=== PATIENT | female | born 1960 | race African-American/Black ===

== ENCOUNTER 2016-03-05 10:22 | Inpatient (IN) | payer OTHER ==
[2016-03-05 10:43] VITALS: BMI 34.9
--- NOTE | 2016-03-05 11:46 | HP ---
COWS - Scale Resting Pulse: 2= [place] 101-120 Sweatin= Chills/Flushing Restless Observation: 1= Difficult to Sit Still Pupil Size: 0= Normal to Room Light Bone or Joint Aches: 2= Severe Diffuse Aches Runny Nose/ Eye Tearin= Nasal Congestion GI Upset > 30mins: 1= Stomach Cramp Tremor Observation: 2= Slight Tremor Visible Yawning Observation: 1= 1-2x During Session Anxiety or Irritability: 1=Feels Anxious/Irritable Goose Flesh Skin: 0=Smooth Skin COWS Score: 12 CIWA Score - CIWA Score Nausea/Vomitin-Mild Nausea/No Vomiting Muscle Tremors: 4-Moderate,w/Arms Extend Anxiety: 4-Mod. Anxious/Guarded Agitation: 1-Slight > Activity Paroxysmal Sweats: 1-Minimal Palms Moist Orientation: 0-Oriented Tacttile Disturbances: 1-Very Mild Itch/Numbness Auditory Disturbances: 1-Very Mild Visual Disturbances: 1-Very Mild Sensitivity Headache: 2-Mild CIWA-Ar Total Score: 16 Admission ROS BHS - HPI Chief Complaint: My wants me to stop, he's had it, I can't stop shaking. Allergies/Adverse Reactions: Allergies Allergy/AdvReac Type Severity Reaction Status Date / Time No Known Drug Allergies Allergy Severe Itching Verified 07/04/15 13:42 tomato [Tomato] Allergy Unknown Not Verified 07/04/15 13:42 Specified History of Present Illness: 55 yo woman here for detox from heroin and alcohol - requests valium instead of librium. Last here for detox in Jun, 2015. Interested in going back on methadone program. No seizures but does have black outs. BGM currently 325 - states she did not take her morning insulin. Exam Limitations: Clinical Condition - Ebola screening Have you traveled outside of the country in the last 21 days: No (N) Have you had contact with anyone from an Ebola affected area: No Have you been sick,other than usual withdrawal symptoms: No Do you have a fever: No - Review of Systems Constitutional: Chills, Loss of Appetite, Night Sweats, Changes in sleep, Weakness, Unintentional Wgt. Loss EENT: reports: Blurred Vision, Nose Congestion Respiratory: reports: No Symptoms reported Cardiac: reports: No Symptoms Reported GI: reports: Nausea, Poor Appetite, Indigestion : reports: Frequency Musculoskeletal: reports: Back Pain, Joint Pain, Muscle Pain Integumentary: reports: No Symptoms Reported Neuro: reports: Headache, Numbness, Tremors Endocrine: reports: No Symptoms Reported Hematology: reports: No Symptoms Reported Psychiatric: reports: Judgement Intact, Mood/Affect Appropiate, Agitated, Anxious Other Systems: Reviewed and Negative Patient History - Patient Medical History Hx Anemia: No Hx Asthma: Yes (ON ALBUTEROLINHALER) Hx Chronic Obstructive Pulmonary Disease (COPD): No Hx Cancer: No Hx Cardiac Disorders: No Hx Congestive Heart Failure: No Hx Hypertension: Yes Hx Hypercholesterolemia: No Hx Pacemaker: No HX Cerebrovascular Accident: No Hx Seizures: No Hx Dementia: No Hx Diabetes: Yes Hx Gastrointestinal Disorders: No Hx Liver Disease: Yes Hx Genitourinary Disorders: No Hx Sexually Transmitted Disorders: Yes (gonorrhea) Hx Renal Disease (ESRD): No Hx Thyroid Disease: No Hx Human Immunodeficiency Virus (HIV): No Hx Hepatitis C: Yes (NO TREATMENT) Hx Depression: Yes Hx Suicide Attempt: Yes (1999) Hx Bipolar Disorder: No Hx Schizophrenia: No Other Medical History: low back pain - severe degenerative changes - Patient Surgical History Past Surgical History: Yes Hx Neurologic Surgery: No Hx Cataract Extraction: No Hx Cardiac Surgery: No Hx Lung Surgery: No Hx Breast Surgery: Yes (Left breast LUMPECTOMY - 2005 BENIGN) Hx Breast Biopsy: Yes Hx Abdominal Surgery: Yes (Hysterectomy -2007) Hx Appendectomy: No Hx Cholecystectomy: No Hx Genitourinary Surgery: No Hx Section: No Hx Orthopedic Surgery: No Anesthesia Reaction: No - PPD History Previous Implant?: Yes Documented Results: Negative w/proof Implanted On Prior [facility] Admission?: No Date: 07/04/15 Results: 0 mm PPD to be Administered?: No - Reproductive History Patient is a Female of Child Bearing Age (11 -55 yrs old): Yes Last Menstrual Period: 10/07/07 Patient : No - Smoking Cessation Smoking history: Current every day smoker Have you smoked in the past 12 months: Yes Aproximately how many cigarettes per day: 10 Cigars Per Day: 0 Hx Chewing Tobacco Use: No Initiated information on smoking cessation: Yes 'Breaking Loose' booklet given: 03/05/16 (given on admission to floor) - Substance & Tx. History Hx Alcohol Use: Yes Hx Substance Use: Yes Substance Use Type: Alcohol, Heroin Hx Substance Use Treatment: Yes (detox, rehab, hx mmtp) - Substances Abused Alcohol Route: Oral Frequency: Daily Amount used: two sixteen oz beers Age of first use: 17 Date of Last Use: 03/05/16 Heroin Route: Inhalation Frequency: Daily Amount used: 10 bags Age of first use: 13 Date of Last Use: 03/04/16 Crack Route: Smoking Frequency: 1-2 times per week Amount used: $40 Age of first use: 39 Date of Last Use: 03/03/16 Family Disease History - Family Disease History Family Disease History: Diabetes: Mother ( FROM [place]. OF THE LIVER,HTN), Brother, Heart Disease: Mother, Sister ( MII), CA: Father (etoh, ), Mother Admission Physical Exam [facility] - Vital Signs Vital Signs: Vital Signs - 24 hr 03/05/16 10:41 Temperature 97.4 F L Pulse Rate 106 H Respiratory 18 Rate Blood Pressure 134/99 - Physical General Appearance: Yes: Nourished, Appropriately Dressed, Moderate Distress, Tremorous, Anxious HEENTM: Yes: Hearing grossly Normal, Normal ENT Inspection, Normocephalic, Normal Voice, Pharynx Normal Respiratory: Yes: Normal Breath Sounds, No Respiratory Distress Neck: Yes: No masses,lesions,Nodules, Supple Breast: Yes: Breast Exam Deferred Cardiology: Yes: Regular Rhythm, Regular Rate Abdominal: Yes: Soft Genitourinary: Yes: Frequency Back: Yes: Decreased Range of Motion Musculoskeletal: Yes: full range of Motion, Gait Steady Extremities: Yes: Normal Inspection, Normal Range of Motion, Tremors Neurological: Yes: Fully Oriented, Alert, Normal Mood/Affect, Numbness Integumentary: Yes: Normal Color, Warm Lymphatic: Yes: Within Normal Limits - Diagnostic (1) Alcohol dependence with uncomplicated withdrawal Current Visit: Yes Status: Chronic (2) Uncomplicated opioid dependence Current Visit: Yes Status: Chronic (3) Arthritis Current Visit: Yes Status: Chronic (4) HTN (hypertension) Current Visit: Yes Status: Chronic Qualifiers: Qualified Code(s): I10 - Essential (primary) hypertension (5) Hepatitis C Current Visit: Yes Status: Chronic (6) Nicotine dependence Current Visit: Yes Status: Chronic Qualifiers: Qualified Code(s): F17.210 - Nicotine dependence, cigarettes, uncomplicated (7) Diabetes mellitus with insulin therapy Current Visit: Yes Status: Chronic (8) Low back pain Current Visit: Yes Status: Chronic Qualifiers: Qualified Code(s): M54.5 - Low back pain Cleared for Admission [facility] - Detox or Rehab [facility] Level of Care: Medically Managed Detox Regimen/Protocol: Methadone/Valium [facility] Breath Alcohol Content Breath Alcohol Content: 0.044 Urine Pregancy Test - Result Urine Test Results: Negative- NO Line Present Urine Drug Screen - Results Drug Screen Negative: No Urine Drug Screen Results: KENYA-Cocaine, OPI-Opiates
[2016-03-05] MEDS ORDERED: MAGNESIUM HYDROX 2400MG/30ML ORAL SUSPENSION 30 ML CUP PO PRN (13:05)
[2016-03-05] MEDS ORDERED: MAGNESIUM CITRATE 300 ML BOTTLE PO PRN (13:05)
[2016-03-05] MEDS ORDERED: diphenhydrAMINE HCL 50 MG CAPSULE PO PRN (13:05)
[2016-03-05] MEDS ORDERED: P-EPHED 60MG/TRIPROLIDI 2.5MG TABLET PO PRN (13:05)
[2016-03-05] MEDS ORDERED: MAG HYDROX/AL HYDROX/SIMETH 30 ML UNIT-DOSE CUP PO PRN (13:05)
[2016-03-05] MEDS ORDERED: LOPERAMIDE HCL 2 MG CAPSULE PO PRN (13:05)
[2016-03-05] MEDS ORDERED: MENTHOL/PHENOL 1 EACH UD MM PRN (13:05)
[2016-03-05] MEDS ORDERED: METHADONE HCL 10 MG TABLET (FOR DETOX USE ONLY) PO ONE ×2 (13:05→23:00)
[2016-03-05] MEDS ORDERED: IBUPROFEN 400 MG TABLET (FP) PO PRN (13:05)
[2016-03-05] MEDS ORDERED: diazePAM 5 MG TABLET PO ONE (13:05)
[2016-03-05] MEDS ORDERED: ACETAMINOPHEN 325 MG TABLET (FP) PO PRN (13:05)
[2016-03-05] MEDS ORDERED: guaiFENesin/D-METHORPHAN HB 10 ML UNIT-DOSE CUPS PO PRN (13:05)
[2016-03-05] MEDS ORDERED: ALBUTEROL SO4 6.7 GM HFA INHALER IH PRN (13:12)
--- NOTE | 2016-03-05 13:41 | CONSULT ---
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 Substance Abuse History: - Smoking Cessation. Smoking history: Current every day smoker. Have you smoked in the past 12 months: Yes. Aproximately how many cigarettes per day: 10. Cigars Per Day: 0. Hx Chewing Tobacco Use: No. Initiated information on smoking cessation: Yes. 'Breaking Loose' booklet given : 03/05/16 (given on admission to floor). - Substance & Tx. History. Hx Alcohol Use: Yes. Hx Substance Use: Yes. Substance Use Type: Alcohol, Heroin. Hx Substance Use Treatment: Yes (detox, rehab, hx mmtp). - Substances Abused. Alcohol. Route: Oral. Frequency: Daily. Amount used: two sixteen oz beers. Age of first use: 17. Date of Last Use: 03/05/16. Heroin. Route : Inhalation. Frequency: Daily. Amount used: 10 bags. Age of first use: 13. Date of Last Use: 03/04/16. Crack. Route: Smoking. Frequency: 1-2 times per week. Amount used: $40. Age of first use: 39. Date of Last Use: 03/03/16 Medical History: Significant for a history of bronchial asthma,hypertension, diabetes mellitus,hepatitis C,arthritis,low back pain,psoriasis and past surgeries (hysterectomy and left breast lumpectomy). Psychiatric History: History of one psychiatric hospitalization ([facility] in 1999) for depression.Diagnosed with Bipolar Disorder (previous records).Ms Goyal is under the care of Dr Marleni Matt (primary care physician) for medication management :lexapro 20 mg po/day (not taken for at least three months as per self-report) + zolpidem 10 mg/hs.Noted history of suicide attempt (1999).Patient indicates her wish to get back on lexapro and she insists on zolpidem at bedtime. Physical/Sexual Abuse/Trauma History: Patient denies. Additional Comment: Urine Drug Screen Results: KENYA-Cocaine, OPI-Opiates.Noted. Mental Status Exam - Mental Status Exam Alert and Oriented to: Time, Place, Person Cognitive Function: Good Patient Appearance: Well Groomed Mood: Nervous, Anxious, Apprehensive Affect: Mood Congruent Patient Behavior: Dependent (medication-seeking : pressuring this feature writer for scripts for benzodiazepines at discharge), Fatigued, Cooperative Speech Pattern: Clear Voice Loudness: Normal Thought Process: Goal Oriented Thought Disorder: Not Present Hallucinations: Denies Suicidal Ideation: Denies Homicidal Ideation: Denies Insight/Judgement: Poor Sleep: Poorly, Difficulty falling asleep Appetite: Good Muscle strength/Tone: Normal Gait/Station: Normal Psychiatric Findings - Problem List ([place] 1, 2,3) (1) Alcohol dependence with uncomplicated withdrawal Current Visit: Yes Status: Acute (2) Nicotine dependence Current Visit: Yes Status: Acute Qualifiers: Nicotine product type: cigarettes Substance use status: uncomplicated Qualified Code(s): F17.210 - Nicotine dependence, cigarettes, uncomplicated (3) Opioid dependence with withdrawal Current Visit: Yes Status: Acute (4) Cocaine dependence Current Visit: Yes Status: Acute Qualifiers: Substance use status: uncomplicated Qualified Code(s): F14.20 - Cocaine dependence, uncomplicated (5) Substance induced mood disorder Current Visit: Yes Status: Acute (6) Depressive disorder Current Visit: Yes Status: Chronic Comment: Self-report. (7) Arthritis Current Visit: Yes Status: Chronic (8) Diabetes mellitus with insulin therapy Current Visit: Yes Status: Chronic (9) Hepatitis C Current Visit: Yes Status: Chronic Qualifiers: Viral hepatitis chronicity: chronic (10) Low back pain Current Visit: Yes Status: Chronic Qualifiers: Chronicity: chronic Back pain laterality: midline Sciatica presence : without sciatica Qualified Code(s): M54.5 - Low back pain (11) Asthma Current Visit: Yes Status: Chronic Qualifiers: Asthma severity: mild intermittent Asthma complication type: uncomplicated Qualified Code(s): J45.20 - Mild intermittent asthma, uncomplicated (12) Psoriasis Current Visit: Yes Status: Chronic (13) Insomnia Current Visit: Yes Status: Acute - Initial Treatment Plan Initial Treatment Plan: Psychoeducation.Detoxification.Medications :zolpidem 5 mg po hs (reduced).Patient is made aware of the risk of parasomnias.Ms Goyal reports that zolpidem has been well tolerated for years.Pharmacy Claims reviewed :noted filled script for ambien on 02/18/[address] Gamez @ [facility] 10 mg # 30 tab/30 days).No script for zolpidem at discharge.Patient is made aware.She agrees with this careplan.She declines to take antidepressant medications (SSRI) and she is pressuring this feature writer for benzodiazepine scripts at discharge.Observation.
--- NOTE | 2016-03-05 16:13 | EKG ---
Test Reason : Blood Pressure : / mmHG Vent. Rate : 090 BPM Atrial Rate : 090 BPM P-R Int : 152 ms QRS Dur : 074 ms QT Int : 384 ms P-R-T Axes : 068 056 066 degrees QTc Int : 469 ms NORMAL SINUS RHYTHM BIATRIAL ENLARGEMENT ABNORMAL ECG WHEN COMPARED WITH ECG OF 09-NOV-2015 17:09, NONSPECIFIC T WAVE ABNORMALITY NO LONGER EVIDENT IN INFERIOR LEADS Confirmed by NATE CHOWDHURY, SILVIA ([id number]) on 03/05/2016 4:12:43 PM Referred By: Confirmed By:SILVIA SULLIVAN MD
[2016-03-05] MEDS ORDERED: INSULIN (NOVOLOG) ASPART 100 UNITS/ML 10ML VIAL ONE ×2 (16:52→21:43)
[2016-03-05] MEDS: INSULIN SLIDING SCALE (NOVOLOG) 1 VIAL SQ SCH ×2 (16:59→22:39)
[2016-03-05] MEDS: diazePAM 5 MG TABLET PO PRN (17:17)
[2016-03-05 17:52] LABS: URINE APPEARANCE SLCLOUDY; URINE BILIRUBIN NEGATIVE (NEGATIVE); URINE BLOOD NEGATIVE (NEGATIVE); URINE COLOR LTYELLOW; URINE GLUCOSE (UA) 3+ (NEGATIVE); URINE KETONE NEGATIVE (NEGATIVE); URINE LEUK ESTERASE NEGATIVE (NEGATIVE); URINE NITRITE NEGATIVE (NEGATIVE); URINE PROTEIN NEGATIVE (NEGATIVE); URINE UROBILINOGEN NEGATIVE E.U./dl (0.2-1.0)
[2016-03-05] MEDS: INSULIN DETEMIR 100 UNITS/ML MDV SQ SCH (22:38)
[2016-03-05] MEDS: cloNIDine HCL 0.1 MG TABLET PO SCH (22:38)
[2016-03-05] MEDS: ZOLPIDEM TARTRATE 5 MG TABLET PO PRN (22:38)
[2016-03-05] MEDS: THIAMINE HCL 100 MG TABLET (FP) PO SCH (22:39)
[2016-03-05] MEDS: diazePAM 5 MG TABLET PO SCH (22:39)
[2016-03-06] MEDS: diazePAM 5 MG TABLET PO PRN ×3 (01:14→11:38)
[2016-03-06] MEDS: diazePAM 5 MG TABLET PO SCH ×3 (04:59→22:39)
[2016-03-06] MEDS ORDERED: INSULIN DETEMIR 100 UNITS/ML MDV SQ SCH (07:00)
[2016-03-06] MEDS ORDERED: INSULIN (NOVOLOG) ASPART 100 UNITS/ML 10ML VIAL ONE ×4 (07:14→21:09)
[2016-03-06] MEDS: INSULIN DETEMIR 100 UNITS/ML MDV SQ SCH ×2 (07:16→21:12)
[2016-03-06] MEDS: INSULIN SLIDING SCALE (NOVOLOG) 1 VIAL SQ SCH ×4 (07:16→21:12)
[2016-03-06 09:15] LABS: MCH 28.1 pg (25.7-33.7); MCHC 32.4 g/dl (32.0-36.0); MEAN CELL VOLUME 86.7 fl (80-96); MEAN PLT VOLUME 9.5 fl (7.5-11.1); PLATELET COUNT 217 K/MM3 (134-434); RDW 13.7 % (11.6-15.6); WHITE BLOOD COUNT 5.2 K/mm3 (4.0-10.0)
[2016-03-06 09:28] LABS: ALBUMIN 4.1 g/dl (3.4-5.0); ANION GAP 6 (8-16); CALCIUM 9.4 mg/dL (8.5-10.1); CO2 29 mmol/L (21-32)
[2016-03-06 09:33] LABS: ALK PHOS 151 U/L (45-117); BILIRUBIN,TOTAL 0.4 mg/dL (0.2-1.0); CREATININE 0.8 mg/dL (0.55-1.02); SGOT/AST 11 U/L (15-37); SGPT/ALT 19 U/L (12-78); TOT PROT 7.6 g/dl (6.4-8.2)
[2016-03-06 09:52] LABS: GLUCOSE,RANDOM 355 mg/dL (74-106)
[2016-03-06] MEDS ORDERED: METHADONE HCL 10 MG TABLET (FOR DETOX USE ONLY) PO SCH (10:00)
[2016-03-06] MEDS: cloNIDine HCL 0.1 MG TABLET PO SCH ×2 (10:51→22:39)
[2016-03-06] MEDS: amLODIPine BESYLATE 5 MG TABLET (FP) PO SCH (10:51)
--- NOTE | 2016-03-06 13:57 | PN ---
[facility] CIWA - CIWA Score Nausea/Vomitin Muscle Tremors: 3 Anxiety: 3 Agitation: 3 Paroxysmal Sweats: 1-Minimal Palms Moist Orientation: 0-Oriented Tacttile Disturbances: 1-Very Mild Itch/Numbness Auditory Disturbances: 1-Very Mild Visual Disturbances: 1-Very Mild Sensitivity Headache: 2-Mild CIWA-Ar Total Score: 18 BHS COWS - Scale Resting Pulse: 2= [place] 101-120 Sweatin= Chills/Flushing Restless Observation: 3= Extraneous Movement Pupil Size: 1= Pupils >than Normal Bone or Joint Aches: 2= Severe Diffuse Aches Runny Nose/ Eye Tearin= Runny Nose/Eyes GI Upset > 30mins: 2= Nausea/Diarrhea Tremor Observation of Outstretched Hands: 2= Slight Tremor Visible Yawning Observation: 1= 1-2x During Session Anxiety or Irritability: 2=Irritable/Anxious Goose Flesh Skin: 0=Smooth Skin COWS Score: 18 S Progress Note (SOAP) Subjective: ALERT,IRRITABLE,ANXIOUS,INTERRUPTED SLEEP,PAIN IN THE BODY AND BACK Objective: 03/06/16 13:54 Vital Signs Temperature 97.9 F 03/06/16 10:00 Pulse Rate 102 H 03/06/16 10:00 Respiratory Rate 20 03/06/16 10:00 Blood Pressure 147/94 03/06/16 10:00 O2 Sat by Pulse Oximetry (%) 03/06/16 13:54 EKG NSR Laboratory Last Values WBC 5.2 K/mm3 (4.0-10.0) D 03/06/16 07:20 RBC 5.17 M/mm3 (3.60-5.2) 03/06/16 07:20 Hgb 14.5 GM/dL (10.7-15.3) D 03/06/16 07:20 Hct 44.8 % (32.4-45.2) D 03/06/16 07:20 MCV 86.7 fl (80-96) 03/06/16 07:20 MCHC 32.4 g/dl (32.0-36.0) 03/06/16 07:20 RDW 13.7 % (11.6-15.6) 03/06/16 07:20 Plt Count 217 K/MM3 (134-434) 03/06/16 07:20 MPV 9.5 fl (7.5-11.1) D 03/06/16 07:20 Sodium 132 mmol/L (136-145) L 03/06/16 07:20 Potassium 4.2 mmol/L (3.5-5.1) D 03/06/16 07:20 Chloride 97 mmol/L (98-107) L 03/06/16 07:20 Carbon Dioxide 29 mmol/L (21-32) 03/06/16 07:20 Anion Gap 6 (8-16) L 03/06/16 07:20 BUN 17 mg/dL (7-18) D 03/06/16 07:20 Creatinine 0.8 mg/dL (0.55-1.02) 03/06/16 07:20 Creat Clearance w eGFR > 60 (>60) 03/06/16 07:20 POC Glucometer 345 UNITS (()) 03/06/16 06:04 Random Glucose 355 mg/dL (74-106) H* D 03/06/16 07:20 Calcium 9.4 mg/dL (8.5-10.1) 03/06/16 07:20 Total Bilirubin 0.4 mg/dL (0.2-1.0) 03/06/16 07:20 AST 11 U/L (15-37) L D 03/06/16 07:20 ALT 19 U/L (12-78) D 03/06/16 07:20 Alkaline Phosphatase 151 U/L (45-117) H 03/06/16 07:20 Total Protein 7.6 g/dl (6.4-8.2) 03/06/16 07:20 Albumin 4.1 g/dl (3.4-5.0) D 03/06/16 07:20 Urine Color Ltyellow 03/05/16 14:00 Urine Appearance Slcloudy 03/05/16 14:00 Urine pH 5.0 (5.0-8.0) 03/05/16 14:00 Ur Specific [place] 1.028 (1.001-1.035) 03/05/16 14:00 Urine Protein Negative (NEGATIVE) 03/05/16 14:00 Urine Glucose (UA) 3+ (NEGATIVE) H 03/05/16 14:00 Urine Ketones Negative (NEGATIVE) 03/05/16 14:00 Urine Blood Negative (NEGATIVE) 03/05/16 14:00 Urine Nitrite Negative (NEGATIVE) 03/05/16 14:00 Urine Bilirubin Negative (NEGATIVE) 03/05/16 14:00 Urine Urobilinogen Negative E.U./dl (0.2-1.0) 03/05/16 14:00 Ur Leukocyte Esterase Negative (NEGATIVE) 03/05/16 14:00 RPR Titer Nonreactive (NONREACTIVE) 03/06/16 07:20 Assessment: 03/06/16 13:54 WITHDRAWAL SYMPTOM 03/06/16 13:56 Plan: CONTINUE DETOX,BGM MONITORING WITH INSULIN COVERAGE
[2016-03-06] MEDS: hydrOXYzine PAMOATE 50 MG CAPSULE (FP) PO PRN (20:40)
[2016-03-06] MEDS: ZOLPIDEM TARTRATE 5 MG TABLET PO PRN (22:38)
[2016-03-06] MEDS: THIAMINE HCL 100 MG TABLET (FP) PO SCH (22:39)
[2016-03-07] MEDS: diazePAM 5 MG TABLET PO PRN ×4 (02:03→16:57)
[2016-03-07] MEDS: hydrOXYzine PAMOATE 50 MG CAPSULE (FP) PO PRN ×3 (06:09→15:02)
[2016-03-07] MEDS ORDERED: INSULIN (NOVOLOG) ASPART 100 UNITS/ML 10ML VIAL ONE ×2 (07:26→16:55)
[2016-03-07] MEDS: INSULIN DETEMIR 100 UNITS/ML MDV SQ SCH ×2 (07:32→22:46)
[2016-03-07] MEDS: INSULIN SLIDING SCALE (NOVOLOG) 1 VIAL SQ SCH ×4 (07:32→22:46)
--- NOTE | 2016-03-07 09:11 | PN ---
Psychiatric Progress Note Vital Signs: Vital Signs Period Temp Pulse Resp BP Sys/Hernández Pulse Ox Last 24 Hr 96.1 F-97.9 F 94-113 18-20 104-147/59-94 Date of Session: 03/07/16 Chief Complaint:: "need my ambien" HPI: Patient is a 55 year old female with history of heroin,cocaine and alcohol dependence.Patient is single,a mother of two,domiciled and unemployed and supported on SSI benefits. ROS: Significant for a history of bronchial asthma,hypertension,diabetes mellitus,hepatitis C,arthritis,low back pain,psoriasis and past surgeries ( hysterectomy and left breast lumpectomy). Current Medications: Active Medications Generic Name Dose Route Start Last Admin Trade Name Freq PRN Reason Stop Dose Admin Acetaminophen 650 mg 03/05/16 13:05 03/07/16 07:33 Tylenol - PO 650 mg Q4H PRN Administration FEVER OR PAIN Al Hydroxide/Mg Hydroxide 30 ml 03/05/16 13:05 Mylanta Oral Suspension - PO Q6H PRN DYSPEPSIA Albuterol Sulfate 2 puff 03/05/16 13:12 03/06/16 13:24 Ventolin Hfa Inhaler - IH 2 puff Q4H PRN Administration SHORT OF BREATH/WHEEZING Amlodipine Besylate 5 mg 03/06/16 10:00 03/06/16 10:51 Norvasc - PO 5 mg DAILY ROSY Administration Clonidine 0.2 mg 03/05/16 22:00 03/06/16 22:39 Catapres - PO 0.2 mg BID ROSY Administration Diazepam 10 mg 03/05/16 13:05 03/07/16 07:32 Valium - PO 03/08/16 13:05 10 mg Q4H PRN Administration WITHDRAWAL(CONT SUBST) Diazepam 5 mg 03/07/16 10:00 Valium - PO 03/08/16 22:01 BID ROSY Diazepam 5 mg 03/09/16 10:00 Valium - PO 03/09/16 10:01 DAILY ROSY Diphenhydramine HCl 50 mg 03/05/16 13:05 Benadryl - PO HSMR1 PRN INSOMNIA Eucalyptus/Menthol/Phenol/Sorbitol 1 each 03/05/16 13:05 Cepastat Lozenge - MM Q4H PRN SORE THROAT Guaifenesin 10 ml 03/05/16 13:05 03/06/16 13:25 Robitussin Dm - PO 10 ml Q6H PRN Administration COUGH Hydroxyzine Pamoate 50 mg 03/05/16 13:05 03/07/16 06:09 Vistaril - PO 50 mg Q4H PRN Administration AGITATION Ibuprofen 400 mg 03/05/16 13:05 Motrin - PO Q6H PRN SEVERE PAIN Insulin Aspart 1 vial 03/05/16 16:30 03/07/16 07:32 Novolog Vial Sliding Scale - SQ 12 units ACHS ROSY Administration Protocol Insulin Detemir 20 units 03/06/16 07:00 03/07/16 07:32 Levemir Vial SQ 20 units AM ROSY Administration Insulin Detemir 10 units 03/05/16 22:00 03/06/16 21:12 Levemir Vial SQ 10 units HS ROSY Administration Loperamide HCl 4 mg 03/05/16 13:05 Imodium - PO Q6H PRN DIARRHEA Magnesium Citrate 300 ml 03/05/16 13:05 Citroma - PO Q48H PRN CONSTIPATION Magnesium Hydroxide 30 ml 03/05/16 13:05 Milk Of Magnesia - PO DAILY PRN CONSTIPATION Methadone HCl 10 mg 03/09/16 10:00 Dolophine - PO 03/09/16 10:01 DAILY ROSY Methadone HCl 15 mg 03/07/16 10:00 Dolophine - PO 03/08/16 10:01 DAILY ROSY Methadone HCl 5 mg 03/10/16 06:00 Dolophine - PO 03/10/16 06:01 DAILY@0600 [facility] Multivit/Folic Acid/Iron 1 tab 03/06/16 10:00 03/06/16 10:51 Vitamins (Sjr) - PO 1 tab DAILY [facility] Administration Pseudoephedrine/Triprolidine 1 combo 03/05/16 13:05 Actifed - PO TID PRN NASAL CONGESTION Thiamine HCl 100 mg 03/05/16 22:00 03/06/16 22:39 Vitamin B1 - PO 100 mg HS ROSY Administration Zolpidem Tartrate 5 mg 03/05/16 14:42 03/06/16 22:38 Ambien - PO 5 mg HS PRN Administration INSOMNIA Medication(s) Change(s): increase ambien to 10 mg po hs. Current Side Effect: No Lab tests ordered: No Lab tests reviewed: Yes Provider note:: Patient reports history of bipolar d/o, depressed type, she was seen by medications continued, but ambien 5 mg ordered. Patient reports she needs 10, will change, continue detox. protocol. Total face to face time:: 15 Mental Status Exam - Mental Status Exam Alert and Oriented to: Time, Place, Person Cognitive Function: Good Patient Appearance: Well Groomed Mood: Irritable Affect: Appropriate, Mood Congruent Patient Behavior: Appropriate Speech Pattern: Appropriate Voice Loudness: Normal Thought Process: Intact Hallucinations: Denies Suicidal Ideation: Denies Homicidal Ideation: Denies Insight/Judgement: Fair Sleep: Difficulty falling asleep Appetite: Fair Muscle strength/Tone: Normal Gait/Station: Normal Psychiatric Treatment Plan - Problem List (1) Alcohol dependence with uncomplicated withdrawal Current Visit: Yes (2) Cocaine dependence Current Visit: Yes Qualifiers: Substance use status: uncomplicated Qualified Code(s): F14.20 - Cocaine dependence, uncomplicated (3) Nicotine dependence Current Visit: Yes Qualifiers: Nicotine product type: cigarettes Substance use status: uncomplicated Qualified Code(s): F17.210 - Nicotine dependence, cigarettes, uncomplicated (4) Substance induced mood disorder Current Visit: Yes
[2016-03-07] MEDS: amLODIPine BESYLATE 5 MG TABLET (FP) PO SCH (10:29)
[2016-03-07] MEDS: cloNIDine HCL 0.1 MG TABLET PO SCH ×2 (10:29→22:45)
[2016-03-07] MEDS: diazePAM 5 MG TABLET PO SCH ×2 (10:30→22:45)
[2016-03-07] MEDS: METHADONE HCL 5 MG TABLET (FOR DETOX USE ONLY) PO SCH (10:30)
[2016-03-07] MEDS: LIDOCAINE 5% TOPICAL PATCH TP SCH (11:59)
--- NOTE | 2016-03-07 14:19 | PN ---
[facility] CIWA - CIWA Score Nausea/Vomitin Muscle Tremors: 3 Anxiety: 3 Agitation: 2 Paroxysmal Sweats: 1-Minimal Palms Moist Orientation: 0-Oriented Tacttile Disturbances: 1-Very Mild Itch/Numbness Auditory Disturbances: 1-Very Mild Visual Disturbances: 1-Very Mild Sensitivity Headache: 2-Mild CIWA-Ar Total Score: 17 BHS COWS - Scale Resting Pulse: 1= [place] 81-100 Sweatin= Chills/Flushing Restless Observation: 3= Extraneous Movement Pupil Size: 1= Pupils >than Normal Bone or Joint Aches: 2= Severe Diffuse Aches Runny Nose/ Eye Tearin= Runny Nose/Eyes GI Upset > 30mins: 2= Nausea/Diarrhea Tremor Observation of Outstretched Hands: 2= Slight Tremor Visible Yawning Observation: 1= 1-2x During Session Anxiety or Irritability: 2=Irritable/Anxious Goose Flesh Skin: 0=Smooth Skin COWS Score: 17 S Progress Note (SOAP) Subjective: ALERT,IRRITABLE,ANXIOUS,TREMOR,PAIN IN THE BACK, Objective: 03/07/16 14:17 Vital Signs Temperature 98.1 F 03/07/16 10:28 Pulse Rate 95 H 03/07/16 10:28 Respiratory Rate 18 03/07/16 10:28 Blood Pressure 128/78 03/07/16 10:28 O2 Sat by Pulse Oximetry (%) Laboratory Last Values WBC 5.2 K/mm3 (4.0-10.0) D 03/06/16 07:20 RBC 5.17 M/mm3 (3.60-5.2) 03/06/16 07:20 Hgb 14.5 GM/dL (10.7-15.3) D 03/06/16 07:20 Hct 44.8 % (32.4-45.2) D 03/06/16 07:20 MCV 86.7 fl (80-96) 03/06/16 07:20 MCHC 32.4 g/dl (32.0-36.0) 03/06/16 07:20 RDW 13.7 % (11.6-15.6) 03/06/16 07:20 Plt Count 217 K/MM3 (134-434) 03/06/16 07:20 MPV 9.5 fl (7.5-11.1) D 03/06/16 07:20 Sodium 132 mmol/L (136-145) L 03/06/16 07:20 Potassium 4.2 mmol/L (3.5-5.1) D 03/06/16 07:20 Chloride 97 mmol/L (98-107) L 03/06/16 07:20 Carbon Dioxide 29 mmol/L (21-32) 03/06/16 07:20 Anion Gap 6 (8-16) L 03/06/16 07:20 BUN 17 mg/dL (7-18) D 03/06/16 07:20 Creatinine 0.8 mg/dL (0.55-1.02) 03/06/16 07:20 Creat Clearance w eGFR > 60 (>60) 03/06/16 07:20 POC Glucometer 149 UNITS (()) 03/07/16 11:25 Random Glucose 355 mg/dL (74-106) H* D 03/06/16 07:20 Calcium 9.4 mg/dL (8.5-10.1) 03/06/16 07:20 Total Bilirubin 0.4 mg/dL (0.2-1.0) 03/06/16 07:20 AST 11 U/L (15-37) L D 03/06/16 07:20 ALT 19 U/L (12-78) D 03/06/16 07:20 Alkaline Phosphatase 151 U/L (45-117) H 03/06/16 07:20 Total Protein 7.6 g/dl (6.4-8.2) 03/06/16 07:20 Albumin 4.1 g/dl (3.4-5.0) D 03/06/16 07:20 Urine Color Ltyellow 03/05/16 14:00 Urine Appearance Slcloudy 03/05/16 14:00 Urine pH 5.0 (5.0-8.0) 03/05/16 14:00 Ur Specific [place] 1.028 (1.001-1.035) 03/05/16 14:00 Urine Protein Negative (NEGATIVE) 03/05/16 14:00 Urine Glucose (UA) 3+ (NEGATIVE) H 03/05/16 14:00 Urine Ketones Negative (NEGATIVE) 03/05/16 14:00 Urine Blood Negative (NEGATIVE) 03/05/16 14:00 Urine Nitrite Negative (NEGATIVE) 03/05/16 14:00 Urine Bilirubin Negative (NEGATIVE) 03/05/16 14:00 Urine Urobilinogen Negative E.U./dl (0.2-1.0) 03/05/16 14:00 Ur Leukocyte Esterase Negative (NEGATIVE) 03/05/16 14:00 RPR Titer Nonreactive (NONREACTIVE) 03/06/16 07:20 Assessment: 03/07/16 14:17 WITHDRAWAL SYMPTOM Plan: CONTINUE DETOX,BGM MONITORING,LIDODERM PATCH FOR CHRONIC LOW BACK PAIN,
[2016-03-07] MEDS ORDERED: ZOLPIDEM TARTRATE 10 MG TABLET (PARK CARE ONLY) PO PRN (22:00)
[2016-03-07] MEDS: THIAMINE HCL 100 MG TABLET (FP) PO SCH (22:45)
[2016-03-08] MEDS: diazePAM 5 MG TABLET PO PRN ×2 (02:00→06:41)
[2016-03-08] MEDS ORDERED: INSULIN (NOVOLOG) ASPART 100 UNITS/ML 10ML VIAL ONE ×2 (06:33→11:25)
[2016-03-08] MEDS: INSULIN SLIDING SCALE (NOVOLOG) 1 VIAL SQ SCH ×3 (06:34→16:56)
[2016-03-08] MEDS: INSULIN DETEMIR 100 UNITS/ML MDV SQ SCH (06:34)
--- NOTE | 2016-03-08 09:41 | PN ---
[facility] Progress Note (SOAP) Subjective: interrupted sleep, sweats ,shakes , irritable Objective: 03/08/16 09:41 Vital Signs Temperature 98.6 F 03/08/16 07:01 Pulse Rate 90 03/08/16 07:01 Respiratory Rate 20 03/08/16 07:01 Blood Pressure 122/73 03/08/16 07:01 O2 Sat by Pulse Oximetry (%) Laboratory Tests 03/05/16 03/05/16 03/06/16 12:51 14:00 06:04 WBC RBC Hgb Hct MCV MCHC RDW Plt Count MPV Sodium Potassium Chloride Carbon Dioxide Anion Gap BUN Creatinine Creat Clearance w eGFR POC Glucometer 325 345 Random Glucose Calcium Total Bilirubin AST ALT Alkaline Phosphatase Total Protein Albumin Urine Color Ltyellow Urine Appearance Slcloudy Urine pH 5.0 Ur Specific [place] 1.028 Urine Protein Negative Urine Glucose (UA) 3+ H Urine Ketones Negative Urine Blood Negative Urine Nitrite Negative Urine Bilirubin Negative Urine Urobilinogen Negative Ur Leukocyte Esterase Negative RPR Titer 03/06/16 03/06/16 03/06/16 07:20 07:20 07:20 WBC 5.2 D RBC 5.17 Hgb 14.5 D Hct 44.8 D MCV 86.7 MCHC 32.4 RDW 13.7 Plt Count 217 MPV 9.5 D Sodium 132 L Potassium 4.2 D Chloride 97 L Carbon Dioxide 29 Anion Gap 6 L BUN 17 D Creatinine 0.8 Creat Clearance w eGFR > 60 POC Glucometer Random Glucose 355 H* D Calcium 9.4 Total Bilirubin 0.4 AST 11 L D ALT 19 D Alkaline Phosphatase 151 H Total Protein 7.6 Albumin 4.1 D Urine Color Urine Appearance Urine pH Ur Specific [place] Urine Protein Urine Glucose (UA) Urine Ketones Urine Blood Urine Nitrite Urine Bilirubin Urine Urobilinogen Ur Leukocyte Esterase RPR Titer Nonreactive 03/07/16 03/07/16 03/07/16 11:25 16:22 21:19 WBC RBC Hgb Hct MCV MCHC RDW Plt Count MPV Sodium Potassium Chloride Carbon Dioxide Anion Gap BUN Creatinine Creat Clearance w eGFR POC Glucometer 149 352 270 Random Glucose Calcium Total Bilirubin AST ALT Alkaline Phosphatase Total Protein Albumin Urine Color Urine Appearance Urine pH Ur Specific [place] Urine Protein Urine Glucose (UA) Urine Ketones Urine Blood Urine Nitrite Urine Bilirubin Urine Urobilinogen Ur Leukocyte Esterase RPR Titer 03/08/16 11:40 pt aox3 in nad sitting in bed Assessment: 03/08/16 09:41 withdrawl sx;s 03/08/16 11:40 dm uncontrolled Plan: cont. detox increase fluids monitor bgms , coverage as indicated
[2016-03-08] MEDS: amLODIPine BESYLATE 5 MG TABLET (FP) PO SCH (10:39)
[2016-03-08] MEDS: cloNIDine HCL 0.1 MG TABLET PO SCH (10:39)
[2016-03-08] MEDS: METHADONE HCL 5 MG TABLET (FOR DETOX USE ONLY) PO SCH (10:39)
[2016-03-08] MEDS: diazePAM 5 MG TABLET PO SCH (10:40)
[2016-03-08] MEDS: LIDOCAINE 5% TOPICAL PATCH TP SCH (10:42)
[2016-03-08] MEDS: hydrOXYzine PAMOATE 50 MG CAPSULE (FP) PO PRN (13:51)
[2016-03-08 14:30] VITALS: BP 103/73; PULSE 110; TEMP 96.9
[2016-03-08] MEDS ORDERED: diazePAM 5 MG TABLET PO ONE (15:08)
--- NOTE | 2016-03-08 21:56 | DS ---
[id number] Present History: Alcohol Dependence, Cocaine Dependence, Opioid Dependence Pertinent Past History: DIABETES II HYPERTENSION - Physical Exam Results Vital Signs: Vital Signs Temperature 96.9 F L 03/08/16 14:30 Pulse Rate 110 H 03/08/16 14:30 Respiratory Rate 20 03/08/16 14:30 Blood Pressure 103/73 03/08/16 14:30 O2 Sat by Pulse Oximetry (%) Pertinent Admission Physical Exam Findings: WITHDRAWAL SX Laboratory Last Values WBC 5.2 K/mm3 (4.0-10.0) D 03/06/16 07:20 RBC 5.17 M/mm3 (3.60-5.2) 03/06/16 07:20 Hgb 14.5 GM/dL (10.7-15.3) D 03/06/16 07:20 Hct 44.8 % (32.4-45.2) D 03/06/16 07:20 MCV 86.7 fl (80-96) 03/06/16 07:20 MCHC 32.4 g/dl (32.0-36.0) 03/06/16 07:20 RDW 13.7 % (11.6-15.6) 03/06/16 07:20 Plt Count 217 K/MM3 (134-434) 03/06/16 07:20 MPV 9.5 fl (7.5-11.1) D 03/06/16 07:20 Sodium 132 mmol/L (136-145) L 03/06/16 07:20 Potassium 4.2 mmol/L (3.5-5.1) D 03/06/16 07:20 Chloride 97 mmol/L (98-107) L 03/06/16 07:20 Carbon Dioxide 29 mmol/L (21-32) 03/06/16 07:20 Anion Gap 6 (8-16) L 03/06/16 07:20 BUN 17 mg/dL (7-18) D 03/06/16 07:20 Creatinine 0.8 mg/dL (0.55-1.02) 03/06/16 07:20 Creat Clearance w eGFR > 60 (>60) 03/06/16 07:20 POC Glucometer 136 UNITS (()) 03/08/16 16:28 Random Glucose 355 mg/dL (74-106) H* D 03/06/16 07:20 Calcium 9.4 mg/dL (8.5-10.1) 03/06/16 07:20 Total Bilirubin 0.4 mg/dL (0.2-1.0) 03/06/16 07:20 AST 11 U/L (15-37) L D 03/06/16 07:20 ALT 19 U/L (12-78) D 03/06/16 07:20 Alkaline Phosphatase 151 U/L (45-117) H 03/06/16 07:20 Total Protein 7.6 g/dl (6.4-8.2) 03/06/16 07:20 Albumin 4.1 g/dl (3.4-5.0) D 03/06/16 07:20 Urine Color Ltyellow 03/05/16 14:00 Urine Appearance Slcloudy 03/05/16 14:00 Urine pH 5.0 (5.0-8.0) 03/05/16 14:00 Ur Specific [place] 1.028 (1.001-1.035) 03/05/16 14:00 Urine Protein Negative (NEGATIVE) 03/05/16 14:00 Urine Glucose (UA) 3+ (NEGATIVE) H 03/05/16 14:00 Urine Ketones Negative (NEGATIVE) 03/05/16 14:00 Urine Blood Negative (NEGATIVE) 03/05/16 14:00 Urine Nitrite Negative (NEGATIVE) 03/05/16 14:00 Urine Bilirubin Negative (NEGATIVE) 03/05/16 14:00 Urine Urobilinogen Negative E.U./dl (0.2-1.0) 03/05/16 14:00 Ur Leukocyte Esterase Negative (NEGATIVE) 03/05/16 14:00 RPR Titer Nonreactive (NONREACTIVE) 03/06/16 07:20 LAB NOTED - Treatment Hospital Course: Detox Protocol Followed, Responded well - Medication Discharge Medications: Ambulatory Orders Insulin (Levemir) [Levemir Flexpen -] 10 units SQ HS 06/18/14 Clonidine HCl [Catapres -] 0.2 mg PO BID 10/01/14 Albuterol Sulfate Inhaler - [Ventolin HFA Inhaler -] 2 inh PO Q4H PRN #1 inhaler 11/13/15 Amlodipine Besylate [Norvasc -] 5 mg PO DAILY #30 tablet 11/13/15 Escitalopram Oxalate [Lexapro -] 20 mg PO DAILY #30 tablet 11/13/15 Insulin (Levemir) [Levemir Vial] 20 units SQ AM 03/05/16 - AMA Did Patient Leave Against Medical Advice: Yes
[2016-03-09] MEDS ORDERED: METHADONE HCL 10 MG TABLET (FOR DETOX USE ONLY) PO SCH (10:00)
[2016-03-09] MEDS ORDERED: diazePAM 5 MG TABLET PO SCH (10:00)
[2016-03-10] MEDS ORDERED: METHADONE HCL 5 MG TABLET (FOR DETOX USE ONLY) PO SCH (06:00)
== END 2016-03-08 20:40 | disposition left against medical advice (07) | DRG 770 ==
LOC: YASAS 10:22 → Y6N 12:29
PROVIDERS: ADMIT Internal Medicine; ATTEND Internal Medicine
PROC: HZ2ZZZZ Detoxification Services for Substance Abuse Treatment (ICD-10-PCS; principal; 2016-03-05)
DX: F11.23 Opioid dependence with withdrawal (principal); F10.230 Alcohol dependence with withdrawal, uncomplicated; F14.20 Cocaine dependence, uncomplicated; F19.24 Other psychoactive substance dependence with psychoactive substance-induced mood disorder; F32.9 Major depressive disorder, single episode, unspecified; E11.65 Type 2 diabetes mellitus with hyperglycemia; Z79.4 Long term (current) use of insulin; I10 Essential (primary) hypertension; J45.909 Unspecified asthma, uncomplicated; B18.2 Chronic viral hepatitis C; M54.5 Low back pain; M12.9 Arthropathy, unspecified; L40.9 Psoriasis, unspecified; Z90.710 Acquired absence of both cervix and uterus; Z87.42 Personal history of other diseases of the female genital tract; Z98.890 Other specified postprocedural states
CPT/HCPCS: 36415; 80053; 81003; 85027; 86593; 93005; 93010

== ENCOUNTER → 2016-06-30 | Emergency (ER) | payer OTHER ==
[~2016-06-30] MED LIST: ACETAMINOPHEN WITH CODEINE 300MG/30MG TABLET ONE; ACETAMINOPHEN WITH CODEINE 300MG/30MG TABLET PO ONE; CIPROFLOXACIN HCL 0.3% OPHTH 2.5ML BOTTLE ONE; ERYTHROMYCIN 0.5% OPHTHALMIC OINTMENT 3.5 GM TUBE OD ONE; ERYTHROMYCIN 0.5% OPHTHALMIC OINTMENT 3.5 GM TUBE ONE; HYDROmorphone HCL 2 MG TABLET ONE; HYDROmorphone HCL CARPU-JECT 1 MG/1 ML DISP.SYRIN IVPUSH ONE; HYDROmorphone HCL CARPU-JECT 1 MG/1 ML DISP.SYRIN ONE; INSULIN REGULAR HUMAN 100 UNITS/ML *VIAL IVPUSH ONE; INSULIN REGULAR HUMAN 100 UNITS/ML *VIAL ONE; KETOROLAC TROMETHAMINE 30 MG/1 ML VIAL IVPUSH ONE; KETOROLAC TROMETHAMINE 30 MG/1 ML VIAL ONE; SODIUM CHLORIDE 1,000 ML IV STA; TETANUS AND DIPHTHERIA TOXOID 0.5 ML DISP.SYRIN IM ONE; TETRACAINE 0.5% HCL 0.6ML DROPPER.BOTTLE OD ONE; VANCOMYCIN 1 GRAM (PRE-DOCKED) 250 ML IVPB ONE; oxyCODONE HCL 5 MG TABLET ONE
[2016-06-30 01:32] VITALS: BMI 24.2
--- NOTE | 2016-06-30 01:56 | PDOC ---
History of Present Illness - General Chief Complaint: Eye Problem Stated Complaint: EYE PROBLEM Time Seen by Provider: 06/30/16 01:27 History Source: Patient Exam Limitations: No Limitations - History of Present Illness Initial Comments: 06/30/16 02:42 55-year-old female florinda with a medical history of IDDM, hyperlipidemia, hypertension, arthritis, drug abuse/heroin and cocaine: Nasal ingestion presents to the emergency department complaining of right eye pain. Pain is described as 10/10 sharp nonradiating constant discomfort 5 days. Patient states she cannot recall if she sustained an eye injury 5 days ago because she was high on heroin and cocaine. Patient states when she woke up from her sleep, she felt a foreign body sensation to the right eye which increasingly became worse in pain with visual disturbance. Patient states the constant rubbing of her right eye causes increased pain. Patient denies any headache, dizziness, lightheadedness, jaw pains, neck pains, chest pain, shortness of breath, abdominal pains, ext numbness or tingling sensation. Patient also states her glucose level is usually in the 400s because she is sometimes noncompliant with her medication. 06/30/16 06:16 Timing/Duration: other (x5d) Past History - Past Medical History Allergies/Adverse Reactions: Allergies Allergy/AdvReac Type Severity Reaction Status Date / Time No Known Drug Allergies Allergy Severe Itching Verified 06/30/16 01:32 tomato [Tomato] Allergy Unknown Not Verified 06/30/16 01:32 Specified Home Medications: Ambulatory Orders Insulin (Levemir) [Levemir Flexpen -] 10 units SQ HS 06/18/14 Albuterol Sulfate Inhaler - [Ventolin HFA Inhaler -] 2 inh PO Q4H PRN #1 inhaler 11/13/15 Amlodipine Besylate [Norvasc -] 5 mg PO DAILY #30 tablet 11/13/15 Clonidine HCl [Catapres -] 0.2 mg PO BID #60 03/08/16 Insulin (Levemir) [Levemir Vial] 20 units SQ AM #1 03/08/16 Erythromycin 0.5% Eye Ointment [Erythromycin 0.5% Eye Ointment -] 1 applic OD BID #1 tube 06/30/16 Anemia: No Asthma: Yes (ON ALBUTEROLINHALER) Cancer: No Cardiac Disorders: No CVA: No COPD: No CHF: No Dementia: No Diabetes: Yes GI Disorders: No Disorders: No HTN: Yes Hypercholesterolemia: No Kidney Stones: No Liver Disease: Yes Suicide Attempt (Hx): Yes (1999) Seizures: No Thyroid Disease: No - Surgical History Abdominal Surgery: Yes (Hysterectomy -2008) Appendectomy: No Cardiac Surgery: No Cholecystectomy: No (r/o gallstones) Lung Surgery: No Neurologic Surgery: No Orthopedic Surgery: No - Reproductive History PID: No - Immunization History Immunization Up to Date: Yes - Psycho/Social/Smoking Cessation Hx Anxiety: No Suicidal Ideation: No Smoking History: Current every day smoker Have you smoked in the past 12 months: Yes Number of Cigarettes Smoked Daily: 10 Cigars Per Day: 0 Information on smoking cessation initiated: Yes 'Breaking Loose' booklet given: 03/05/16 Hx Alcohol Use: Yes (Ocassional) Drug/Substance Use Hx: No Substance Use Type: Alcohol, Heroin Hx Substance Use Treatment: Yes (detox, rehab, hx mmtp) Review of Systems - Review of Systems Able to Perform ROS?: Yes Comments:: 06/30/16 02:48 CONSTITUTIONAL: Absent: fever, chills, diaphoresis, generalized weakness, malaise, loss of appetite HEENT: +right eye pain, visual Changes Absent: rhinorrhea, nasal congestion, throat pain, throat swelling, difficulty swallowing, mouth swelling, ear pain, CARDIOVASCULAR: Absent: chest pain, loss of consciousness, palpitations, irregular heart rate, peripheral edema RESPIRATORY: Absent: cough, shortness of breath, dyspnea with exertion, orthopnea, wheezing, stridor, hemoptysis GASTROINTESTINAL: Absent: abdominal pain, abdominal distension, nausea, vomiting, diarrhea, constipation, melena, hematochezia GENITOURINARY: Absent: dysuria, frequency, urgency, hesitancy, hematuria, flank pain, genital pain MUSCULOSKELETAL: Absent: myalgia, arthralgia, joint swelling SKIN: Absent: rash, itching, pallor HEMATOLOGIC/IMMUNOLOGIC: Absent: easy bleeding, easy bruising, lymphadenopathy, frequent infections ENDOCRINE: Absent: unexplained weight gain, unexplained weight loss, heat intolerance, cold intolerance NEUROLOGIC: Absent: headache, focal weakness or paresthesias, dizziness, unsteady gait, seizure, mental status changes, bladder or bowel incontinence PSYCHIATRIC: Absent: anxiety, depression, suicidal or homicidal ideation, hallucinations. Is the patient limited [place] proficient: No *Physical Exam - Vital Signs Last Vital Signs Temp Pulse Resp BP Pulse Ox 97.7 F 123 H 22 134/95 98 06/30/16 01:28 06/30/16 01:28 06/30/16 01:28 06/30/16 01:28 06/30/16 01:28 - Physical Exam Comments: 06/30/16 02:49 GENERAL: Well developed, well nourished. Awake and alert. No acute distress. HEENT: _right medial conjunctiva;injected, 3mm x 4mm central fluorescein uptake , negative foreign body noted to the upper and lower interior lids on exam, negative hyphema Normocephalic, atraumatic. PERRLA, EOMI. Sclera are non-icteric. Moist mucous membranes. Oropharynx is clear. NECK: Supple. Full ROM. No JVD. Carotid pulses 2+ and symmetric, without bruits. No thyromegaly. No lymphadenopathy. CARDIOVASCULAR: Regular rate and rhythm. No murmurs, rubs, or gallops. Distal pulses are 2+ and symmetric. PULMONARY: No evidence of respiratory distress. Lungs clear to auscultation bilaterally. No wheezing, rales or rhonchi. ABDOMINAL: Soft. Non-tender. Non-distended. No rebound or guarding. No organomegaly. Normoactive bowel sounds. MUSCULOSKELETAL Normal range of motion at all joints. No bony deformities or tenderness. No CVA tenderness. EXTREMITIES: No cyanosis. No clubbing. No edema. No calf tenderness. SKIN: Warm and dry. Normal capillary refill. No rashes. No jaundice. NEUROLOGICAL: Alert, awake, appropriate. Cranial nerves 2-12 intact. No deficits to light touch and temperature in face, upper extremities and lower extremities. No motor deficits in the in face, upper extremities and lower extremities. Normoreflexic in the upper and lower extremities. Normal speech. Toes are down- going bilaterally. Gait is normal without ataxia. PSYCHIATRIC: Cooperative. Good eye contact. Appropriate mood and affect. 06/30/16 02:51 ED Treatment Course - LABORATORY CBC & Chemistry Diagram: 06/30/16 02:16 06/30/16 02:52 - Medications Given in the ED: ED Medications Discontinued Medications Generic Name Dose Route Start Last Admin Trade Name Freq PRN Reason Stop Dose Admin Tetracaine HCl 1 drop 05/11/17 01:40 06/30/16 01:44 Tetravisc 0.5% Eye Drops - OD 06/30/16 01:41 1 drop ONCE ONE Administration *DC/Admit/Observation/Transfer Diagnosis at time of Disposition: Corneal ulcer, right - Discharge Dispostion Disposition: HOME Condition at time of disposition: Fair - Prescriptions Prescriptions: Erythromycin 0.5% Eye Ointment [Erythromycin 0.5% Eye Ointment -] 1 applic OD BID #1 tube - Referrals Referrals: Qamar Hallman MD [Staff Physician] - Marleni Shlutz MD [Primary Care Provider] - Zofia Miller MD [Staff Physician] - - Patient Instructions Printed Discharge Instructions: DI for Corneal Ulcer Additional Instructions: Follow up with the opthalmologist Tylenol alternating with motrin as needed for pain Return to the ER for severe/persistent/worsening symptoms Go directly to Dr. Mena at 8:45am or Dr. Benoit/opthalmolgist at 12:45am [address] [place] [place] [address] Progress Note - Progress Note Progress Note: 0600hrs: Called Dr. Camarillo/Opthalomolgy operations team leader. Dr. Benoit covering 0620hrs: Spoke to Dr. Benoit who says pt should be seen in his office at 8:45am by Dr. Mena or DR. Benoit at 1:45
[2016-06-30 02:37] LABS: BASOPHIL 0.5 % (0-2.0); EOSINOPHIL 0.6 % (0-4.5); MCH 28.3 pg (25.7-33.7); MCHC 33.1 g/dl (32.0-36.0); MEAN CELL VOLUME 85.6 fl (80-96); MEAN PLT VOLUME 8.8 fl (7.5-11.1); NEUTROPHILS 65.2 % (42.8-82.8); PLATELET COUNT 228 K/MM3 (134-434); RDW 13.7 % (11.6-15.6); WHITE BLOOD COUNT 8.9 K/mm3 (4.0-10.0)
[2016-06-30 03:31] LABS: ALBUMIN 4.2 g/dl (3.4-5.0); BILIRUBIN,TOTAL 0.7 mg/dL (0.2-1.0); CALCIUM 9.3 mg/dL (8.5-10.1); COCKROFT - GAULT 49.062; CREATININE 1.1 mg/dL (0.55-1.02); TOT PROT 8.2 g/dl (6.4-8.2)
[2016-06-30 06:13] LABS: URINE MARIJUANA THC NEGATIVE ng/ml (CUTOFF=50)
[2016-06-30 06:48] VITALS: BP 147/86; PULSE 128; TEMP 98.2
--- NOTE | 2016-06-30 12:44 | EKG ---
Test Reason : Blood Pressure : / mmHG Vent. Rate : 118 BPM Atrial Rate : 118 BPM P-R Int : 134 ms QRS Dur : 080 ms QT Int : 344 ms P-R-T Axes : 071 041 060 degrees QTc Int : 482 ms SINUS TACHYCARDIA RIGHT ATRIAL ENLARGEMENT BORDERLINE ECG WHEN COMPARED WITH ECG OF 05-MAR-2016 13:44, NO SIGNIFICANT CHANGE WAS FOUND Confirmed by REZA VINSON MD ([id number]) on 06/30/2016 12:43:53 PM Referred By: Confirmed By:REZA VINSON MD
== END | disposition home or self-care (01) ==
LOC: SUPCPDRO 01:25 → JER 01:25
PROC: 3E0234Z Introduction of Serum, Toxoid and Vaccine into Muscle, Percutaneous Approach (ICD-10-PCS; principal; 2016-06-30)
PROC: 3E0337Z Introduction of Electrolytic and Water Balance Substance into Peripheral Vein, Percutaneous Approach (ICD-10-PCS; 2016-06-30)
PROC: 3E033NZ Introduction of Analgesics, Hypnotics, Sedatives into Peripheral Vein, Percutaneous Approach (ICD-10-PCS; 2016-06-30)
PROC: 3E0333Z Introduction of Anti-inflammatory into Peripheral Vein, Percutaneous Approach (ICD-10-PCS; 2016-06-30)
PROC: 3E033VG Introduction of Insulin into Peripheral Vein, Percutaneous Approach (ICD-10-PCS; 2016-06-30)
DX: H16.001 Unspecified corneal ulcer, right eye (principal); I10 Essential (primary) hypertension; E11.9 Type 2 diabetes mellitus without complications; Z79.4 Long term (current) use of insulin; E78.00 Pure hypercholesterolemia, unspecified; E78.5 Hyperlipidemia, unspecified; M12.9 Arthropathy, unspecified; F11.10 Opioid abuse, uncomplicated; F14.10 Cocaine abuse, uncomplicated
CPT/HCPCS: 36415; 80053; 80307; 85025; 93005; 93010; 99283-25

== ENCOUNTER 2016-07-02 02:38 | Emergency (ER) | payer OTHER ==
[2016-07-02 02:47] VITALS: TEMP 97.4; BMI 28.3
[2016-07-02] MEDS ORDERED: HYDROmorphone HCL CARPU-JECT 2 MG/1 ML DISP.SYRIN IVPUSH ONE ×2 (03:42→04:48)
--- NOTE | 2016-07-02 03:49 | PDOC ---
History of Present Illness - General History Source: Patient Exam Limitations: No Limitations - History of Present Illness Initial Comments: 07/02/16 04:03 The patient is a 55 year old female with a significant past medical history of IDDM, HTN, HLD, cocaine/heroin abuse, and bipolar disorder, who presents to the ER with right eye pain. Patient states she was here two days ago for similar symptoms and was referred to an opthamologist. Patient was given two antibiotic (vancomycin and gentamicin) eye drops by her head charrer and was told to follow-up daily. Patient says she is not able to commute to her opthamologist daily. On interview, patient is complaining of a generalized headache. Denies fever, chills, cough Denies nausea, vomiting, diarrhea Denies lightheadedness Denies dizziness <Jaqui Henderson - Last Filed: 07/02/16 05:23> <Cathryn Guerrero - Last Filed: 07/03/16 22:28> - General Chief Complaint: Headache Stated Complaint: HEADACHE Time Seen by Provider: 07/02/16 03:11 Past History <Jaqui Henderson - Last Filed: 07/02/16 05:23> - Past Medical History Anemia: No Asthma: Yes (ON ALBUTEROLINHALER) Cancer: No Cardiac Disorders: No CVA: No COPD: No CHF: No Dementia: No Diabetes: Yes GI Disorders: No Disorders: No HTN: Yes Hypercholesterolemia: No Kidney Stones: No Liver Disease: Yes Suicide Attempt (Hx): Yes (1999) Seizures: No Thyroid Disease: No - Surgical History Abdominal Surgery: Yes (Hysterectomy -2007) Appendectomy: No Cardiac Surgery: No Cholecystectomy: No (r/o gallstones) Lung Surgery: No Neurologic Surgery: No Orthopedic Surgery: No - Reproductive History PID: No - Immunization History Immunization Up to Date: Yes - Psycho/Social/Smoking Cessation Hx Anxiety: No Suicidal Ideation: No Smoking History: Never smoked Have you smoked in the past 12 months: No Number of Cigarettes Smoked Daily: 10 Cigars Per Day: 0 Information on smoking cessation initiated: No 'Breaking Loose' booklet given: 03/05/16 Hx Alcohol Use: No Drug/Substance Use Hx: No Substance Use Type: Alcohol, Heroin Hx Substance Use Treatment: Yes (detox, rehab, hx mmtp) <Cathryn Guerrero - Last Filed: 07/03/16 22:28> - Past Medical History Allergies/Adverse Reactions: Allergies Allergy/AdvReac Type Severity Reaction Status Date / Time No Known Drug Allergies Allergy Severe Itching Verified 07/02/16 02:44 tomato [Tomato] Allergy Unknown Not Verified 07/02/16 02:44 Specified Home Medications: Ambulatory Orders Insulin (Levemir) [Levemir Flexpen -] 10 units SQ HS 06/18/14 Albuterol Sulfate Inhaler - [Ventolin HFA Inhaler -] 2 inh PO Q4H PRN #1 inhaler 11/13/15 Amlodipine Besylate [Norvasc -] 5 mg PO DAILY #30 tablet 11/13/15 Clonidine HCl [Catapres -] 0.2 mg PO BID #60 03/08/16 Insulin (Levemir) [Levemir Vial] 20 units SQ AM #1 03/08/16 Erythromycin 0.5% Eye Ointment [Erythromycin 0.5% Eye Ointment -] 1 applic OD BID #1 tube 06/30/16 Oxycodone HCl/Acetaminophen [Percocet 5-325 mg Tablet -] 2 combo PO Q6H PRN #24 tablet MDD 8 07/02/16 Review of Systems - Review of Systems Able to Perform ROS?: Yes Comments:: 07/02/16 04:04 CONSTITUTIONAL: Absent: fever, no chills, no fatigue EYES: Present: right eye pain Absent: visual changes ENT: Absent: ear pain, no sore throat CARDIOVASCULAR: Absent: chest pain, no palpitations RESPIRATORY: Absent: cough, no SOB GI: Absent: abdominal pain, no nausea, no vomiting, no constipation, no diarrhea GENITOURINARY: Absent: dysuria, no frequency, no hematuria MUSCULOSKELETAL: Absent: back pain, no arthralgia, no myalgia SKIN: Absent: rash NEURO: Present: generalized headache <Uts,Jaqui - Last Filed: 07/02/16 05:23> *Physical Exam - Vital Signs Last Vital Signs Temp Pulse Resp BP Pulse Ox 97.4 F L 90 18 144/88 98 07/02/16 02:44 07/02/16 02:44 07/02/16 02:44 07/02/16 02:44 07/02/16 02:44 - Physical Exam Comments: 07/02/16 04:05 GENERAL: Well-appearing, well-nourished. No apparent distress. HEENT: Hypopyon in the right eye. Full ROM of eyes. Normocephalic, atraumatic. PERRL, EOM intact. CARDIOVASCULAR: Normal S1, S2. Regular rate and rhythm. PULMONARY: Clear to auscultation bilaterally. ABDOMEN: Soft, non-distended, non-tender. EXTREMITIES: Normal ROM in all four extremities. No gross deformities. SKIN: Warm, dry. No rash NEUROLOGICAL: No focal neurological deficits. <Jaqui Henderson - Last Filed: 07/02/16 05:23> - Vital Signs Last Vital Signs Temp Pulse Resp BP Pulse Ox 97.4 F L 90 18 144/88 98 07/02/16 02:44 07/02/16 02:44 07/02/16 02:44 07/02/16 02:44 07/02/16 02:44 <Cathryn Guerrero - Last Filed: 07/03/16 22:28> ED Treatment Course - LABORATORY CBC & Chemistry Diagram: 07/02/16 04:02 07/02/16 04:02 - RADIOLOGY Radiograph Interpretation: 07/02/16 05:[address] impression reported by Dr. Harvey Lugo MD : Preseptal edema overlying the right orbit without intraorbital cellulitis, or abscess <Jaqui Henderson - Last Filed: 07/02/16 05:23> - LABORATORY CBC & Chemistry Diagram: 07/02/16 04:02 07/02/16 06:07 <Cathryn Guerrero - Last Filed: 07/03/16 22:28> Medical Decision Making - Medical Decision Making 07/02/16 04:47 Patient Name: Irene Goyal THIS IS A PRELIMINARY REPORT FROM [facility] DATE OF SERVICE: 2016-07-02 04:17:08.0 IMAGES: 290 EXAM: ORBIT CT W/O CONTRAST HISTORY:Pain in right eye COMPARISON: None. TECHNIQUE: CT of the orbits with axial images extending from the superior orbital rim to the maxilla with sagittal and coronal reconstructed images and vascular contrast FINDINGS: Orbital globes maintain spherical configuration and normal attenuation. Optic nerves and extra ocular muscles appear normal. Intraconal and extraconal orbital fat appear normal. There is some increased thickness and increased attenuation in the soft tissues overlying the right orbit. There is an old appearing fracture of the medial wall left orbit and the left zygoma. IMPRESSION: Preseptal edema overlying the right orbit without intraorbital cellulitis, or abscess THIS DOCUMENT HAS BEEN ELECTRONICALLY SIGNED 07/02/16 06:37 I spoke to ophtho Dr. Benoit who saw patient in his office. He sent her to [facility] for treatment and admission. Pt was sent home with fortified vanco and fortified gentamycin eye drops. Not surprisingly, as she is bipolar and addicted to drugs, she hasn't been taking her meds hourly as she is supposed to be taking. She was sent home as an outpatient and advised to follow daily at the eye clinic in [place]. She is incapable of treating self. She will be transferred back to [facility]. I am awaiting ER doc at [facility] to call me back. Rolling Up Machine Operator has also been called. 07/02/16 07:12 I will sign patient out to day ER doc who will transfer patient to [facility] or [facility]. I called our pharmacy and they are unable to make fortified eye drops. <Cathryn Guerrero - Last Filed: 07/03/16 22:28> *DC/Admit/Observation/Transfer - Attestations Scribe Attestion: 07/02/16 04:06 Documentation prepared by Jaqui Henderson, acting as biomedical equipment specialist for Cathryn Guerrero MD. <Jaqui Henderson - Last Filed: 07/02/16 05:23> <Cathryn Guerrero - Last Filed: 07/03/16 22:28> Diagnosis at time of Disposition: Corneal abrasion Qualifiers: Encounter type: initial encounter Laterality: right Qualified Code(s): S05.01XA - Injury of conjunctiva and corneal abrasion without foreign body, right eye, initial encounter - Discharge Dispostion Disposition: HOME Condition at time of disposition: Fair - Prescriptions Prescriptions: Oxycodone HCl/Acetaminophen [Percocet 5-325 mg Tablet -] 2 combo PO Q6H PRN #24 tablet MDD 8 PRN Reason: Pain - Referrals Referrals: Alejandro Rodriguez MD [Primary Care Provider] - - Patient Instructions Printed Discharge Instructions: DI for Corneal Ulcer Additional Instructions: Please follow up with the ophthalmalogists at [facility] as scheduled. Print Language: TAJIK
[2016-07-02] MEDS ORDERED: HYDROmorphone HCL CARPU-JECT 2 MG/1 ML DISP.SYRIN ONE ×2 (04:03→04:58)
[2016-07-02 04:10] LABS: BASOPHIL 0.7 % (0-2.0); EOSINOPHIL 2.5 % (0-4.5); MCH 28.4 pg (25.7-33.7); MCHC 33.1 g/dl (32.0-36.0); MEAN CELL VOLUME 85.9 fl (80-96); MEAN PLT VOLUME 9.6 fl (7.5-11.1); NEUTROPHILS 54.6 % (42.8-82.8); PLATELET COUNT 225 K/MM3 (134-434); RDW 13.6 % (11.6-15.6); WHITE BLOOD COUNT 7.4 K/mm3 (4.0-10.0)
[2016-07-02] MEDS ORDERED: ZOLPIDEM TARTRATE 5 MG TABLET PO ONE (04:48)
[2016-07-02] MEDS ORDERED: ZOLPIDEM TARTRATE 5 MG TABLET ONE (04:58)
[2016-07-02] MEDS ORDERED: ACETAMINOPHEN 1000 MG/100 ML VIAL (NON FORMULARY) IVPB ONE (06:17)
[2016-07-02] MEDS ORDERED: ACETAMINOPHEN INJECTION 100 ML IVPB ONE (06:19)
[2016-07-02 06:50] LABS: ALBUMIN 3.8 g/dl (3.4-5.0); BILIRUBIN,TOTAL 0.3 mg/dL (0.2-1.0); CALCIUM 8.9 mg/dL (8.5-10.1); COCKROFT - GAULT 67.4645; TOT PROT 7.3 g/dl (6.4-8.2)
[2016-07-02 07:48] VITALS: PULSE 119
[2016-07-02] MEDS ORDERED: oxyCODONE HCL 5 MG TABLET PO ONE (07:53)
--- NOTE | 2016-07-02 07:57 | PDOC ---
*Physical Exam - Vital Signs Last Vital Signs Temp Pulse Resp BP Pulse Ox 97.4 F L 119 H 21 94/71 96 07/02/16 02:44 07/02/16 07:25 07/02/16 07:25 07/02/16 07:25 07/02/16 07:25 ED Treatment Course - LABORATORY CBC & Chemistry Diagram: 07/02/16 04:02 07/02/16 06:07 - ADDITIONAL ORDERS Additional order review: Laboratory Results 07/02/16 07/02/16 06:07 04:02 Sodium 134 L Cancelled Potassium 3.4 L Cancelled Chloride 95 L Cancelled Carbon Dioxide 29 Cancelled Anion Gap 10 Cancelled BUN 15 D Cancelled Creatinine 1.0 Cancelled Creat Clearance w eGFR 57.35 Cancelled Random Glucose 397 H* Cancelled Calcium 8.9 Cancelled Total Bilirubin 0.3 D Cancelled AST 13 L Cancelled ALT 15 Cancelled Alkaline Phosphatase 111 Cancelled Total Protein 7.3 Cancelled Albumin 3.8 Cancelled 07/02/16 04:02 RBC 5.14 MCV 85.9 MCHC 33.1 RDW 13.6 MPV 9.6 Neutrophils % 54.6 Lymphocytes % 33.3 D Monocytes % 8.9 Eosinophils % 2.5 D Basophils % 0.7 - Medications Given in the ED: ED Medications Discontinued Medications Generic Name Dose Route Start Last Admin Trade Name Nabila PRN Reason Stop Dose Admin Acetaminophen 1,000 mg 07/02/16 06:17 07/02/16 06:20 Ofirmev Injection - IVPB 07/02/16 06:18 1,000 mg ONCE ONE Administration Hydromorphone HCl 2 mg 07/02/16 03:42 07/02/16 04:07 Dilaudid Injection - IVPUSH 07/02/16 03:43 2 mg ONCE ONE Administration Hydromorphone HCl 2 mg 07/02/16 04:48 07/02/16 05:04 Dilaudid Injection - IVPUSH 07/02/16 04:49 2 mg ONCE ONE Administration Zolpidem Tartrate 10 mg 07/02/16 04:48 07/02/16 05:04 Ambien - PO 07/02/16 04:49 10 mg ONCE ONE Administration Medical Decision Making - Medical Decision Making 07/02/16 07:52 The pt was signed out to me from Dr. Guerrero awaiting transfer to [facility] due to concern that the pt was unable to apply her medications with the frequency required. The pt had a recent diagnosis of a corneal ulcer, had gone to [facility] and received abx gtt,. which she states she has been 'diligently' applying. She states her has her abx drops at home. She states she has been using the eye drops as prescribed because 'she doesnt want to lose her eyes'. The patient states she came here today due to pain. The pt is requesting dilaudid for pain as that was what was helping the most with her pain. I will transition the pt to percocet. The pt is amenableto trying percocet. The pt has follow up with [facility] optho and i stressed the importance of following up as scheduled on monday. return precautions were discussed I discussed the physical exam findings, ancillary test results and final diagnoses with the patient. I answered all of the patient's questions. The patient was satisfied with the care received and felt comfortable with the discharge plan and treatment plan. The patient will call their primary care physician within 24 hours to arrange follow-up and will return to the Emergency Department with any new, persistent or worsening symptoms. *DC/Admit/Observation/Transfer Diagnosis at time of Disposition: Corneal abrasion Qualifiers: Encounter type: initial encounter Laterality: right Qualified Code(s): S05.01XA - Injury of conjunctiva and corneal abrasion without foreign body, right eye, initial encounter - Discharge Dispostion Disposition: HOME Condition at time of disposition: Fair Admit: No - Prescriptions Prescriptions: Oxycodone HCl/Acetaminophen [Percocet 5-325 mg Tablet -] 2 combo PO Q6H PRN #24 tablet MDD 8 PRN Reason: Pain - Referrals Referrals: Alejandro Rodriguez MD [Primary Care Provider] - - Patient Instructions Printed Discharge Instructions: DI for Corneal Ulcer Additional Instructions: Please follow up with the ophthalmalogists at [facility] as scheduled. Print Language: AUSTRIAN - Post Discharge Activity
[2016-07-02 08:19] VITALS: BP 106/75
== END 2016-07-02 08:19 | disposition home or self-care (01) ==
LOC: JER 02:38
PROC: 3E033NZ Introduction of Analgesics, Hypnotics, Sedatives into Peripheral Vein, Percutaneous Approach (ICD-10-PCS; principal; 2016-07-02)
PROC: 3E033NZ Introduction of Analgesics, Hypnotics, Sedatives into Peripheral Vein, Percutaneous Approach (ICD-10-PCS; 2016-07-02)
PROC: 3E033NZ Introduction of Analgesics, Hypnotics, Sedatives into Peripheral Vein, Percutaneous Approach (ICD-10-PCS; 2016-07-02)
DX: H16.001 Unspecified corneal ulcer, right eye (principal); E11.9 Type 2 diabetes mellitus without complications; Z79.4 Long term (current) use of insulin; E78.00 Pure hypercholesterolemia, unspecified; E78.5 Hyperlipidemia, unspecified; F11.10 Opioid abuse, uncomplicated; F14.10 Cocaine abuse, uncomplicated; F31.9 Bipolar disorder, unspecified; J45.909 Unspecified asthma, uncomplicated
CPT/HCPCS: 36415; 70450-TC; 70480-TC; 80053; 85025; 85651; 96374; 96375; 99282-25

== ENCOUNTER 2016-07-09 16:17 | Emergency (ER) | payer OTHER ==
[2016-07-09 16:27] VITALS: TEMP 97.4; BMI 30.2
[2016-07-09] MEDS ORDERED: HYDROmorphone HCL 2 MG TABLET PO ONE (17:33)
[2016-07-09] MEDS ORDERED: KETOROLAC TROMETHAMINE 30 MG/1 ML VIAL IM ONE (17:33)
[2016-07-09] MEDS ORDERED: VANCOMYCIN 1 GRAM (PRE-DOCKED) 1,000 MG/250 ML BAG IVPB ONE (18:18)
[2016-07-09] MEDS ORDERED: CIPROFLOXACIN 0.3% EYE DROPS 5 ML BOTTLE OS ONE (18:22)
[2016-07-09 18:26] LABS: BASOPHIL 0.7 % (0-2.0); EOSINOPHIL 0.2 % (0-4.5); MCH 28.2 pg (25.7-33.7); MCHC 32.6 g/dl (32.0-36.0); MEAN CELL VOLUME 86.5 fl (80-96); MEAN PLT VOLUME 8.1 fl (7.5-11.1); NEUTROPHILS 72.7 % (42.8-82.8); PLATELET COUNT 222 K/MM3 (134-434); RDW 13.3 % (11.6-15.6); WHITE BLOOD COUNT 7.9 K/mm3 (4.0-10.0)
--- NOTE | 2016-07-09 18:30 | PDOC ---
History of Present Illness - History of Present Illness Initial Comments: 07/09/16 18:29 CHIEF COMPLAINT: eye/head pain HISTORY OF PRESENT ILLNESS: 55 year old female with a significant past medical history of IDDM, HTN, HLD, cocaine/heroin abuse, and bipolar disorder, who presents to the ER with right eye pain. Patient was seen in this ED one week ago and referred to [facility] for optho treatment. Patient was given vancomycin and gentamicin eye drops by her qualification engineer and was told to follow-up daily. Patient states she has not been able to follow up daily. She complains the pain is 10/10 and that her eye is getting worse. No recent travel or sick contacts. PAST MEDICAL HISTORY: Denies past medical history FAMILY HISTORY: Denies SOCIAL HISTORY: Denies tobacco, alcohol, illicit drug use. SURGICAL HISTORY: Denies ALLERGIES: No known drug allergies REVIEW OF SYSTEMS General/Constitutional: Denies fever or chills. Denies weakness, weight change. HEENT: Denies change in vision. Denies ear pain or discharge. Denies sore throat. Cardiovascular: Denies chest pain or shortness of breath. Respiratory: Denies cough, wheezing, or hemoptysis. Gastrointestinal: Denies nausea, vomiting, diarrhea or constipation. Denies rectal bleeding. Genitourinary: Denies dysuria, frequency, or change in urination. Musculoskeletal: Denies joint or muscle swelling or pain. Denies neck or back pain. Skin and breasts: Denies rash or easy bruising. Neurologic: Denies headache, vertigo, loss of consciousness, or loss of sensation. Psychiatric: Denies depression or anxiety. Endocrine: Denies increased thirst. Denies abnormal weight change. Hematologic/Lymphatic: Denies anemia, easy bleeding, or history of blood clots. Allergic/Immunologic: Denies hives or skin allergy. Denies latex allergy. PHYSICAL EXAM General Appearance: Well-appearing, appropriately dressed. No apparent distress , no intoxication. HEENT: Hypopon to R eye. EOMI, PERRLA, normal ENT inspection, normal voice, TMs normal, pharynx normal. No conjunctival pallor. No photophobia, scleral icterus. Neck: Supple. Trachea midline. No tenderness, rigidity, carotid bruit, stridor , lymphadenopathy, or thyromegaly. Respiratory/Chest: Lungs CTAB. No shortness of breath, chest tenderness, respiratory distress, accessory muscle use. No crackles, rales, rhonchi, stridor , wheezing, dullness Cardiovascular: RRR. S1, S2. No JVD, murmur, bradycardia, tachycardia. Vascular Pulses: Dorsalis-Pedis (R): 2+, Dorsalis-Pedis (L): 2+ Gastrointestinal/Abdominal: Normal bowel sounds. Abdomen soft, non-distended. No tenderness or rebound tenderness. No organomegaly, pulsatile mass, guarding , hernia, hepatomegaly, splenomegaly. Lymphatic: No adenopathy, tenderness. Musculoskeletal/Extremities: Normal inspection. FROM of all extremities, normal capillary refill. Pelvis Stable. No CVA tenderness. No tenderness to extremities, pedal edema, swelling, erythema or deformity. Integumentary: Appropriate color, dry, warm. No cyanosis, erythema, jaundice or rash Neurologic: templer head II-XII intact. Fully oriented, alert. Appropriate mood/affect. Motor strength 5/5. No appreciable EOM palsy, facial droop or sensory deficit. 07/09/16 18:30 07/09/16 18:32 07/09/16 18:33 <Niyah Nunez - Last Filed: 07/09/16 18:33> <Marialuisa Ramirez - Last Filed: 07/09/16 19:03> - General Chief Complaint: Headache Stated Complaint: HEADACHE Time Seen by Provider: 07/09/16 16:37 Past History - Past Medical History Anemia: No Asthma: Yes (ON ALBUTEROLINHALER) Cancer: No Cardiac Disorders: No CVA: No COPD: No CHF: No Dementia: No Diabetes: Yes GI Disorders: No Disorders: No HTN: Yes Hypercholesterolemia: No Kidney Stones: No Liver Disease: Yes Suicide Attempt (Hx): Yes (1999) Seizures: No Thyroid Disease: No Other medical history: ARTHRITIS-BACK/KNEES. - Surgical History Abdominal Surgery: Yes Appendectomy: No Cardiac Surgery: No Cholecystectomy: No (r/o gallstones) Lung Surgery: No Neurologic Surgery: No Orthopedic Surgery: No - Reproductive History PID: No - Immunization History Immunization Up to Date: Yes - Psycho/Social/Smoking Cessation Hx Anxiety: No Suicidal Ideation: No Smoking History: Current every day smoker Have you smoked in the past 12 months: No Number of Cigarettes Smoked Daily: 10 Cigars Per Day: 0 Information on smoking cessation initiated: No 'Breaking Loose' booklet given: 03/05/16 Hx Alcohol Use: Yes Drug/Substance Use Hx: Yes (HEROIN.) Substance Use Type: Alcohol, Heroin Hx Substance Use Treatment: Yes (detox, rehab, hx mmtp) <Niyah Nunez - Last Filed: 07/09/16 18:33> <Marialuisa Ramirez - Last Filed: 07/09/16 19:03> - Past Medical History Allergies/Adverse Reactions: Allergies Allergy/AdvReac Type Severity Reaction Status Date / Time No Known Drug Allergies Allergy Severe Itching Verified 07/09/16 16:27 tomato [Tomato] Allergy Unknown Not Verified 07/09/16 16:27 Specified Home Medications: Ambulatory Orders Insulin (Levemir) [Levemir Flexpen -] 10 units SQ HS 06/18/14 Albuterol Sulfate Inhaler - [Ventolin HFA Inhaler -] 2 inh PO Q4H PRN #1 inhaler 11/13/15 Amlodipine Besylate [Norvasc -] 5 mg PO DAILY #30 tablet 11/13/15 Clonidine HCl [Catapres -] 0.2 mg PO BID #60 03/08/16 Insulin (Levemir) [Levemir Vial] 20 units SQ AM #1 03/08/16 Erythromycin 0.5% Eye Ointment [Erythromycin 0.5% Eye Ointment -] 1 applic OD BID #1 tube 06/30/16 Oxycodone HCl/Acetaminophen [Percocet 5-325 mg Tablet -] 2 combo PO Q6H PRN #24 tablet MDD 8 07/02/16 *Physical Exam - Vital Signs Last Vital Signs Temp Pulse Resp BP Pulse Ox 97.4 F L 98 H 20 123/86 100 07/09/16 16:22 07/09/16 16:22 07/09/16 16:22 07/09/16 16:22 07/09/16 16:22 <Niyah Nunez - Last Filed: 07/09/16 18:33> - Vital Signs Last Vital Signs Temp Pulse Resp BP Pulse Ox 97.4 F L 98 H 20 123/86 100 07/09/16 16:22 07/09/16 16:22 07/09/16 16:22 07/09/16 16:22 07/09/16 16:22 <Marialuisa Ramirez - Last Filed: 07/09/16 19:03> ED Treatment Course - LABORATORY CBC & Chemistry Diagram: 07/09/16 18:07 07/09/16 18:07 - ADDITIONAL ORDERS Additional order review: 07/09/16 18:07 RBC 4.84 MCV 86.5 MCHC 32.6 RDW 13.3 MPV 8.1 D Neutrophils % 72.7 D Lymphocytes % 18.6 D Monocytes % 7.8 Eosinophils % 0.2 D Basophils % 0.7 - Medications Given in the ED: ED Medications Discontinued Medications Generic Name Dose Route Start Last Admin Trade Name Freq PRN Reason Stop Dose Admin Hydromorphone HCl 2 mg 07/09/16 17:33 07/09/16 18:00 Dilaudid - PO 07/09/16 17:34 2 mg ONCE ONE Administration Ketorolac Tromethamine 30 mg 07/09/16 17:33 07/09/16 18:00 Toradol Injection - IM 07/09/16 17:34 30 mg ONCE ONE Administration <Niyah Nunez - Last Filed: 07/09/16 18:33> - LABORATORY CBC & Chemistry Diagram: 07/09/16 18:07 07/09/16 18:07 - ADDITIONAL ORDERS Additional order review: 07/09/16 18:07 RBC 4.84 MCV 86.5 MCHC 32.6 RDW 13.3 MPV 8.1 D Neutrophils % 72.7 D Lymphocytes % 18.6 D Monocytes % 7.8 Eosinophils % 0.2 D Basophils % 0.7 - Medications Given in the ED: ED Medications Discontinued Medications Generic Name Dose Route Start Last Admin Trade Name Freq PRN Reason Stop Dose Admin Ciprofloxacin 1 drop 07/09/16 18:22 07/09/16 18:47 Ciloxan 0.3% Eye Drops - OS 07/09/16 18:23 1 drop NOW ONE Administration Hydromorphone HCl 2 mg 07/09/16 17:33 07/09/16 18:00 Dilaudid - PO 07/09/16 17:34 2 mg ONCE ONE Administration Ketorolac Tromethamine 30 mg 07/09/16 17:33 07/09/16 18:00 Toradol Injection - IM 07/09/16 17:34 30 mg ONCE ONE Administration Vancomycin HCl 1,000 mg 07/09/16 18:18 07/09/16 18:47 Vancomycin (Pre-Docked) IVPB 07/09/16 18:19 1,000 mg ONCE ONE Administration Protocol <Marialuisa Ramirez - Last Filed: 07/09/16 19:03> Medical Decision Making - Medical Decision Making 07/09/16 18:34 55 year old female with a significant past medical history of IDDM, HTN, HLD, cocaine/heroin abuse, and bipolar disorder, who presents to the ER with right eye pain. Patient has recent diagnosis of corneal ulcer, exam remarkable for hypopyon to R eye. Discussed case with optho covering MD Hallman, who states that patient needs immediate transfer to [facility] for optho care in order to receive drops hourly. <Niyah Nunez - Last Filed: 07/09/16 18:33> - Medical Decision Making 07/09/16 18:52 55 yo F with h/o DM HTN opiate/ cocaine abuse here with worsenin right eye pain. was being treated for ulceration with vancomycin and / gent drops, now pain unbearable. worsening redness. no f/c has not followed up with opthomology due to poor transportation. on exam pt with right eye central large ulceration, anterior chamber fluid collection. hypopion. positive flourescin uptake. plan d/w optho.abx, consider hIV testing. d/w optho, recommend transfer for evalution eye hypopion and iv antibiotics. seen and examined with PA agree with above. 07/09/16 19:03 d/w dr. roxy currie in ed at [facility] transfer pt.l <Marialuisa Ramirez - Last Filed: 07/09/16 19:03> *DC/Admit/Observation/Transfer <Niyah Nunez - Last Filed: 07/09/16 18:33> <Marialuisa Ramirez - Last Filed: 07/09/16 19:03> Diagnosis at time of Disposition: Uncomplicated opioid dependence - Discharge Dispostion Disposition: TRANSFER ACUTE CARE/OTHER HOSP - Referrals Referrals: Marleni Shultz MD [Primary Care Provider] -
[2016-07-09 18:54] LABS: ALBUMIN 3.8 g/dl (3.4-5.0); BILIRUBIN,TOTAL 0.3 mg/dL (0.2-1.0); CALCIUM 8.8 mg/dL (8.5-10.1); COCKROFT - GAULT 56.219; CREATININE 1.2 mg/dL (0.55-1.02); TOT PROT 7.5 g/dl (6.4-8.2)
[2016-07-09 18:58] VITALS: BP 126/70; PULSE 91
[2016-07-09] MEDS ORDERED: HYDROmorphone HCL CARPU-JECT 1 MG/1 ML DISP.SYRIN IVPB ONE (20:08)
== END 2016-07-09 21:04 | disposition short-term general hospital (02) ==
LOC: SUPCPDRO 16:17 → JER 16:17
PROC: 3E0233Z Introduction of Anti-inflammatory into Muscle, Percutaneous Approach (ICD-10-PCS; principal; 2016-07-09)
PROC: 3E0333Z Introduction of Anti-inflammatory into Peripheral Vein, Percutaneous Approach (ICD-10-PCS; 2016-07-09)
PROC: 3E033NZ Introduction of Analgesics, Hypnotics, Sedatives into Peripheral Vein, Percutaneous Approach (ICD-10-PCS; 2016-07-09)
DX: H20.051 Hypopyon, right eye (principal); I10 Essential (primary) hypertension; E11.9 Type 2 diabetes mellitus without complications; Z79.4 Long term (current) use of insulin; E78.00 Pure hypercholesterolemia, unspecified; F11.20 Opioid dependence, uncomplicated; F14.10 Cocaine abuse, uncomplicated; F34.9 Persistent mood [affective] disorder, unspecified; J45.909 Unspecified asthma, uncomplicated; F17.210 Nicotine dependence, cigarettes, uncomplicated
CPT/HCPCS: 36415; 80053; 85025; 96372; 96374; 96375; 99284-25

== ENCOUNTER 2016-07-17 18:27 | Emergency (ER) | payer OTHER ==
[2016-07-17 19:16] VITALS: BP 99/87; PULSE 114; TEMP 97.6; BMI 24.2
--- NOTE | 2016-07-17 19:30 | PDOC ---
History of Present Illness - General History Source: Old Records Exam Limitations: No Limitations - History of Present Illness Initial Comments: 07/17/16 20:25 The patient is a 55 year old female with a significant past medical history of asthma, IDDM, HTN, HLD, cocaine/heroin abuse, depression, and bipolar disorder, who presents to the ED with back pain and headache s/p fall today. The patient states that she fell out of the bed today and hit the right side of her head on the floor. She also reports that she is experiencing back pain in the lumbar area. Pt states that only dilaudid works to alleviate her pain. Pt refused toradol for pain because it is ineffective. Patient denies any fever, chills, nausea, vomiting, diarrhea, or abdominal pain. Denies any shortness of breath or chest pain. Social Hx: Drinks alcohol every day. Cigarette smoking (half a pack for 40 years ). <Stephanie Jacob - Last Filed: 07/17/16 20:25> <Rena Arambula - Last Filed: 07/18/16 01:53> - General Chief Complaint: Injury Stated Complaint: FALL/BACK PAIN Time Seen by Provider: 07/17/16 18:48 Past History <Stephanie Jacob - Last Filed: 07/17/16 20:25> - Past Medical History Anemia: No Asthma: Yes (ON ALBUTEROLINHALER) Cancer: No Cardiac Disorders: No CVA: No COPD: No CHF: No Dementia: No Diabetes: Yes GI Disorders: No Disorders: No HTN: Yes Hypercholesterolemia: No Kidney Stones: No Liver Disease: Yes Suicide Attempt (Hx): Yes (1999) Seizures: No Thyroid Disease: No Other medical history: righ eye ulcer - Surgical History Abdominal Surgery: Yes Appendectomy: No Cardiac Surgery: No Cholecystectomy: (r/o gallstones) Lung Surgery: No Neurologic Surgery: No Orthopedic Surgery: No - Reproductive History PID: No - Immunization History Immunization Up to Date: Yes - Psycho/Social/Smoking Cessation Hx Anxiety: No Suicidal Ideation: No Smoking History: Current every day smoker Have you smoked in the past 12 months: No Number of Cigarettes Smoked Daily: 10 Cigars Per Day: 0 Information on smoking cessation initiated: No 'Breaking Loose' booklet given: 03/05/16 Hx Alcohol Use: No Drug/Substance Use Hx: No Substance Use Type: Alcohol, Heroin Hx Substance Use Treatment: Yes (detox, rehab, hx mmtp) <Rena Arambula - Last Filed: 07/18/16 01:53> - Past Medical History Allergies/Adverse Reactions: Allergies Allergy/AdvReac Type Severity Reaction Status Date / Time No Known Drug Allergies Allergy Severe Itching Verified 07/17/16 18:48 tomato [Tomato] Allergy Unknown Not Verified 07/17/16 18:48 Specified Home Medications: Ambulatory Orders Insulin (Levemir) [Levemir Flexpen -] 10 units SQ HS 06/18/14 Albuterol Sulfate Inhaler - [Ventolin HFA Inhaler -] 2 inh PO Q4H PRN #1 inhaler 11/13/15 Amlodipine Besylate [Norvasc -] 5 mg PO DAILY #30 tablet 11/13/15 Clonidine HCl [Catapres -] 0.2 mg PO BID #60 03/08/16 Insulin (Levemir) [Levemir Vial] 20 units SQ AM #1 03/08/16 Erythromycin 0.5% Eye Ointment [Erythromycin 0.5% Eye Ointment -] 1 applic OD BID #1 tube 06/30/16 Oxycodone HCl/Acetaminophen [Percocet 5-325 mg Tablet -] 2 combo PO Q6H PRN #24 tablet MDD 8 07/02/16 Zolpidem Tartrate [Ambien] 10 mg PO HS 07/09/16 Trauma Specific PMHX - Complaint Specific PMHX Arthritis: No <Rena Arambula - Last Filed: 07/18/16 01:53> Review of Systems - Review of Systems Able to Perform ROS?: Yes Comments:: 07/17/16 20:26 CONSTITUTIONAL: Absent: fever, chills, diaphoresis, generalized weakness, malaise, loss of appetite HEENT: Absent: rhinorrhea, nasal congestion, throat pain, throat swelling, difficulty swallowing, mouth swelling, ear pain, eye pain, visual Changes CARDIOVASCULAR: Absent: chest pain, syncope, palpitations, irregular heart rate, lightheadedness , peripheral edema RESPIRATORY: Absent: cough, shortness of breath, dyspnea with exertion, orthopnea, wheezing, stridor, hemoptysis GASTROINTESTINAL: Absent: abdominal pain, abdominal distension, nausea, vomiting, diarrhea, constipation, melena, hematochezia GENITOURINARY: Absent: dysuria, frequency, urgency, hesitancy, hematuria, flank pain, genital pain MUSCULOSKELETAL: Present: back pain Absent: arthralgia, joint swelling SKIN: Absent: rash, itching, pallor HEMATOLOGIC/IMMUNOLOGIC: Absent: easy bleeding, easy bruising, lymphadenopathy, frequent infections ENDOCRINE: Absent: unexplained weight gain, unexplained weight loss, heat intolerance, cold intolerance NEUROLOGIC: Present: headache Absent: focal weakness or paresthesias, dizziness, unsteady gait, seizure, mental status changes, bladder or bowel incontinence PSYCHIATRIC: Absent: anxiety, depression, suicidal or homicidal ideation, hallucinations. <Stephanie Jacob - Last Filed: 07/17/16 20:25> *Physical Exam - Vital Signs Last Vital Signs Temp Pulse Resp BP Pulse Ox 97.6 F 114 H 18 99/87 96 07/17/16 18:44 07/17/16 18:44 07/17/16 18:44 07/17/16 18:44 07/17/16 18:44 - Physical Exam Comments: 07/17/16 20:27 Well developed, well nourished. Awake and alert. HEENT: Normocephalic. (+)right eye appears ejected, ulcer present on right eye. Moist mucous membranes. Oropharynx is clear. NECK: Supple. Full ROM. No JVD. Carotid pulses 2+ and symmetric, without bruits. No thyromegaly. No lymphadenopathy. CARDIOVASCULAR: Regular rate and rhythm. No murmurs, rubs, or gallops. Distal pulses are 2+ and symmetric. PULMONARY: No evidence of respiratory distress. Lungs clear to auscultation bilaterally. No wheezing, rales or rhonchi. ABDOMINAL: Soft. Non-tender. Non-distended. No rebound or guarding. No organomegaly. Normoactive bowel sounds. MUSCULOSKELETAL (+)Lumbar pain. No pinpoint vertebral tenderness. Normal range of motion at all joints. No CVA tenderness. EXTREMITIES: No cyanosis. No clubbing. No edema. No calf tenderness. SKIN: Warm and dry. Normal capillary refill. No rashes. No jaundice. NEUROLOGICAL: Alert, awake, appropriate. PSYCHIATRIC: Cooperative. Good eye contact. Appropriate mood and affect. <Stephanie Jacob - Last Filed: 07/17/16 20:25> - Vital Signs Last Vital Signs Temp Pulse Resp BP Pulse Ox 97.6 F 114 H 18 99/87 96 07/17/16 18:44 07/17/16 18:44 07/17/16 18:44 07/17/16 18:44 07/17/16 18:44 <Rena Arambula - Last Filed: 07/18/16 01:53> ED Treatment Course - Medications Given in the ED: ED Medications Discontinued Medications Generic Name Dose Route Start Last Admin Trade Name Nabila PRN Reason Stop Dose Admin Hydromorphone HCl 2 mg 07/17/16 20:19 07/17/16 20:19 Dilaudid Injection - IM 07/17/16 20:20 2 mg NOW ONE Administration Ketorolac Tromethamine 60 mg 07/17/16 19:33 07/17/16 19:45 Toradol Injection - IM 07/17/16 19:34 Not Given ONCE ONE Oxycodone/Acetaminophen 2 combo 07/17/16 19:33 07/17/16 19:45 Percocet 5/325 - PO 07/17/16 19:34 2 combo ONCE ONE Administration <Stephanie Jacob - Last Filed: 07/17/16 20:25> Medical Decision Making - Medical Decision Making 07/17/16 20:39 -this 55 yo female presents with complaint of back pain. She said that she fell out of bed earlier today. She points to her lumbar area as being painful and on exam there was no pinpoint vertebral tenderness. Patient is ambulating in the emergency department. She states that only medicine that works for her is dilaudid. She said Toradol doesn't work and She refused Toradol. -she said percocet doesn't really help either - lumbar spine xray : negative for any acute vertebral compression fx IMP chronic back pain 07/18/16 01:51 <Rena Arambula - Last Filed: 07/18/16 01:53> *DC/Admit/Observation/Transfer - Attestations Scribe Attestion: 07/17/16 20:30 Documentation prepared by Stephanie Jacob, acting as medical editor for Rena Arambula MD. <Stephanie Jacob - Last Filed: 07/17/16 20:25> <Rena Arambula - Last Filed: 07/18/16 01:53> Diagnosis at time of Disposition: Low back pain Qualifiers: Chronicity: chronic Back pain laterality: bilateral Sciatica presence: without sciatica Qualified Code(s): M54.5 - Low back pain - Discharge Dispostion Disposition: HOME Condition at time of disposition: Stable - Referrals Referrals: Alejandro Rodriguez MD [Primary Care Provider] - - Patient Instructions Printed Discharge Instructions: DI for Low Back Pain Additional Instructions: please followup with your doctor
[2016-07-17] MEDS ORDERED: KETOROLAC TROMETHAMINE 60 MG/2 ML VIAL IM ONE (19:33)
[2016-07-17] MEDS ORDERED: OXYCODONE/APAP 5/325MG COMBO TABLET PO ONE ×2 (19:33→22:12)
[2016-07-17] MEDS ORDERED: OXYCODONE/APAP 5/325MG COMBO TABLET ONE ×2 (19:42→22:14)
[2016-07-17] MEDS ORDERED: KETOROLAC TROMETHAMINE 60 MG/2 ML VIAL ONE (19:43)
[2016-07-17] MEDS ORDERED: HYDROmorphone HCL CARPU-JECT 2 MG/1 ML DISP.SYRIN ONE (20:17)
[2016-07-17] MEDS ORDERED: HYDROmorphone HCL CARPU-JECT 2 MG/1 ML DISP.SYRIN IM ONE (20:19)
== END 2016-07-17 22:28 | disposition home or self-care (01) ==
LOC: JER 18:27
PROC: 3E023NZ Introduction of Analgesics, Hypnotics, Sedatives into Muscle, Percutaneous Approach (ICD-10-PCS; principal; 2016-07-17)
DX: M54.5 Low back pain (principal); W06.XXXA Fall from bed, initial encounter; Y93.89 Activity, other specified; Y92.032 Bedroom in apartment as the place of occurrence of the external cause; E11.9 Type 2 diabetes mellitus without complications; Z79.4 Long term (current) use of insulin; J45.909 Unspecified asthma, uncomplicated; F31.9 Bipolar disorder, unspecified; F17.210 Nicotine dependence, cigarettes, uncomplicated; I10 Essential (primary) hypertension
CPT/HCPCS: 72100-TC; 96372; 99281-25

== ENCOUNTER 2016-09-30 17:00 | Inpatient (IN) | payer OTHER ==
[2016-09-30 21:39] VITALS: BMI 27.8
--- NOTE | 2016-09-30 21:39 | HP ---
COWS - Scale Resting Pulse: 2= MO 101-120 Sweatin= Chills/Flushing Restless Observation: 3= Extraneous Movement Pupil Size: 0= Normal to Room Light Bone or Joint Aches: 1= Mild Discomfort Runny Nose/ Eye Tearin= Nasal Congestion GI Upset > 30mins: 2= Nausea/Diarrhea Tremor Observation: 2= Slight Tremor Visible Yawning Observation: 0= None Anxiety or Irritability: 2=Irritable/Anxious Goose Flesh Skin: 0=Smooth Skin COWS Score: 14 CIWA Score - CIWA Score Nausea/Vomitin-Mild Nausea/No Vomiting Muscle Tremors: 4-Moderate,w/Arms Extend Anxiety: 4-Mod. Anxious/Guarded Agitation: 3 Paroxysmal Sweats: 1-Minimal Palms Moist Orientation: 1-Uncertain about Date Tacttile Disturbances: 0-None Auditory Disturbances: 0-None Visual Disturbances: 0-None Headache: 1-Very Mild CIWA-Ar Total Score: 15 Admission ROS [facility] - HPI Chief Complaint: WITHDRAWAL SX Allergies/Adverse Reactions: Allergies Allergy/AdvReac Type Severity Reaction Status Date / Time No Known Drug Allergies Allergy Severe Itching Verified 09/30/16 20:36 tomato [Tomato] Allergy Unknown Not Verified 09/30/16 20:36 Specified History of Present Illness: 56 YEARS OLD FEMALE WITH LONG HISTORY OF ALCOHOL HEROIN NICOTINE DEPENDENCE HAS DIABETES I HYPERTENSION PSORIASIS, HEPATITIS C ASTHMA AND DEPRESSION IS ADMITTED TO DETOX Exam Limitations: No Limitations - Ebola screening Have you traveled outside of the country in the last 21 days: No (N) Have you had contact with anyone from an Ebola affected area: No Have you been sick,other than usual withdrawal symptoms: No Do you have a fever: No - Review of Systems Constitutional: Chills, Loss of Appetite, Changes in sleep, Unintentional Wgt. Loss, Unexplained wgt Loss EENT: reports: Blurred Vision (NEED EYE GLASSES) Respiratory: reports: SOB with Exertion Cardiac: reports: No Symptoms Reported GI: reports: Nausea, Poor Appetite, Poor Fluid Intake, Abdominal cramping : reports: No Symptoms Reported Musculoskeletal: reports: Back Pain, Joint Pain, Muscle Pain, Neck Pain Integumentary: reports: No Symptoms Reported Neuro: reports: Tremors Endocrine: reports: No Symptoms Reported Hematology: reports: No Symptoms Reported Psychiatric: reports: Judgement Intact, Anxious, Depressed Other Systems: Reviewed and Negative Patient History - Patient Medical History Hx Anemia: No Hx Asthma: Yes (ON ALBUTEROLINHALER) Hx Chronic Obstructive Pulmonary Disease (COPD): No Hx Cancer: No Hx Cardiac Disorders: No Hx Congestive Heart Failure: No Hx Hypertension: Yes Hx Hypercholesterolemia: No Hx Pacemaker: No HX Cerebrovascular Accident: No Hx Seizures: No Hx Dementia: No Hx Diabetes: Yes Hx Gastrointestinal Disorders: No Hx Liver Disease: Yes Hx Genitourinary Disorders: No Hx Sexually Transmitted Disorders: No Hx Renal Disease (ESRD): No Hx Thyroid Disease: No Hx Human Immunodeficiency Virus (HIV): No Hx Hepatitis C: Yes (NO TREATMENT) Hx Depression: Yes Hx Suicide Attempt: Yes (1999 UNABLE TO REMEMBER) Hx Bipolar Disorder: No Hx Schizophrenia: No - Patient Surgical History Past Surgical History: Yes Hx Neurologic Surgery: No Hx Cataract Extraction: No Hx Cardiac Surgery: No Hx Lung Surgery: No Hx Breast Surgery: No Hx Breast Biopsy: No Hx Abdominal Surgery: No Hx Appendectomy: No Hx Cholecystectomy: Yes (r/o gallstones) Hx Genitourinary Surgery: No Hx Section: No Hx Orthopedic Surgery: No Hx Hysterectomy: Yes (2007) Anesthesia Reaction: No - PPD History Previous Implant?: Yes Documented Results: Negative w/proof Implanted On Prior R Admission?: Yes Date: 07/04/15 Results: 0 mm PPD to be Administered?: Yes - Reproductive History Patient is a Female of Child Bearing Age (11 -55 yrs old): No Last Menstrual Period: 10/07/07 Patient : No - Smoking Cessation Smoking history: Current every day smoker Have you smoked in the past 12 months: No Aproximately how many cigarettes per day: 5 Cigars Per Day: 0 Hx Chewing Tobacco Use: No Initiated information on smoking cessation: Yes 'Breaking Loose' booklet given: 09/30/16 - Substance & Tx. History Hx Alcohol Use: Yes Hx Substance Use: Yes Substance Use Type: Alcohol, Cocaine, Opiates Hx Substance Use Treatment: Yes (03/05/16-03/08/16 [facility]) - Substances Abused Alcohol Route: Oral Frequency: Daily Amount used: beer- 2 six packs Age of first use: 29 Date of Last Use: 09/30/16 Heroin Route: Inhalation Frequency: Daily Amount used: 10 bags Age of first use: 38 Date of Last Use: 09/30/16 Family Disease History - Family Disease History Family Disease History: Diabetes: Mother ( FROM CA. OF THE LIVER,HTN), Brother, Heart Disease: Mother, Sister ( MII), CA: Father (etoh, ), Mother Admission Physical Exam S - Vital Signs Vital Signs: Vital Signs - 24 hr 09/30/16 19:22 Temperature 97.3 F L Pulse Rate 106 H Respiratory 20 Rate Blood Pressure 140/77 - Physical General Appearance: Yes: Appropriately Dressed, Mild Distress, Alcohol on Breath , Tremorous, Irritable, Sweating, Anxious HEENTM: Yes: Hearing grossly Normal, Normal ENT Inspection, Normocephalic, Normal Voice Respiratory: Yes: Chest Non-Tender, No Respiratory Distress, No Accessory Muscle Use, Wheezing Neck: Yes: Supple, Trachea in good position Breast: Yes: Breasts Symetrical Cardiology: Yes: Regular Rhythm, Regular Rate, S1, S2 Abdominal: Yes: Non Tender, Soft Genitourinary: Yes: Within Normal Limits Back: Yes: Normal Inspection Musculoskeletal: Yes: full range of Motion, Gait Steady, Back pain, Muscle Pain Extremities: Yes: Normal Range of Motion, Non-Tender, Tremors Neurological: Yes: Alert, Motor Strength 5/5, Normal Response, Depressed Affect Integumentary: Yes: Warm Lymphatic: Yes: Within Normal Limits - Diagnostic (1) Alcohol dependence with uncomplicated withdrawal Current Visit: Yes Status: Acute (2) Nicotine dependence Current Visit: Yes Status: Acute Qualifiers: Nicotine product type: cigarettes Substance use status: in withdrawal Qualified Code(s): F17.213 - Nicotine dependence, cigarettes, with withdrawal (3) Opioid dependence with withdrawal Current Visit: Yes Status: Acute (4) Asthma Current Visit: Yes Status: Chronic Qualifiers: Asthma severity: mild intermittent Asthma complication type: uncomplicated Qualified Code(s): J45.20 - Mild intermittent asthma, uncomplicated (5) HTN (hypertension) Current Visit: Yes Status: Chronic Qualifiers: Hypertension type: essential hypertension Qualified Code(s): I10 - Essential (primary) hypertension (6) Hepatitis C Current Visit: Yes Status: Chronic Qualifiers: Viral hepatitis chronicity: chronic Hepatic coma status: without hepatic coma Qualified Code(s): B18.2 - Chronic viral hepatitis C (7) Psoriasis Current Visit: Yes Status: Chronic (8) Diabetes mellitus, insulin dependent (IDDM), uncontrolled Current Visit: Yes Status: Chronic Qualifiers: Diabetes mellitus complication status: with skin complications Diabetes mellitus complication detail: with other skin complication Qualified Code(s): 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; E10.65 - Type 1 diabetes mellitus with hyperglycemia Cleared for Admission [facility] - Detox or Rehab [facility] Level of Care: Medically Managed Detox Regimen/Protocol: Methadone/Valium S Breath Alcohol Content Breath Alcohol Content: 0.012 Vital Signs - Height Height: 4 ft 11 in - Weight Weight: 138 lb Body Mass Index (BMI): 27.8 Urine Pregancy Test - Result Urine Test Results: Negative- NO Line Present Urine Drug Screen - Results Drug Screen Negative: No Urine Drug Screen Results: KENYA-Cocaine, OPI-Opiates
[2016-09-30] MEDS ORDERED: MENTHOL/PHENOL 1 EACH UD MM PRN (21:44)
[2016-09-30] MEDS ORDERED: MAG HYDROX/AL HYDROX/SIMETH 30 ML UNIT-DOSE CUP PO PRN (21:44)
[2016-09-30] MEDS ORDERED: NICOTINE POLACRILEX 2 MG GUM BC PRN (21:44)
[2016-09-30] MEDS ORDERED: MAGNESIUM CITRATE 300 ML BOTTLE PO PRN (21:44)
[2016-09-30] MEDS ORDERED: P-EPHED 60MG/TRIPROLIDI 2.5MG TABLET PO PRN (21:44)
[2016-09-30] MEDS ORDERED: ACETAMINOPHEN 325 MG TABLET (FP) PO PRN (21:44)
[2016-09-30] MEDS ORDERED: diazePAM 5 MG TABLET PO ONE (21:44)
[2016-09-30] MEDS ORDERED: guaiFENesin/D-METHORPHAN HB 10 ML UNIT-DOSE CUPS PO PRN (21:44)
[2016-09-30] MEDS ORDERED: MAGNESIUM HYDROX 2400MG/30ML ORAL SUSPENSION 30 ML CUP PO PRN (21:44)
[2016-09-30] MEDS ORDERED: LOPERAMIDE HCL 2 MG CAPSULE PO PRN (21:44)
[2016-09-30] MEDS ORDERED: ALBUTEROL SO4 6.7 GM HFA INHALER IH PRN (21:49)
[2016-09-30] MEDS ORDERED: INSULIN DETEMIR 100 UNITS/ML MDV SQ SCH (22:00)
[2016-09-30] MEDS: METHADONE HCL 10 MG TABLET (FOR DETOX USE ONLY) PO ONE ×2 (22:41→22:42)
[2016-09-30] MEDS: INSULIN DETEMIR 100 UNITS/ML MDV SQ SCH (22:42)
[2016-09-30] MEDS: INSULIN SLIDING SCALE (NOVOLOG) 1 VIAL SQ SCH (22:50)
[2016-09-30] MEDS: THIAMINE HCL 100 MG TABLET (FP) PO SCH (22:51)
[2016-09-30] MEDS: diazePAM 5 MG TABLET PO SCH (22:51)
[2016-09-30] MEDS ORDERED: METHADONE HCL 10 MG TABLET (FOR DETOX USE ONLY) PO ONE (23:00)
[2016-09-30 23:51] LABS: URINE APPEARANCE CLEAR; URINE BILIRUBIN NEGATIVE (NEGATIVE); URINE BLOOD NEGATIVE (NEGATIVE); URINE COLOR STRAW; URINE GLUCOSE (UA) 3+ (NEGATIVE); URINE KETONE NEGATIVE (NEGATIVE); URINE LEUK ESTERASE NEGATIVE (NEGATIVE); URINE NITRITE NEGATIVE (NEGATIVE); URINE PROTEIN NEGATIVE (NEGATIVE); URINE UROBILINOGEN NEGATIVE mg/dL (0.2-1.0)
[2016-10-01] MEDS: diphenhydrAMINE HCL 50 MG CAPSULE PO PRN (00:40)
[2016-10-01] MEDS: diazePAM 5 MG TABLET PO PRN ×4 (00:40→19:33)
[2016-10-01] MEDS: diazePAM 5 MG TABLET PO SCH ×3 (05:10→22:54)
[2016-10-01] MEDS: metFORMIN HCL 500 MG TABLET (FP) PO SCH ×2 (08:14→17:34)
[2016-10-01] MEDS: INSULIN SLIDING SCALE (NOVOLOG) 1 VIAL SQ SCH ×4 (08:14→23:00)
[2016-10-01] MEDS ORDERED: METHADONE HCL 10 MG TABLET (FOR DETOX USE ONLY) PO SCH (10:00)
[2016-10-01 10:23] LABS: MCH 28.1 pg (25.7-33.7); MCHC 31.9 g/dl (32.0-36.0); MEAN CELL VOLUME 88.1 fl (80-96); PLATELET COUNT 191 K/MM3 (134-434); RDW 14.5 % (11.6-15.6)
[2016-10-01] MEDS: LISINOPRIL 20 MG TABLET (FP) PO SCH (10:39)
[2016-10-01] MEDS: PRENATAL VITAMINS W/ FOLIC ACID TABLET (FP) PO SCH (10:39)
--- NOTE | 2016-10-01 10:39 | PN ---
S CIWA - CIWA Score Nausea/Vomitin-Mild Nausea/No Vomiting Muscle Tremors: 4-Moderate,w/Arms Extend Anxiety: 4-Mod. Anxious/Guarded Agitation: 4-Moderately Restless Paroxysmal Sweats: 3 Orientation: 0-Oriented Tacttile Disturbances: 1-Very Mild Itch/Numbness Auditory Disturbances: 0-None Visual Disturbances: 0-None Headache: 0-None Present CIWA-Ar Total Score: 17 BHS COWS - Scale Resting Pulse: 2= [place] 101-120 Sweatin=Flushed/Facial Moisture Restless Observation: 1= Difficult to Sit Still Pupil Size: 0= Normal to Room Light Bone or Joint Aches: 2= Severe Diffuse Aches Runny Nose/ Eye Tearin= Runny Nose/Eyes GI Upset > 30mins: 2= Nausea/Diarrhea Tremor Observation of Outstretched Hands: 2= Slight Tremor Visible Yawning Observation: 1= 1-2x During Session Anxiety or Irritability: 2=Irritable/Anxious Goose Flesh Skin: 0=Smooth Skin COWS Score: 16 S Progress Note (SOAP) Subjective: Nausea,anxiety,tremors,sweating,interrupted sleep,restless Objective: 10/01/16 10:37 Vital Signs - 8 hr 10/01/16 10/01/16 06:00 10:00 Temperature 97.9 F 98.2 F Pulse Rate 101 H 112 H Respiratory 18 20 Rate Blood Pressure 123/85 148/88 Laboratory Last Values POC Glucometer 178 UNITS (()) 10/01/16 05:09 Urine Color Straw 09/30/16 23:35 Urine Appearance Clear 09/30/16 23:35 Urine pH 6.0 (5.0-8.0) 09/30/16 23:35 Urine Protein Negative (NEGATIVE) 09/30/16 23:35 Urine Glucose (UA) 3+ (NEGATIVE) H 09/30/16 23:35 Urine Ketones Negative (NEGATIVE) 09/30/16 23:35 Urine Blood Negative (NEGATIVE) 09/30/16 23:35 Urine Nitrite Negative (NEGATIVE) 09/30/16 23:35 Urine Bilirubin Negative (NEGATIVE) 09/30/16 23:35 Urine Urobilinogen Negative mg/dL (0.2-1.0) 09/30/16 23:35 Ur Leukocyte Esterase Negative (NEGATIVE) 09/30/16 23:35 labs noted Assessment: 10/01/16 10:38 Withdrawal sx. Plan: Continue detox
[2016-10-01 10:53] LABS: ALBUMIN 3.3 g/dl (3.4-5.0); ANION GAP 7 (8-16); CALCIUM 8.9 mg/dL (8.5-10.1); CO2 30 mmol/L (21-32); GLUCOSE,RANDOM 202 mg/dL (74-106)
[2016-10-01 10:58] LABS: ALK PHOS 101 U/L (45-117); BILIRUBIN,TOTAL 0.3 mg/dL (0.2-1.0); SGOT/AST 17 U/L (15-37); SGPT/ALT 23 U/L (12-78); TOT PROT 6.3 g/dl (6.4-8.2)
[2016-10-01] MEDS ORDERED: INSULIN (NOVOLOG) ASPART 100 UNITS/ML 10ML VIAL ONE ×3 (11:39→23:06)
[2016-10-01] MEDS: NICOTINE 14 MG/24 HOURS TOPICAL PATCH TD SCH (11:43)
[2016-10-01] MEDS: amLODIPine BESYLATE 5 MG TABLET (FP) PO SCH (11:45)
--- NOTE | 2016-10-01 15:50 | CONSULT ---
[facility] Psychiatric Consult - Data Date of interview: 10/01/16 Admission source: [facility] Identifying data: Another admission to [facility] for this 56 y/o AA female seeking detox treatment on for heroin,cocaine and alcohol dependence.Patient is single,a mother of two,domiciled (lives with common-law signal helper),unemployed and supported on SSI benefits. Substance Abuse History: Discussed with the patient.Ms Goyal confirms this [facility] report. Smoking Cessation. Smoking history: Current every day smoker. Have you smoked in the past 12 months: No. Aproximately how many cigarettes per day: 5. Cigars Per Day: 0. Hx Chewing Tobacco Use: No. Initiated information on smoking cessation: Yes. 'Breaking Loose' booklet given: . - Substance & Tx. History. Hx Alcohol Use: Yes. Hx Substance Use: Yes. Substance Use Type: Alcohol, Cocaine, Opiates. Hx Substance Use Treatment: Yes (03/05/16-03/08/16 [facility]). - Substances Abused. Alcohol. Route: Oral. Frequency: Daily. Amount used: beer- 2 six packs. Age of first use: 29. Date of Last Use: 09/30/16. Heroin. Route: Inhalation. Frequency: Daily. Amount used: 10 bags. Age of first use: 38. Date of Last Use: 09/30/16 Medical History: Bronchial asthma,hypertension,diabetes mellitus,hepatitis C, arthritis,low back pain,psoriasis and past surgeries (hysterectomy and left breast lumpectomy). Psychiatric History: In this interview,the patient admits to 4-5 psychiatric hospitalizations (mostly at [facility]).Diagnosed with " Bipolar Disorder and MDD." No report of regular psychiatric OPD care.Ms Goyal remains under the care of Dr Marleni Matt (primary care physician) for medications refills.Used to be on lexapro 20 mg po/day (last script was issued in 07/2015) + zolpidem 10 mg/hs.Noted history of suicide attempt (1999). Physical/Sexual Abuse/Trauma History: Patient denies. Additional Comment: Urine Drug Screen Results: KENYA-Cocaine, OPI-Opiates.Noted. Mental Status Exam - Mental Status Exam Alert and Oriented to: Time, Place, Person Cognitive Function: Good Patient Appearance: Unkempt, Disheveled, Bizarre Mood: Nervous Affect: Normal Range Patient Behavior: Restless, Fatigued, Talkative (attention and medication- seeking) Speech Pattern: Clear, Excessive, Perseverating Voice Loudness: Normal Thought Process: Disorganized Thought Disorder: Not Present Hallucinations: Denies Suicidal Ideation: Denies Homicidal Ideation: Denies Insight/Judgement: Poor Sleep: Poorly, Difficulty falling asleep Appetite: Good Muscle strength/Tone: Normal Gait/Station: Normal Psychiatric Findings - Problem List (Metaline 1, 2,3) (1) Alcohol dependence with uncomplicated withdrawal Current Visit: Yes Status: Acute (2) Opioid dependence with withdrawal Current Visit: Yes Status: Acute (3) Cocaine dependence Current Visit: Yes Status: Acute Qualifiers: Substance use status: uncomplicated Qualified Code(s): F14.20 - Cocaine dependence, uncomplicated (4) Nicotine dependence Current Visit: Yes Status: Acute Qualifiers: Nicotine product type: cigarettes Substance use status: in withdrawal Qualified Code(s): F17.213 - Nicotine dependence, cigarettes, with withdrawal (5) Substance induced mood disorder Current Visit: Yes Status: Acute (6) Asthma Current Visit: Yes Status: Chronic Qualifiers: Asthma severity: mild intermittent Asthma complication type: uncomplicated Qualified Code(s): J45.20 - Mild intermittent asthma, uncomplicated (7) Diabetes mellitus, insulin dependent (IDDM), uncontrolled Current Visit: Yes Status: Chronic Qualifiers: Diabetes mellitus complication status: with skin complications Diabetes mellitus complication detail: with other skin complication Qualified Code(s): 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; E10.65 - Type 1 diabetes mellitus with hyperglycemia (8) HTN (hypertension) Current Visit: Yes Status: Chronic Qualifiers: Hypertension type: essential hypertension Qualified Code(s): I10 - Essential (primary) hypertension (9) Hepatitis C Current Visit: Yes Status: Chronic Qualifiers: Viral hepatitis chronicity: chronic Hepatic coma status: without hepatic coma Qualified Code(s): B18.2 - Chronic viral hepatitis C (10) Psoriasis Current Visit: Yes Status: Chronic (11) Corneal abrasion Current Visit: Yes Status: Acute Qualifiers: Encounter type: initial encounter Laterality: right Qualified Code( s): S05.01XA - Injury of conjunctiva and corneal abrasion without foreign body, right eye, initial encounter (12) Corneal ulcer, right Current Visit: Yes Status: Acute (13) Arthritis Current Visit: Yes Status: Chronic (14) Low back pain Current Visit: Yes Status: Chronic Qualifiers: Chronicity: chronic Back pain laterality: bilateral Sciatica presence: without sciatica Qualified Code(s): M54.5 - Low back pain (15) Insomnia Current Visit: Yes Status: Acute (16) Non-compliance with treatment Current Visit: Yes Status: Chronic - Initial Treatment Plan Initial Treatment Plan: Psychoeducation.Detoxification.Patient agrees to be at bedtime.Declines to take lexapro.Ambien 5 mg po hs prn.patient is informed of potential for parasomnias.Observation.
[2016-10-01] MEDS: ZOLPIDEM TARTRATE 5 MG TABLET PO PRN (22:54)
[2016-10-01] MEDS: THIAMINE HCL 100 MG TABLET (FP) PO SCH (22:54)
[2016-10-01] MEDS: INSULIN DETEMIR 100 UNITS/ML MDV SQ SCH (22:55)
[2016-10-02] MEDS: diphenhydrAMINE HCL 50 MG CAPSULE PO PRN (01:13)
[2016-10-02] MEDS: metFORMIN HCL 500 MG TABLET (FP) PO SCH ×2 (06:11→17:03)
[2016-10-02] MEDS: diazePAM 5 MG TABLET PO PRN ×3 (07:10→17:26)
[2016-10-02] MEDS: INSULIN SLIDING SCALE (NOVOLOG) 1 VIAL SQ SCH ×4 (07:11→22:35)
[2016-10-02] MEDS: METHADONE HCL 5 MG TABLET (FOR DETOX USE ONLY) PO SCH (10:42)
[2016-10-02] MEDS: diazePAM 5 MG TABLET PO SCH ×2 (10:42→22:34)
[2016-10-02] MEDS: PRENATAL VITAMINS W/ FOLIC ACID TABLET (FP) PO SCH (10:42)
[2016-10-02] MEDS: LISINOPRIL 20 MG TABLET (FP) PO SCH (10:42)
[2016-10-02] MEDS: NICOTINE 14 MG/24 HOURS TOPICAL PATCH TD SCH (10:43)
[2016-10-02] MEDS: amLODIPine BESYLATE 5 MG TABLET (FP) PO SCH (10:43)
[2016-10-02] MEDS ORDERED: INSULIN (NOVOLOG) ASPART 100 UNITS/ML 10ML VIAL ONE (11:30)
--- NOTE | 2016-10-02 12:06 | PN ---
[facility] CIWA - CIWA Score Nausea/Vomitin-Mild Nausea/No Vomiting Muscle Tremors: 3 Anxiety: 4-Mod. Anxious/Guarded Agitation: 4-Moderately Restless Paroxysmal Sweats: 3 Orientation: 0-Oriented Tacttile Disturbances: 1-Very Mild Itch/Numbness Auditory Disturbances: 0-None Visual Disturbances: 0-None Headache: 0-None Present CIWA-Ar Total Score: 16 BHS COWS - Scale Resting Pulse: 2= ME 101-120 Sweatin=Flushed/Facial Moisture Restless Observation: 1= Difficult to Sit Still Pupil Size: 0= Normal to Room Light Bone or Joint Aches: 2= Severe Diffuse Aches Runny Nose/ Eye Tearin= Runny Nose/Eyes GI Upset > 30mins: 2= Nausea/Diarrhea Tremor Observation of Outstretched Hands: 2= Slight Tremor Visible Yawning Observation: 1= 1-2x During Session Anxiety or Irritability: 2=Irritable/Anxious Goose Flesh Skin: 0=Smooth Skin COWS Score: 16 [facility] Progress Note (SOAP) Subjective: Muscle aches,sweating,interrupted sleep,restless,tremors,anxiety Objective: 10/02/16 12:07 Vital Signs - 8 hr 10/02/16 10/02/16 10/02/16 06:00 07:30 10:00 Temperature 97.5 F L 98.4 F Pulse Rate 112 H 102 H 114 H Respiratory 20 18 18 Rate Blood Pressure 154/92 144/87 133/81 Laboratory Last Values WBC 6.0 K/mm3 (4.0-10.0) 10/01/16 07:45 RBC 4.31 M/mm3 (3.60-5.2) 10/01/16 07:45 Hgb 12.1 GM/dL (10.7-15.3) D 10/01/16 07:45 Hct 38.0 % (32.4-45.2) 10/01/16 07:45 MCV 88.1 fl (80-96) 10/01/16 07:45 MCH 28.1 pg (25.7-33.7) 10/01/16 07:45 MCHC 31.9 g/dl (32.0-36.0) L 10/01/16 07:45 RDW 14.5 % (11.6-15.6) 10/01/16 07:45 Plt Count 191 K/MM3 (134-434) 10/01/16 07:45 MPV 9.0 fl (7.5-11.1) D 10/01/16 07:45 Sodium 140 mmol/L (136-145) 10/01/16 07:45 Potassium 3.8 mmol/L (3.5-5.1) 10/01/16 07:45 Chloride 103 mmol/L (98-107) D 10/01/16 07:45 Carbon Dioxide 30 mmol/L (21-32) 10/01/16 07:45 Anion Gap 7 (8-16) L 10/01/16 07:45 BUN 21 mg/dL (7-18) H D 10/01/16 07:45 Creatinine 1.0 mg/dL (0.55-1.02) 10/01/16 07:45 Creat Clearance w eGFR 57.15 (>60) 10/01/16 07:45 POC Glucometer 203 UNITS (()) 10/02/16 11:26 Random Glucose 202 mg/dL (74-106) H D 10/01/16 07:45 Calcium 8.9 mg/dL (8.5-10.1) 10/01/16 07:45 Total Bilirubin 0.3 mg/dL (0.2-1.0) 10/01/16 07:45 AST 17 U/L (15-37) D 10/01/16 07:45 ALT 23 U/L (12-78) D 10/01/16 07:45 Alkaline Phosphatase 101 U/L (45-117) 10/01/16 07:45 Total Protein 6.3 g/dl (6.4-8.2) L 10/01/16 07:45 Albumin 3.3 g/dl (3.4-5.0) L 10/01/16 07:45 Urine Color Straw 09/30/16 23:35 Urine Appearance Clear 09/30/16 23:35 Urine pH 6.0 (5.0-8.0) 09/30/16 23:35 Ur Specific Hilliard <= 1.005 (1.005-1.025) 09/30/16 23:35 Urine Protein Negative (NEGATIVE) 09/30/16 23:35 Urine Glucose (UA) 3+ (NEGATIVE) H 09/30/16 23:35 Urine Ketones Negative (NEGATIVE) 09/30/16 23:35 Urine Blood Negative (NEGATIVE) 09/30/16 23:35 Urine Nitrite Negative (NEGATIVE) 09/30/16 23:35 Urine Bilirubin Negative (NEGATIVE) 09/30/16 23:35 Urine Urobilinogen Negative mg/dL (0.2-1.0) 09/30/16 23:35 Ur Leukocyte Esterase Negative (NEGATIVE) 09/30/16 23:35 RPR Titer Nonreactive (NONREACTIVE) 10/01/16 07:45 labs noted Assessment: 10/02/16 12:08 Withdrawal sx. Plan: Continue detox
[2016-10-02] MEDS: IBUPROFEN 400 MG TABLET (FP) PO PRN (12:34)
--- NOTE | 2016-10-02 13:57 | EKG ---
Test Reason : Blood Pressure : / mmHG Vent. Rate : 092 BPM Atrial Rate : 092 BPM P-R Int : 144 ms QRS Dur : 070 ms QT Int : 360 ms P-R-T Axes : 072 053 067 degrees QTc Int : 445 ms NORMAL SINUS RHYTHM NORMAL ECG WHEN COMPARED WITH ECG OF 30-JUN-2016 01:55, NO SIGNIFICANT CHANGE WAS FOUND Confirmed by JAMAICA CASTAÑEDA MD ([id number]) on 10/02/2016 1:57:35 PM Referred By: Confirmed By:JAMAICA CASTAÑEDA MD
[2016-10-02] MEDS: hydrOXYzine PAMOATE 25 MG CAPSULE (FP) PO PRN (19:16)
[2016-10-02] MEDS: ONDANSETRON *ODT* 4 MG TABLET SL PRN (19:19)
[2016-10-02] MEDS: THIAMINE HCL 100 MG TABLET (FP) PO SCH (22:34)
[2016-10-02] MEDS: INSULIN DETEMIR 100 UNITS/ML MDV SQ SCH (22:34)
[2016-10-02] MEDS: ZOLPIDEM TARTRATE 5 MG TABLET PO PRN (22:34)
[2016-10-03] MEDS: diazePAM 5 MG TABLET PO PRN ×4 (01:58→18:41)
[2016-10-03] MEDS: IBUPROFEN 400 MG TABLET (FP) PO PRN (01:59)
[2016-10-03] MEDS: metFORMIN HCL 500 MG TABLET (FP) PO SCH ×2 (06:39→17:31)
[2016-10-03] MEDS: INSULIN SLIDING SCALE (NOVOLOG) 1 VIAL SQ SCH ×4 (07:19→22:53)
--- NOTE | 2016-10-03 09:21 | PN ---
Psychiatric Progress Note Vital Signs: Vital Signs Period Temp Pulse Resp BP Sys/Hernández Pulse Ox Last 24 Hr 98.1 F-99.5 F 53-123 16-20 120-163/76-89 Date of Session: 10/03/16 Chief Complaint:: Insomnia HPI: Patient reports taking prior to admission Ambien 10mg po qhs, reports not sleeping 3 day after d/c Valium.Librium protocol Current Medications: Active Medications Generic Name Dose Route Start Last Admin Trade Name Freq PRN Reason Stop Dose Admin Acetaminophen 650 mg 09/30/16 21:44 Tylenol - PO Q4H PRN FEVER OR PAIN Al Hydroxide/Mg Hydroxide 30 ml 09/30/16 21:44 Mylanta Oral Suspension - PO Q6H PRN DYSPEPSIA Albuterol Sulfate 2 puff 09/30/16 21:49 10/02/16 16:21 Ventolin Hfa Inhaler - IH 2 inhaler Q4H PRN Administration SHORT OF BREATH/WHEEZING Amlodipine Besylate 5 mg 10/01/16 11:00 10/02/16 10:43 Norvasc - PO 5 mg DAILY ROSY Administration Diazepam 10 mg 09/30/16 21:44 10/03/16 06:38 Valium - PO 10/03/16 21:44 10 mg Q4H PRN Administration WITHDRAWAL(CONT SUBST) Diazepam 5 mg 10/02/16 10:00 10/02/16 22:34 Valium - PO 10/03/16 22:01 5 mg BID ROSY Administration Diazepam 5 mg 10/04/16 10:00 Valium - PO 10/04/16 10:01 DAILY ROSY Diphenhydramine HCl 50 mg 09/30/16 21:44 10/02/16 01:13 Benadryl - PO 50 mg HSMR1 PRN Administration INSOMNIA Eucalyptus/Menthol/Phenol/Sorbitol 1 each 09/30/16 21:44 Cepastat Lozenge - MM Q4H PRN SORE THROAT Guaifenesin 10 ml 09/30/16 21:44 Robitussin Dm - PO Q6H PRN COUGH Hydroxyzine Pamoate 25 mg 10/02/16 18:18 10/02/16 19:16 Vistaril - PO 25 mg Q4H PRN Administration FOR ITCHING Ibuprofen 400 mg 09/30/16 21:44 10/03/16 01:59 Motrin - PO 400 mg Q6H PRN Administration SEVERE PAIN Insulin Aspart 1 vial 09/30/16 22:00 10/03/16 07:19 Novolog Vial Sliding Scale - SQ Not Given ACHS [facility] Protocol Insulin Detemir 30 units 09/30/16 22:00 10/02/16 22:34 Levemir Vial SQ 30 unit HS [facility] Administration Lisinopril 40 mg 10/01/16 10:00 10/02/16 10:42 Prinivil PO 40 mg DAILY [facility] Administration Loperamide HCl 4 mg 09/30/16 21:44 Imodium - PO Q6H PRN DIARRHEA Magnesium Citrate 300 ml 09/30/16 21:44 Citroma - PO Q48H PRN CONSTIPATION Magnesium Hydroxide 30 ml 09/30/16 21:44 Milk Of Magnesia - PO DAILY PRN CONSTIPATION Metformin HCl 500 mg 10/01/16 07:00 10/03/16 06:39 Glucophage - PO 500 mg BID@0700,1630 [facility] Administration Methadone HCl 10 mg 10/04/16 10:00 Dolophine - PO 10/04/16 10:01 DAILY ROSY Methadone HCl 15 mg 10/02/16 10:00 10/02/16 10:42 Dolophine - PO 10/03/16 10:01 15 mg DAILY [facility] Administration Methadone HCl 5 mg 10/05/16 06:00 Dolophine - PO 10/05/16 06:01 DAILY@0600 ROSY Nicotine 14 mg 10/01/16 10:00 10/02/16 10:43 Nicoderm Patch - TD Not Given DAILY [facility] Nicotine Polacrilex 2 mg 09/30/16 21:44 Nicorette Gum - BC Q2H PRN NICOTINE REPLACEMENT RX Ondansetron HCl 8 mg 10/02/16 18:17 10/02/16 19:19 Zofran Odt - SL 8 mg Q6H PRN Administration NAUSEA AND/OR VOMITING Multivit/Folic Acid/Iron 1 tab 10/01/16 10:00 10/02/16 10:42 Vitamins (Sjr) - PO 1 tab DAILY ROSY Administration Pseudoephedrine/Triprolidine 1 combo 09/30/16 21:44 Actifed - PO TID PRN NASAL CONGESTION Thiamine HCl 100 mg 09/30/16 22:00 10/02/16 22:34 Vitamin B1 - PO 100 mg HS ROSY Administration Zolpidem Tartrate 5 mg 10/01/16 16:10 10/02/16 22:34 Ambien - PO 5 mg HS PRN Administration INSOMNIA Medication(s) Change(s): Ambien 10mg po qhs po prn for insomnia Mental Status Exam - Mental Status Exam Alert and Oriented to: Person Cognitive Function: Fair Mood: Anxious, Irritable Affect: Mood Congruent, Labile Patient Behavior: Talkative Speech Pattern: Excessive Voice Loudness: Normal Thought Process: Goal Oriented Thought Disorder: Being Controlled Hallucinations: Denies Suicidal Ideation: Denies Homicidal Ideation: Denies Insight/Judgement: Fair Appetite: Weight gain Muscle strength/Tone: Normal, Mild Hypotonicity Gait/Station: Normal Additional Comments: Ambien 10mg po qhs po prn for insomnia Psychiatric Treatment Plan - Problem List (1) Alcohol dependence with uncomplicated withdrawal Current Visit: Yes (2) Cocaine dependence Current Visit: Yes Qualifiers: Substance use status: uncomplicated Qualified Code(s): F14.20 - Cocaine dependence, uncomplicated (3) Nicotine dependence Current Visit: Yes Qualifiers: Nicotine product type: cigarettes Substance use status: in withdrawal Qualified Code(s): F17.213 - Nicotine dependence, cigarettes, with withdrawal (4) Opioid dependence with withdrawal Current Visit: Yes (5) Substance induced mood disorder Current Visit: Yes (6) Non-compliance with treatment Current Visit: Yes (7) Bipolar II disorder Current Visit: No (8) Chronic LBP Current Visit: No Qualifiers: Back pain laterality: unspecified (9) Uncomplicated opioid dependence Current Visit: No Initial treatment plan: Ambien 10mg po qhs po prn for insomnia
[2016-10-03] MEDS: PRENATAL VITAMINS W/ FOLIC ACID TABLET (FP) PO SCH (10:52)
[2016-10-03] MEDS: diazePAM 5 MG TABLET PO SCH ×2 (10:52→22:51)
[2016-10-03] MEDS: amLODIPine BESYLATE 5 MG TABLET (FP) PO SCH (10:53)
[2016-10-03] MEDS: METHADONE HCL 5 MG TABLET (FOR DETOX USE ONLY) PO SCH (10:53)
[2016-10-03] MEDS: NICOTINE 14 MG/24 HOURS TOPICAL PATCH TD SCH (10:53)
[2016-10-03] MEDS: LISINOPRIL 20 MG TABLET (FP) PO SCH (10:53)
[2016-10-03] MEDS: NAPROXEN 500 MG TABLET (FP) PO SCH ×2 (11:24→22:51)
--- NOTE | 2016-10-03 11:28 | PN ---
[facility] Progress Note (SOAP) Subjective: right eye irritation sweats chronic body aches irritable agitation Objective: 10/03/16 11:26 Vital Signs Temperature 98.1 F 10/03/16 10:28 Pulse Rate 101 H 10/03/16 10:28 Respiratory Rate 18 10/03/16 10:28 Blood Pressure 147/81 10/03/16 10:28 O2 Sat by Pulse Oximetry (%) Laboratory Tests 09/30/16 10/01/16 10/01/16 23:35 05:09 07:45 WBC 6.0 RBC 4.31 Hgb 12.1 D Hct 38.0 MCV 88.1 MCH 28.1 MCHC 31.9 L RDW 14.5 Plt Count 191 MPV 9.0 D Sodium Potassium Chloride Carbon Dioxide Anion Gap BUN Creatinine Creat Clearance w eGFR POC Glucometer 178 Random Glucose Calcium Total Bilirubin AST ALT Alkaline Phosphatase Total Protein Albumin Urine Color Straw Urine Appearance Clear Urine pH 6.0 Ur Specific [place] <= 1.005 Urine Protein Negative Urine Glucose (UA) 3+ H Urine Ketones Negative Urine Blood Negative Urine Nitrite Negative Urine Bilirubin Negative Urine Urobilinogen Negative Ur Leukocyte Esterase Negative RPR Titer 10/01/16 10/01/16 10/01/16 07:45 07:45 11:37 WBC RBC Hgb Hct MCV MCH MCHC RDW Plt Count MPV Sodium 140 Potassium 3.8 Chloride 103 D Carbon Dioxide 30 Anion Gap 7 L BUN 21 H D Creatinine 1.0 Creat Clearance w eGFR 57.15 POC Glucometer 217 Random Glucose 202 H D Calcium 8.9 Total Bilirubin 0.3 AST 17 D ALT 23 D Alkaline Phosphatase 101 Total Protein 6.3 L Albumin 3.3 L Urine Color Urine Appearance Urine pH Ur Specific [place] Urine Protein Urine Glucose (UA) Urine Ketones Urine Blood Urine Nitrite Urine Bilirubin Urine Urobilinogen Ur Leukocyte Esterase RPR Titer Nonreactive 10/01/16 10/01/16 10/02/16 16:40 21:25 06:11 WBC RBC Hgb Hct MCV MCH MCHC RDW Plt Count MPV Sodium Potassium Chloride Carbon Dioxide Anion Gap BUN Creatinine Creat Clearance w eGFR POC Glucometer 237 205 134 Random Glucose Calcium Total Bilirubin AST ALT Alkaline Phosphatase Total Protein Albumin Urine Color Urine Appearance Urine pH Ur Specific [place] Urine Protein Urine Glucose (UA) Urine Ketones Urine Blood Urine Nitrite Urine Bilirubin Urine Urobilinogen Ur Leukocyte Esterase RPR Titer 10/02/16 10/02/16 10/02/16 11:26 16:33 21:35 WBC RBC Hgb Hct MCV MCH MCHC RDW Plt Count MPV Sodium Potassium Chloride Carbon Dioxide Anion Gap BUN Creatinine Creat Clearance w eGFR POC Glucometer 203 179 180 Random Glucose Calcium Total Bilirubin AST ALT Alkaline Phosphatase Total Protein Albumin Urine Color Urine Appearance Urine pH Ur Specific [place] Urine Protein Urine Glucose (UA) Urine Ketones Urine Blood Urine Nitrite Urine Bilirubin Urine Urobilinogen Ur Leukocyte Esterase RPR Titer 10/03/16 06:38 WBC RBC Hgb Hct MCV MCH MCHC RDW Plt Count MPV Sodium Potassium Chloride Carbon Dioxide Anion Gap BUN Creatinine Creat Clearance w eGFR POC Glucometer 96 Random Glucose Calcium Total Bilirubin AST ALT Alkaline Phosphatase Total Protein Albumin Urine Color Urine Appearance Urine pH Ur Specific [place] Urine Protein Urine Glucose (UA) Urine Ketones Urine Blood Urine Nitrite Urine Bilirubin Urine Urobilinogen Ur Leukocyte Esterase RPR Titer awake/alert ambulating no acute distress Assessment: 10/03/16 11:26 withdrawal sx right eye sticky drainage noted red/irritating to sclera noted Plan: continue detox increase fluids erythromycin ABX ointment ordered visine ordered naproxen bid
[2016-10-03] MEDS: ERYTHROMYCIN 0.5% OPHTHALMIC OINTMENT 3.5 GM TUBE OU SCH (12:16)
[2016-10-03] MEDS: NAPHAZOLINE/PHENIRAMINE OPHTHALMIC 15 ML BOTTLE OU SCH ×3 (14:39→22:52)
[2016-10-03] MEDS: hydrOXYzine PAMOATE 25 MG CAPSULE (FP) PO PRN (17:31)
[2016-10-03] MEDS: cloNIDine HCL 0.1 MG TABLET PO PRN (17:31)
[2016-10-03] MEDS: THIAMINE HCL 100 MG TABLET (FP) PO SCH (22:51)
[2016-10-03] MEDS: ZOLPIDEM TARTRATE 5 MG TABLET PO PRN (22:51)
[2016-10-03] MEDS: INSULIN DETEMIR 100 UNITS/ML MDV SQ SCH (22:54)
[2016-10-04] MEDS: diphenhydrAMINE HCL 50 MG CAPSULE PO PRN (00:41)
[2016-10-04] MEDS: INSULIN SLIDING SCALE (NOVOLOG) 1 VIAL SQ SCH ×4 (07:54→21:25)
[2016-10-04] MEDS: metFORMIN HCL 500 MG TABLET (FP) PO SCH ×2 (07:55→17:30)
--- NOTE | 2016-10-04 09:55 | PN ---
[facility] Progress Note (SOAP) Subjective: nausea shakes sweats Objective: 10/04/16 09:51 Vital Signs Temperature 98.6 F 10/04/16 10:00 Pulse Rate 113 10/04/16 10:00 Respiratory Rate 16 10/04/16 10:00 Blood Pressure 135/76 10/04/16 10:00 O2 Sat by Pulse Oximetry (%) awake/alert ambulating no acute distress Assessment: 10/04/16 09:53 withdrawal sx Plan: continue detox increase fluids clonidine 0.1mg prn zofran prn d/c in am
[2016-10-04] MEDS ORDERED: diazePAM 5 MG TABLET PO SCH (10:00)
[2016-10-04] MEDS ORDERED: METHADONE HCL 10 MG TABLET (FOR DETOX USE ONLY) PO SCH (10:00)
[2016-10-04] MEDS: NAPROXEN 500 MG TABLET (FP) PO SCH ×2 (10:41→22:24)
[2016-10-04] MEDS: LISINOPRIL 20 MG TABLET (FP) PO SCH (10:41)
[2016-10-04] MEDS: PRENATAL VITAMINS W/ FOLIC ACID TABLET (FP) PO SCH (10:41)
[2016-10-04] MEDS: NICOTINE 14 MG/24 HOURS TOPICAL PATCH TD SCH (10:41)
[2016-10-04] MEDS: amLODIPine BESYLATE 5 MG TABLET (FP) PO SCH (10:41)
[2016-10-04] MEDS: NAPHAZOLINE/PHENIRAMINE OPHTHALMIC 15 ML BOTTLE OU SCH ×4 (10:42→22:23)
[2016-10-04] MEDS: ERYTHROMYCIN 0.5% OPHTHALMIC OINTMENT 3.5 GM TUBE OU SCH (10:42)
[2016-10-04] MEDS: hydrOXYzine PAMOATE 25 MG CAPSULE (FP) PO PRN ×2 (11:14→17:30)
[2016-10-04] MEDS: ONDANSETRON *ODT* 4 MG TABLET SL PRN (14:00)
--- NOTE | 2016-10-04 14:36 | PN ---
[facility] Progress Note Note: Psychiatry Attending's note (coverage) : Asked to enter new order for ambien. Dr Herman 's note (10/03/16) is appreciated. Confirms plan fo 10 mg of zolpidem at bedtime. Intervention : Ambien 10 mg po hs prn is ordered. Order for 5 mg/hs is discontinued. Patient is made aware of benefits of sleep hygiene.
[2016-10-04] MEDS ORDERED: ZOLPIDEM TARTRATE 10 MG TABLET (PARK CARE ONLY) PO PRN (22:00)
[2016-10-04] MEDS: THIAMINE HCL 100 MG TABLET (FP) PO SCH (22:23)
[2016-10-04] MEDS: INSULIN DETEMIR 100 UNITS/ML MDV SQ SCH (22:23)
[2016-10-04] MEDS: cloNIDine HCL 0.1 MG TABLET PO PRN (22:23)
[2016-10-05] MEDS ORDERED: METHADONE HCL 5 MG TABLET (FOR DETOX USE ONLY) PO SCH (06:00)
[2016-10-05] MEDS: INSULIN SLIDING SCALE (NOVOLOG) 1 VIAL SQ SCH (06:06)
[2016-10-05 06:28] VITALS: BP 121/72; PULSE 112; TEMP 96
[2016-10-05] MEDS: metFORMIN HCL 500 MG TABLET (FP) PO SCH (07:26)
--- NOTE | 2016-10-05 08:51 | DS ---
[facility] Detox Discharge Summary Admission Date: 09/30/16 Discharge Date: 10/05/16 - History Present History: Alcohol Dependence, Opioid Dependence - Physical Exam Results Vital Signs: Vital Signs Temperature 96 F L 10/05/16 06:27 Pulse Rate 112 H 10/05/16 06:27 Respiratory Rate 20 10/05/16 06:27 Blood Pressure 121/72 10/05/16 06:27 O2 Sat by Pulse Oximetry (%) - Treatment Hospital Course: Detox Protocol Followed, Detoxed Safely, Responded well, Discharged Condition Good, Rehab Referral Accepted - Medication Discharge Medications: Ambulatory Orders Insulin (Levemir) [Levemir Flexpen -] 10 units SQ HS 06/18/14 Albuterol Sulfate Inhaler - [Ventolin HFA Inhaler -] 2 inh PO Q4H PRN #1 inhaler 11/13/15 Amlodipine Besylate [Norvasc -] 5 mg PO DAILY #30 tablet 11/13/15 Clonidine HCl [Catapres -] 0.2 mg PO BID #60 03/08/16 Erythromycin 0.5% Eye Ointment [Erythromycin 0.5% Eye Ointment -] 1 applic OD BID #1 tube 06/30/16 Zolpidem Tartrate [Ambien] 10 mg PO HS 07/09/16 Miconazole Nitrate [Monistat-7] 100 mg VG HS #7 supp.vag 07/18/16 Insulin (Levemir) [Levemir Vial] 30 units SQ AM 09/30/16 - Diagnosis (1) Corneal abrasion Current Visit: Yes Status: Acute Qualifiers: Encounter type: initial encounter Laterality: right Qualified Code( s): S05.01XA - Injury of conjunctiva and corneal abrasion without foreign body, right eye, initial encounter (2) Corneal ulcer, right Current Visit: Yes Status: Acute (3) Insomnia Current Visit: Yes Status: Chronic Qualifiers: Insomnia type: primary Qualified Code(s): F51.01 - Primary insomnia (4) Substance induced mood disorder Current Visit: Yes Status: Acute (5) Alcohol dependence with uncomplicated withdrawal Current Visit: Yes Status: Chronic (6) Arthritis Current Visit: Yes Status: Chronic (7) Asthma Current Visit: Yes Status: Chronic Qualifiers: Asthma severity: mild intermittent Asthma complication type: uncomplicated Qualified Code(s): J45.20 - Mild intermittent asthma, uncomplicated (8) Cocaine dependence Current Visit: Yes Status: Chronic Qualifiers: Substance use status: uncomplicated Qualified Code(s): F14.20 - Cocaine dependence, uncomplicated (9) Diabetes mellitus, insulin dependent (IDDM), uncontrolled Current Visit: Yes Status: Chronic Qualifiers: Diabetes mellitus complication status: with skin complications Diabetes mellitus complication detail: with other skin complication Qualified Code(s): 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; E10.65 - Type 1 diabetes mellitus with hyperglycemia (10) HTN (hypertension) Current Visit: Yes Status: Chronic Qualifiers: Hypertension type: essential hypertension Qualified Code(s): I10 - Essential (primary) hypertension (11) Hepatitis C Current Visit: Yes Status: Chronic Qualifiers: Viral hepatitis chronicity: chronic Hepatic coma status: without hepatic coma Qualified Code(s): B18.2 - Chronic viral hepatitis C (12) Low back pain Current Visit: Yes Status: Chronic Qualifiers: Chronicity: chronic Back pain laterality: bilateral Sciatica presence: without sciatica Qualified Code(s): M54.5 - Low back pain (13) Nicotine dependence Current Visit: Yes Status: Chronic Qualifiers: Nicotine product type: cigarettes Substance use status: in withdrawal Qualified Code(s): F17.213 - Nicotine dependence, cigarettes, with withdrawal (14) Opioid dependence with withdrawal Current Visit: Yes Status: Chronic - AMA Did Patient Leave Against Medical Advice: No (New Focus)
[2016-10-05] MEDS: amLODIPine BESYLATE 5 MG TABLET (FP) PO SCH (09:24)
[2016-10-05] MEDS: LISINOPRIL 20 MG TABLET (FP) PO SCH (09:24)
[2016-10-05] MEDS: NAPROXEN 500 MG TABLET (FP) PO SCH (09:24)
[2016-10-05] MEDS: ERYTHROMYCIN 0.5% OPHTHALMIC OINTMENT 3.5 GM TUBE OU SCH (09:25)
[2016-10-05] MEDS: hydrOXYzine PAMOATE 25 MG CAPSULE (FP) PO PRN (09:25)
[2016-10-05] MEDS: NAPHAZOLINE/PHENIRAMINE OPHTHALMIC 15 ML BOTTLE OU SCH (09:25)
== END 2016-10-05 10:18 | disposition home or self-care (01) | DRG 773 ==
LOC: YASAS 17:00 → Y6N 21:11
PROVIDERS: ADMIT Internal Medicine; ATTEND Internal Medicine
PROC: HZ2ZZZZ Detoxification Services for Substance Abuse Treatment (ICD-10-PCS; principal; 2016-09-30)
DX: F11.23 Opioid dependence with withdrawal (principal); F10.230 Alcohol dependence with withdrawal, uncomplicated; F14.20 Cocaine dependence, uncomplicated; F17.213 Nicotine dependence, cigarettes, with withdrawal; F19.24 Other psychoactive substance dependence with psychoactive substance-induced mood disorder; F31.81 Bipolar II disorder; J45.20 Mild intermittent asthma, uncomplicated; I10 Essential (primary) hypertension; B18.2 Chronic viral hepatitis C; G47.00 Insomnia, unspecified; M54.5 Low back pain; G89.29 Other chronic pain; M19.90 Unspecified osteoarthritis, unspecified site; E10.628 Type 1 diabetes mellitus with other skin complications; E10.65 Type 1 diabetes mellitus with hyperglycemia; H40.9 Unspecified glaucoma; Z79.4 Long term (current) use of insulin; Z79.84 Long term (current) use of oral hypoglycemic drugs; Z90.710 Acquired absence of both cervix and uterus; S05.01XA Injury of conjunctiva and corneal abrasion without foreign body, right eye, initial encounter; H16.001 Unspecified corneal ulcer, right eye; Z91.5 Personal history of self-harm; Z91.19 Patient's noncompliance with other medical treatment and regimen
CPT/HCPCS: 36415; 80053; 81003; 85027; 86593; 93005; 93010

== ENCOUNTER 2016-12-16 08:34 | Inpatient (IN) | payer OTHER ==
[2016-12-16 10:35] VITALS: BMI 27.8
--- NOTE | 2016-12-16 12:56 | HP ---
COWS - Scale Resting Pulse: 2= MD 101-120 Sweatin=Flushed/Facial Moisture Restless Observation: 3= Extraneous Movement Pupil Size: 2= Moderately Dilated Bone or Joint Aches: 2= Severe Diffuse Aches Runny Nose/ Eye Tearin= Runny Nose/Eyes GI Upset > 30mins: 3= Vomiting/Diarrhea Tremor Observation: 2= Slight Tremor Visible Yawning Observation: 2= >3x During Session Anxiety or Irritability: 2=Irritable/Anxious Goose Flesh Skin: 0=Smooth Skin COWS Score: 22 CIWA Score - CIWA Score Nausea/Vomitin Muscle Tremors: 3 Anxiety: 3 Agitation: 3 Paroxysmal Sweats: 2 Orientation: 0-Oriented Tacttile Disturbances: 2-Mild Itch/Numbness/Burn Auditory Disturbances: 2-Mild Harshness/Frighten Visual Disturbances: 2-Mild Sensitivity Headache: 2-Mild CIWA-Ar Total Score: 22 Admission ROS [facility] - HPI Chief Complaint: I need help to stop using heroin and alcohol Allergies/Adverse Reactions: Allergies Allergy/AdvReac Type Severity Reaction Status Date / Time No Known Drug Allergies Allergy Severe Itching Verified 12/16/16 11:30 tomato [Tomato] Allergy Unknown Not Verified 12/16/16 11:30 Specified History of Present Illness: this 56 years old female with heroin dependence with alcohol dependence,seeking detox,last treatment 09/30/16 to 10/05/16 iddm hypertension depression,insomnia nicotine dependence longest period of sobriety 7 years Exam Limitations: No Limitations - Ebola screening Have you traveled outside of the country in the last 21 days: No Have you been sick,other than usual withdrawal symptoms: No - Review of Systems Constitutional: Chills, Diaphoresis, Loss of Appetite, Malaise, Night Sweats, Changes in sleep, Weakness, Unintentional Wgt. Loss EENT: reports: Tearing, Nose Congestion Respiratory: reports: No Symptoms reported Cardiac: reports: Palpitations GI: reports: Diarrhea, Nausea, Vomiting, Abdominal cramping : reports: No Symptoms Reported Musculoskeletal: reports: Back Pain, Joint Pain, Muscle Pain, Joint Stiffness Integumentary: reports: Dryness Neuro: reports: Headache, Tremors Endocrine: reports: No Symptoms Reported Hematology: reports: No Symptoms Reported Psychiatric: reports: No Sypmtoms Reported, Judgement Intact, Mood/Affect Appropiate, Depressed Patient History - Patient Medical History Hx Anemia: No Hx Asthma: Yes (Pt is on MDI for asthma.) Hx Chronic Obstructive Pulmonary Disease (COPD): No Hx Cancer: No Hx Cardiac Disorders: No Hx Congestive Heart Failure: No Hx Hypertension: Yes (Pt is non compliant with meds.) Hx Hypercholesterolemia: No Hx Pacemaker: No HX Cerebrovascular Accident: No Hx Seizures: No Hx Dementia: No Hx Diabetes: Yes (on insulin) Hx Gastrointestinal Disorders: No Hx Liver Disease: Yes Hx Genitourinary Disorders: No Hx Sexually Transmitted Disorders: No Hx Renal Disease (ESRD): No Hx Thyroid Disease: No Hx Human Immunodeficiency Virus (HIV): No Hx Hepatitis C: Yes (NO TREATMENT) Hx Depression: Yes Hx Suicide Attempt: No Hx Bipolar Disorder: No Hx Schizophrenia: No Other Medical History: no suicidal,no homicidal - Patient Surgical History Past Surgical History: Yes Hx Neurologic Surgery: No Hx Cataract Extraction: No Hx Cardiac Surgery: No Hx Lung Surgery: No Hx Breast Surgery: No Hx Breast Biopsy: No Hx Abdominal Surgery: Yes (Hysterectomy in 2007) Hx Appendectomy: No Hx Cholecystectomy: Yes (r/o gallstones 11/05) Hx Genitourinary Surgery: No Hx Section: No Hx Orthopedic Surgery: No Hx Hysterectomy: Yes (2007) Anesthesia Reaction: No - PPD History Previous Implant?: Yes Documented Results: Negative w/proof Implanted On Prior R Admission?: Yes Date: 10/02/16 Results: 0 MM PPD to be Administered?: No - Reproductive History Last Menstrual Period: 10/07/07 Patient : No - Smoking Cessation Smoking history: Current every day smoker Have you smoked in the past 12 months: No Aproximately how many cigarettes per day: 10 Cigars Per Day: 0 Hx Chewing Tobacco Use: No Initiated information on smoking cessation: Yes 'Breaking Loose' booklet given: 12/16/16 - Substance & Tx. History Hx Alcohol Use: Yes Hx Substance Use: Yes Substance Use Type: Alcohol, Cocaine, Heroin - Substances Abused Heroin Route: Inhalation Frequency: Daily Amount used: 6 BAGS Age of first use: 38 Date of Last Use: 12/15/16 Alcohol Route: Oral Frequency: Daily Amount used: 6PK BEER Age of first use: 17 Date of Last Use: 12/16/16 Cocaine Route: Inhalation Frequency: 3-6 times per week Amount used: 2 BAGS Age of first use: 38 Date of Last Use: 12/15/16 Family Disease History - Family Disease History Family Disease History: Diabetes: Mother ( FROM [place]. OF THE LIVER,HTN), Brother, Heart Disease: Mother, Sister ( MII), CA: Father (etoh, ), Mother Admission Physical Exam [facility] - Vital Signs Vital Signs: Vital Signs - 24 hr 12/16/16 10:32 Temperature 97.2 F L Pulse Rate 106 H Respiratory 20 Rate Blood Pressure 146/83 - Physical General Appearance: Yes: Moderate Distress, Tremorous, Irritable, Sweating, Anxious HEENTM: Yes: Within Normal Limits, [place], Pharynx Normal Respiratory: Yes: Lungs Clear, Normal Breath Sounds, No Respiratory Distress Neck: Yes: Within Normal Limits, Supple, Trachea in good position Breast: Yes: Breast Exam Deferred Cardiology: Yes: Tachycardia Abdominal: Yes: Normal Bowel Sounds, Non Tender (s/physterctomy s/p chlecystectomy), Soft, Surgical Scar Genitourinary: Yes: Within Normal Limits Back: Yes: Muscle Spasm Musculoskeletal: Yes: Back pain, Joint Stiffness, Muscle Pain Extremities: Yes: Within Normal Limits, Normal Capillary Refill, Normal Inspection, Normal Range of Motion, Tremors Neurological: Yes: 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, Fully Oriented, Alert, Motor Strength 5/5 Integumentary: Yes: Dry Lymphatic: Yes: Within Normal Limits - Diagnostic (1) Opioid dependence with withdrawal Current Visit: Yes Status: Acute (2) Alcohol dependence with uncomplicated withdrawal Current Visit: Yes Status: Acute (3) Arthritis Current Visit: Yes Status: Chronic (4) Asthma Current Visit: Yes Status: Chronic Qualifiers: Asthma severity: mild intermittent Asthma complication type: uncomplicated (5) Cocaine dependence Current Visit: Yes Status: Acute Qualifiers: Substance use status: uncomplicated Qualified Code(s): F14.20 - Cocaine dependence, uncomplicated; F14.20 - Cocaine dependence, uncomplicated; F14.20 - Cocaine dependence, uncomplicated (6) Diabetes mellitus, insulin dependent (IDDM), uncontrolled Current Visit: Yes Status: Chronic Qualifiers: Diabetes mellitus complication status: with skin complications Diabetes mellitus complication detail: with other skin complication Qualified Code(s): 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; 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 ; 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; 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; E10.65 - Type 1 diabetes mellitus with hyperglycemia; E10.65 - Type 1 diabetes mellitus with hyperglycemia; E10.65 - Type 1 diabetes mellitus with hyperglycemia; E10.65 - Type 1 diabetes mellitus with hyperglycemia (7) HTN (hypertension) Current Visit: No Status: Chronic Qualifiers: Hypertension type: essential hypertension Qualified Code(s): I10 - Essential (primary) hypertension; I10 - Essential (primary) hypertension; I10 - Essential (primary) hypertension (8) Hepatitis C Current Visit: Yes Status: Chronic Qualifiers: Viral hepatitis chronicity: chronic Hepatic coma status: without hepatic coma Qualified Code(s): B18.2 - Chronic viral hepatitis C; B18.2 - Chronic viral hepatitis C; B18.2 - Chronic viral hepatitis C; B18.2 - Chronic viral hepatitis C (9) Insomnia Current Visit: Yes Status: Acute Qualifiers: Insomnia type: primary Qualified Code(s): F51.01 - Primary insomnia ; F51.01 - Primary insomnia (10) Low back pain Current Visit: Yes Status: Chronic Qualifiers: Chronicity: chronic Back pain laterality: bilateral Sciatica presence: without sciatica Qualified Code(s): M54.5 - Low back pain; M54.5 - Low back pain (11) Nicotine dependence Current Visit: Yes Status: Acute Qualifiers: Nicotine product type: cigarettes Substance use status: in withdrawal Qualified Code(s): F17.213 - Nicotine dependence, cigarettes, with withdrawal; F17.213 - Nicotine dependence, cigarettes, with withdrawal (12) History of hysterectomy Current Visit: Yes Status: Acute (13) History of laparoscopic cholecystectomy Current Visit: Yes Status: Acute Cleared for Admission S - Detox or Rehab [facility] Level of Care: Medically Managed Detox Regimen/Protocol: Methadone/Valium S Breath Alcohol Content Breath Alcohol Content: 0 Urine Pregancy Test - Result Urine Test Results: Negative- NO Line Present Urine Drug Screen - Results Drug Screen Negative: No Urine Drug Screen Results: KENYA-Cocaine, OPI-Opiates
[2016-12-16] MEDS ORDERED: chlordiazePOXIDE HCL 25 MG CAPSULE PO PRN (13:10)
[2016-12-16] MEDS ORDERED: LOPERAMIDE HCL 2 MG CAPSULE PO PRN (13:10)
[2016-12-16] MEDS ORDERED: guaiFENesin/D-METHORPHAN HB 10 ML UNIT-DOSE CUPS PO PRN (13:10)
[2016-12-16] MEDS ORDERED: diphenhydrAMINE HCL 50 MG CAPSULE PO PRN (13:10)
[2016-12-16] MEDS ORDERED: MAG HYDROX/AL HYDROX/SIMETH 30 ML UNIT-DOSE CUP PO PRN (13:10)
[2016-12-16] MEDS ORDERED: MAGNESIUM HYDROX 2400MG/30ML ORAL SUSPENSION 30 ML CUP PO PRN (13:10)
[2016-12-16] MEDS ORDERED: MENTHOL/PHENOL 1 EACH UD MM PRN (13:10)
[2016-12-16] MEDS ORDERED: IBUPROFEN 400 MG TABLET (FP) PO PRN (13:10)
[2016-12-16] MEDS ORDERED: MAGNESIUM CITRATE 300 ML BOTTLE PO PRN (13:10)
[2016-12-16] MEDS ORDERED: P-EPHED 60MG/TRIPROLIDI 2.5MG TABLET PO PRN (13:10)
[2016-12-16] MEDS ORDERED: chlordiazePOXIDE HCL 25 MG CAPSULE PO ONE (13:45)
[2016-12-16] MEDS ORDERED: METHADONE HCL 10 MG TABLET (FOR DETOX USE ONLY) PO ONE ×2 (13:45→23:00)
[2016-12-16] MEDS ORDERED: diazePAM 5 MG TABLET PO ONE (14:41)
[2016-12-16] MEDS ORDERED: INSULIN (NOVOLOG) ASPART 100 UNITS/ML 10ML VIAL ONE ×2 (16:44→21:36)
[2016-12-16] MEDS: metFORMIN HCL 500 MG TABLET (FP) PO SCH (16:55)
[2016-12-16] MEDS: INSULIN (NOVOLOG) ASPART 100 UNITS/ML 10ML VIAL SQ SCH ×2 (16:56→21:39)
[2016-12-16] MEDS ORDERED: chlordiazePOXIDE HCL 25 MG CAPSULE PO SCH (17:00)
--- NOTE | 2016-12-16 17:46 | CONSULT ---
[facility] Psychiatric Consult - Data Date of interview: 12/16/16 Admission source: [facility] Identifying data: This is one of multiple admissions to [facility] for this 56 y/ o AA female seeking detox treatment on for heroin,cocaine and alcohol dependence.Patient is single,a mother of two,domiciled (lives with common-law aco coordinator),unemployed and supported on SSI benefits. Substance Abuse History: Patient confirmed a long standing history of dependence on cocaine,alcohol and heroin.Smoking history: Current every day smoker. Have you smoked in the past 12 months: No. Aproximately how many cigarettes per day: 10. Cigars Per Day: 0. Hx Chewing Tobacco Use: No. Initiated information on smoking cessation: Yes. 'Breaking Loose' booklet given : 12/16/16. - Substance & Tx. History. Hx Alcohol Use: Yes. Hx Substance Use : Yes. Substance Use Type: Alcohol, Cocaine, Heroin. - Substances Abused. Heroin. Route: Inhalation. Frequency: Daily. Amount used: 6 BAGS. Age of first use: 38. Date of Last Use: 12/15/16. Alcohol. Route: Oral. Frequency: Daily. Amount used: 6PK BEER. Age of first use: 17. Date of Last Use: 12/16/16. Cocaine. Route: Inhalation. Frequency: 3-6 times per week. Amount used: 2 BAGS. Age of first use: 38. Date of Last Use: 12/15/16 Medical History: Bronchial asthma,hypertension,diabetes mellitus,hepatitis C, arthritis,low back pain,psoriasis and past surgeries (hysterectomy and left breast lumpectomy). Psychiatric History: History of 4-5 psychiatric hospitalizations (mostly at [facility]).Diagnosed with " Bipolar Disorder and MDD." Patient denies recent history of psychiatric OPD care.Ms Goyal is not on any psychotropic medications.Past history of treatment with lexapro 20 mg po/day ( last script was issued in 07/2015) + zolpidem 10 mg/hs.In this interview,the patient denies history of suicide attempts. Physical/Sexual Abuse/Trauma History: No reported history of abuse. Additional Comment: Urine Drug Screen Results: KENYA-Cocaine, OPI-Opiates.Noted. Mental Status Exam - Mental Status Exam Alert and Oriented to: Time, Place, Person Cognitive Function: Grossly Intact Patient Appearance: Well Groomed Mood: Nervous, Withdrawn, Anxious Affect: Mood Congruent, Constricted Patient Behavior: Restless, Fatigued Speech Pattern: Clear Voice Loudness: Normal Thought Process: Goal Oriented Thought Disorder: Not Present Hallucinations: Denies Suicidal Ideation: Denies Homicidal Ideation: Denies Insight/Judgement: Poor Sleep: Poorly, Difficulty falling asleep Appetite: Good Muscle strength/Tone: Normal Gait/Station: Normal Psychiatric Findings - Problem List ([place] 1, 2,3) (1) Opioid dependence with withdrawal Current Visit: Yes Status: Acute (2) Alcohol dependence with uncomplicated withdrawal Current Visit: Yes Status: Acute (3) Cocaine dependence Current Visit: Yes Status: Acute Qualifiers: Substance use status: uncomplicated Qualified Code(s): F14.20 - Cocaine dependence, uncomplicated; F14.20 - Cocaine dependence, uncomplicated; F14.20 - Cocaine dependence, uncomplicated (4) Nicotine dependence Current Visit: Yes Status: Acute Qualifiers: Nicotine product type: cigarettes Substance use status: in withdrawal Qualified Code(s): F17.213 - Nicotine dependence, cigarettes, with withdrawal; F17.213 - Nicotine dependence, cigarettes, with withdrawal (5) Substance induced mood disorder Current Visit: Yes Status: Acute (6) Diabetes mellitus, insulin dependent (IDDM), uncontrolled Current Visit: Yes Status: Chronic Qualifiers: Diabetes mellitus complication status: with skin complications Diabetes mellitus complication detail: with other skin complication Qualified Code(s): 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; 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 ; 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; 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; E10.65 - Type 1 diabetes mellitus with hyperglycemia; E10.65 - Type 1 diabetes mellitus with hyperglycemia; E10.65 - Type 1 diabetes mellitus with hyperglycemia; E10.65 - Type 1 diabetes mellitus with hyperglycemia (7) HTN (hypertension) Current Visit: No Status: Chronic Qualifiers: Hypertension type: essential hypertension Qualified Code(s): I10 - Essential (primary) hypertension; I10 - Essential (primary) hypertension; I10 - Essential (primary) hypertension (8) Hepatitis C Current Visit: Yes Status: Chronic Qualifiers: Viral hepatitis chronicity: chronic Hepatic coma status: without hepatic coma Qualified Code(s): B18.2 - Chronic viral hepatitis C; B18.2 - Chronic viral hepatitis C; B18.2 - Chronic viral hepatitis C; B18.2 - Chronic viral hepatitis C (9) Arthritis Current Visit: Yes Status: Chronic (10) Asthma Current Visit: Yes Status: Chronic Qualifiers: Asthma severity: mild intermittent Asthma complication type: uncomplicated Qualified Code(s): J45.20 - Mild intermittent asthma, uncomplicated; J45.20 - Mild intermittent asthma, uncomplicated; J45.20 - Mild intermittent asthma, uncomplicated (11) Low back pain Current Visit: Yes Status: Chronic Qualifiers: Chronicity: chronic Back pain laterality: bilateral Sciatica presence: without sciatica Qualified Code(s): M54.5 - Low back pain; M54.5 - Low back pain (12) Insomnia Current Visit: Yes Status: Acute Qualifiers: Insomnia type: primary Qualified Code(s): F51.01 - Primary insomnia ; F51.01 - Primary insomnia - Initial Treatment Plan Initial Treatment Plan: Psychoeducation.Detoxification.Ambien 10 mg po hs prn.Patient is made aware of parasomnias.She agrees with careplan.Observation.
[2016-12-16 18:55] LABS: URINE APPEARANCE CLEAR; URINE BILIRUBIN NEGATIVE (NEGATIVE); URINE BLOOD NEGATIVE (NEGATIVE); URINE COLOR LTYELLOW; URINE GLUCOSE (UA) 1+ (NEGATIVE); URINE KETONE NEGATIVE (NEGATIVE); URINE NITRITE NEGATIVE (NEGATIVE); URINE PROTEIN NEGATIVE (NEGATIVE); URINE UROBILINOGEN NEGATIVE mg/dL (0.2-1.0)
[2016-12-16] MEDS: diazePAM 5 MG TABLET PO PRN (19:10)
[2016-12-16 21:14] LABS: URINE LEUK ESTERASE Negative (NEGATIVE)
[2016-12-16] MEDS: INSULIN DETEMIR 100 UNITS/ML MDV SQ SCH (21:38)
[2016-12-16] MEDS: ZOLPIDEM TARTRATE 10 MG TABLET (PARK CARE ONLY) PO PRN (22:23)
[2016-12-16] MEDS: NAPROXEN 500 MG TABLET (FP) PO SCH (22:24)
[2016-12-16] MEDS: THIAMINE HCL 100 MG TABLET (FP) PO SCH (22:24)
[2016-12-16] MEDS: diazePAM 5 MG TABLET PO SCH (22:24)
[2016-12-17] MEDS: diazePAM 5 MG TABLET PO PRN ×4 (00:47→21:03)
[2016-12-17] MEDS: diazePAM 5 MG TABLET PO SCH ×3 (05:38→22:46)
[2016-12-17] MEDS: INSULIN DETEMIR 100 UNITS/ML MDV SQ SCH ×2 (08:00→22:52)
[2016-12-17] MEDS: metFORMIN HCL 500 MG TABLET (FP) PO SCH ×2 (08:00→16:42)
[2016-12-17] MEDS: INSULIN (NOVOLOG) ASPART 100 UNITS/ML 10ML VIAL SQ SCH ×4 (08:00→22:49)
[2016-12-17] MEDS ORDERED: METHADONE HCL 10 MG TABLET (FOR DETOX USE ONLY) PO SCH (10:00)
[2016-12-17] MEDS: LISINOPRIL 20 MG TABLET (FP) PO SCH (10:27)
[2016-12-17] MEDS: PRENATAL VITAMINS W/ FOLIC ACID TABLET (FP) PO SCH (10:27)
[2016-12-17] MEDS: amLODIPine BESYLATE 5 MG TABLET (FP) PO SCH (10:28)
[2016-12-17] MEDS: NAPROXEN 500 MG TABLET (FP) PO SCH ×2 (10:28→22:45)
[2016-12-17 11:13] LABS: ALBUMIN 3.6 g/dl (3.4-5.0); ANION GAP 8 (8-16); CALCIUM 8.3 mg/dL (8.5-10.1); CO2 27 mmol/L (21-32); CREATININE 1.1 mg/dL (0.55-1.02); GLUCOSE,RANDOM 231 mg/dL (74-106); SGOT/AST 14 U/L (15-37); SGPT/ALT 23 U/L (12-78)
[2016-12-17 11:15] LABS: ALK PHOS 123 U/L (45-117); BILIRUBIN,TOTAL 0.3 mg/dL (0.2-1.0)
[2016-12-17 11:21] LABS: MCHC 33.8 g/dl (32.0-36.0); MEAN CELL VOLUME 85.9 fl (80-96); MEAN PLT VOLUME 9.5 fl (7.5-11.1); PLATELET COUNT 252 K/MM3 (134-434); RDW 13.2 % (11.6-15.6); WHITE BLOOD COUNT 5.6 K/mm3 (4.0-10.0)
[2016-12-17] MEDS ORDERED: INSULIN (NOVOLOG) ASPART 100 UNITS/ML 10ML VIAL ONE (11:50)
[2016-12-17] MEDS ORDERED: FLU VACCINE QUAD 60 MCG/0.5 ML (MDV 17-18) IM ONE (12:00)
--- NOTE | 2016-12-17 14:16 | PN ---
[facility] CIWA - CIWA Score Nausea/Vomitin Muscle Tremors: 3 Anxiety: 3 Agitation: 3 Paroxysmal Sweats: 1-Minimal Palms Moist Orientation: 0-Oriented Tacttile Disturbances: 1-Very Mild Itch/Numbness Auditory Disturbances: 1-Very Mild Visual Disturbances: 0-None Headache: 3-Moderate CIWA-Ar Total Score: 18 [facility] COWS - Scale Resting Pulse: 1= [place] 81-100 Sweatin= Chills/Flushing Restless Observation: 3= Extraneous Movement Pupil Size: 1= Pupils >than Normal Bone or Joint Aches: 2= Severe Diffuse Aches Runny Nose/ Eye Tearin= Runny Nose/Eyes GI Upset > 30mins: 3= Vomiting/Diarrhea Tremor Observation of Outstretched Hands: 2= Slight Tremor Visible Yawning Observation: 1= 1-2x During Session Anxiety or Irritability: 2=Irritable/Anxious Goose Flesh Skin: 0=Smooth Skin COWS Score: 18 [facility] Progress Note (SOAP) Subjective: ALERT,IRRITABLE,ANXIOUS,INTERRUPTED SLEEP,PAIN IN THE BODY,BACK Objective: 12/17/16 14:13 Vital Signs Temperature 97.9 F 12/17/16 14:00 Pulse Rate 101 H 12/17/16 14:00 Respiratory Rate 16 12/17/16 14:00 Blood Pressure 123/73 12/17/16 14:00 O2 Sat by Pulse Oximetry (%) EKG NSR,PROLONG QT NO CHEST PAIN,NO SOB,NO DIZZINESS Laboratory Last Values WBC 5.6 K/mm3 (4.0-10.0) 12/17/16 06:08 RBC 4.51 M/mm3 (3.60-5.2) 12/17/16 06:08 Hgb 13.1 GM/dL (10.7-15.3) 12/17/16 06:08 Hct 38.7 % (32.4-45.2) 12/17/16 06:08 MCV 85.9 fl (80-96) 12/17/16 06:08 MCH 29.0 pg (25.7-33.7) 12/17/16 06:08 MCHC 33.8 g/dl (32.0-36.0) 12/17/16 06:08 RDW 13.2 % (11.6-15.6) 12/17/16 06:08 Plt Count 252 K/MM3 (134-434) D 12/17/16 06:08 MPV 9.5 fl (7.5-11.1) 12/17/16 06:08 Sodium 139 mmol/L (136-145) 12/17/16 06:08 Potassium 3.7 mmol/L (3.5-5.1) 12/17/16 06:08 Chloride 104 mmol/L (98-107) 12/17/16 06:08 Carbon Dioxide 27 mmol/L (21-32) 12/17/16 06:08 Anion Gap 8 (8-16) 12/17/16 06:08 BUN 17 mg/dL (7-18) 12/17/16 06:08 Creatinine 1.1 mg/dL (0.55-1.02) H 12/17/16 06:08 Creat Clearance w eGFR 51.20 (>60) 12/17/16 06:08 POC Glucometer 160 UNITS (()) 12/17/16 11:47 Random Glucose 231 mg/dL (74-106) H 12/17/16 06:08 Calcium 8.3 mg/dL (8.5-10.1) L 12/17/16 06:08 Total Bilirubin 0.3 mg/dL (0.2-1.0) 12/17/16 06:08 AST 14 U/L (15-37) L 12/17/16 06:08 ALT 23 U/L (12-78) 12/17/16 06:08 Alkaline Phosphatase 123 U/L (45-117) H D 12/17/16 06:08 Total Protein 7.0 g/dl (6.4-8.2) 12/17/16 06:08 Albumin 3.6 g/dl (3.4-5.0) 12/17/16 06:08 Urine Color Ltyellow 12/16/16 17:30 Urine Appearance Clear 12/16/16 17:30 Urine pH 5.0 (5.0-8.0) 12/16/16 17:30 Ur Specific [place] 1.015 (1.005-1.025) 12/16/16 17:30 Urine Protein Negative (NEGATIVE) 12/16/16 17:30 Urine Glucose (UA) 1+ (NEGATIVE) H D 12/16/16 17:30 Urine Ketones Negative (NEGATIVE) 12/16/16 17:30 Urine Blood Negative (NEGATIVE) 12/16/16 17:30 Urine Nitrite Negative (NEGATIVE) 12/16/16 17:30 Urine Bilirubin Negative (NEGATIVE) 12/16/16 17:30 Urine Urobilinogen Negative mg/dL (0.2-1.0) 12/16/16 17:30 Ur Leukocyte Esterase Negative (NEGATIVE) 12/16/16 17:30 RPR Titer Nonreactive (NONREACTIVE) 12/17/16 06:08 Assessment: 12/17/16 14:14 WITHDRAWAL SYMPTOM Plan: CONTINUE DETOX,BGM MONITORING,INSULIN COVERAGE
[2016-12-17] MEDS ORDERED: chlordiazePOXIDE HCL 25 MG CAPSULE PO SCH (17:00)
[2016-12-17] MEDS: TOLNAFTATE 1% CREAM 15 GM TUBE TP SCH (22:45)
[2016-12-17] MEDS: THIAMINE HCL 100 MG TABLET (FP) PO SCH (22:46)
[2016-12-17] MEDS: ZOLPIDEM TARTRATE 10 MG TABLET (PARK CARE ONLY) PO PRN (22:53)
[2016-12-18] MEDS: diazePAM 5 MG TABLET PO PRN ×4 (01:06→17:15)
[2016-12-18] MEDS: metFORMIN HCL 500 MG TABLET (FP) PO SCH ×2 (08:00→17:15)
[2016-12-18] MEDS: INSULIN DETEMIR 100 UNITS/ML MDV SQ SCH ×2 (08:00→22:24)
[2016-12-18] MEDS: INSULIN (NOVOLOG) ASPART 100 UNITS/ML 10ML VIAL SQ SCH ×4 (08:07→22:27)
--- NOTE | 2016-12-18 09:13 | EKG ---
Test Reason : Blood Pressure : / mmHG Vent. Rate : 095 BPM Atrial Rate : 095 BPM P-R Int : 142 ms QRS Dur : 072 ms QT Int : 382 ms P-R-T Axes : 071 056 065 degrees QTc Int : 480 ms NORMAL SINUS RHYTHM POSSIBLE LEFT ATRIAL ENLARGEMENT PROLONGED QT ABNORMAL ECG WHEN COMPARED WITH ECG OF 30-SEP-2016 21:49, NO SIGNIFICANT CHANGE WAS FOUND Confirmed by DARREL CHOWDHURY, CONY ([id number]) on 12/18/2016 9:13:28 AM Referred By: Confirmed By:CONY ROJO MD
[2016-12-18] MEDS: diazePAM 5 MG TABLET PO SCH ×2 (10:31→22:27)
[2016-12-18] MEDS: METHADONE HCL 5 MG TABLET (FOR DETOX USE ONLY) PO SCH (10:32)
[2016-12-18] MEDS: LISINOPRIL 20 MG TABLET (FP) PO SCH (10:32)
[2016-12-18] MEDS: PRENATAL VITAMINS W/ FOLIC ACID TABLET (FP) PO SCH (10:32)
[2016-12-18] MEDS: amLODIPine BESYLATE 5 MG TABLET (FP) PO SCH (10:33)
[2016-12-18] MEDS: TOLNAFTATE 1% CREAM 15 GM TUBE TP SCH ×2 (10:33→22:28)
[2016-12-18] MEDS: NAPROXEN 500 MG TABLET (FP) PO SCH (10:33)
[2016-12-18] MEDS ORDERED: INSULIN (NOVOLOG) ASPART 100 UNITS/ML 10ML VIAL ONE (11:46)
[2016-12-18] MEDS: ACETAMINOPHEN 325 MG TABLET (FP) PO PRN (14:13)
--- NOTE | 2016-12-18 14:29 | PN ---
[facility] CIWA - CIWA Score Nausea/Vomitin Muscle Tremors: 3 Anxiety: 3 Agitation: 3 Paroxysmal Sweats: 1-Minimal Palms Moist Orientation: 0-Oriented Tacttile Disturbances: 1-Very Mild Itch/Numbness Auditory Disturbances: 1-Very Mild Visual Disturbances: 0-None Headache: 2-Mild CIWA-Ar Total Score: 17 [facility] COWS - Scale Resting Pulse: 1= [place] 81-100 Sweatin= Chills/Flushing Restless Observation: 3= Extraneous Movement Pupil Size: 1= Pupils >than Normal Bone or Joint Aches: 2= Severe Diffuse Aches Runny Nose/ Eye Tearin= Runny Nose/Eyes GI Upset > 30mins: 2= Nausea/Diarrhea Tremor Observation of Outstretched Hands: 2= Slight Tremor Visible Yawning Observation: 1= 1-2x During Session Anxiety or Irritability: 2=Irritable/Anxious Goose Flesh Skin: 0=Smooth Skin COWS Score: 17 [facility] Progress Note (SOAP) Subjective: ALERT,IRRITABLE,ANXIOUS,INTERRUPTED SLEEP,PAIN IN THE BODY,BACK,EXTREMITIES Objective: 12/18/16 14:27 Vital Signs Temperature 97 F L 12/18/16 13:55 Pulse Rate 103 H 12/18/16 13:55 Respiratory Rate 18 12/18/16 13:55 Blood Pressure 136/82 12/18/16 13:55 O2 Sat by Pulse Oximetry (%) Laboratory Last Values WBC 5.6 K/mm3 (4.0-10.0) 12/17/16 06:08 RBC 4.51 M/mm3 (3.60-5.2) 12/17/16 06:08 Hgb 13.1 GM/dL (10.7-15.3) 12/17/16 06:08 Hct 38.7 % (32.4-45.2) 12/17/16 06:08 MCV 85.9 fl (80-96) 12/17/16 06:08 MCH 29.0 pg (25.7-33.7) 12/17/16 06:08 MCHC 33.8 g/dl (32.0-36.0) 12/17/16 06:08 RDW 13.2 % (11.6-15.6) 12/17/16 06:08 Plt Count 252 K/MM3 (134-434) D 12/17/16 06:08 MPV 9.5 fl (7.5-11.1) 12/17/16 06:08 Sodium 139 mmol/L (136-145) 12/17/16 06:08 Potassium 3.7 mmol/L (3.5-5.1) 12/17/16 06:08 Chloride 104 mmol/L (98-107) 12/17/16 06:08 Carbon Dioxide 27 mmol/L (21-32) 12/17/16 06:08 Anion Gap 8 (8-16) 12/17/16 06:08 BUN 17 mg/dL (7-18) 12/17/16 06:08 Creatinine 1.1 mg/dL (0.55-1.02) H 12/17/16 06:08 Creat Clearance w eGFR 51.20 (>60) 12/17/16 06:08 POC Glucometer 156 UNITS (()) 12/18/16 11:42 Random Glucose 231 mg/dL (74-106) H 12/17/16 06:08 Calcium 8.3 mg/dL (8.5-10.1) L 12/17/16 06:08 Total Bilirubin 0.3 mg/dL (0.2-1.0) 12/17/16 06:08 AST 14 U/L (15-37) L 12/17/16 06:08 ALT 23 U/L (12-78) 12/17/16 06:08 Alkaline Phosphatase 123 U/L (45-117) H D 12/17/16 06:08 Total Protein 7.0 g/dl (6.4-8.2) 12/17/16 06:08 Albumin 3.6 g/dl (3.4-5.0) 12/17/16 06:08 Urine Color Ltyellow 12/16/16 17:30 Urine Appearance Clear 12/16/16 17:30 Urine pH 5.0 (5.0-8.0) 12/16/16 17:30 Ur Specific [place] 1.015 (1.005-1.025) 12/16/16 17:30 Urine Protein Negative (NEGATIVE) 12/16/16 17:30 Urine Glucose (UA) 1+ (NEGATIVE) H D 12/16/16 17:30 Urine Ketones Negative (NEGATIVE) 12/16/16 17:30 Urine Blood Negative (NEGATIVE) 12/16/16 17:30 Urine Nitrite Negative (NEGATIVE) 12/16/16 17:30 Urine Bilirubin Negative (NEGATIVE) 12/16/16 17:30 Urine Urobilinogen Negative mg/dL (0.2-1.0) 12/16/16 17:30 Ur Leukocyte Esterase Negative (NEGATIVE) 12/16/16 17:30 RPR Titer Nonreactive (NONREACTIVE) 12/17/16 06:08 Assessment: 12/18/16 14:28 WITHDRAWAL SYMPTOM Plan: CONTINUE DETOX,BGM MONITORING
--- NOTE | 2016-12-18 14:35 | PN ---
S Progress Note Note: PATIENT FELL IN THE BATHROOM,NO HEAD INJURY COMPLAINED OF PAIN IN THE BACK,HISTORY OF CHRONIC LOW BACK PAIN PATIENT IS AMBULATING WITHOUT DIFFICULT TREATMENT INITIATE FALL PROTOCOL 2 FALL PRECAUTION X RAY OF LUMBOSACRAL SPINE IN AM CLOSE MONITORING BGM MONITORING MOTRIN 600 MGS PO Q6 HRS PRN FOR PAIN
[2016-12-18] MEDS ORDERED: IBUPROFEN 600 MG TABLET (FP) PO PRN (14:36)
[2016-12-18] MEDS ORDERED: chlordiazePOXIDE 5 MG CAPSULE PO SCH (17:00)
[2016-12-18] MEDS: CYCLOBENZAPRINE HCL 5 MG TABLET PO PRN (22:26)
[2016-12-18] MEDS: ZOLPIDEM TARTRATE 10 MG TABLET (PARK CARE ONLY) PO PRN (22:26)
[2016-12-18] MEDS: THIAMINE HCL 100 MG TABLET (FP) PO SCH (22:27)
[2016-12-19] MEDS: diazePAM 5 MG TABLET PO PRN ×2 (01:33→06:14)
[2016-12-19] MEDS: metFORMIN HCL 500 MG TABLET (FP) PO SCH ×2 (07:00→17:05)
[2016-12-19] MEDS: INSULIN DETEMIR 100 UNITS/ML MDV SQ SCH ×2 (08:01→21:24)
[2016-12-19] MEDS: INSULIN (NOVOLOG) ASPART 100 UNITS/ML 10ML VIAL SQ SCH ×4 (08:59→21:23)
[2016-12-19] MEDS: METHADONE HCL 5 MG TABLET (FOR DETOX USE ONLY) PO SCH (10:19)
[2016-12-19] MEDS: TOLNAFTATE 1% CREAM 15 GM TUBE TP SCH ×2 (10:19→22:03)
[2016-12-19] MEDS: LISINOPRIL 20 MG TABLET (FP) PO SCH (10:19)
[2016-12-19] MEDS: CYCLOBENZAPRINE HCL 5 MG TABLET PO PRN ×2 (10:20→22:02)
[2016-12-19] MEDS: amLODIPine BESYLATE 5 MG TABLET (FP) PO SCH (10:20)
[2016-12-19] MEDS: PRENATAL VITAMINS W/ FOLIC ACID TABLET (FP) PO SCH (10:20)
[2016-12-19] MEDS: diazePAM 5 MG TABLET PO SCH ×2 (10:20→22:03)
--- NOTE | 2016-12-19 11:05 | PN ---
[facility] Progress Note (SOAP) Subjective: chronic back pain sweats shakes mild redness to inside lower eyelid Objective: 12/19/16 11:04 Vital Signs Temperature 98.2 F 12/19/16 09:43 Pulse Rate 109 H 12/19/16 09:43 Respiratory Rate 20 12/19/16 09:43 Blood Pressure 103/70 12/19/16 09:43 O2 Sat by Pulse Oximetry (%) Laboratory Tests 12/16/16 12/16/16 12/16/16 11:43 16:27 17:30 WBC RBC Hgb Hct MCV MCH MCHC RDW Plt Count MPV Sodium Potassium Chloride Carbon Dioxide Anion Gap BUN Creatinine Creat Clearance w eGFR POC Glucometer 244 228 Random Glucose Calcium Total Bilirubin AST ALT Alkaline Phosphatase Total Protein Albumin Urine Color Ltyellow Urine Appearance Clear Urine pH 5.0 Ur Specific [place] 1.015 Urine Protein Negative Urine Glucose (UA) 1+ H D Urine Ketones Negative Urine Blood Negative Urine Nitrite Negative Urine Bilirubin Negative Urine Urobilinogen Negative Ur Leukocyte Esterase Negative RPR Titer 12/16/16 12/17/16 12/17/16 21:33 05:42 06:08 WBC 5.6 RBC 4.51 Hgb 13.1 Hct 38.7 MCV 85.9 MCH 29.0 MCHC 33.8 RDW 13.2 Plt Count 252 D MPV 9.5 Sodium Potassium Chloride Carbon Dioxide Anion Gap BUN Creatinine Creat Clearance w eGFR POC Glucometer 213 88 Random Glucose Calcium Total Bilirubin AST ALT Alkaline Phosphatase Total Protein Albumin Urine Color Urine Appearance Urine pH Ur Specific [place] Urine Protein Urine Glucose (UA) Urine Ketones Urine Blood Urine Nitrite Urine Bilirubin Urine Urobilinogen Ur Leukocyte Esterase RPR Titer 12/17/16 12/17/16 12/17/16 06:08 06:08 11:47 WBC RBC Hgb Hct MCV MCH MCHC RDW Plt Count MPV Sodium 139 Potassium 3.7 Chloride 104 Carbon Dioxide 27 Anion Gap 8 BUN 17 Creatinine 1.1 H Creat Clearance w eGFR 51.20 POC Glucometer 160 Random Glucose 231 H Calcium 8.3 L Total Bilirubin 0.3 AST 14 L ALT 23 Alkaline Phosphatase 123 H D Total Protein 7.0 Albumin 3.6 Urine Color Urine Appearance Urine pH Ur Specific [place] Urine Protein Urine Glucose (UA) Urine Ketones Urine Blood Urine Nitrite Urine Bilirubin Urine Urobilinogen Ur Leukocyte Esterase RPR Titer Nonreactive 12/17/16 12/17/16 12/18/16 16:28 22:48 05:53 WBC RBC Hgb Hct MCV MCH MCHC RDW Plt Count MPV Sodium Potassium Chloride Carbon Dioxide Anion Gap BUN Creatinine Creat Clearance w eGFR POC Glucometer 136 137 149 Random Glucose Calcium Total Bilirubin AST ALT Alkaline Phosphatase Total Protein Albumin Urine Color Urine Appearance Urine pH Ur Specific [place] Urine Protein Urine Glucose (UA) Urine Ketones Urine Blood Urine Nitrite Urine Bilirubin Urine Urobilinogen Ur Leukocyte Esterase RPR Titer 12/18/16 12/18/16 12/18/16 11:42 16:37 21:58 WBC RBC Hgb Hct MCV MCH MCHC RDW Plt Count MPV Sodium Potassium Chloride Carbon Dioxide Anion Gap BUN Creatinine Creat Clearance w eGFR POC Glucometer 156 112 108 Random Glucose Calcium Total Bilirubin AST ALT Alkaline Phosphatase Total Protein Albumin Urine Color Urine Appearance Urine pH Ur Specific [place] Urine Protein Urine Glucose (UA) Urine Ketones Urine Blood Urine Nitrite Urine Bilirubin Urine Urobilinogen Ur Leukocyte Esterase RPR Titer 12/19/16 06:13 WBC RBC Hgb Hct MCV MCH MCHC RDW Plt Count MPV Sodium Potassium Chloride Carbon Dioxide Anion Gap BUN Creatinine Creat Clearance w eGFR POC Glucometer 105 Random Glucose Calcium Total Bilirubin AST ALT Alkaline Phosphatase Total Protein Albumin Urine Color Urine Appearance Urine pH Ur Specific [place] Urine Protein Urine Glucose (UA) Urine Ketones Urine Blood Urine Nitrite Urine Bilirubin Urine Urobilinogen Ur Leukocyte Esterase RPR Titer aaox3 ambulating no acute distress Assessment: 12/19/16 11:05 withdrawal sx Plan: continue detox increase fluids lidocaine patch motrin 800mg flexiril prn visine
[2016-12-19] MEDS ORDERED: LIDOCAINE 5% TOPICAL PATCH TP ONE (12:06)
[2016-12-19] MEDS ORDERED: ZOLPIDEM TARTRATE 5 MG TABLET PO STA (15:52)
--- NOTE | 2016-12-19 16:06 | PN ---
Psychiatric Progress Note Vital Signs: Vital Signs Period Temp Pulse Resp BP Sys/Hernández Pulse Ox Last 24 Hr 97.3 F-98.9 F 101-116 18-20 103-139/66-82 Date of Session: 12/19/16 Chief Complaint:: Ambien order HPI: Patient reports insomnia, reports needs her Ambien 10mg po qhs Current Medications: Active Medications Generic Name Dose Route Start Last Admin Trade Name Freq PRN Reason Stop Dose Admin Acetaminophen 650 mg 12/16/16 13:10 12/18/16 14:13 Tylenol - PO 650 mg Q4H PRN Administration FEVER OR PAIN Al Hydroxide/Mg Hydroxide 30 ml 12/16/16 13:10 Mylanta Oral Suspension - PO Q6H PRN DYSPEPSIA Amlodipine Besylate 5 mg 12/17/16 10:00 12/19/16 10:20 Norvasc - PO 5 mg DAILY ROSY Administration Cyclobenzaprine HCl 5 mg 12/18/16 20:01 12/19/16 10:20 Cyclobenzaprine Hcl PO 5 mg TID PRN Administration BACK PAIN Diazepam 5 mg 12/18/16 10:00 12/19/16 10:20 Valium - PO 12/19/16 22:01 5 mg BID ROSY Administration Diazepam 5 mg 12/20/16 10:00 Valium - PO 12/20/16 10:01 DAILY ROSY Diphenhydramine HCl 50 mg 12/16/16 13:10 Benadryl - PO HSMR1 PRN INSOMNIA Eucalyptus/Menthol/Phenol/Sorbitol 1 each 12/16/16 13:10 Cepastat Lozenge - MM Q4H PRN SORE THROAT Guaifenesin 10 ml 12/16/16 13:10 Robitussin Dm - PO Q6H PRN COUGH Ibuprofen 800 mg 12/19/16 11:06 Motrin - PO Q8H PRN PAIN Insulin Aspart 0 units 12/16/16 16:30 12/19/16 11:30 Novolog Vial SQ Not Given ACHS [facility] Protocol Insulin Detemir 30 units 12/17/16 07:00 12/19/16 08:01 Levemir Vial SQ Not Given AM ROSY Insulin Detemir 10 units 12/16/16 22:00 12/18/16 22:24 Levemir Vial SQ 10 unit HS ROSY Administration Lidocaine 1 patch 12/20/16 10:00 Lidoderm Patch - TP DAILY ROSY Lisinopril 40 mg 12/17/16 10:00 12/19/16 10:19 Prinivil PO 40 mg DAILY ROSY Administration Loperamide HCl 4 mg 12/16/16 13:10 Imodium - PO Q6H PRN DIARRHEA Magnesium Citrate 300 ml 12/16/16 13:10 Citroma - PO Q48H PRN CONSTIPATION Magnesium Hydroxide 30 ml 12/16/16 13:10 Milk Of Magnesia - PO DAILY PRN CONSTIPATION Metformin HCl 500 mg 12/16/16 16:30 12/19/16 07:00 Glucophage - PO 500 mg BID@0700,1630 [facility] Administration Methadone HCl 10 mg 12/20/16 10:00 Dolophine - PO 12/20/16 10:01 DAILY [facility] Methadone HCl 5 mg 12/21/16 06:00 Dolophine - PO 12/21/16 06:01 DAILY@0600 [facility] Miscellaneous 1 each 12/19/16 22:00 Lidoderm Patch Removal MC DAILY@2200 [facility] Multivit/Folic Acid/Iron 1 tab 12/17/16 10:00 12/19/16 10:20 Vitamins (Sjr) - PO 1 tab DAILY [facility] Administration Pseudoephedrine/Triprolidine 1 combo 12/16/16 13:10 Actifed - PO TID PRN NASAL CONGESTION Thiamine HCl 100 mg 12/16/16 22:00 12/18/16 22:27 Vitamin B1 - PO 100 mg HS [facility] Administration Tolnaftate 1 applic 12/17/16 22:00 12/19/16 10:19 Tinactin 1% Cream - TP 1 applic BID [facility] Administration Zolpidem Tartrate 10 mg 12/16/16 17:49 12/18/16 22:26 Ambien - PO 12/19/16 17:48 10 mg HS PRN Administration INSOMNIA Zolpidem Tartrate 10 mg 12/19/16 22:00 Ambien - PO HS [facility] Medication(s) Change(s): Ambien 10mg po qhs Mental Status Exam - Mental Status Exam Alert and Oriented to: Person Cognitive Function: Fair Patient Appearance: Unkempt Mood: Nervous, Anxious, Irritable Affect: Inappropriate, Labile Patient Behavior: Talkative, Cooperative, Agitated Speech Pattern: Excessive Voice Loudness: Mildly Soft/Quiet Thought Process: Goal Oriented Thought Disorder: Being Controlled Hallucinations: Denies Suicidal Ideation: Denies Homicidal Ideation: Denies Insight/Judgement: Fair Sleep: Difficulty falling asleep Appetite: Weight gain Muscle strength/Tone: Normal Gait/Station: Shuffling Additional Comments: Ambien 10mg po qhs Psychiatric Treatment Plan - Problem List (1) Alcohol dependence with uncomplicated withdrawal Current Visit: Yes (2) Cocaine dependence Current Visit: Yes Qualifiers: Substance use status: uncomplicated Qualified Code(s): F14.20 - Cocaine dependence, uncomplicated; F14.20 - Cocaine dependence, uncomplicated; F14.20 - Cocaine dependence, uncomplicated (3) Nicotine dependence Current Visit: Yes Qualifiers: Nicotine product type: cigarettes Substance use status: in withdrawal Qualified Code(s): F17.213 - Nicotine dependence, cigarettes, with withdrawal; F17.213 - Nicotine dependence, cigarettes, with withdrawal (4) Opioid dependence with withdrawal Current Visit: Yes (5) Substance induced mood disorder Current Visit: Yes Initial treatment plan: Ambien 10mg po qhs
[2016-12-19] MEDS ORDERED: INSULIN (NOVOLOG) ASPART 100 UNITS/ML 10ML VIAL ONE (16:40)
[2016-12-19] MEDS ORDERED: chlordiazePOXIDE HCL 10 MG CAPSULE PO SCH (17:00)
[2016-12-19] MEDS: IBUPROFEN 400 MG TABLET (FP) PO PRN (17:06)
[2016-12-19] MEDS: LIDOCAINE PATCH REMOVAL MC SCH (21:23)
[2016-12-19] MEDS: ZOLPIDEM TARTRATE 10 MG TABLET (PARK CARE ONLY) PO PRN (22:02)
[2016-12-19] MEDS: THIAMINE HCL 100 MG TABLET (FP) PO SCH (22:04)
[2016-12-20] MEDS: INSULIN (NOVOLOG) ASPART 100 UNITS/ML 10ML VIAL SQ SCH ×4 (08:25→21:41)
[2016-12-20] MEDS: INSULIN DETEMIR 100 UNITS/ML MDV SQ SCH ×2 (09:08→21:42)
[2016-12-20] MEDS: metFORMIN HCL 500 MG TABLET (FP) PO SCH ×2 (09:08→17:13)
[2016-12-20] MEDS ORDERED: METHADONE HCL 10 MG TABLET (FOR DETOX USE ONLY) PO SCH (10:00)
[2016-12-20] MEDS ORDERED: LIDOCAINE 5% TOPICAL PATCH TP SCH (10:00)
[2016-12-20] MEDS ORDERED: diazePAM 5 MG TABLET PO SCH (10:00)
[2016-12-20] MEDS: PRENATAL VITAMINS W/ FOLIC ACID TABLET (FP) PO SCH (10:33)
[2016-12-20] MEDS: TOLNAFTATE 1% CREAM 15 GM TUBE TP SCH ×2 (10:34→22:05)
[2016-12-20] MEDS: LISINOPRIL 20 MG TABLET (FP) PO SCH (10:34)
[2016-12-20] MEDS: amLODIPine BESYLATE 5 MG TABLET (FP) PO SCH (10:34)
--- NOTE | 2016-12-20 13:39 | PN ---
[facility] Progress Note (SOAP) Subjective: Diarrhea, body aches, interrupted sleep Objective: 12/20/16 13:36 Vital Signs Temperature 97.8 F 12/20/16 10:00 Pulse Rate 108 H 12/20/16 10:00 Respiratory Rate 20 12/20/16 10:00 Blood Pressure 139/81 12/20/16 10:00 O2 Sat by Pulse Oximetry (%) Laboratory Last Values WBC 5.6 K/mm3 (4.0-10.0) 12/17/16 06:08 RBC 4.51 M/mm3 (3.60-5.2) 12/17/16 06:08 Hgb 13.1 GM/dL (10.7-15.3) 12/17/16 06:08 Hct 38.7 % (32.4-45.2) 12/17/16 06:08 MCV 85.9 fl (80-96) 12/17/16 06:08 MCH 29.0 pg (25.7-33.7) 12/17/16 06:08 MCHC 33.8 g/dl (32.0-36.0) 12/17/16 06:08 RDW 13.2 % (11.6-15.6) 12/17/16 06:08 Plt Count 252 K/MM3 (134-434) D 12/17/16 06:08 MPV 9.5 fl (7.5-11.1) 12/17/16 06:08 Sodium 139 mmol/L (136-145) 12/17/16 06:08 Potassium 3.7 mmol/L (3.5-5.1) 12/17/16 06:08 Chloride 104 mmol/L (98-107) 12/17/16 06:08 Carbon Dioxide 27 mmol/L (21-32) 12/17/16 06:08 Anion Gap 8 (8-16) 12/17/16 06:08 BUN 17 mg/dL (7-18) 12/17/16 06:08 Creatinine 1.1 mg/dL (0.55-1.02) H 12/17/16 06:08 Creat Clearance w eGFR 51.20 (>60) 12/17/16 06:08 POC Glucometer 109 UNITS (()) 12/20/16 11:26 Random Glucose 231 mg/dL (74-106) H 12/17/16 06:08 Calcium 8.3 mg/dL (8.5-10.1) L 12/17/16 06:08 Total Bilirubin 0.3 mg/dL (0.2-1.0) 12/17/16 06:08 AST 14 U/L (15-37) L 12/17/16 06:08 ALT 23 U/L (12-78) 12/17/16 06:08 Alkaline Phosphatase 123 U/L (45-117) H D 12/17/16 06:08 Total Protein 7.0 g/dl (6.4-8.2) 12/17/16 06:08 Albumin 3.6 g/dl (3.4-5.0) 12/17/16 06:08 Urine Color Ltyellow 12/16/16 17:30 Urine Appearance Clear 12/16/16 17:30 Urine pH 5.0 (5.0-8.0) 12/16/16 17:30 Ur Specific [place] 1.015 (1.005-1.025) 12/16/16 17:30 Urine Protein Negative (NEGATIVE) 12/16/16 17:30 Urine Glucose (UA) 1+ (NEGATIVE) H D 12/16/16 17:30 Urine Ketones Negative (NEGATIVE) 12/16/16 17:30 Urine Blood Negative (NEGATIVE) 12/16/16 17:30 Urine Nitrite Negative (NEGATIVE) 12/16/16 17:30 Urine Bilirubin Negative (NEGATIVE) 12/16/16 17:30 Urine Urobilinogen Negative mg/dL (0.2-1.0) 12/16/16 17:30 Ur Leukocyte Esterase Negative (NEGATIVE) 12/16/16 17:30 RPR Titer Nonreactive (NONREACTIVE) 12/17/16 06:08 Labs reviewed. Maintain insulin therapy and monitor blood glucose level 12/20/16 13:40 Assessment: 12/20/16 13:39 Withdrawal symptoms Plan: Continue detox
[2016-12-20] MEDS: ACETAMINOPHEN 325 MG TABLET (FP) PO PRN (13:52)
[2016-12-20] MEDS: CYCLOBENZAPRINE HCL 5 MG TABLET PO PRN ×2 (13:52→22:04)
[2016-12-20] MEDS: IBUPROFEN 400 MG TABLET (FP) PO PRN (17:13)
[2016-12-20] MEDS ORDERED: INSULIN (NOVOLOG) ASPART 100 UNITS/ML 10ML VIAL ONE (21:37)
[2016-12-20] MEDS: LIDOCAINE PATCH REMOVAL MC SCH (21:42)
[2016-12-20] MEDS: ZOLPIDEM TARTRATE 10 MG TABLET (PARK CARE ONLY) PO PRN (22:04)
[2016-12-20] MEDS: THIAMINE HCL 100 MG TABLET (FP) PO SCH (22:05)
[2016-12-20] MEDS ORDERED: hydrOXYzine PAMOATE 50 MG CAPSULE (FP) PO ONE (23:53)
[2016-12-21] MEDS ORDERED: METHADONE HCL 5 MG TABLET (FOR DETOX USE ONLY) PO SCH (06:00)
[2016-12-21] MEDS: metFORMIN HCL 500 MG TABLET (FP) PO SCH (07:41)
[2016-12-21] MEDS: INSULIN (NOVOLOG) ASPART 100 UNITS/ML 10ML VIAL SQ SCH (08:00)
[2016-12-21] MEDS: INSULIN DETEMIR 100 UNITS/ML MDV SQ SCH (08:31)
--- NOTE | 2016-12-21 08:48 | DS ---
[facility] Detox Discharge Summary Admission Date: 12/16/16 Discharge Date: 12/21/16 - History Present History: Alcohol Dependence, Cocaine Dependence, Opioid Dependence - Physical Exam Results Vital Signs: Vital Signs Temperature 97.3 F L 12/21/16 06:00 Pulse Rate 108 H 12/21/16 06:00 Respiratory Rate 18 12/21/16 06:00 Blood Pressure 97/64 12/21/16 06:00 O2 Sat by Pulse Oximetry (%) - Treatment Hospital Course: Detox Protocol Followed, Detoxed Safely, Responded well, Discharged Condition Good, Rehab Referral Accepted - Medication Discharge Medications: Ambulatory Orders Insulin (Levemir) [Levemir Flexpen -] 10 units SQ HS 06/18/14 Clonidine HCl [Catapres -] 0.2 mg PO BID #60 03/08/16 Zolpidem Tartrate [Ambien] 10 mg PO HS 07/09/16 Insulin (Levemir) [Levemir Vial] 30 units SQ AM 09/30/16 Metformin HCl [Glucophage -] 500 mg PO BID@0700,1630 #90 tablet 10/05/16 Naproxen [Naprosyn -] 500 mg PO BID #90 tablet 10/05/16 Zolpidem Tartrate [Ambien] 10 mg PO HS PRN #14 tablet MDD 10 12/19/16 Albuterol Sulfate [Proair Respiclick] 90 mcg IH DAILY #1 [email or web address] 12/21/16 Amlodipine Besylate [Norvasc -] 5 mg PO DAILY #30 tablet 12/21/16 Erythromycin 0.5% Eye Ointment [Erythromycin 0.5% Eye Ointment -] 1 applic OD BID #1 tube 12/21/16 Lisinopril [Prinivil] 40 mg PO DAILY #30 tablet 12/21/16 Tolnaftate 1% Cream [Tinactin 1% Cream -] 1 applic TP BID #1 tube 12/21/16 - Diagnosis (1) Alcohol dependence with uncomplicated withdrawal Current Visit: Yes Status: Chronic (2) Cocaine dependence Current Visit: Yes Status: Chronic Qualifiers: Substance use status: uncomplicated Qualified Code(s): F14.20 - Cocaine dependence, uncomplicated; F14.20 - Cocaine dependence, uncomplicated; F14.20 - Cocaine dependence, uncomplicated (3) History of hysterectomy Current Visit: No Status: Chronic (4) History of laparoscopic cholecystectomy Current Visit: No Status: Chronic (5) Insomnia Current Visit: Yes Status: Acute Qualifiers: Insomnia type: primary Qualified Code(s): F51.01 - Primary insomnia ; F51.01 - Primary insomnia (6) Nicotine dependence Current Visit: Yes Status: Chronic Qualifiers: Nicotine product type: cigarettes Substance use status: uncomplicated Qualified Code(s): F17.210 - Nicotine dependence, cigarettes, uncomplicated; F17.210 - Nicotine dependence, cigarettes, uncomplicated (7) Opioid dependence with withdrawal Current Visit: Yes Status: Chronic (8) Substance induced mood disorder Current Visit: Yes Status: Acute (9) Arthritis Current Visit: Yes Status: Chronic (10) Asthma Current Visit: Yes Status: Chronic Qualifiers: Asthma severity: mild Asthma complication type: uncomplicated (11) Diabetes mellitus, insulin dependent (IDDM), uncontrolled Current Visit: Yes Status: Chronic Qualifiers: Diabetes mellitus complication status: with skin complications Diabetes mellitus complication detail: with other skin complication Qualified Code(s): 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; 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 ; 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; 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; E10.65 - Type 1 diabetes mellitus with hyperglycemia; E10.65 - Type 1 diabetes mellitus with hyperglycemia; E10.65 - Type 1 diabetes mellitus with hyperglycemia; E10.65 - Type 1 diabetes mellitus with hyperglycemia (12) HTN (hypertension) Current Visit: Yes Status: Chronic Qualifiers: Hypertension type: essential hypertension Qualified Code(s): I10 - Essential (primary) hypertension; I10 - Essential (primary) hypertension; I10 - Essential (primary) hypertension (13) Hepatitis C Current Visit: Yes Status: Chronic Qualifiers: Viral hepatitis chronicity: chronic Hepatic coma status: without hepatic coma Qualified Code(s): B18.2 - Chronic viral hepatitis C; B18.2 - Chronic viral hepatitis C; B18.2 - Chronic viral hepatitis C; B18.2 - Chronic viral hepatitis C (14) Low back pain Current Visit: Yes Status: Chronic Qualifiers: Chronicity: chronic Back pain laterality: bilateral Sciatica presence: without sciatica Qualified Code(s): M54.5 - Low back pain; M54.5 - Low back pain (15) Corneal abrasion Current Visit: No Status: Acute Qualifiers: Encounter type: initial encounter Laterality: right Qualified Code( s): S05.01XA - Injury of conjunctiva and corneal abrasion without foreign body, right eye, initial encounter; S05.01XA - Injury of conjunctiva and corneal abrasion without foreign body, right eye, initial encounter (16) Corneal ulcer, right Current Visit: No Status: Acute - AMA Did Patient Leave Against Medical Advice: No
[2016-12-21] MEDS: CYCLOBENZAPRINE HCL 5 MG TABLET PO PRN (09:03)
[2016-12-21] MEDS: amLODIPine BESYLATE 5 MG TABLET (FP) PO SCH (09:03)
[2016-12-21] MEDS: LISINOPRIL 20 MG TABLET (FP) PO SCH (09:05)
[2016-12-21 09:25] VITALS: BP 130/78; PULSE 131; TEMP 97.4
== END 2016-12-21 09:35 | disposition home or self-care (01) | DRG 773 ==
LOC: YASAS 08:34 → Y6N 13:09
PROVIDERS: ADMIT Internal Medicine; ATTEND Internal Medicine
PROC: HZ2ZZZZ Detoxification Services for Substance Abuse Treatment (ICD-10-PCS; principal; 2016-12-16)
DX: F11.23 Opioid dependence with withdrawal (principal); F10.230 Alcohol dependence with withdrawal, uncomplicated; F14.20 Cocaine dependence, uncomplicated; F17.210 Nicotine dependence, cigarettes, uncomplicated; F51.01 Primary insomnia; F19.24 Other psychoactive substance dependence with psychoactive substance-induced mood disorder; R00.0 Tachycardia, unspecified; I10 Essential (primary) hypertension; B18.2 Chronic viral hepatitis C; M19.90 Unspecified osteoarthritis, unspecified site; J45.30 Mild persistent asthma, uncomplicated; G47.00 Insomnia, unspecified; E10.628 Type 1 diabetes mellitus with other skin complications; E10.65 Type 1 diabetes mellitus with hyperglycemia; M54.5 Low back pain; G89.29 Other chronic pain; Z79.4 Long term (current) use of insulin; Z79.84 Long term (current) use of oral hypoglycemic drugs; Z90.710 Acquired absence of both cervix and uterus; Z90.49 Acquired absence of other specified parts of digestive tract; Z91.018 Allergy to other foods; W18.30XA Fall on same level, unspecified, initial encounter; Y93.9 Activity, unspecified; Y92.231 Patient bathroom in hospital as the place of occurrence of the external cause
CPT/HCPCS: 36415; 72100-TC; 80053; 81003; 85027; 86593; 90688; 93005; 93010; G0008

== ENCOUNTER 2017-02-10 10:39 | Inpatient (IN) | payer OTHER ==
[2017-02-10 10:59] VITALS: BMI 29.0
--- NOTE | 2017-02-10 12:37 | HP ---
COWS - Scale Resting Pulse: 2= [place] 101-120 Sweatin= Chills/Flushing Restless Observation: 1= Difficult to Sit Still Pupil Size: 1= Pupils >than Normal Bone or Joint Aches: 2= Severe Diffuse Aches Runny Nose/ Eye Tearin= Runny Nose/Eyes GI Upset > 30mins: 2= Nausea/Diarrhea Tremor Observation: 2= Slight Tremor Visible Yawning Observation: 1= 1-2x During Session Anxiety or Irritability: 1=Feels Anxious/Irritable Goose Flesh Skin: 3=Piloerection COWS Score: 18 CIWA Score - CIWA Score Nausea/Vomitin Muscle Tremors: 3 Anxiety: 3 Agitation: 3 Paroxysmal Sweats: 3 Orientation: 0-Oriented Tacttile Disturbances: 0-None Auditory Disturbances: 0-None Visual Disturbances: 0-None Headache: 2-Mild CIWA-Ar Total Score: 17 Admission ROS BHS - HPI Chief Complaint: alcohol and heroin withdrawal sx Allergies/Adverse Reactions: Allergies Allergy/AdvReac Type Severity Reaction Status Date / Time tomato [Tomato] Allergy Severe Itching Verified 02/10/17 11:34 NKDA Allergy Uncoded 02/10/17 11:34 History of Present Illness: 56 yo f ith multiple admissions to [facility] for detoxification from alcohol, and heorin now in withdrawl. smokes crack cocaine daily, last used yesterday, c /o pain left pointer after using cleaning fluids yesterday. smokes 1PPD o suicidal ideation att this time. PMHx arthritis Exam Limitations: No Limitations - Ebola screening Have you traveled outside of the country in the last 21 days: No (N) Have you had contact with anyone from an Ebola affected area: No Have you been sick,other than usual withdrawal symptoms: No Do you have a fever: No - Review of Systems Constitutional: Chills, Diaphoresis, Loss of Appetite, Malaise, Night Sweats, Changes in sleep, Unintentional Wgt. Loss (30 poinds) EENT: reports: Tearing, Nose Congestion Respiratory: reports: No Symptoms reported Cardiac: reports: No Symptoms Reported GI: reports: Diarrhea, Nausea, Poor Appetite, Poor Fluid Intake, Vomiting, Indigestion, Abdominal cramping : reports: No Symptoms Reported Musculoskeletal: reports: Back Pain, Joint Pain, Muscle Pain Integumentary: reports: Flushing, Sweating Neuro: reports: Headache, Numbness, Tingling, Tremors Endocrine: reports: Flushing, Increased Thirst Hematology: reports: No Symptoms Reported Psychiatric: reports: Judgement Intact, Mood/Affect Appropiate, Orientated x3, Anxious, Depressed Other Systems: Reviewed and Negative Patient History - Patient Medical History Hx Anemia: No Hx Asthma: Yes Hx Chronic Obstructive Pulmonary Disease (COPD): No Hx Cancer: No Hx Cardiac Disorders: No Hx Congestive Heart Failure: No Hx Hypertension: Yes Hx Hypercholesterolemia: No Hx Pacemaker: No HX Cerebrovascular Accident: No Hx Seizures: No Hx Dementia: No Hx Diabetes: Yes (IDDM) Hx Gastrointestinal Disorders: No Hx Liver Disease: Yes Hx Genitourinary Disorders: No Hx Sexually Transmitted Disorders: Yes (gonorrhea at age 35) Hx Renal Disease (ESRD): No Hx Thyroid Disease: No Hx Human Immunodeficiency Virus (HIV): No Hx Hepatitis C: Yes (NO TREATMENT) Hx Depression: Yes Hx Suicide Attempt: No (no si at this time) Hx Bipolar Disorder: No Hx Schizophrenia: No - Patient Surgical History Past Surgical History: Yes Hx Neurologic Surgery: No Hx Cataract Extraction: No Hx Cardiac Surgery: No Hx Lung Surgery: No Hx Breast Surgery: No Hx Breast Biopsy: No Hx Abdominal Surgery: Yes (Hysterectomy in 2007) Hx Appendectomy: No Hx Cholecystectomy: Yes (r/o gallstones 11/05) Hx Genitourinary Surgery: No Hx Section: No Hx Orthopedic Surgery: No Hx Hysterectomy: Yes (2007) Anesthesia Reaction: No - PPD History Previous Implant?: Yes Documented Results: Negative w/proof Implanted On Prior [facility] Admission?: Yes Date: 10/02/16 Results: 0 mm PPD to be Administered?: No - Reproductive History Patient is a Female of Child Bearing Age (11 -55 yrs old): No Last Menstrual Period: 10/07/07 Patient : No - Smoking Cessation Smoking history: Current every day smoker Have you smoked in the past 12 months: Yes Aproximately how many cigarettes per day: 10 Cigars Per Day: 0 Hx Chewing Tobacco Use: No Initiated information on smoking cessation: Yes 'Breaking Loose' booklet given: 02/10/17 - Substance & Tx. History Hx Alcohol Use: Yes Hx Substance Use: Yes Substance Use Type: Alcohol, Cocaine, Heroin, Opiates Hx Substance Use Treatment: Yes - Substances Abused Heroin Route: Inhalation Frequency: Daily Amount used: 10 bags Age of first use: 38 Date of Last Use: 02/09/17 Crack Route: Smoking Frequency: Daily Amount used: $50 Age of first use: 44 Date of Last Use: 02/06/17 Alcohol-beer Route: Oral Frequency: Daily Amount used: 1-6 pk. Age of first use: 17 Date of Last Use: 02/10/17 Family Disease History - Family Disease History Family Disease History: Diabetes: Mother ( FROM [place]. OF THE LIVER,HTN), Brother, Heart Disease: Mother, Sister ( MII), CA: Father (etoh, ), Mother Admission Physical Exam BHS - Vital Signs Vital Signs: Vital Signs - 24 hr 02/10/17 10:51 Temperature 96.0 F L Pulse Rate 110 H Respiratory 19 Rate Blood Pressure 136/96 - Physical General Appearance: Yes: No Apparent Distress, Nourished, Appropriately Dressed , Disheveled, Mild Distress, Tremorous, Irritable, Sweating, Anxious HEENTM: Yes: EOMI, Hearing grossly Normal, Normal ENT Inspection, Normocephalic , Normal Voice, [place], Pharynx Normal Respiratory: Yes: Within Normal Limits, Chest Non-Tender, Lungs Clear, Normal Breath Sounds Neck: Yes: Within Normal Limits, No masses,lesions,Nodules, Supple, Trachea in good position Breast: Yes: Breast Exam Deferred Cardiology: Yes: Within Normal Limits, Regular Rhythm, Regular Rate, S1, S2 Abdominal: Yes: Normal Bowel Sounds, Non Tender, Flat Genitourinary: Yes: Within Normal Limits Back: Yes: Within Normal Limits, Normal Inspection Musculoskeletal: Yes: full range of Motion, Gait Steady, Pelvis Stable, Back pain, Muscle Pain Extremities: Yes: Normal Capillary Refill, Normal Inspection, Normal Range of Motion, Non-Tender Neurological: Yes: dinkey brakeman II-XII NML intact, Fully Oriented, Alert, Motor Strength 5/5, Normal Response Integumentary: Yes: Normal Color, Warm, Diaphoresis, Moist, Other (left ponter finger skin peeling with erythema and abrasions, looks like a dermatitis with possible superinfection from cleaning fluids) Lymphatic: Yes: Within Normal Limits - Addiitonal Findings: withdrawal sx - Diagnostic (1) Weight loss Current Visit: Yes Status: Acute (2) Substance induced mood disorder Current Visit: No Status: Acute (3) Alcohol dependence with uncomplicated withdrawal Current Visit: No Status: Chronic (4) Arthritis Current Visit: No Status: Chronic (5) Asthma Current Visit: No Status: Chronic Qualifiers: Asthma severity: mild Asthma complication type: uncomplicated (6) Cocaine dependence Current Visit: No Status: Chronic Qualifiers: Substance use status: uncomplicated Qualified Code(s): F14.20 - Cocaine dependence, uncomplicated (7) Diabetes mellitus, insulin dependent (IDDM), uncontrolled Current Visit: No Status: Chronic Qualifiers: Diabetes mellitus complication status: with skin complications Diabetes mellitus complication detail: with other skin complication Qualified Code(s): 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 (8) HTN (hypertension) Current Visit: No Status: Chronic Qualifiers: Hypertension type: essential hypertension Qualified Code(s): I10 - Essential (primary) hypertension (9) Hepatitis C Current Visit: No Status: Chronic Qualifiers: Viral hepatitis chronicity: chronic Hepatic coma status: without hepatic coma Qualified Code(s): B18.2 - Chronic viral hepatitis C (10) History of hysterectomy Current Visit: No Status: Chronic (11) History of laparoscopic cholecystectomy Current Visit: No Status: Chronic (12) Low back pain Current Visit: No Status: Chronic Qualifiers: Chronicity: chronic Back pain laterality: bilateral Sciatica presence: without sciatica Qualified Code(s): M54.5 - Low back pain (13) Nicotine dependence Current Visit: No Status: Chronic Qualifiers: Nicotine product type: cigarettes Substance use status: uncomplicated Qualified Code(s): F17.210 - Nicotine dependence, cigarettes, uncomplicated (14) Opioid dependence with withdrawal Current Visit: No Status: Chronic Cleared for Admission S - Detox or Rehab [facility] Level of Care: Medically Managed Detox Regimen/Protocol: Methadone/Valium S Breath Alcohol Content Breath Alcohol Content: 0.031 Urine Pregancy Test - Result Urine Test Results: Negative- NO Line Present Urine Drug Screen - Results Drug Screen Negative: No Urine Drug Screen Results: KENYA-Cocaine, OPI-Opiates
[2017-02-10] MEDS ORDERED: IBUPROFEN 400 MG TABLET (FP) PO PRN (12:38)
[2017-02-10] MEDS ORDERED: guaiFENesin/D-METHORPHAN HB 10 ML UNIT-DOSE CUPS PO PRN (12:38)
[2017-02-10] MEDS ORDERED: MAGNESIUM CITRATE 300 ML BOTTLE PO PRN (12:38)
[2017-02-10] MEDS ORDERED: ACETAMINOPHEN 325 MG TABLET (FP) PO PRN (12:38)
[2017-02-10] MEDS ORDERED: LOPERAMIDE HCL 2 MG CAPSULE PO PRN (12:38)
[2017-02-10] MEDS ORDERED: NICOTINE POLACRILEX 4 MG GUM BC PRN (12:38)
[2017-02-10] MEDS ORDERED: MAG HYDROX/AL HYDROX/SIMETH 30 ML UNIT-DOSE CUP PO PRN (12:38)
[2017-02-10] MEDS ORDERED: MENTHOL/PHENOL 1 EACH UD MM PRN (12:38)
[2017-02-10] MEDS ORDERED: hydrOXYzine PAMOATE 50 MG CAPSULE (FP) PO PRN (12:38)
[2017-02-10] MEDS ORDERED: MAGNESIUM HYDROX 2400MG/30ML ORAL SUSPENSION 30 ML CUP PO PRN (12:38)
[2017-02-10] MEDS ORDERED: P-EPHED 60MG/TRIPROLIDI 2.5MG TABLET PO PRN (12:38)
[2017-02-10] MEDS ORDERED: ONDANSETRON *ODT* 4 MG TABLET SL PRN (12:41)
[2017-02-10] MEDS ORDERED: BACITRACIN 15 GM TUBE TOPICAL OINTMENT TP SCH (14:00)
[2017-02-10] MEDS ORDERED: diazePAM 5 MG TABLET PO ONE (14:00)
[2017-02-10] MEDS ORDERED: BACITRACIN 0.9 GM PACKET TP SCH (14:00)
[2017-02-10] MEDS: SULFAMETHOXAZOLE/TRIMETHOPRIM 800MG/160MG D.S. TABLET PO SCH ×2 (14:06→22:36)
[2017-02-10] MEDS: amLODIPine BESYLATE 5 MG TABLET (FP) PO SCH (14:06)
[2017-02-10] MEDS: LISINOPRIL 20 MG TABLET (FP) PO SCH (14:06)
[2017-02-10] MEDS: NICOTINE 14 MG/24 HOURS TOPICAL PATCH TD SCH (14:07)
[2017-02-10] MEDS ORDERED: ALBUTEROL SO4 18 GM HFA INHALER IH PRN (14:13)
[2017-02-10] MEDS ORDERED: METHADONE HCL 10 MG TABLET (FOR DETOX USE ONLY) PO ONE ×2 (14:15→23:00)
[2017-02-10] MEDS ORDERED: ONDANSETRON *ODT* 4 MG TABLET SL ONE (14:15)
--- NOTE | 2017-02-10 15:40 | CONSULT ---
[facility] Psychiatric Consult - Data Date of interview: 02/10/17 Admission source: [facility] Identifying data: Pt. is a 56 year old female, single, mother of two, and on SSI. This is one of multiple admissions for patient. Pt. admitted to for heroin, crack, and alcohol dependence. Substance Abuse History: Heroin- First started:38 Frequency: Daily Amount:10 bags Last used: 02/09. Crack- First used: 44 Frequency: daily Amount:$50 Last used: 02/06. Alcohol-beer: First used: 17 Frequency:daily Amount: 1-6 pack Last used: 02/10. Cigarette: Current every day smoker: 10 per day Medical History: Asthma, hypertension, diabetes, Hep C, Hysterectomy in 2007, Gallstone removal in 10/2016, arthritis Psychiatric History: Pt. reports h/o one past psychiatric hospitalization in 1999 at [facility]. Stated she was diagnosed with bipolar depression and was started on medications but is not able to recall them at this time. Pt. has not seen an outpatient psychiatrist in several years. Pt. denies h/o suicide attempt. Pt. denies suicidal and homicidal ideation. Pt. requesting to resume her ambien 10mg while in detox. Physical/Sexual Abuse/Trauma History: Denies. Mental Status Exam - Mental Status Exam Alert and Oriented to: Time, Place, Person Cognitive Function: Good Patient Appearance: Unkempt Mood: Sad, Hopeful Affect: Mood Congruent Patient Behavior: Appropriate, Cooperative Speech Pattern: Clear, Appropriate Voice Loudness: Normal Thought Process: Goal Oriented Thought Disorder: Not Present Hallucinations: Denies Suicidal Ideation: Denies Homicidal Ideation: Denies Insight/Judgement: Poor Sleep: Poorly Appetite: Poor Muscle strength/Tone: Normal Gait/Station: Normal Psychiatric Findings - Problem List ([place] 1, 2,3) (1) Opioid dependence with withdrawal Current Visit: Yes Status: Acute (2) Alcohol dependence with uncomplicated withdrawal Current Visit: Yes Status: Acute (3) Cocaine dependence Current Visit: Yes Status: Acute Qualifiers: Substance use status: uncomplicated Qualified Code(s): F14.20 - Cocaine dependence, uncomplicated (4) Insomnia Current Visit: Yes Status: Acute Qualifiers: Insomnia type: primary Qualified Code(s): F51.01 - Primary insomnia (5) Nicotine dependence Current Visit: Yes Status: Chronic Qualifiers: Nicotine product type: cigarettes Substance use status: uncomplicated Qualified Code(s): F17.210 - Nicotine dependence, cigarettes, uncomplicated (6) Substance induced mood disorder Current Visit: No Status: Suspected (7) Bipolar depression Current Visit: No Status: Chronic Comment: Self reports. - Initial Treatment Plan Initial Treatment Plan: Psychoeducation provided. Detox in progress. Ambien 10mg qhs PRN ordered for insomnia. Pharmacy claims reviewed. Benefits and side effects (sleep walking) discussed with patient. Verbal consent given. Will continue to monitor.
[2017-02-10] MEDS: metFORMIN HCL 500 MG TABLET (FP) PO SCH (17:03)
[2017-02-10] MEDS: diazePAM 5 MG TABLET PO PRN (18:11)
[2017-02-10 19:05] LABS: URINE APPEARANCE SLCLOUDY; URINE BILIRUBIN NEGATIVE (NEGATIVE); URINE BLOOD NEGATIVE (NEGATIVE); URINE COLOR LTYELLOW; URINE GLUCOSE (UA) 1+ (NEGATIVE); URINE KETONE NEGATIVE (NEGATIVE); URINE LEUK ESTERASE 1+ (NEGATIVE); URINE NITRITE NEGATIVE (NEGATIVE); URINE PROTEIN NEGATIVE (NEGATIVE); URINE UROBILINOGEN NEGATIVE mg/dL (0.2-1.0)
[2017-02-10 21:14] LABS: URINE RBC 2 /hpf (0-3); URINE WBC 8 /hpf (3-5)
[2017-02-10 22:15] LABS: URINE LEUK ESTERASE TRACE (NEGATIVE)
[2017-02-10] MEDS: THIAMINE HCL 100 MG TABLET (FP) PO SCH (22:37)
[2017-02-10] MEDS: diazePAM 5 MG TABLET PO SCH (22:38)
[2017-02-10] MEDS: INSULIN DETEMIR 100 UNITS/ML MDV SQ SCH (22:40)
[2017-02-10] MEDS: ZOLPIDEM TARTRATE 10 MG TABLET (PARK CARE ONLY) PO PRN (22:42)
[2017-02-11] MEDS: diazePAM 5 MG TABLET PO PRN ×3 (01:23→17:22)
[2017-02-11] MEDS: diazePAM 5 MG TABLET PO SCH ×3 (05:41→22:14)
[2017-02-11] MEDS: metFORMIN HCL 500 MG TABLET (FP) PO SCH ×2 (07:00→17:22)
[2017-02-11] MEDS: INSULIN DETEMIR 100 UNITS/ML MDV SQ SCH ×2 (08:46→22:35)
[2017-02-11] MEDS ORDERED: METHADONE HCL 10 MG TABLET (FOR DETOX USE ONLY) PO SCH (10:00)
[2017-02-11 10:12] LABS: MCHC 32.2 g/dl (32.0-36.0); PLATELET COUNT 250 K/MM3 (134-434); RDW 14.1 % (11.6-15.6)
[2017-02-11 10:23] LABS: ALBUMIN 3.7 g/dl (3.4-5.0); ALK PHOS 142 U/L (45-117); ANION GAP 7 (8-16); BILIRUBIN,TOTAL 0.2 mg/dL (0.2-1.0); CO2 28 mmol/L (21-32); CREATININE 1.1 mg/dL (0.55-1.02); GLUCOSE,RANDOM 178 mg/dL (74-106); SGOT/AST 16 U/L (15-37); SGPT/ALT 21 U/L (12-78); TOT PROT 7.4 g/dl (6.4-8.2)
[2017-02-11] MEDS: PRENATAL VITAMINS W/ FOLIC ACID TABLET (FP) PO SCH (10:27)
[2017-02-11] MEDS: NICOTINE 14 MG/24 HOURS TOPICAL PATCH TD SCH (10:27)
[2017-02-11] MEDS: SULFAMETHOXAZOLE/TRIMETHOPRIM 800MG/160MG D.S. TABLET PO SCH ×2 (10:27→22:15)
[2017-02-11] MEDS: LISINOPRIL 20 MG TABLET (FP) PO SCH (10:27)
[2017-02-11] MEDS: amLODIPine BESYLATE 5 MG TABLET (FP) PO SCH (10:27)
[2017-02-11] MEDS: BACITRACIN 0.9 GM PACKET TP SCH ×3 (13:37→22:14)
--- NOTE | 2017-02-11 15:18 | PN ---
[facility] CIWA - CIWA Score Nausea/Vomitin-No Nausea/No Vomiting Muscle Tremors: 3 Anxiety: 4-Mod. Anxious/Guarded Agitation: 4-Moderately Restless Paroxysmal Sweats: 3 Orientation: 0-Oriented Tacttile Disturbances: 0-None Auditory Disturbances: 0-None Visual Disturbances: 0-None Headache: 0-None Present CIWA-Ar Total Score: 14 S COWS - Scale Resting Pulse: 2= [place] 101-120 Sweatin=Flushed/Facial Moisture Restless Observation: 1= Difficult to Sit Still Pupil Size: 0= Normal to Room Light Bone or Joint Aches: 1= Mild Discomfort Runny Nose/ Eye Tearin= Runny Nose/Eyes GI Upset > 30mins: 1= Stomach Cramp Tremor Observation of Outstretched Hands: 2= Slight Tremor Visible Yawning Observation: 1= 1-2x During Session Anxiety or Irritability: 2=Irritable/Anxious Goose Flesh Skin: 0=Smooth Skin COWS Score: 14 [facility] Progress Note (SOAP) Subjective: Anxiety,tremors,sweating,interrupted sleep,restless Objective: 02/11/17 15:15 Vital Signs - 8 hr 02/11/17 10:00 Temperature 98.1 F Pulse Rate 86 Respiratory 18 Rate Blood Pressure 144/88 Laboratory Tests 02/10/17 02/10/17 02/10/17 11:54 15:00 16:32 WBC RBC Hgb Hct MCV MCH MCHC RDW Plt Count MPV Sodium Potassium Chloride Carbon Dioxide Anion Gap BUN Creatinine Creat Clearance w eGFR POC Glucometer 249 260 Random Glucose Calcium Total Bilirubin AST ALT Alkaline Phosphatase Total Protein Albumin Urine Color Ltyellow Urine Appearance Slcloudy Urine pH 5.0 Ur Specific [place] 1.018 Urine Protein Negative Urine Glucose (UA) 1+ H Urine Ketones Negative Urine Blood Negative Urine Nitrite Negative Urine Bilirubin Negative Urine Urobilinogen Negative Ur Leukocyte Esterase Trace H Urine WBC (Auto) 8 Urine RBC (Auto) 2 Ur Epithelial Cells Rare RPR Titer 02/10/17 02/11/17 02/11/17 21:59 06:12 06:12 WBC 8.0 D RBC 4.98 Hgb 14.0 Hct 43.4 MCV 87.0 MCH 28.0 MCHC 32.2 RDW 14.1 Plt Count 250 MPV 9.0 Sodium 139 Potassium 4.5 D Chloride 104 Carbon Dioxide 28 Anion Gap 7 L BUN 25 H D Creatinine 1.1 H Creat Clearance w eGFR 51.20 POC Glucometer 122 Random Glucose 178 H D Calcium 9.0 Total Bilirubin 0.2 D AST 16 ALT 21 Alkaline Phosphatase 142 H Total Protein 7.4 Albumin 3.7 Urine Color Urine Appearance Urine pH Ur Specific [place] Urine Protein Urine Glucose (UA) Urine Ketones Urine Blood Urine Nitrite Urine Bilirubin Urine Urobilinogen Ur Leukocyte Esterase Urine WBC (Auto) Urine RBC (Auto) Ur Epithelial Cells RPR Titer 02/11/17 06:12 WBC RBC Hgb Hct MCV MCH MCHC RDW Plt Count MPV Sodium Potassium Chloride Carbon Dioxide Anion Gap BUN Creatinine Creat Clearance w eGFR POC Glucometer Random Glucose Calcium Total Bilirubin AST ALT Alkaline Phosphatase Total Protein Albumin Urine Color Urine Appearance Urine pH Ur Specific [place] Urine Protein Urine Glucose (UA) Urine Ketones Urine Blood Urine Nitrite Urine Bilirubin Urine Urobilinogen Ur Leukocyte Esterase Urine WBC (Auto) Urine RBC (Auto) Ur Epithelial Cells RPR Titer Nonreactive labs noted Assessment: 02/11/17 15:16 Withdrawal sx. Plan: Continue detox
[2017-02-11] MEDS: THIAMINE HCL 100 MG TABLET (FP) PO SCH (22:14)
[2017-02-11] MEDS: ZOLPIDEM TARTRATE 10 MG TABLET (PARK CARE ONLY) PO PRN (22:15)
[2017-02-12] MEDS: diazePAM 5 MG TABLET PO PRN ×4 (01:00→17:32)
[2017-02-12] MEDS: INSULIN DETEMIR 100 UNITS/ML MDV SQ SCH (07:14)
[2017-02-12] MEDS: metFORMIN HCL 500 MG TABLET (FP) PO SCH ×2 (07:14→17:30)
[2017-02-12] MEDS ORDERED: diazePAM 5 MG TABLET PO SCH (10:00)
[2017-02-12] MEDS ORDERED: METHADONE HCL 5 MG TABLET (FOR DETOX USE ONLY) PO SCH (10:00)
[2017-02-12] MEDS: LISINOPRIL 20 MG TABLET (FP) PO SCH (10:17)
[2017-02-12] MEDS: BACITRACIN 0.9 GM PACKET TP SCH ×3 (10:17→17:32)
[2017-02-12] MEDS: SULFAMETHOXAZOLE/TRIMETHOPRIM 800MG/160MG D.S. TABLET PO SCH (10:17)
[2017-02-12] MEDS: NICOTINE 14 MG/24 HOURS TOPICAL PATCH TD SCH (10:18)
[2017-02-12] MEDS: amLODIPine BESYLATE 5 MG TABLET (FP) PO SCH (10:18)
[2017-02-12] MEDS: PRENATAL VITAMINS W/ FOLIC ACID TABLET (FP) PO SCH (10:18)
--- NOTE | 2017-02-12 15:14 | PN ---
[facility] CIWA - CIWA Score Nausea/Vomitin-Mild Nausea/No Vomiting Muscle Tremors: 4-Moderate,w/Arms Extend Anxiety: 4-Mod. Anxious/Guarded Agitation: 4-Moderately Restless Paroxysmal Sweats: 3 Orientation: 0-Oriented Tacttile Disturbances: 0-None Auditory Disturbances: 0-None Visual Disturbances: 0-None Headache: 0-None Present CIWA-Ar Total Score: 16 BHS COWS - Scale Resting Pulse: 2= [place] 101-120 Sweatin=Flushed/Facial Moisture Restless Observation: 3= Extraneous Movement Pupil Size: 0= Normal to Room Light Bone or Joint Aches: 2= Severe Diffuse Aches Runny Nose/ Eye Tearin= Runny Nose/Eyes GI Upset > 30mins: 2= Nausea/Diarrhea Tremor Observation of Outstretched Hands: 2= Slight Tremor Visible Yawning Observation: 1= 1-2x During Session Anxiety or Irritability: 2=Irritable/Anxious Goose Flesh Skin: 0=Smooth Skin COWS Score: 18 S Progress Note (SOAP) Subjective: Sweating,interrupted sleep,restless,anxiety,nausea,body aches Objective: 02/12/17 15:12 Vital Signs - 8 hr 02/12/17 02/12/17 02/12/17 07:14 11:55 14:18 Temperature 97 F L 97.7 F 97.7 F Pulse Rate 95 H 101 H 112 H Respiratory 18 18 20 Rate Blood Pressure 107/65 122/78 111/69 Laboratory Tests 02/10/17 02/10/17 02/10/17 11:54 15:00 16:32 WBC RBC Hgb Hct MCV MCH MCHC RDW Plt Count MPV Sodium Potassium Chloride Carbon Dioxide Anion Gap BUN Creatinine Creat Clearance w eGFR POC Glucometer 249 260 Random Glucose Calcium Total Bilirubin AST ALT Alkaline Phosphatase Total Protein Albumin Urine Color Ltyellow Urine Appearance Slcloudy Urine pH 5.0 Ur Specific [place] 1.018 Urine Protein Negative Urine Glucose (UA) 1+ H Urine Ketones Negative Urine Blood Negative Urine Nitrite Negative Urine Bilirubin Negative Urine Urobilinogen Negative Ur Leukocyte Esterase Trace H Urine WBC (Auto) 8 Urine RBC (Auto) 2 Ur Epithelial Cells Rare RPR Titer 02/10/17 02/11/17 02/11/17 21:59 05:41 06:12 WBC 8.0 D RBC 4.98 Hgb 14.0 Hct 43.4 MCV 87.0 MCH 28.0 MCHC 32.2 RDW 14.1 Plt Count 250 MPV 9.0 Sodium Potassium Chloride Carbon Dioxide Anion Gap BUN Creatinine Creat Clearance w eGFR POC Glucometer 122 165 Random Glucose Calcium Total Bilirubin AST ALT Alkaline Phosphatase Total Protein Albumin Urine Color Urine Appearance Urine pH Ur Specific [place] Urine Protein Urine Glucose (UA) Urine Ketones Urine Blood Urine Nitrite Urine Bilirubin Urine Urobilinogen Ur Leukocyte Esterase Urine WBC (Auto) Urine RBC (Auto) Ur Epithelial Cells RPR Titer 02/11/17 02/11/17 02/11/17 06:12 06:12 16:32 WBC RBC Hgb Hct MCV MCH MCHC RDW Plt Count MPV Sodium 139 Potassium 4.5 D Chloride 104 Carbon Dioxide 28 Anion Gap 7 L BUN 25 H D Creatinine 1.1 H Creat Clearance w eGFR 51.20 POC Glucometer 123 Random Glucose 178 H D Calcium 9.0 Total Bilirubin 0.2 D AST 16 ALT 21 Alkaline Phosphatase 142 H Total Protein 7.4 Albumin 3.7 Urine Color Urine Appearance Urine pH Ur Specific [place] Urine Protein Urine Glucose (UA) Urine Ketones Urine Blood Urine Nitrite Urine Bilirubin Urine Urobilinogen Ur Leukocyte Esterase Urine WBC (Auto) Urine RBC (Auto) Ur Epithelial Cells RPR Titer Nonreactive 02/12/17 05:43 WBC RBC Hgb Hct MCV MCH MCHC RDW Plt Count MPV Sodium Potassium Chloride Carbon Dioxide Anion Gap BUN Creatinine Creat Clearance w eGFR POC Glucometer 143 Random Glucose Calcium Total Bilirubin AST ALT Alkaline Phosphatase Total Protein Albumin Urine Color Urine Appearance Urine pH Ur Specific [place] Urine Protein Urine Glucose (UA) Urine Ketones Urine Blood Urine Nitrite Urine Bilirubin Urine Urobilinogen Ur Leukocyte Esterase Urine WBC (Auto) Urine RBC (Auto) Ur Epithelial Cells RPR Titer labs noted Assessment: 02/12/17 15:13 Withdrawal sx. Plan: Continue detox
--- NOTE | 2017-02-12 17:16 | EKG ---
Test Reason : Blood Pressure : / mmHG Vent. Rate : 098 BPM Atrial Rate : 098 BPM P-R Int : 144 ms QRS Dur : 078 ms QT Int : 354 ms P-R-T Axes : 071 066 080 degrees QTc Int : 451 ms NORMAL SINUS RHYTHM NORMAL ECG WHEN COMPARED WITH ECG OF 16-DEC-2016 13:24, NONSPECIFIC T WAVE ABNORMALITY NOW EVIDENT IN LATERAL LEADS Confirmed by NATE CHOWDHURY, SILVIA ([id number]) on 02/12/2017 5:15:59 PM Referred By: Marleni Shultz Confirmed By:SILVIA SULLIVAN MD
[2017-02-12 17:33] VITALS: BP 126/58; PULSE 113; TEMP 97.5
--- NOTE | 2017-02-12 23:38 | DS ---
[facility] Detox Discharge Summary Admission Date: 02/10/17 Discharge Date: 02/12/17 - History Present History: Alcohol Dependence, Cocaine Dependence, Opioid Dependence Additional Comments: Patient is leaving against medical advice. Patient was admitted to detox with complaint of alcohol and opioid dependence. Risks and consequences of patient's action explained to her. Patient verbalized understanding and signed the AMA form. Pertinent Past History: DM, Gonorrhea, Hep C, Asthma, HTN, Depression - Physical Exam Results Vital Signs: Vital Signs Temperature 97.5 F L 02/12/17 17:32 Pulse Rate 113 H 02/12/17 17:32 Respiratory Rate 16 02/12/17 17:32 Blood Pressure 126/58 02/12/17 17:32 O2 Sat by Pulse Oximetry (%) Laboratory Last Values WBC 8.0 K/mm3 (4.0-10.0) D 02/11/17 06:12 RBC 4.98 M/mm3 (3.60-5.2) 02/11/17 06:12 Hgb 14.0 GM/dL (10.7-15.3) 02/11/17 06:12 Hct 43.4 % (32.4-45.2) 02/11/17 06:12 MCV 87.0 fl (80-96) 02/11/17 06:12 MCH 28.0 pg (25.7-33.7) 02/11/17 06:12 MCHC 32.2 g/dl (32.0-36.0) 02/11/17 06:12 RDW 14.1 % (11.6-15.6) 02/11/17 06:12 Plt Count 250 K/MM3 (134-434) 02/11/17 06:12 MPV 9.0 fl (7.5-11.1) 02/11/17 06:12 Sodium 139 mmol/L (136-145) 02/11/17 06:12 Potassium 4.5 mmol/L (3.5-5.1) D 02/11/17 06:12 Chloride 104 mmol/L (98-107) 02/11/17 06:12 Carbon Dioxide 28 mmol/L (21-32) 02/11/17 06:12 Anion Gap 7 (8-16) L 02/11/17 06:12 BUN 25 mg/dL (7-18) H D 02/11/17 06:12 Creatinine 1.1 mg/dL (0.55-1.02) H 02/11/17 06:12 Creat Clearance w eGFR 51.20 (>60) 02/11/17 06:12 POC Glucometer 155 UNITS (80-120) 02/12/17 16:27 Random Glucose 178 mg/dL (74-106) H D 02/11/17 06:12 Calcium 9.0 mg/dL (8.5-10.1) 02/11/17 06:12 Total Bilirubin 0.2 mg/dL (0.2-1.0) D 02/11/17 06:12 AST 16 U/L (15-37) 02/11/17 06:12 ALT 21 U/L (12-78) 02/11/17 06:12 Alkaline Phosphatase 142 U/L (45-117) H 02/11/17 06:12 Total Protein 7.4 g/dl (6.4-8.2) 02/11/17 06:12 Albumin 3.7 g/dl (3.4-5.0) 02/11/17 06:12 Urine Color Ltyellow 02/10/17 15:00 Urine Appearance Slcloudy 02/10/17 15:00 Urine pH 5.0 (5.0-8.0) 02/10/17 15:00 Ur Specific [place] 1.018 (1.001-1.035) 02/10/17 15:00 Urine Protein Negative (NEGATIVE) 02/10/17 15:00 Urine Glucose (UA) 1+ (NEGATIVE) H 02/10/17 15:00 Urine Ketones Negative (NEGATIVE) 02/10/17 15:00 Urine Blood Negative (NEGATIVE) 02/10/17 15:00 Urine Nitrite Negative (NEGATIVE) 02/10/17 15:00 Urine Bilirubin Negative (NEGATIVE) 02/10/17 15:00 Urine Urobilinogen Negative mg/dL (0.2-1.0) 02/10/17 15:00 Ur Leukocyte Esterase Trace (NEGATIVE) H 02/10/17 15:00 Urine WBC (Auto) 8 /hpf (3-5) 02/10/17 15:00 Urine RBC (Auto) 2 /hpf (0-3) 02/10/17 15:00 Ur Epithelial Cells Rare /HPF (FEW) 02/10/17 15:00 RPR Titer Nonreactive (NONREACTIVE) 02/11/17 06:12 Patient left AMA. Unable to correct labs at this time. Pertinent Admission Physical Exam Findings: withdrawal symptoms - Medication Discharge Medications: Ambulatory Orders Insulin (Levemir) [Levemir Flexpen -] 10 units SQ HS 06/18/14 Clonidine HCl [Catapres -] 0.2 mg PO BID #60 03/08/16 Zolpidem Tartrate [Ambien] 10 mg PO HS 07/09/16 Insulin (Levemir) [Levemir Vial] 30 units SQ AM 09/30/16 Metformin HCl [Glucophage -] 500 mg PO BID@0700,1630 #90 tablet 10/05/16 Naproxen [Naprosyn -] 500 mg PO BID #90 tablet 10/05/16 Albuterol Sulfate [Proair Respiclick] 90 mcg IH DAILY #1 [email or web address] 12/21/16 Amlodipine Besylate [Norvasc -] 5 mg PO DAILY #30 tablet 12/21/16 Erythromycin 0.5% Eye Ointment [Erythromycin 0.5% Eye Ointment -] 1 applic OD BID #1 tube 12/21/16 Lisinopril [Prinivil] 40 mg PO DAILY #30 tablet 12/21/16 Tolnaftate 1% Cream [Tinactin 1% Cream -] 1 applic TP BID #1 tube 12/21/16 - Diagnosis (1) Alcohol dependence with uncomplicated withdrawal Status: Chronic (2) Cocaine dependence Status: Chronic Qualifiers: Substance use status: uncomplicated Qualified Code(s): F14.20 - Cocaine dependence, uncomplicated (3) Opioid dependence with withdrawal Status: Chronic (4) Arthritis Status: Chronic (5) Asthma Status: Chronic Qualifiers: Asthma severity: mild Asthma complication type: uncomplicated (6) Diabetes mellitus, insulin dependent (IDDM), uncontrolled Status: Chronic Qualifiers: Diabetes mellitus complication status: with skin complications Diabetes mellitus complication detail: with other skin complication Qualified Code(s): 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
[2017-02-14] MEDS ORDERED: METHADONE HCL 10 MG TABLET (FOR DETOX USE ONLY) PO SCH (10:00)
[2017-02-14] MEDS ORDERED: diazePAM 5 MG TABLET PO SCH (10:00)
[2017-02-15] MEDS ORDERED: METHADONE HCL 5 MG TABLET (FOR DETOX USE ONLY) PO SCH (06:00)
== END 2017-02-12 20:35 | disposition left against medical advice (07) | DRG 770 ==
LOC: YASAS 10:39 → Y6N 12:15
PROVIDERS: ADMIT Internal Medicine; ATTEND Internal Medicine
PROC: HZ2ZZZZ Detoxification Services for Substance Abuse Treatment (ICD-10-PCS; principal; 2017-02-10)
DX: F11.23 Opioid dependence with withdrawal (principal); F10.230 Alcohol dependence with withdrawal, uncomplicated; F14.20 Cocaine dependence, uncomplicated; F17.210 Nicotine dependence, cigarettes, uncomplicated; F31.9 Bipolar disorder, unspecified; F51.01 Primary insomnia; F19.24 Other psychoactive substance dependence with psychoactive substance-induced mood disorder; I10 Essential (primary) hypertension; J45.30 Mild persistent asthma, uncomplicated; B18.2 Chronic viral hepatitis C; M54.5 Low back pain; E10.628 Type 1 diabetes mellitus with other skin complications; G89.29 Other chronic pain; E10.65 Type 1 diabetes mellitus with hyperglycemia; M11.9 Crystal arthropathy, unspecified; Z79.4 Long term (current) use of insulin; Z79.84 Long term (current) use of oral hypoglycemic drugs; Z91.018 Allergy to other foods; Z87.42 Personal history of other diseases of the female genital tract; Z90.710 Acquired absence of both cervix and uterus
CPT/HCPCS: 36415; 80053; 81003; 81015; 85027; 86593; 93005; 93010

== ENCOUNTER 2017-08-10 09:15 | Inpatient (IN) | payer OTHER ==
[2017-08-10 10:38] VITALS: BMI 26.6
--- NOTE | 2017-08-10 12:57 | HP ---
COWS - Scale Resting Pulse: 2= CT 101-120 Sweatin= Chills/Flushing Restless Observation: 1= Difficult to Sit Still Pupil Size: 0= Normal to Room Light Bone or Joint Aches: 2= Severe Diffuse Aches Runny Nose/ Eye Tearin= Runny Nose/Eyes GI Upset > 30mins: 2= Nausea/Diarrhea Tremor Observation: 2= Slight Tremor Visible Yawning Observation: 2= >3x During Session Anxiety or Irritability: 2=Irritable/Anxious Goose Flesh Skin: 0=Smooth Skin COWS Score: 16 CIWA Score - CIWA Score Nausea/Vomitin-Mild Nausea/No Vomiting Muscle Tremors: 4-Moderate,w/Arms Extend Anxiety: 4-Mod. Anxious/Guarded Agitation: 4-Moderately Restless Paroxysmal Sweats: 1-Minimal Palms Moist Orientation: 0-Oriented Tacttile Disturbances: 1-Very Mild Itch/Numbness Auditory Disturbances: 0-None Visual Disturbances: 0-None Headache: 1-Very Mild CIWA-Ar Total Score: 16 Admission ROS S - HPI Chief Complaint: alcohol and opiate withdrawal sx Allergies/Adverse Reactions: Allergies Allergy/AdvReac Type Severity Reaction Status Date / Time tomato [Tomato] Allergy Severe Itching Verified 08/10/17 11:10 No Known Drug Allergies Allergy Verified 08/10/17 11:10 NKDA Allergy Uncoded 08/10/17 11:10 History of Present Illness: 56 years old female with long history of alcohol opiate nicotine dependence has hy[ertension diabetes ii asthma and psoriasis is admitted to detox depression Exam Limitations: No Limitations - Ebola screening Have you traveled outside of the country in the last 21 days: No (N) Have you had contact with anyone from an Ebola affected area: No Have you been sick,other than usual withdrawal symptoms: No Do you have a fever: No - Review of Systems Constitutional: Loss of Appetite, Changes in sleep, Unintentional Wgt. Loss, Unexplained wgt Loss EENT: reports: Blurred Vision (eye glasses) Respiratory: reports: SOB with Exertion Cardiac: reports: No Symptoms Reported GI: reports: Diarrhea, Nausea, Poor Appetite, Poor Fluid Intake, Abdominal cramping : reports: No Symptoms Reported Musculoskeletal: reports: Back Pain, Joint Pain, Muscle Pain, Neck Pain Integumentary: reports: Other (hands psirosis) Neuro: reports: Tremors Endocrine: reports: No Symptoms Reported Hematology: reports: No Symptoms Reported Psychiatric: reports: Judgement Intact, Orientated x3, Anxious, Depressed Other Systems: Reviewed and Negative Patient History - Patient Medical History Hx Anemia: No Hx Asthma: Yes (Pt is on MDI for asthma.) Hx Chronic Obstructive Pulmonary Disease (COPD): No Hx Cancer: No Hx Cardiac Disorders: No Hx Congestive Heart Failure: No Hx Hypertension: Yes (NON COMPLIANT WITH MEDS.) Hx Hypercholesterolemia: No Hx Pacemaker: No HX Cerebrovascular Accident: No Hx Seizures: No Hx Dementia: No Hx Diabetes: Yes (Type II) Hx Gastrointestinal Disorders: No Hx Liver Disease: Yes Hx Genitourinary Disorders: No Hx Sexually Transmitted Disorders: No Hx Renal Disease (ESRD): No Hx Thyroid Disease: No Hx Human Immunodeficiency Virus (HIV): No Hx Hepatitis C: Yes (NO TREATMENT) Hx Depression: Yes Hx Suicide Attempt: No Hx Bipolar Disorder: No Hx Schizophrenia: No - Patient Surgical History Past Surgical History: Yes Hx Neurologic Surgery: No Hx Cataract Extraction: No Hx Cardiac Surgery: No Hx Lung Surgery: No Hx Breast Surgery: No Hx Breast Biopsy: No Hx Abdominal Surgery: Yes (Hysterectomy in 2007) Hx Appendectomy: No Hx Cholecystectomy: Yes (r/o gallstones 11/05) Hx Genitourinary Surgery: No Hx Section: No Hx Orthopedic Surgery: No Hx Hysterectomy: Yes (2007) Anesthesia Reaction: No - PPD History Previous Implant?: Yes Documented Results: Negative w/proof Implanted On Prior [facility] Admission?: Yes Date: 10/02/16 Results: 0 MM PPD to be Administered?: No - Reproductive History Patient is a Female of Child Bearing Age (11 -55 yrs old): No Last Menstrual Period: 10/07/07 Patient : No - Smoking Cessation Smoking history: Current every day smoker Have you smoked in the past 12 months: Yes Aproximately how many cigarettes per day: 10 Cigars Per Day: 0 Hx Chewing Tobacco Use: No Initiated information on smoking cessation: Yes 'Breaking Loose' booklet given: 08/10/17 - Substance & Tx. History Hx Alcohol Use: Yes Hx Substance Use: Yes Substance Use Type: Alcohol, Cocaine, Opiates Hx Substance Use Treatment: Yes (01/2017) - Substances Abused Heroin Route: Inhalation Frequency: Daily Amount used: 5 BAGS Age of first use: 29 Date of Last Use: 08/09/17 Alcohol Route: Oral Frequency: Daily Amount used: 6 PK BEER Age of first use: 29 Date of Last Use: 08/10/17 Crack Route: Smoking Frequency: 3-6 times per week Amount used: $60 Age of first use: 31 Date of Last Use: 08/09/17 Family Disease History - Family Disease History Family Disease History: Diabetes: Mother ( FROM [place]. OF THE LIVER,HTN), Brother, Heart Disease: Mother, Sister ( MII), CA: Father (etoh, ), Mother Admission Physical Exam S - Vital Signs Vital Signs: Vital Signs - 24 hr 08/10/17 10:33 Temperature 98.1 F Pulse Rate 112 H Respiratory 18 Rate Blood Pressure 104/61 - Physical General Appearance: Yes: Appropriately Dressed, Mild Distress, Thin, Tremorous, Irritable, Sweating, Anxious HEENTM: Yes: Hearing grossly Normal, Normocephalic, Normal Voice Respiratory: Yes: Chest Non-Tender, Normal Breath Sounds, No Respiratory Distress, No Accessory Muscle Use, Wheezing Neck: Yes: Supple, Trachea in good position Breast: Yes: Breasts Symetrical, No Discharge Cardiology: Yes: Regular Rhythm, S1, S2, Tachycardia Abdominal: Yes: Non Tender, Flat, Soft, Increased Bowel Sounds Genitourinary: Yes: Within Normal Limits Back: Yes: Normal Inspection Musculoskeletal: Yes: full range of Motion, Gait Steady, Back pain, Muscle Pain Extremities: Yes: Normal Inspection (hands rashes), Normal Range of Motion, Non- Tender, Tremors Neurological: Yes: Fully Oriented, Alert, Motor Strength 5/5, Normal Response, Depressed Affect Integumentary: Yes: Dry, Warm, Rash (hands) Lymphatic: Yes: Within Normal Limits - Diagnostic (1) Weight loss Current Visit: Yes Status: Acute (2) Alcohol dependence with uncomplicated withdrawal Current Visit: Yes Status: Acute (3) Asthma Current Visit: Yes Status: Chronic Qualifiers: Asthma severity: mild Asthma complication type: uncomplicated (4) Diabetes mellitus, insulin dependent (IDDM), uncontrolled Current Visit: Yes Status: Chronic Qualifiers: Diabetes mellitus complication status: with skin complications Diabetes mellitus complication detail: with other skin complication Qualified Code(s): 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 (5) HTN (hypertension) Current Visit: Yes Status: Chronic Qualifiers: Hypertension type: essential hypertension Qualified Code(s): I10 - Essential (primary) hypertension (6) Nicotine dependence Current Visit: Yes Status: Acute Qualifiers: Nicotine product type: cigarettes Substance use status: in withdrawal Qualified Code(s): F17.213 - Nicotine dependence, cigarettes, with withdrawal (7) Opioid dependence with withdrawal Current Visit: Yes Status: Acute (8) Hepatitis C Current Visit: Yes Status: Resolved Qualifiers: Viral hepatitis chronicity: carrier Qualified Code(s): B18.2 - Chronic viral hepatitis C Cleared for Admission S - Detox or Rehab [facility] Level of Care: Medically Managed Detox Regimen/Protocol: Methadone/Valium [facility] Breath Alcohol Content Breath Alcohol Content: 0.035 Urine Pregancy Test - Result Urine Test Results: Negative- NO Line Present Urine Drug Screen - Results Drug Screen Negative: No Urine Drug Screen Results: KENYA-Cocaine, OPI-Opiates
[2017-08-10] MEDS ORDERED: MAGNESIUM CITRATE 300 ML BOTTLE PO PRN (12:58)
[2017-08-10] MEDS ORDERED: LOPERAMIDE HCL 2 MG CAPSULE PO PRN (12:58)
[2017-08-10] MEDS ORDERED: P-EPHED 60MG/TRIPROLIDI 2.5MG TABLET PO PRN (12:58)
[2017-08-10] MEDS ORDERED: IBUPROFEN 400 MG TABLET (FP) PO PRN (12:58)
[2017-08-10] MEDS ORDERED: MAGNESIUM HYDROX 2400MG/30ML ORAL SUSPENSION 30 ML CUP PO PRN (12:58)
[2017-08-10] MEDS ORDERED: ACETAMINOPHEN 325 MG TABLET (FP) PO PRN (12:58)
[2017-08-10] MEDS ORDERED: MENTHOL/PHENOL 1 EACH UD MM PRN (12:58)
[2017-08-10] MEDS ORDERED: MAG HYDROX/AL HYDROX/SIMETH 30 ML UNIT-DOSE CUP PO PRN (12:58)
[2017-08-10] MEDS ORDERED: NICOTINE POLACRILEX 2 MG GUM BUC PRN (12:58)
[2017-08-10] MEDS ORDERED: guaiFENesin/D-METHORPHAN HB 10 ML UNIT-DOSE CUPS PO PRN (12:58)
[2017-08-10] MEDS ORDERED: ALBUTEROL SO4 18 GM HFA INHALER IH PRN (13:08)
[2017-08-10] MEDS ORDERED: diazePAM 5 MG TABLET PO ONE (13:45)
[2017-08-10] MEDS ORDERED: METHADONE HCL 10 MG TABLET (FOR DETOX USE ONLY) PO ONE ×2 (13:45→23:00)
[2017-08-10] MEDS: NICOTINE 14 MG/24 HOURS TOPICAL PATCH TD SCH (13:50)
--- NOTE | 2017-08-10 16:23 | CONSULT ---
[facility] Psychiatric Consult - Data Date of interview: 08/10/17 Admission source: [facility] Identifying data: Patient is a 56 year old single female, mother of two, domiciled, unemployed, and supported by [facility]. This is one of multiple admissions for patient. Pt. admitted to for alcohol, cocaine, and opioid dependence. Substance Abuse History: Substance & Tx. History. Hx Alcohol Use: Yes. Hx Substance Use: Yes. Substance Use Type: Alcohol, Cocaine, Opiates. Hx Substance Use Treatment: Yes (01/2017). - Substances Abused. Heroin. Route : Inhalation. Frequency: Daily. Amount used: 5 BAGS. Age of first use: 29. Date of Last Use: 08/09/17. Alcohol. Route: Oral. Frequency: Daily. Amount used: 6 PK BEER. Age of first use: 29. Date of Last Use: 08/10/17. Crack. Route: Smoking. Frequency: 3-6 times per week. Amount used: $60. Age of first use: 31. Date of Last Use: 08/09/17 Medical History: Asthma, hypertension, diabetes type II, Hep C, cholecystectomy , hysterectomy Psychiatric History: Patient reports two psychiatric hospitalizations at [facility]. Pt unable to recall the medications she was prescribed. Patient denies recent history of psychiatric OPD care. Ms Goyal is not on any psychotropic medications. Pt. reports h/o taking xanac and ambien 10mg. Physical/Sexual Abuse/Trauma History: Denies. Mental Status Exam - Mental Status Exam Alert and Oriented to: Time, Place, Person Cognitive Function: Good Patient Appearance: Well Groomed Mood: Euthymic Affect: Mood Congruent Patient Behavior: Cooperative Speech Pattern: Appropriate Voice Loudness: Normal Thought Process: Intact, Goal Oriented Thought Disorder: Not Present Hallucinations: Denies Suicidal Ideation: Denies Homicidal Ideation: Denies Insight/Judgement: Poor Sleep: Poorly Appetite: Fair Muscle strength/Tone: Normal Gait/Station: Normal Psychiatric Findings - Problem List ([place] 1, 2,3) (1) Alcohol dependence with uncomplicated withdrawal Current Visit: Yes Status: Acute (2) Nicotine dependence Current Visit: Yes Status: Acute Qualifiers: Nicotine product type: cigarettes Substance use status: in withdrawal Qualified Code(s): F17.213 - Nicotine dependence, cigarettes, with withdrawal (3) Opioid dependence with withdrawal Current Visit: Yes Status: Acute (4) Asthma Current Visit: Yes Status: Chronic Qualifiers: Asthma severity: mild Asthma complication type: uncomplicated (5) Diabetes mellitus, insulin dependent (IDDM), uncontrolled Current Visit: Yes Status: Chronic Qualifiers: Diabetes mellitus complication status: with skin complications Diabetes mellitus complication detail: with other skin complication Qualified Code(s): 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 (6) HTN (hypertension) Current Visit: Yes Status: Chronic Qualifiers: Hypertension type: essential hypertension Qualified Code(s): I10 - Essential (primary) hypertension (7) Hepatitis C Current Visit: Yes Status: Resolved Qualifiers: Viral hepatitis chronicity: carrier Qualified Code(s): B18.2 - Chronic viral hepatitis C (8) Cocaine dependence Current Visit: Yes Status: Chronic Qualifiers: Substance use status: uncomplicated Qualified Code(s): F14.20 - Cocaine dependence, uncomplicated (9) Insomnia Current Visit: Yes Status: Acute Qualifiers: Insomnia type: primary Qualified Code(s): F51.01 - Primary insomnia (10) Substance induced mood disorder Current Visit: Yes Status: Suspected - Initial Treatment Plan Initial Treatment Plan: Psychoeducation provided. Detoxification in progress. Ambien 10mg qhs prn ordered. Pt. made aware of the risk of parasomnia. Verbal consent given.
[2017-08-10] MEDS: INSULIN SLIDING SCALE (NOVOLOG) 1 VIAL SQ SCH ×2 (17:25→22:15)
[2017-08-10] MEDS: metFORMIN HCL 500 MG TABLET (FP) PO SCH (17:37)
[2017-08-10] MEDS: diazePAM 5 MG TABLET PO PRN (17:37)
[2017-08-10 18:03] LABS: URINE APPEARANCE SLCLOUDY; URINE BILIRUBIN NEGATIVE (<2.0 mg/dL); URINE COLOR YELLOW; URINE GLUCOSE (UA) NEGATIVE (NEGATIVE); URINE KETONE NEGATIVE (NEGATIVE); URINE LEUK ESTERASE NEGATIVE (NEGATIVE); URINE NITRITE NEGATIVE (NEGATIVE); URINE PROTEIN NEGATIVE (NEGATIVE)
[2017-08-10] MEDS ORDERED: MELATONIN 5 MG TABLETS PO PRN (22:00)
[2017-08-10] MEDS: MINERAL OIL/PETROLAT/WATER TOPICAL CREAM 113 GM JAR TP SCH (22:13)
[2017-08-10] MEDS: ZOLPIDEM TARTRATE 10 MG TABLET (PARK CARE ONLY) PO PRN (22:14)
[2017-08-10] MEDS: diazePAM 5 MG TABLET PO SCH (22:14)
[2017-08-10] MEDS: INSULIN (LEVEMIR) 100 UNITS/ML UNITS SQ SCH (22:14)
[2017-08-10] MEDS: THIAMINE HCL 100 MG TABLET (FP) PO SCH (22:16)
[2017-08-11] MEDS: diazePAM 5 MG TABLET PO PRN ×4 (02:20→22:10)
[2017-08-11] MEDS: diazePAM 5 MG TABLET PO SCH ×3 (05:51→22:10)
[2017-08-11] MEDS: INSULIN SLIDING SCALE (NOVOLOG) 1 VIAL SQ SCH ×4 (08:19→22:10)
[2017-08-11] MEDS: metFORMIN HCL 500 MG TABLET (FP) PO SCH (08:23)
--- NOTE | 2017-08-11 09:08 | EKG ---
Test Reason : Blood Pressure : / mmHG Vent. Rate : 107 BPM Atrial Rate : 107 BPM P-R Int : 140 ms QRS Dur : 078 ms QT Int : 350 ms P-R-T Axes : 074 073 073 degrees QTc Int : 467 ms SINUS TACHYCARDIA BIATRIAL ENLARGEMENT ABNORMAL ECG WHEN COMPARED WITH ECG OF 10-FEB-2017 13:31, NO SIGNIFICANT CHANGE WAS FOUND Confirmed by ANGLE RAYA MD ([id number]) on 08/11/2017 9:08:10 AM Referred By: Confirmed By:ANGLE RAYA MD
[2017-08-11 09:46] LABS: HEMATOCRIT 38.1 % (32.4-45.2); HEMOGLOBIN 12.6 GM/dL (10.7-15.3); MCH 28.6 pg (25.7-33.7); MEAN CELL VOLUME 86.5 fl (80-96); MEAN PLT VOLUME 8.7 fl (7.5-11.1); PLATELET COUNT 267 K/MM3 (134-434); RBC 4.41 M/mm3 (3.60-5.2); WHITE BLOOD COUNT 6.3 K/mm3 (4.0-10.0)
[2017-08-11] MEDS ORDERED: METHADONE HCL 10 MG TABLET (FOR DETOX USE ONLY) PO SCH (10:00)
[2017-08-11] MEDS: PRENATAL VITAMINS W/ FOLIC ACID TABLET (FP) PO SCH (10:47)
[2017-08-11] MEDS: amLODIPine BESYLATE 5 MG TABLET (FP) PO SCH (10:49)
[2017-08-11] MEDS: LISINOPRIL 20 MG TABLET (FP) PO SCH (10:49)
[2017-08-11] MEDS: NICOTINE 14 MG/24 HOURS TOPICAL PATCH TD SCH (10:49)
[2017-08-11 10:56] LABS: CHLORIDE 101 mmol/L (98-107); POTASSIUM 4.3 mmol/L (3.5-5.1); SODIUM 138 mmol/L (136-145)
[2017-08-11 11:06] LABS: ALBUMIN 3.7 g/dl (3.4-5.0); ALK PHOS 113 U/L (45-117); ANION GAP 10 (8-16); BILIRUBIN,TOTAL 0.2 mg/dL (0.2-1.0); BLOOD UREA NITROGEN 34 mg/dL (7-18); CALCIUM 8.6 mg/dL (8.5-10.1); CO2 27 mmol/L (21-32); GLUCOSE,RANDOM 145 mg/dL (74-106); SGOT/AST 21 U/L (15-37); SGPT/ALT 25 U/L (12-78); TOT PROT 7.2 g/dl (6.4-8.2)
--- NOTE | 2017-08-11 13:07 | PN ---
S CIWA - CIWA Score Nausea/Vomitin-No Nausea/No Vomiting Muscle Tremors: 4-Moderate,w/Arms Extend Anxiety: 4-Mod. Anxious/Guarded Agitation: 3 Paroxysmal Sweats: 1-Minimal Palms Moist Orientation: 0-Oriented Tacttile Disturbances: 0-None Auditory Disturbances: 0-None Visual Disturbances: 0-None Headache: 0-None Present CIWA-Ar Total Score: 12 BHS COWS - Scale Resting Pulse: 1= [place] 81-100 Sweatin= Chills/Flushing Restless Observation: 3= Extraneous Movement Pupil Size: 2= Moderately Dilated Bone or Joint Aches: 4=Acute Joint/Muscle Pain Runny Nose/ Eye Tearin= None GI Upset > 30mins: 0= None Tremor Observation of Outstretched Hands: 1= Tremor [place], Not Seen Yawning Observation: 1= 1-2x During Session Anxiety or Irritability: 2=Irritable/Anxious Goose Flesh Skin: 0=Smooth Skin COWS Score: 15 S Progress Note (SOAP) Subjective: ANXIETY,TREMORS,BODY ACHES, FATIGUE. Objective: 08/11/17 13:07 Vital Signs 08/11/17 08/11/17 06:00 10:00 Temperature 97.5 F L 97.7 F Pulse Rate 90 100 H Respiratory 18 18 Rate Blood Pressure 106/66 121/63 Laboratory Tests 08/10/17 08/10/17 08/10/17 11:22 13:40 21:51 WBC RBC Hgb Hct MCV MCH MCHC RDW Plt Count MPV Sodium Potassium Chloride Carbon Dioxide Anion Gap BUN Creatinine Creat Clearance w eGFR POC Glucometer 180 175 Random Glucose Calcium Total Bilirubin AST ALT Alkaline Phosphatase Total Protein Albumin Urine Color Yellow Urine Appearance Slcloudy Urine pH 5.0 Ur Specific [place] 1.016 Urine Protein Negative Urine Glucose (UA) Negative Urine Ketones Negative Urine Blood Negative Urine Nitrite Negative Urine Bilirubin Negative Urine Urobilinogen 2.0 H Ur Leukocyte Esterase Negative 08/11/17 08/11/17 08/11/17 05:43 05:50 05:50 WBC 6.3 RBC 4.41 Hgb 12.6 Hct 38.1 MCV 86.5 MCH 28.6 MCHC 33.0 RDW 15.0 Plt Count 267 MPV 8.7 D Sodium 138 Potassium 4.3 Chloride 101 Carbon Dioxide 27 Anion Gap 10 BUN 34 H Creatinine 2.0 H Creat Clearance w eGFR 25.68 POC Glucometer 64 Random Glucose 145 H Calcium 8.6 Total Bilirubin 0.2 AST 21 ALT 25 Alkaline Phosphatase 113 Total Protein 7.2 Albumin 3.7 Urine Color Urine Appearance Urine pH Ur Specific [place] Urine Protein Urine Glucose (UA) Urine Ketones Urine Blood Urine Nitrite Urine Bilirubin Urine Urobilinogen Ur Leukocyte Esterase 08/11/17 08/11/17 06:35 10:40 WBC RBC Hgb Hct MCV MCH MCHC RDW Plt Count MPV Sodium Potassium Chloride Carbon Dioxide Anion Gap BUN Creatinine Creat Clearance w eGFR POC Glucometer 101 80 Random Glucose Calcium Total Bilirubin AST ALT Alkaline Phosphatase Total Protein Albumin Urine Color Urine Appearance Urine pH Ur Specific [place] Urine Protein Urine Glucose (UA) Urine Ketones Urine Blood Urine Nitrite Urine Bilirubin Urine Urobilinogen Ur Leukocyte Esterase Assessment: 08/11/17 13:07 WITHDRAWAL SX Plan: CONTINUE DETOX
--- NOTE | 2017-08-11 15:30 | PN ---
[facility] Progress Note Note: METFORMIN 500 MG PO BID D/C'D eGFR <30 PT MAY CONTINUE WITH INSULIN INDICATED WHEN NECESSARY.
[2017-08-11] MEDS: THIAMINE HCL 100 MG TABLET (FP) PO SCH (22:09)
[2017-08-11] MEDS: ZOLPIDEM TARTRATE 10 MG TABLET (PARK CARE ONLY) PO PRN (22:09)
[2017-08-11] MEDS: INSULIN (LEVEMIR) 100 UNITS/ML UNITS SQ SCH (22:11)
[2017-08-11] MEDS: MINERAL OIL/PETROLAT/WATER TOPICAL CREAM 113 GM JAR TP SCH (22:14)
[2017-08-12] MEDS: diazePAM 5 MG TABLET PO PRN ×3 (02:30→13:39)
[2017-08-12] MEDS: INSULIN SLIDING SCALE (NOVOLOG) 1 VIAL SQ SCH ×2 (07:53→12:23)
[2017-08-12] MEDS ORDERED: METHADONE HCL 5 MG TABLET (FOR DETOX USE ONLY) PO SCH (10:00)
[2017-08-12] MEDS ORDERED: diazePAM 5 MG TABLET PO SCH (10:00)
[2017-08-12] MEDS: amLODIPine BESYLATE 5 MG TABLET (FP) PO SCH (10:40)
[2017-08-12] MEDS: LISINOPRIL 20 MG TABLET (FP) PO SCH (10:40)
[2017-08-12] MEDS: PRENATAL VITAMINS W/ FOLIC ACID TABLET (FP) PO SCH (10:40)
[2017-08-12] MEDS: NICOTINE 14 MG/24 HOURS TOPICAL PATCH TD SCH (10:44)
[2017-08-12 15:09] VITALS: BP 111/60; PULSE 120; TEMP 98.2
--- NOTE | 2017-08-12 15:23 | PN ---
S CIWA - CIWA Score Nausea/Vomitin Muscle Tremors: 3 Anxiety: 3 Agitation: 2 Paroxysmal Sweats: 2 Orientation: 0-Oriented Tacttile Disturbances: 1-Very Mild Itch/Numbness Auditory Disturbances: 1-Very Mild Visual Disturbances: 1-Very Mild Sensitivity Headache: 2-Mild CIWA-Ar Total Score: 17 BHS COWS - Scale Resting Pulse: 1= SD 81-100 Sweatin= Chills/Flushing Restless Observation: 1= Difficult to Sit Still Pupil Size: 0= Normal to Room Light Bone or Joint Aches: 2= Severe Diffuse Aches Runny Nose/ Eye Tearin= Runny Nose/Eyes GI Upset > 30mins: 2= Nausea/Diarrhea Tremor Observation of Outstretched Hands: 2= Slight Tremor Visible Yawning Observation: 1= 1-2x During Session Anxiety or Irritability: 2=Irritable/Anxious Goose Flesh Skin: 3=Piloerection COWS Score: 17 BHS Progress Note (SOAP) Subjective: Tremors, sweats, generalized pain, irritability and anxiety Objective: 08/12/17 15:22 Vital Signs 08/12/17 08/12/17 10:52 15:08 Temperature 96.4 F L 98.2 F Pulse Rate 104 H 120 H Respiratory 20 22 Rate Blood Pressure 115/68 111/60 Laboratory Last Values WBC 6.3 K/mm3 (4.0-10.0) 08/11/17 05:50 RBC 4.41 M/mm3 (3.60-5.2) 08/11/17 05:50 Hgb 12.6 GM/dL (10.7-15.3) 08/11/17 05:50 Hct 38.1 % (32.4-45.2) 08/11/17 05:50 MCV 86.5 fl (80-96) 08/11/17 05:50 MCH 28.6 pg (25.7-33.7) 08/11/17 05:50 MCHC 33.0 g/dl (32.0-36.0) 08/11/17 05:50 RDW 15.0 % (11.6-15.6) 08/11/17 05:50 Plt Count 267 K/MM3 (134-434) 08/11/17 05:50 MPV 8.7 fl (7.5-11.1) D 08/11/17 05:50 Sodium 138 mmol/L (136-145) 08/11/17 05:50 Potassium 4.3 mmol/L (3.5-5.1) 08/11/17 05:50 Chloride 101 mmol/L (98-107) 08/11/17 05:50 Carbon Dioxide 27 mmol/L (21-32) 08/11/17 05:50 Anion Gap 10 (8-16) 08/11/17 05:50 BUN 34 mg/dL (7-18) H 08/11/17 05:50 Creatinine 2.0 mg/dL (0.55-1.02) H 08/11/17 05:50 Creat Clearance w eGFR 25.68 (>60) 08/11/17 05:50 POC Glucometer 96 UNITS (80-120) 08/12/17 11:38 Random Glucose 145 mg/dL (74-106) H 08/11/17 05:50 Calcium 8.6 mg/dL (8.5-10.1) 08/11/17 05:50 Total Bilirubin 0.2 mg/dL (0.2-1.0) 08/11/17 05:50 AST 21 U/L (15-37) 08/11/17 05:50 ALT 25 U/L (12-78) 08/11/17 05:50 Alkaline Phosphatase 113 U/L (45-117) 08/11/17 05:50 Total Protein 7.2 g/dl (6.4-8.2) 08/11/17 05:50 Albumin 3.7 g/dl (3.4-5.0) 08/11/17 05:50 Urine Color Yellow 08/10/17 13:40 Urine Appearance Slcloudy 08/10/17 13:40 Urine pH 5.0 (5.0-8.0) 08/10/17 13:40 Ur Specific [place] 1.016 (1.001-1.035) 08/10/17 13:40 Urine Protein Negative (NEGATIVE) 08/10/17 13:40 Urine Glucose (UA) Negative (NEGATIVE) 08/10/17 13:40 Urine Ketones Negative (NEGATIVE) 08/10/17 13:40 Urine Blood Negative (NEGATIVE) 08/10/17 13:40 Urine Nitrite Negative (NEGATIVE) 08/10/17 13:40 Urine Bilirubin Negative (<2.0 mg/dL) 08/10/17 13:40 Urine Urobilinogen 2.0 mg/dL (0.2-1.0) H 08/10/17 13:40 Ur Leukocyte Esterase Negative (NEGATIVE) 08/10/17 13:40 RPR Titer Nonreactive (NONREACTIVE) 08/11/17 05:50 Labs noted Assessment: 08/12/17 15:23 Withdrawal sx Plan: Continue detox
--- NOTE | 2017-08-12 17:41 | DS ---
[facility] Detox Discharge Summary Admission Date: 08/10/17 Discharge Date: 08/12/17 - History Present History: Alcohol Dependence, Cannabis Dependence, Cocaine Dependence, Opioid Dependence - Physical Exam Results Vital Signs: Vital Signs Temperature 98.2 F 08/12/17 15:08 Pulse Rate 120 H 08/12/17 15:08 Respiratory Rate 22 08/12/17 15:08 Blood Pressure 111/60 08/12/17 15:08 O2 Sat by Pulse Oximetry (%) Pertinent Admission Physical Exam Findings: withdrawal sx Laboratory Last Values WBC 6.3 K/mm3 (4.0-10.0) 08/11/17 05:50 RBC 4.41 M/mm3 (3.60-5.2) 08/11/17 05:50 Hgb 12.6 GM/dL (10.7-15.3) 08/11/17 05:50 Hct 38.1 % (32.4-45.2) 08/11/17 05:50 MCV 86.5 fl (80-96) 08/11/17 05:50 MCH 28.6 pg (25.7-33.7) 08/11/17 05:50 MCHC 33.0 g/dl (32.0-36.0) 08/11/17 05:50 RDW 15.0 % (11.6-15.6) 08/11/17 05:50 Plt Count 267 K/MM3 (134-434) 08/11/17 05:50 MPV 8.7 fl (7.5-11.1) D 08/11/17 05:50 Sodium 138 mmol/L (136-145) 08/11/17 05:50 Potassium 4.3 mmol/L (3.5-5.1) 08/11/17 05:50 Chloride 101 mmol/L (98-107) 08/11/17 05:50 Carbon Dioxide 27 mmol/L (21-32) 08/11/17 05:50 Anion Gap 10 (8-16) 08/11/17 05:50 BUN 34 mg/dL (7-18) H 08/11/17 05:50 Creatinine 2.0 mg/dL (0.55-1.02) H 08/11/17 05:50 Creat Clearance w eGFR 25.68 (>60) 08/11/17 05:50 POC Glucometer 96 UNITS (80-120) 08/12/17 11:38 Random Glucose 145 mg/dL (74-106) H 08/11/17 05:50 Calcium 8.6 mg/dL (8.5-10.1) 08/11/17 05:50 Total Bilirubin 0.2 mg/dL (0.2-1.0) 08/11/17 05:50 AST 21 U/L (15-37) 08/11/17 05:50 ALT 25 U/L (12-78) 08/11/17 05:50 Alkaline Phosphatase 113 U/L (45-117) 08/11/17 05:50 Total Protein 7.2 g/dl (6.4-8.2) 08/11/17 05:50 Albumin 3.7 g/dl (3.4-5.0) 08/11/17 05:50 Urine Color Yellow 08/10/17 13:40 Urine Appearance Slcloudy 08/10/17 13:40 Urine pH 5.0 (5.0-8.0) 08/10/17 13:40 Ur Specific [place] 1.016 (1.001-1.035) 08/10/17 13:40 Urine Protein Negative (NEGATIVE) 08/10/17 13:40 Urine Glucose (UA) Negative (NEGATIVE) 08/10/17 13:40 Urine Ketones Negative (NEGATIVE) 08/10/17 13:40 Urine Blood Negative (NEGATIVE) 08/10/17 13:40 Urine Nitrite Negative (NEGATIVE) 08/10/17 13:40 Urine Bilirubin Negative (<2.0 mg/dL) 08/10/17 13:40 Urine Urobilinogen 2.0 mg/dL (0.2-1.0) H 08/10/17 13:40 Ur Leukocyte Esterase Negative (NEGATIVE) 08/10/17 13:40 RPR Titer Nonreactive (NONREACTIVE) 08/11/17 05:50 - Medication Discharge Medications: Ambulatory Orders cloNIDine HCL [Catapres -] 0.2 mg PO BID #60 03/08/16 Zolpidem Tartrate [Ambien] 10 mg PO HS 07/09/16 metFORMIN HCL [Glucophage -] 500 mg PO BID@0700,1630 #90 tablet 10/05/16 Albuterol Sulfate [Proair Respiclick] 90 mcg IH DAILY #1 aer.[email or web address] 12/21/16 Amlodipine Besylate [Norvasc -] 5 mg PO DAILY #30 tablet 12/21/16 Lisinopril [Prinivil] 40 mg PO DAILY #30 tablet 12/21/16 Insulin Glargine,Hum.rec.anlog [Lantus Solostar PEN (NF)] 30 units SQ HS - Diagnosis (1) Alcohol dependence with uncomplicated withdrawal Status: Acute (2) Nicotine dependence Status: Acute Qualifiers: Nicotine product type: cigarettes Substance use status: in withdrawal Qualified Code(s): F17.213 - Nicotine dependence, cigarettes, with withdrawal (3) Opioid dependence with withdrawal Status: Acute (4) Arthritis Status: Chronic (5) Asthma Status: Chronic Qualifiers: Asthma severity: mild Asthma complication type: uncomplicated (6) Diabetes mellitus, insulin dependent (IDDM), uncontrolled Status: Chronic Qualifiers: Diabetes mellitus complication status: with skin complications Diabetes mellitus complication detail: with other skin complication Qualified Code(s): 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
[2017-08-14] MEDS ORDERED: METHADONE HCL 10 MG TABLET (FOR DETOX USE ONLY) PO SCH (10:00)
[2017-08-14] MEDS ORDERED: diazePAM 5 MG TABLET PO SCH (10:00)
[2017-08-15] MEDS ORDERED: METHADONE HCL 5 MG TABLET (FOR DETOX USE ONLY) PO SCH (06:00)
== END 2017-08-12 15:32 | disposition left against medical advice (07) | DRG 770 ==
LOC: YASAS 09:15 → Y6N 13:01
PROVIDERS: ADMIT Family Medicine Addiction Medicine; ATTEND Family Medicine Addiction Medicine
PROC: HZ2ZZZZ Detoxification Services for Substance Abuse Treatment (ICD-10-PCS; principal; 2017-08-10)
DX: F11.23 Opioid dependence with withdrawal (principal); F10.230 Alcohol dependence with withdrawal, uncomplicated; F14.20 Cocaine dependence, uncomplicated; F12.20 Cannabis dependence, uncomplicated; F17.213 Nicotine dependence, cigarettes, with withdrawal; F51.05 Insomnia due to other mental disorder; F19.24 Other psychoactive substance dependence with psychoactive substance-induced mood disorder; F32.9 Major depressive disorder, single episode, unspecified; I10 Essential (primary) hypertension; E10.628 Type 1 diabetes mellitus with other skin complications; Z79.4 Long term (current) use of insulin; B18.2 Chronic viral hepatitis C; J45.20 Mild intermittent asthma, uncomplicated; M12.9 Arthropathy, unspecified; M54.5 Low back pain; G89.29 Other chronic pain; R63.4 Abnormal weight loss; Z68.26 Body mass index [BMI] 26.0-26.9, adult; Z91.14 Patient's other noncompliance with medication regimen
CPT/HCPCS: 36415; 80053; 81003; 82962; 85027; 86593; 93005; 93010

== ENCOUNTER 2017-11-12 09:05 | Inpatient (IN) | payer OTHER ==
[2017-11-12 10:41] VITALS: BMI 26.2
--- NOTE | 2017-11-12 12:54 | HP ---
CIWA Score - CIWA Score Nausea/Vomitin Muscle Tremors: 4-Moderate,w/Arms Extend Anxiety: 3 Agitation: 4-Moderately Restless Paroxysmal Sweats: 3 Orientation: 0-Oriented Tacttile Disturbances: 0-None Auditory Disturbances: 0-None Visual Disturbances: 0-None Headache: 1-Very Mild CIWA-Ar Total Score: 18 Admission ROS BHS - HPI Chief Complaint: "I want detox from alcohol" Allergies/Adverse Reactions: Allergies Allergy/AdvReac Type Severity Reaction Status Date / Time tomato [Tomato] Allergy Severe Itching Verified 11/12/17 10:55 No Known Drug Allergies Allergy Verified 11/12/17 10:55 NKDA Allergy Uncoded 11/12/17 10:55 History of Present Illness: 57 y/o female well known to this center presents for detox. Was last here last month when she said " you guys helped me with the heroin problem last time". Pt is in the [facility] Methadone program (presented card) where she gets 100mg daily. Said she got her dose at the center today. Explained to pt that further dose is subject to verification, pt verbalized understanding. Pt's utox + for fentanyl and Bzo's, but pt denied using both stating her crack cocaine may have been laced with it, she admits to occasional heroin use s/p "poor judgement, I promise to stop it". Pt will be on valium regimen s/p verbalizing that she prefers that and it works better for her. Hx of DM 1, HTN, Arthritis, Hep C, high chol, asthma Psych hx - depression, anxiety, insomnia Denies SI/HI Exam Limitations: Intoxication - Ebola screening Have you traveled outside of the country in the last 21 days: No Have you had contact with anyone from an Ebola affected area: No Have you been sick,other than usual withdrawal symptoms: No Do you have a fever: No - Review of Systems Constitutional: Loss of Appetite, Night Sweats, Changes in sleep, Unintentional Wgt. Loss EENT: reports: Nose Congestion (missing teeth, dental caries), Other Respiratory: reports: Orthopnea, Shortness of Breath Cardiac: reports: No Symptoms Reported GI: reports: Constipated, Poor Appetite : reports: No Symptoms Reported Musculoskeletal: reports: Back Pain Integumentary: reports: No Symptoms Reported Neuro: reports: Headache, Tremors Endocrine: reports: Increased Thirst, Increased Urine Hematology: reports: Anemia Psychiatric: reports: Orientated x3, Agitated, Anxious Other Systems: Reviewed and Negative Patient History - Patient Medical History Hx Anemia: Yes (not on meds) Hx Asthma: Yes (On albuterol, advair) Hx Chronic Obstructive Pulmonary Disease (COPD): No Hx Cancer: No Hx Cardiac Disorders: No Hx Congestive Heart Failure: No Hx Hypertension: Yes (On meds) Hx Hypercholesterolemia: Yes Hx Pacemaker: No HX Cerebrovascular Accident: No Hx Seizures: No Hx Dementia: No Hx Diabetes: Yes (BGM 160, on meds) Hx Gastrointestinal Disorders: No Hx Liver Disease: Yes Hx Genitourinary Disorders: No Hx Sexually Transmitted Disorders: No Hx Renal Disease (ESRD): No Hx Thyroid Disease: No Hx Human Immunodeficiency Virus (HIV): No Hx Hepatitis C: Yes (NO TREATMENT) Hx Depression: Yes Hx Suicide Attempt: No (denies current SI) Hx Bipolar Disorder: No Hx Schizophrenia: No - Patient Surgical History Past Surgical History: Yes Hx Neurologic Surgery: No Hx Cataract Extraction: No Hx Cardiac Surgery: No Hx Lung Surgery: No Hx Breast Surgery: Yes (cyst removal in 2005) Hx Breast Biopsy: No Hx Abdominal Surgery: Yes (Hysterectomy in 2007) Hx Appendectomy: No Hx Cholecystectomy: Yes (r/o gallstones 11/05) Hx Genitourinary Surgery: No Hx Section: No Hx Orthopedic Surgery: No Hx Hysterectomy: Yes (2007) Anesthesia Reaction: No - PPD History Previous Implant?: Yes Documented Results: Negative w/proof Implanted On Prior [facility] Admission?: Yes Date: 10/02/16 Results: 0.0 PPD to be Administered?: Yes - Reproductive History Patient is a Female of Child Bearing Age (11 -55 yrs old): No Last Menstrual Period: 10/07/07 Patient : No - Smoking Cessation Smoking history: Current every day smoker Have you smoked in the past 12 months: Yes Aproximately how many cigarettes per day: 10 Cigars Per Day: 0 Hx Chewing Tobacco Use: No Initiated information on smoking cessation: Yes 'Breaking Loose' booklet given: 11/12/17 - Substance & Tx. History Hx Alcohol Use: Yes Hx Substance Use: Yes Substance Use Type: None, Alcohol, Cocaine Hx Substance Use Treatment: Yes - Substances Abused Alcohol Route: Oral Frequency: Daily Amount used: beer 3 (6packs) Age of first use: 29 Date of Last Use: 11/11/17 Cocaine Route: Inhalation Frequency: 1-2 times per week Amount used: $ 20 Age of first use: 35 Date of Last Use: 11/11/17 Family Disease History - Family Disease History Family Disease History: Diabetes: Mother ( FROM [place]. OF THE LIVER,HTN), Brother, Heart Disease: Mother, Sister ( MII), CA: Father (etoh, ), Mother Admission Physical Exam S - Vital Signs Vital Signs: Vital Signs - 24 hr 11/12/17 10:38 Temperature 97.8 F Pulse Rate 109 H Respiratory 20 Rate Blood Pressure 157/85 - Physical General Appearance: Yes: Moderate Distress, Tremorous, Irritable, Anxious HEENTM: Yes: Nasal Congestion Respiratory: Yes: No Respiratory Distress, No Accessory Muscle Use Neck: Yes: No masses,lesions,Nodules, Trachea in good position Breast: Yes: Breast Exam Deferred Cardiology: Yes: Regular Rate Abdominal: Yes: Normal Bowel Sounds, Non Tender Genitourinary: Yes: Within Normal Limits Back: Yes: Normal Inspection Musculoskeletal: Yes: full range of Motion, Gait Steady Extremities: Yes: Within Normal Limits, Normal Capillary Refill, Normal Inspection Neurological: Yes: Within Normal Limits, Alert, Respond to painful stimul Integumentary: Yes: Within Normal Limits Lymphatic: Yes: Within Normal Limits - Diagnostic (1) Opioid dependence on agonist therapy Current Visit: Yes Status: Acute (2) Alcohol dependence with uncomplicated withdrawal Current Visit: Yes Status: Acute (3) Cocaine dependence Current Visit: Yes Status: Acute Qualifiers: Substance use status: uncomplicated Qualified Code(s): F14.20 - Cocaine dependence, uncomplicated (4) Corneal ulcer, right Current Visit: Yes Status: Chronic (5) Nicotine dependence Current Visit: Yes Status: Acute Qualifiers: Nicotine product type: cigarettes Substance use status: in withdrawal Qualified Code(s): F17.213 - Nicotine dependence, cigarettes, with withdrawal (6) Arthritis Current Visit: Yes Status: Chronic (7) Asthma Current Visit: Yes Status: Chronic Qualifiers: Asthma severity: mild Asthma complication type: uncomplicated (8) HTN (hypertension) Current Visit: Yes Status: Chronic Qualifiers: Hypertension type: essential hypertension Qualified Code(s): I10 - Essential (primary) hypertension (9) Hepatitis C Current Visit: Yes Status: Chronic Qualifiers: Viral hepatitis chronicity: chronic Hepatic coma status: without hepatic coma Qualified Code(s): B18.2 - Chronic viral hepatitis C (10) Diabetes Current Visit: Yes Status: Acute Cleared for Admission [facility] - Detox or Rehab [facility] Level of Care: Medically Managed Detox Regimen/Protocol: Valium [facility] Breath Alcohol Content Breath Alcohol Content: 0 Urine Pregancy Test - Result Urine Test Results: Negative- NO Line Present Urine Drug Screen - Results Drug Screen Negative: No Urine Drug Screen Results: KENYA-Cocaine, OPI-Opiates, BZO-Benzodiazepines, MTD- Methadone, FEN-Fentanyl
[2017-11-12] MEDS ORDERED: diazePAM 5 MG TABLET PO ONE (13:14)
[2017-11-12] MEDS ORDERED: guaiFENesin/D-METHORPHAN HB 10 ML UNIT-DOSE CUPS PO PRN (13:14)
[2017-11-12] MEDS ORDERED: MAG HYDROX/AL HYDROX/SIMETH 30 ML UNIT-DOSE CUP PO PRN (13:14)
[2017-11-12] MEDS ORDERED: P-EPHED 60MG/TRIPROLIDI 2.5MG TABLET PO PRN (13:14)
[2017-11-12] MEDS ORDERED: MAGNESIUM HYDROX 2400MG/30ML ORAL SUSPENSION 30 ML CUP PO PRN (13:14)
[2017-11-12] MEDS ORDERED: IBUPROFEN 400 MG TABLET (FP) PO PRN (13:14)
[2017-11-12] MEDS ORDERED: LOPERAMIDE HCL 2 MG CAPSULE PO PRN (13:14)
[2017-11-12] MEDS ORDERED: MAGNESIUM CITRATE 300 ML BOTTLE PO PRN (13:14)
[2017-11-12] MEDS ORDERED: ARTIFICIAL TEARS (POLYVINYL ALCOHOL) OPTH DROPS OU PRN (13:21)
[2017-11-12] MEDS ORDERED: AMMONIUM LACTATE 12% LOTION 225 GM BOTTLE TP PRN (13:22)
[2017-11-12] MEDS: diazePAM 5 MG TABLET PO SCH ×2 (14:42→22:45)
[2017-11-12] MEDS: metFORMIN HCL 500 MG TABLET (FP) PO SCH (16:45)
[2017-11-12] MEDS: INSULIN SLIDING SCALE (NOVOLOG) 1 VIAL SQ SCH ×2 (17:01→23:36)
--- NOTE | 2017-11-12 17:08 | EKG ---
Test Reason : Blood Pressure : / mmHG Vent. Rate : 085 BPM Atrial Rate : 085 BPM P-R Int : 142 ms QRS Dur : 074 ms QT Int : 368 ms P-R-T Axes : 072 069 062 degrees QTc Int : 437 ms NORMAL SINUS RHYTHM BIATRIAL ENLARGEMENT ABNORMAL ECG WHEN COMPARED WITH ECG OF 01-OCT-2017 15:33, NO SIGNIFICANT CHANGE WAS FOUND Confirmed by MD Hubert, Joe ([id number]) on 11/12/2017 5:08:17 PM Referred By: IOANA CONN Confirmed By:Joe Gaspar MD
[2017-11-12] MEDS: ACETAMINOPHEN 325 MG TABLET (FP) PO PRN (17:46)
[2017-11-12] MEDS: diazePAM 5 MG TABLET PO PRN (18:33)
[2017-11-12 20:46] LABS: URINE APPEARANCE CLEAR; URINE BILIRUBIN NEGATIVE (<2.0 mg/dL); URINE COLOR LTYELLOW; URINE GLUCOSE (UA) NEGATIVE (NEGATIVE); URINE KETONE NEGATIVE (NEGATIVE); URINE LEUK ESTERASE NEGATIVE (NEGATIVE); URINE NITRITE NEGATIVE (NEGATIVE); URINE PROTEIN NEGATIVE (NEGATIVE); URINE UROBILINOGEN NEGATIVE mg/dL (0.2-1.0)
[2017-11-12] MEDS ORDERED: MELATONIN 5 MG TABLETS PO PRN (22:00)
[2017-11-12] MEDS: THIAMINE HCL 100 MG TABLET (FP) PO SCH (22:45)
[2017-11-12] MEDS: INSULIN (LEVEMIR) 100 UNITS/ML UNITS SQ SCH (23:35)
[2017-11-13] MEDS: diazePAM 5 MG TABLET PO PRN ×3 (01:07→16:51)
[2017-11-13] MEDS: diazePAM 5 MG TABLET PO SCH ×3 (05:28→22:04)
[2017-11-13] MEDS: metFORMIN HCL 500 MG TABLET (FP) PO SCH ×2 (06:44→16:51)
[2017-11-13] MEDS: INSULIN SLIDING SCALE (NOVOLOG) 1 VIAL SQ SCH ×4 (06:48→22:05)
[2017-11-13] MEDS ORDERED: METHADONE HCL 10 MG TABLET PO SCH (09:00)
[2017-11-13] MEDS ORDERED: METHADONE HCL 40 MG DISPERSABLE TABLET ONE (09:23)
[2017-11-13] MEDS ORDERED: METHADONE HCL 10 MG TABLET ONE (09:23)
[2017-11-13] MEDS: METHADONE 80 MG, METHADONE 20 MG PO SCH (09:25)
--- NOTE | 2017-11-13 10:00 | CONSULT ---
[facility] Psychiatric Consult - Data Date of interview: 11/13/17 Admission source: [facility] Identifying data: Patient is a 57 year old single, mother of two, unemployed, domiciled, and is currently supported by [facility]. This is one of multiple admissions for patient. Pt. admitted to for alcohol dependence. Substance Abuse History: - Smoking Cessation. Smoking history: Current every day smoker. Have you smoked in the past 12 months: Yes. Aproximately how many cigarettes per day: 10. Cigars Per Day: 0. Hx Chewing Tobacco Use: No. Initiated information on smoking cessation: Yes. 'Breaking Loose' booklet given : 11/12/17. - Substance & Tx. History. Hx Alcohol Use: Yes. Hx Substance Use : Yes. Substance Use Type: None, Alcohol, Cocaine. Hx Substance Use Treatment : Yes. - Substances Abused. Alcohol. Route: Oral. Frequency: Daily. Amount used: beer 3 (6packs). Age of first use: 29. Date of Last Use: . Cocaine. Route: Inhalation. Frequency: 1-2 times per week. Amount used: $ 20. Age of first use: 35. Date of Last Use: 11/11/17 Medical History: hypertension, diabetes, Arthritis, Asthma Psychiatric History: Patient reports multiple psychiatric hospitalizations, most recently in 2002 at [facility] for depression. Diagnosis of "MDD" Ms. Goyal reports nonadherence to outpatient psychiatric care. Reports last seeing a psychiatrist several years ago. Pt. denies h/o suicide attempt. Pt. reports poor sleep. Physical/Sexual Abuse/Trauma History: denies. Mental Status Exam - Mental Status Exam Alert and Oriented to: Time, Place, Person Cognitive Function: Good Patient Appearance: Unkempt Mood: Euthymic Affect: Mood Congruent Patient Behavior: Cooperative Speech Pattern: Appropriate Voice Loudness: Normal Thought Process: Intact, Goal Oriented Thought Disorder: Not Present Hallucinations: Denies Suicidal Ideation: Denies Homicidal Ideation: Denies Insight/Judgement: Poor Sleep: Poorly Appetite: Fair Muscle strength/Tone: Normal Gait/Station: Normal Psychiatric Findings - Problem List ([place] 1, 2,3) (1) Substance-induced sleep disorder Current Visit: Yes Status: Acute (2) Alcohol dependence with uncomplicated withdrawal Current Visit: Yes Status: Acute (3) Cocaine dependence Current Visit: Yes Status: Chronic Qualifiers: Substance use status: uncomplicated Qualified Code(s): F14.20 - Cocaine dependence, uncomplicated (4) Opioid dependence on agonist therapy Current Visit: Yes Status: Acute (5) Substance induced mood disorder Current Visit: Yes Status: Acute - Initial Treatment Plan Initial Treatment Plan: Psychoeducation provided. detoxification in progress. Will order ambien 10mg prn qhs. Benefits and side effects discussed. Pt. reports favorable effect from previously accepting ambien. Pt. made aware of the risk parasomnia. Verbal consent given.
[2017-11-13 10:07] LABS: HEMATOCRIT 39.3 % (32.4-45.2); HEMOGLOBIN 12.7 GM/dL (10.7-15.3); MCH 28.5 pg (25.7-33.7); MCHC 32.3 g/dl (32.0-36.0); MEAN CELL VOLUME 88.3 fl (80-96); MEAN PLT VOLUME 8.6 fl (7.5-11.1); PLATELET COUNT 188 K/MM3 (134-434); RBC 4.45 M/mm3 (3.60-5.2); RDW 13.8 % (11.6-15.6)
[2017-11-13] MEDS: PRENATAL VITAMINS W/ FOLIC ACID TABLET (FP) PO SCH (10:27)
[2017-11-13] MEDS: MENTHOL/PHENOL 1 EACH UD MM PRN (10:29)
[2017-11-13 10:58] LABS: ALBUMIN 3.5 g/dl (3.4-5.0); ALK PHOS 164 U/L (45-117); ANION GAP 5 MMOL/L (8-16); BILIRUBIN,TOTAL 0.3 mg/dL (0.2-1); BLOOD UREA NITROGEN 25 mg/dL (7-18); CALCIUM 9.1 mg/dL (8.5-10.1); CHLORIDE 101 mmol/L (98-107); CO2 30 mmol/L (21-32); GLUCOSE,RANDOM 112 mg/dL (74-106); POTASSIUM 4.4 mmol/L (3.5-5.1); SGOT/AST 21 U/L (15-37); SGPT/ALT 28 U/L (13-61); SODIUM 136 mmol/L (136-145); TOT PROT 7.4 g/dl (6.4-8.2)
[2017-11-13] MEDS: ALBUTEROL SO4 8 GM HFA INHALER IH PRN (11:46)
--- NOTE | 2017-11-13 14:45 | PN ---
BHS COWS - Scale Resting Pulse: 2= OK 101-120 Sweatin= Chills/Flushing Restless Observation: 1= Difficult to Sit Still Pupil Size: 0= Normal to Room Light Bone or Joint Aches: 2= Severe Diffuse Aches (especially in back) Runny Nose/ Eye Tearin= None GI Upset > 30mins: 2= Nausea/Diarrhea (Denies diarrhea) Tremor Observation of Outstretched Hands: 2= Slight Tremor Visible Yawning Observation: 0= None Anxiety or Irritability: 1=Feels Anxious/Irritable Goose Flesh Skin: 0=Smooth Skin COWS Score: 11 BHS Progress Note (SOAP) Subjective: C/o nausea w/o vomiting or diarrhea. Requesting ensure. C/o generalized bone pain, but back hurts the worse. c/o tremors. I'm feeling really anxious. Objective: Vital Signs 11/13/17 11/13/17 11/13/17 07:01 09:22 13:46 Temperature 96.3 F L 97.7 F 96.3 F L Pulse Rate 111 H 116 H 108 H Respiratory 20 20 16 Rate Blood Pressure 136/84 133/74 99/56 L Laboratory Last Values WBC 4.0 K/mm3 (4.0-10.0) 11/13/17 07:00 RBC 4.45 M/mm3 (3.60-5.2) 11/13/17 07:00 Hgb 12.7 GM/dL (10.7-15.3) 11/13/17 07:00 Hct 39.3 % (32.4-45.2) 11/13/17 07:00 MCV 88.3 fl (80-96) 11/13/17 07:00 MCH 28.5 pg (25.7-33.7) 11/13/17 07:00 MCHC 32.3 g/dl (32.0-36.0) 11/13/17 07:00 RDW 13.8 % (11.6-15.6) 11/13/17 07:00 Plt Count 188 K/MM3 (134-434) 11/13/17 07:00 MPV 8.6 fl (7.5-11.1) 11/13/17 07:00 Sodium 136 mmol/L (136-145) 11/13/17 07:00 Potassium 4.4 mmol/L (3.5-5.1) 11/13/17 07:00 Chloride 101 mmol/L (98-107) 11/13/17 07:00 Carbon Dioxide 30 mmol/L (21-32) 11/13/17 07:00 Anion Gap 5 MMOL/L (8-16) L 11/13/17 07:00 BUN 25 mg/dL (7-18) H 11/13/17 07:00 Creatinine 1.0 mg/dL (0.55-1.3) 11/13/17 07:00 Creat Clearance w eGFR 56.95 (>60) 11/13/17 07:00 POC Glucometer 93 UNITS (80-120) 11/13/17 11:43 Random Glucose 112 mg/dL (74-106) H 11/13/17 07:00 Calcium 9.1 mg/dL (8.5-10.1) 11/13/17 07:00 Total Bilirubin 0.3 mg/dL (0.2-1) 11/13/17 07:00 AST 21 U/L (15-37) 11/13/17 07:00 ALT 28 U/L (13-61) 11/13/17 07:00 Alkaline Phosphatase 164 U/L (45-117) H 11/13/17 07:00 Total Protein 7.4 g/dl (6.4-8.2) 11/13/17 07:00 Albumin 3.5 g/dl (3.4-5.0) 11/13/17 07:00 Urine Color Ltyellow 11/12/17 15:20 Urine Appearance Clear 11/12/17 15:20 Urine pH 5.0 (5.0-8.0) 11/12/17 15:20 Ur Specific [place] 1.015 (1.001-1.035) 11/12/17 15:20 Urine Protein Negative (NEGATIVE) 11/12/17 15:20 Urine Glucose (UA) Negative (NEGATIVE) 11/12/17 15:20 Urine Ketones Negative (NEGATIVE) 11/12/17 15:20 Urine Blood Negative (NEGATIVE) 11/12/17 15:20 Urine Nitrite Negative (NEGATIVE) 11/12/17 15:20 Urine Bilirubin Negative (<2.0 mg/dL) 11/12/17 15:20 Urine Urobilinogen Negative mg/dL (0.2-1.0) 11/12/17 15:20 Ur Leukocyte Esterase Negative (NEGATIVE) 11/12/17 15:20 RPR Titer Nonreactive (NONREACTIVE) 11/13/17 07:00 Assessment: Withdrawal symptoms. 11/13/17 14:56 Plan: Continue detox Ensure 120 ml PO Q-evening Lidocaine patch back PRN Motrin bone pain, prn
[2017-11-13] MEDS: LIDOCAINE 5% TOPICAL PATCH TP SCH (15:27)
[2017-11-13] MEDS: ACETAMINOPHEN 325 MG TABLET (FP) PO PRN (18:33)
[2017-11-13] MEDS: THIAMINE HCL 100 MG TABLET (FP) PO SCH (22:04)
[2017-11-13] MEDS: ZOLPIDEM TARTRATE 10 MG TABLET (PARK CARE ONLY) PO PRN (22:04)
[2017-11-13] MEDS: INSULIN (LEVEMIR) 100 UNITS/ML UNITS SQ SCH (22:05)
[2017-11-13] MEDS: LIDOCAINE PATCH REMOVAL MC SCH (22:05)
[2017-11-14] MEDS: diazePAM 5 MG TABLET PO PRN ×3 (00:28→20:09)
[2017-11-14] MEDS ORDERED: METHADONE HCL 40 MG DISPERSABLE TABLET ONE (05:04)
[2017-11-14] MEDS ORDERED: METHADONE HCL 10 MG TABLET ONE (05:05)
[2017-11-14] MEDS: METHADONE 80 MG, METHADONE 20 MG PO SCH (05:51)
[2017-11-14] MEDS: metFORMIN HCL 500 MG TABLET (FP) PO SCH ×2 (08:09→17:30)
[2017-11-14] MEDS: INSULIN SLIDING SCALE (NOVOLOG) 1 VIAL SQ SCH ×4 (08:10→22:15)
[2017-11-14] MEDS: diazePAM 5 MG TABLET PO SCH ×2 (10:36→22:12)
[2017-11-14] MEDS: LIDOCAINE 5% TOPICAL PATCH TP SCH (10:36)
[2017-11-14] MEDS: PRENATAL VITAMINS W/ FOLIC ACID TABLET (FP) PO SCH (10:36)
[2017-11-14] MEDS: MENTHOL/PHENOL 1 EACH UD MM PRN (12:46)
--- NOTE | 2017-11-14 13:49 | PN ---
[facility] CIWA - CIWA Score Nausea/Vomitin-No Nausea/No Vomiting Muscle Tremors: 3 Anxiety: 2 Agitation: 2 Paroxysmal Sweats: 1-Minimal Palms Moist Orientation: 0-Oriented Tacttile Disturbances: 1-Very Mild Itch/Numbness Auditory Disturbances: 0-None Visual Disturbances: 0-None Headache: 1-Very Mild CIWA-Ar Total Score: 10 S Progress Note (SOAP) Subjective: sweat tremor restlessness anxiety Objective: 11/14/17 13:48 Vital Signs Temperature 97.7 F 11/14/17 12:56 Pulse Rate 58 L 11/14/17 12:56 Respiratory Rate 18 11/14/17 12:56 Blood Pressure 140/84 11/14/17 12:56 O2 Sat by Pulse Oximetry (%) Laboratory Last Values WBC 4.0 K/mm3 (4.0-10.0) 11/13/17 07:00 RBC 4.45 M/mm3 (3.60-5.2) 11/13/17 07:00 Hgb 12.7 GM/dL (10.7-15.3) 11/13/17 07:00 Hct 39.3 % (32.4-45.2) 11/13/17 07:00 MCV 88.3 fl (80-96) 11/13/17 07:00 MCH 28.5 pg (25.7-33.7) 11/13/17 07:00 MCHC 32.3 g/dl (32.0-36.0) 11/13/17 07:00 RDW 13.8 % (11.6-15.6) 11/13/17 07:00 Plt Count 188 K/MM3 (134-434) 11/13/17 07:00 MPV 8.6 fl (7.5-11.1) 11/13/17 07:00 Sodium 136 mmol/L (136-145) 11/13/17 07:00 Potassium 4.4 mmol/L (3.5-5.1) 11/13/17 07:00 Chloride 101 mmol/L (98-107) 11/13/17 07:00 Carbon Dioxide 30 mmol/L (21-32) 11/13/17 07:00 Anion Gap 5 MMOL/L (8-16) L 11/13/17 07:00 BUN 25 mg/dL (7-18) H 11/13/17 07:00 Creatinine 1.0 mg/dL (0.55-1.3) 11/13/17 07:00 Creat Clearance w eGFR 56.95 (>60) 11/13/17 07:00 POC Glucometer 111 UNITS (80-120) 11/14/17 10:43 Random Glucose 112 mg/dL (74-106) H 11/13/17 07:00 Calcium 9.1 mg/dL (8.5-10.1) 11/13/17 07:00 Total Bilirubin 0.3 mg/dL (0.2-1) 11/13/17 07:00 AST 21 U/L (15-37) 11/13/17 07:00 ALT 28 U/L (13-61) 11/13/17 07:00 Alkaline Phosphatase 164 U/L (45-117) H 11/13/17 07:00 Total Protein 7.4 g/dl (6.4-8.2) 11/13/17 07:00 Albumin 3.5 g/dl (3.4-5.0) 11/13/17 07:00 Urine Color Ltyellow 11/12/17 15:20 Urine Appearance Clear 11/12/17 15:20 Urine pH 5.0 (5.0-8.0) 11/12/17 15:20 Ur Specific [place] 1.015 (1.001-1.035) 11/12/17 15:20 Urine Protein Negative (NEGATIVE) 11/12/17 15:20 Urine Glucose (UA) Negative (NEGATIVE) 11/12/17 15:20 Urine Ketones Negative (NEGATIVE) 11/12/17 15:20 Urine Blood Negative (NEGATIVE) 11/12/17 15:20 Urine Nitrite Negative (NEGATIVE) 11/12/17 15:20 Urine Bilirubin Negative (<2.0 mg/dL) 11/12/17 15:20 Urine Urobilinogen Negative mg/dL (0.2-1.0) 11/12/17 15:20 Ur Leukocyte Esterase Negative (NEGATIVE) 11/12/17 15:20 RPR Titer Nonreactive (NONREACTIVE) 11/13/17 07:00 lab noted Assessment: 11/14/17 13:49 withdrawal sx Plan: continue detox
[2017-11-14] MEDS: ALBUTEROL SO4 8 GM HFA INHALER IH PRN (19:39)
[2017-11-14] MEDS: ALBUTEROL SO4 0.083% IH SOL 2.5 MG/3 ML VIAL.NEB. NEB PRN (19:45)
[2017-11-14] MEDS: ZOLPIDEM TARTRATE 10 MG TABLET (PARK CARE ONLY) PO PRN (22:12)
[2017-11-14] MEDS: THIAMINE HCL 100 MG TABLET (FP) PO SCH (22:12)
[2017-11-14] MEDS: LIDOCAINE PATCH REMOVAL MC SCH (22:14)
[2017-11-14] MEDS: INSULIN (LEVEMIR) 100 UNITS/ML UNITS SQ SCH (23:01)
[2017-11-15] MEDS: diazePAM 5 MG TABLET PO PRN ×2 (03:46→08:54)
[2017-11-15] MEDS: ALBUTEROL SO4 8 GM HFA INHALER IH PRN ×3 (03:47→22:07)
[2017-11-15] MEDS: ALBUTEROL SO4 0.083% IH SOL 2.5 MG/3 ML VIAL.NEB. NEB PRN ×2 (05:11→10:34)
[2017-11-15] MEDS ORDERED: METHADONE HCL 40 MG DISPERSABLE TABLET ONE (05:21)
[2017-11-15] MEDS ORDERED: METHADONE HCL 10 MG TABLET ONE (05:22)
[2017-11-15] MEDS: METHADONE 80 MG, METHADONE 20 MG PO SCH (05:45)
[2017-11-15] MEDS: INSULIN SLIDING SCALE (NOVOLOG) 1 VIAL SQ SCH ×4 (06:53→21:38)
[2017-11-15] MEDS: metFORMIN HCL 500 MG TABLET (FP) PO SCH ×2 (06:53→16:46)
[2017-11-15] MEDS: PRENATAL VITAMINS W/ FOLIC ACID TABLET (FP) PO SCH (10:29)
--- NOTE | 2017-11-15 10:29 | DS ---
[facility] Detox Discharge Summary Admission Date: 11/12/17 Discharge Date: 11/15/17 - History Present History: Alcohol Dependence - Physical Exam Results Vital Signs: Vital Signs Temperature 97.9 F 11/15/17 09:28 Pulse Rate 106 H 11/15/17 09:28 Respiratory Rate 20 11/15/17 09:28 Blood Pressure 118/70 11/15/17 09:28 O2 Sat by Pulse Oximetry (%) - Treatment Hospital Course: Detox Protocol Followed, Detoxed Safely, Responded well, Discharged Condition Good, Rehab Referral Accepted - Medication Discharge Medications: Ambulatory Orders cloNIDine HCL [Catapres -] 0.2 mg PO BID #60 03/08/16 Insulin Glargine,Hum.rec.anlog [Lantus Solostar PEN -] 30 units SQ HS #1 ins metFORMIN HCL [Glucophage -] 500 mg PO BID@0700,1630 #60 tablet 10/06/17 Zolpidem Tartrate [Ambien] 10 mg PO HS 11/12/17 - AMA Did Patient Leave Against Medical Advice: No
[2017-11-15] MEDS: diazePAM 5 MG TABLET PO SCH ×2 (10:34→22:06)
[2017-11-15] MEDS: LIDOCAINE 5% TOPICAL PATCH TP SCH (11:00)
--- NOTE | 2017-11-15 12:10 | PN ---
S Progress Note (SOAP) Subjective: feeling better no tremor no gi distress social with staff on hallway Objective: 11/15/17 12:08 Vital Signs Temperature 97.9 F 11/15/17 09:28 Pulse Rate 106 H 11/15/17 09:28 Respiratory Rate 20 11/15/17 09:28 Blood Pressure 118/70 11/15/17 09:28 O2 Sat by Pulse Oximetry (%) Laboratory Last Values WBC 4.0 K/mm3 (4.0-10.0) 11/13/17 07:00 RBC 4.45 M/mm3 (3.60-5.2) 11/13/17 07:00 Hgb 12.7 GM/dL (10.7-15.3) 11/13/17 07:00 Hct 39.3 % (32.4-45.2) 11/13/17 07:00 MCV 88.3 fl (80-96) 11/13/17 07:00 MCH 28.5 pg (25.7-33.7) 11/13/17 07:00 MCHC 32.3 g/dl (32.0-36.0) 11/13/17 07:00 RDW 13.8 % (11.6-15.6) 11/13/17 07:00 Plt Count 188 K/MM3 (134-434) 11/13/17 07:00 MPV 8.6 fl (7.5-11.1) 11/13/17 07:00 Sodium 136 mmol/L (136-145) 11/13/17 07:00 Potassium 4.4 mmol/L (3.5-5.1) 11/13/17 07:00 Chloride 101 mmol/L (98-107) 11/13/17 07:00 Carbon Dioxide 30 mmol/L (21-32) 11/13/17 07:00 Anion Gap 5 MMOL/L (8-16) L 11/13/17 07:00 BUN 25 mg/dL (7-18) H 11/13/17 07:00 Creatinine 1.0 mg/dL (0.55-1.3) 11/13/17 07:00 Creat Clearance w eGFR 56.95 (>60) 11/13/17 07:00 POC Glucometer 133 UNITS (80-120) 11/15/17 11:14 Random Glucose 112 mg/dL (74-106) H 11/13/17 07:00 Calcium 9.1 mg/dL (8.5-10.1) 11/13/17 07:00 Total Bilirubin 0.3 mg/dL (0.2-1) 11/13/17 07:00 AST 21 U/L (15-37) 11/13/17 07:00 ALT 28 U/L (13-61) 11/13/17 07:00 Alkaline Phosphatase 164 U/L (45-117) H 11/13/17 07:00 Total Protein 7.4 g/dl (6.4-8.2) 11/13/17 07:00 Albumin 3.5 g/dl (3.4-5.0) 11/13/17 07:00 Urine Color Ltyellow 11/12/17 15:20 Urine Appearance Clear 11/12/17 15:20 Urine pH 5.0 (5.0-8.0) 11/12/17 15:20 Ur Specific [place] 1.015 (1.001-1.035) 11/12/17 15:20 Urine Protein Negative (NEGATIVE) 11/12/17 15:20 Urine Glucose (UA) Negative (NEGATIVE) 11/12/17 15:20 Urine Ketones Negative (NEGATIVE) 11/12/17 15:20 Urine Blood Negative (NEGATIVE) 11/12/17 15:20 Urine Nitrite Negative (NEGATIVE) 11/12/17 15:20 Urine Bilirubin Negative (<2.0 mg/dL) 11/12/17 15:20 Urine Urobilinogen Negative mg/dL (0.2-1.0) 11/12/17 15:20 Ur Leukocyte Esterase Negative (NEGATIVE) 11/12/17 15:20 RPR Titer Nonreactive (NONREACTIVE) 11/13/17 07:00 lab noted Assessment: 11/15/17 12:09 mild alcohol withdrawal sx Plan: medically supervised alcohol detox
[2017-11-15] MEDS: INSULIN (LEVEMIR) 100 UNITS/ML UNITS SQ SCH (21:37)
[2017-11-15] MEDS: THIAMINE HCL 100 MG TABLET (FP) PO SCH (22:06)
[2017-11-15] MEDS: ZOLPIDEM TARTRATE 10 MG TABLET (PARK CARE ONLY) PO PRN (22:06)
[2017-11-15] MEDS: LIDOCAINE PATCH REMOVAL MC SCH (22:07)
[2017-11-15] MEDS: hydrOXYzine PAMOATE 50 MG CAPSULE (FP) PO PRN (22:07)
[2017-11-15] MEDS: MENTHOL/PHENOL 1 EACH UD MM PRN (22:11)
[2017-11-16] MEDS ORDERED: METHADONE HCL 40 MG DISPERSABLE TABLET ONE (05:05)
[2017-11-16] MEDS ORDERED: METHADONE HCL 10 MG TABLET ONE (05:06)
[2017-11-16] MEDS: metFORMIN HCL 500 MG TABLET (FP) PO SCH (06:05)
[2017-11-16] MEDS: METHADONE 80 MG, METHADONE 20 MG PO SCH (06:05)
[2017-11-16] MEDS: INSULIN SLIDING SCALE (NOVOLOG) 1 VIAL SQ SCH (06:06)
[2017-11-16] MEDS: hydrOXYzine PAMOATE 50 MG CAPSULE (FP) PO PRN (06:33)
[2017-11-16 09:15] VITALS: BP 131/89; PULSE 97; TEMP 97.9
--- NOTE | 2017-11-16 09:21 | DS ---
[facility] Detox Discharge Summary Admission Date: 11/12/17 Discharge Date: 11/16/17 - History Present History: Alcohol Dependence Additional Comments: Patient medically stable. Patient to follow up with primary care provider in 1 - 2 weeks. - Physical Exam Results Vital Signs: Vital Signs Temperature 97.9 F 11/16/17 09:14 Pulse Rate 97 H 11/16/17 09:14 Respiratory Rate 20 11/16/17 09:14 Blood Pressure 131/89 11/16/17 09:14 O2 Sat by Pulse Oximetry (%) Pertinent Admission Physical Exam Findings: Vital Signs Temperature 97.9 F 11/16/17 09:14 Pulse Rate 97 H 11/16/17 09:14 Respiratory Rate 20 11/16/17 09:14 Blood Pressure 131/89 11/16/17 09:14 O2 Sat by Pulse Oximetry (%) Laboratory Last Values WBC 4.0 K/mm3 (4.0-10.0) 11/13/17 07:00 RBC 4.45 M/mm3 (3.60-5.2) 11/13/17 07:00 Hgb 12.7 GM/dL (10.7-15.3) 11/13/17 07:00 Hct 39.3 % (32.4-45.2) 11/13/17 07:00 MCV 88.3 fl (80-96) 11/13/17 07:00 MCH 28.5 pg (25.7-33.7) 11/13/17 07:00 MCHC 32.3 g/dl (32.0-36.0) 11/13/17 07:00 RDW 13.8 % (11.6-15.6) 11/13/17 07:00 Plt Count 188 K/MM3 (134-434) 11/13/17 07:00 MPV 8.6 fl (7.5-11.1) 11/13/17 07:00 Sodium 136 mmol/L (136-145) 11/13/17 07:00 Potassium 4.4 mmol/L (3.5-5.1) 11/13/17 07:00 Chloride 101 mmol/L (98-107) 11/13/17 07:00 Carbon Dioxide 30 mmol/L (21-32) 11/13/17 07:00 Anion Gap 5 MMOL/L (8-16) L 11/13/17 07:00 BUN 25 mg/dL (7-18) H 11/13/17 07:00 Creatinine 1.0 mg/dL (0.55-1.3) 11/13/17 07:00 Creat Clearance w eGFR 56.95 (>60) 11/13/17 07:00 POC Glucometer 91 UNITS (80-120) 11/16/17 06:03 Random Glucose 112 mg/dL (74-106) H 11/13/17 07:00 Calcium 9.1 mg/dL (8.5-10.1) 11/13/17 07:00 Total Bilirubin 0.3 mg/dL (0.2-1) 11/13/17 07:00 AST 21 U/L (15-37) 11/13/17 07:00 ALT 28 U/L (13-61) 11/13/17 07:00 Alkaline Phosphatase 164 U/L (45-117) H 11/13/17 07:00 Total Protein 7.4 g/dl (6.4-8.2) 11/13/17 07:00 Albumin 3.5 g/dl (3.4-5.0) 11/13/17 07:00 Urine Color Ltyellow 11/12/17 15:20 Urine Appearance Clear 11/12/17 15:20 Urine pH 5.0 (5.0-8.0) 11/12/17 15:20 Ur Specific [place] 1.015 (1.001-1.035) 11/12/17 15:20 Urine Protein Negative (NEGATIVE) 11/12/17 15:20 Urine Glucose (UA) Negative (NEGATIVE) 11/12/17 15:20 Urine Ketones Negative (NEGATIVE) 11/12/17 15:20 Urine Blood Negative (NEGATIVE) 11/12/17 15:20 Urine Nitrite Negative (NEGATIVE) 11/12/17 15:20 Urine Bilirubin Negative (<2.0 mg/dL) 11/12/17 15:20 Urine Urobilinogen Negative mg/dL (0.2-1.0) 11/12/17 15:20 Ur Leukocyte Esterase Negative (NEGATIVE) 11/12/17 15:20 RPR Titer Nonreactive (NONREACTIVE) 11/13/17 07:00 - Treatment Hospital Course: Detox Protocol Followed, Detoxed Safely, Responded well, Discharged Condition Good, Rehab Referral Accepted Patient has Accepted a Rehab Referral to: [facility], but patient went home upon discharge - Medication Discharge Medications: Ambulatory Orders cloNIDine HCL [Catapres -] 0.2 mg PO BID #60 03/08/16 metFORMIN HCL [Glucophage -] 500 mg PO BID@0700,1630 #60 tablet 10/06/17 Zolpidem Tartrate [Ambien] 10 mg PO HS 11/12/17 Albuterol Sulfate Inhaler - [Ventolin HFA Inhaler -] 2 puff IH Q4H PRN #1 inhaler 11/16/17 Insulin Glargine,Hum.rec.anlog [Lantus Solostar PEN -] 30 units SQ HS #1 ins metFORMIN HCL [Glucophage -] 500 mg PO BID@0700,1630 #60 tablet 11/16/17 - Diagnosis (1) Alcohol dependence with uncomplicated withdrawal Current Visit: Yes Status: Acute (2) Diabetes Current Visit: Yes Status: Acute (3) Nicotine dependence Current Visit: Yes Status: Acute Qualifiers: Nicotine product type: cigarettes Substance use status: in withdrawal Qualified Code(s): F17.213 - Nicotine dependence, cigarettes, with withdrawal (4) Opioid dependence on agonist therapy Current Visit: Yes Status: Acute (5) Arthritis Current Visit: Yes Status: Chronic (6) Asthma Current Visit: Yes Status: Chronic Qualifiers: Asthma severity: mild Asthma complication type: uncomplicated (7) HTN (hypertension) Current Visit: Yes Status: Chronic Qualifiers: Hypertension type: essential hypertension Qualified Code(s): I10 - Essential (primary) hypertension - AMA Did Patient Leave Against Medical Advice: No
[2017-11-16] MEDS ORDERED: diazePAM 5 MG TABLET PO SCH (10:00)
== END 2017-11-16 12:00 | disposition home or self-care (01) | DRG 773 ==
LOC: YASAS 09:05 → Y6N 12:56
PROC: HZ2ZZZZ Detoxification Services for Substance Abuse Treatment (ICD-10-PCS; principal; 2017-11-12)
DX: F10.230 Alcohol dependence with withdrawal, uncomplicated (principal); F14.20 Cocaine dependence, uncomplicated; F11.20 Opioid dependence, uncomplicated; F17.218 Nicotine dependence, cigarettes, with other nicotine-induced disorders; F19.24 Other psychoactive substance dependence with psychoactive substance-induced mood disorder; F19.282 Other psychoactive substance dependence with psychoactive substance-induced sleep disorder; F41.9 Anxiety disorder, unspecified; F32.9 Major depressive disorder, single episode, unspecified; G47.00 Insomnia, unspecified; I10 Essential (primary) hypertension; E11.9 Type 2 diabetes mellitus without complications; Z79.4 Long term (current) use of insulin; E78.00 Pure hypercholesterolemia, unspecified; D64.9 Anemia, unspecified; M12.9 Arthropathy, unspecified; H16.001 Unspecified corneal ulcer, right eye; B18.2 Chronic viral hepatitis C; J45.20 Mild intermittent asthma, uncomplicated
CPT/HCPCS: 36415; 80053; 81003; 82962; 85027; 86593; 93005; 93010; 94640

== ENCOUNTER 2018-02-04 09:49 | Inpatient (IN) | payer OTHER ==
[2018-02-04 11:03] VITALS: BMI 28.3
--- NOTE | 2018-02-04 11:47 | HP ---
CIWA Score Nausea/Vomitin-No Nausea/No Vomiting Muscle Tremors: 4-Moderate,w/Arms Extend Anxiety: 3 Agitation: 4-Moderately Restless Paroxysmal Sweats: 3 Orientation: 0-Oriented Tacttile Disturbances: 2-Mild Itch/Numbness/Burn Auditory Disturbances: 0-None Visual Disturbances: 0-None Headache: 0-None Present CIWA-Ar Total Score: 16 - Admission Criteria OASAS Guidelines: Admission for Medically Managed Detox: Requires at least one of the followin. CIWA greater than 12 2. Seizures within the past 24 hours 3. Delirium tremens within the past 24 hours 4. Hallucinations within the past 24 hours 5. Acute intervention needed for co occurring medical disorder 6. Acute intervention needed for co occurring psychiatric disorder 7. Severe withdrawal that cannot be handled at a lower level of care (continued vomiting, continued diarrhea, abnormal vital signs) requiring intravenous medication and/or fluids 8. Patient presents the following: CIWA greater than 12 Admission Criteria Met: Admission criteria met Admission ROS S - [facility] Chief Complaint: "I want to get my life together" Allergies/Adverse Reactions: Allergies Allergy/AdvReac Type Severity Reaction Status Date / Time tomato [Tomato] Allergy Severe Itching Verified 02/04/18 11:03 No Known Drug Allergies Allergy Verified 02/04/18 11:03 NKDA Allergy Uncoded 02/04/18 11:03 History of Present Illness: 57 y/o female with a long hx of poly substance addiction presents for detox. Pt is known to the center, last visit in October 2017 when she completed detox. Pt endorses a 7 yr hx of sobriety in 2000 - 2007 following a one yr detox/rehab program but has not been siber since then. Pt denies withdrawal induced seizures nor blackouts. Pt is in [facility] Methadone program on a 100mg daily regimen, last medicated today.She understands dosing from tomorrow is dependent on verification. Denies past nor current SI. Hx - Arthritis, DM, HTN, Chronic back pain,Asthma, Hepatitis C, Manic-Depression , Pt asking to see psych to get her "sleeping medication"; was told we eill give her melatonin. Pt requesting valium regimen, states librium does not help her. , Exam Limitations: No Limitations - Ebola screening Have you traveled outside of the country in the last 21 days: No Have you had contact with anyone from an Ebola affected area: No Have you been sick,other than usual withdrawal symptoms: No Do you have a fever: No - Review of Systems Constitutional: Loss of Appetite, Changes in sleep EENT: reports: Dental Problems (missing teeth) Respiratory: reports: Cough Cardiac: reports: No Symptoms Reported GI: reports: Constipated, Poor Appetite, Poor Fluid Intake : reports: No Symptoms Reported Musculoskeletal: reports: Back Pain, Joint Pain Integumentary: reports: No Symptoms Reported Neuro: reports: No Symptoms reported Endocrine: reports: No Symptoms Reported Hematology: reports: No Symptoms Reported Psychiatric: reports: No Sypmtoms Reported, Orientated x3 Other Systems: Reviewed and Negative Patient History - Patient Medical History Hx Anemia: Yes (not on meds) Hx Asthma: Yes (On albuterol, advair) Hx Chronic Obstructive Pulmonary Disease (COPD): No Hx Cancer: No Hx Cardiac Disorders: No Hx Congestive Heart Failure: No Hx Hypertension: Yes (On meds) Hx Hypercholesterolemia: Yes Hx Pacemaker: No HX Cerebrovascular Accident: No Hx Seizures: No Hx Dementia: No Hx Diabetes: Yes (BGM 160, on meds) Hx Gastrointestinal Disorders: No Hx Liver Disease: Yes Hx Genitourinary Disorders: No Hx Sexually Transmitted Disorders: No Hx Renal Disease (ESRD): No Hx Thyroid Disease: No Hx Human Immunodeficiency Virus (HIV): No Hx Hepatitis C: Yes (NO TREATMENT) Hx Depression: Yes Hx Suicide Attempt: No (denies current SI) Hx Bipolar Disorder: No Hx Schizophrenia: No - Patient Surgical History Past Surgical History: Yes Hx Neurologic Surgery: No Hx Cataract Extraction: No Hx Cardiac Surgery: No Hx Lung Surgery: No Hx Breast Surgery: Yes (cyst removal in 2005) Hx Breast Biopsy: No Hx Abdominal Surgery: Yes (Hysterectomy in 2007) Hx Appendectomy: No Hx Cholecystectomy: Yes (r/o gallstones 11/05) Hx Genitourinary Surgery: No Hx Section: No Hx Orthopedic Surgery: No Hx Hysterectomy: Yes (2007) Anesthesia Reaction: No - PPD History Previous Implant?: Yes Documented Results: Negative w/proof Date: 11/14/17 Results: 0.0 PPD to be Administered?: No - Reproductive History Patient is a Female of Child Bearing Age (11 -55 yrs old): No Last Menstrual Period: 10/07/07 Patient : No - Smoking Cessation Smoking history: Current every day smoker Have you smoked in the past 12 months: Yes Aproximately how many cigarettes per day: 10 Cigars Per Day: 0 Hx Chewing Tobacco Use: No Initiated information on smoking cessation: Yes 'Breaking Loose' booklet given: 02/04/18 - Substance & Tx. History Hx Alcohol Use: Yes Hx Substance Use: Yes Substance Use Type: Alcohol, Cocaine, Heroin Hx Substance Use Treatment: Yes - Substances Abused Alcohol Route: Oral Frequency: Daily Amount used: 12 24OZ BOTTLES OF BEER Age of first use: 17 Date of Last Use: 02/04/18 Heroin Route: Inhalation Frequency: Daily Amount used: 5 BAGS Age of first use: 38 Date of Last Use: 02/04/18 Crack Route: Smoking Frequency: Daily Amount used: 2-3 BAGS Age of first use: 38 Date of Last Use: 02/03/18 Family Disease History - Family Disease History Family Disease History: Diabetes: Mother ( FROM [place]. OF THE LIVER,HTN), Brother, Heart Disease: Mother, Sister ( MII), CA: Father (etoh, ), Mother Admission Physical Exam S - Vital Signs Vital Signs: Vital Signs - 24 hr 02/04/18 10:53 Temperature 98.1 F Pulse Rate 115 H Respiratory 20 Rate Blood Pressure 143/113 H - Physical General Appearance: Yes: Disheveled, Moderate Distress, Anxious HEENTM: Yes: Within Normal Limits Respiratory: Yes: Lungs Clear Neck: Yes: No masses,lesions,Nodules, Trachea in good position Breast: Yes: Breast Exam Deferred Cardiology: Yes: Regular Rate Abdominal: Yes: Non Tender, Soft, Distended Genitourinary: Yes: Within Normal Limits Back: Yes: Within Normal Limits Musculoskeletal: Yes: full range of Motion, Gait Steady Extremities: Yes: Normal Capillary Refill, Normal Range of Motion Neurological: Yes: Fully Oriented, Alert, Motor Strength 5/5 Integumentary: Yes: Within Normal Limits, Normal Color Lymphatic: Yes: Within Normal Limits - Diagnostic (1) Alcohol dependence with uncomplicated withdrawal Current Visit: Yes Status: Acute (2) Opioid dependence on agonist therapy Current Visit: Yes Status: Chronic (3) Substance induced mood disorder Current Visit: Yes Status: Chronic (4) Substance-induced sleep disorder Current Visit: Yes Status: Chronic (5) Arthritis Current Visit: Yes Status: Chronic (6) Asthma Current Visit: Yes Status: Chronic Qualifiers: Asthma severity: mild Asthma complication type: uncomplicated (7) Cocaine dependence Current Visit: Yes Status: Chronic Qualifiers: Substance use status: uncomplicated Qualified Code(s): F14.20 - Cocaine dependence, uncomplicated (8) Diabetes mellitus, insulin dependent (IDDM), uncontrolled Current Visit: Yes Status: Chronic (9) HTN (hypertension) Current Visit: Yes Status: Chronic Qualifiers: Hypertension type: essential hypertension Qualified Code(s): I10 - Essential (primary) hypertension (10) Hepatitis C Current Visit: Yes Status: Chronic Qualifiers: Viral hepatitis chronicity: chronic Hepatic coma status: without hepatic coma Qualified Code(s): B18.2 - Chronic viral hepatitis C (11) History of hysterectomy Current Visit: Yes Status: Chronic (12) Low back pain Current Visit: Yes Status: Chronic Qualifiers: Chronicity: chronic Back pain laterality: bilateral Sciatica presence: without sciatica Qualified Code(s): M54.5 - Low back pain (13) Weight loss Current Visit: No Status: Chronic (14) Hepatitis C Current Visit: Yes Status: Chronic Qualifiers: Viral hepatitis chronicity: carrier Qualified Code(s): B18.2 - Chronic viral hepatitis C Cleared for Admission [facility] - Detox or Rehab S Level of Care: Medically Managed Detox Regimen/Protocol: Valium S Breath Alcohol Content Breath Alcohol Content: 0 Urine Pregancy Test - Result Urine Test Results: Negative- NO Line Present Urine Drug Screen - Results Drug Screen Negative: No Urine Drug Screen Results: KENYA-Cocaine, OPI-Opiates, MTD-Methadone, FEN-Fentanyl
[2018-02-04] MEDS ORDERED: ACETAMINOPHEN 325 MG TABLET (FP) PO PRN (12:07)
[2018-02-04] MEDS ORDERED: LOPERAMIDE HCL 2 MG CAPSULE PO PRN (12:07)
[2018-02-04] MEDS ORDERED: MENTHOL/PHENOL 1 EACH UD MM PRN (12:07)
[2018-02-04] MEDS ORDERED: P-EPHED 60MG/TRIPROLIDI 2.5MG TABLET PO PRN (12:07)
[2018-02-04] MEDS ORDERED: guaiFENesin/D-METHORPHAN HB 10 ML UNIT-DOSE CUPS PO PRN (12:07)
[2018-02-04] MEDS ORDERED: MAG HYDROX/AL HYDROX/SIMETH 30 ML UNIT-DOSE CUP PO PRN (12:07)
[2018-02-04] MEDS ORDERED: diazePAM 5 MG TABLET PO ONE (12:07)
[2018-02-04] MEDS ORDERED: IBUPROFEN 400 MG TABLET (FP) PO PRN (12:07)
[2018-02-04] MEDS ORDERED: MAGNESIUM CITRATE 300 ML BOTTLE PO PRN (12:07)
[2018-02-04] MEDS ORDERED: NICOTINE POLACRILEX 2 MG GUM BC PRN (12:07)
[2018-02-04] MEDS ORDERED: ALBUTEROL SO4 8 GM HFA INHALER IH PRN (12:11)
[2018-02-04] MEDS ORDERED: amLODIPine BESYLATE 5 MG TABLET (FP) PO ONE (12:26)
--- NOTE | 2018-02-04 12:40 | PN ---
[facility] Progress Note Note: Pt has healing burn wounds to fingers on b/l hands. Stated she was seen for it at the ED about 2 wks ago and was prescribed antibiotics for it for 10days. Pt states she was compliant with the antibiotic (can't remember the name of it) and completed it "sometime last week". No signs of infection noted, fingers with saldana of different stages of healing noted Bacitracin to be applied
[2018-02-04] MEDS ORDERED: BACITRACIN 0.9 GM PACKET ONE (13:19)
[2018-02-04] MEDS: BACITRACIN 15 GM TUBE TOPICAL OINTMENT TP SCH ×2 (13:27→22:34)
[2018-02-04] MEDS: diazePAM 5 MG TABLET PO SCH ×2 (14:27→22:35)
[2018-02-04] MEDS ORDERED: INSULIN (NOVOLOG) ASPART 100 UNITS/ML 10ML VIAL ONE (16:50)
[2018-02-04] MEDS: INSULIN SLIDING SCALE (NOVOLOG) 1 VIAL SQ SCH ×2 (16:51→22:36)
[2018-02-04] MEDS: metFORMIN HCL 500 MG TABLET (FP) PO SCH (16:52)
[2018-02-04] MEDS: diazePAM 5 MG TABLET PO PRN (16:52)
[2018-02-04] MEDS: INSULIN (LEVEMIR) 100 UNITS/ML UNITS SQ SCH (22:35)
[2018-02-04] MEDS: amLODIPine BESYLATE 5 MG TABLET (FP) PO SCH (22:35)
[2018-02-04] MEDS: MELATONIN 5 MG TABLETS PO PRN (22:36)
[2018-02-04] MEDS: THIAMINE HCL 100 MG TABLET (FP) PO SCH (22:36)
[2018-02-05] MEDS: diazePAM 5 MG TABLET PO PRN ×3 (02:31→16:43)
[2018-02-05] MEDS: diazePAM 5 MG TABLET PO SCH ×3 (06:10→22:05)
[2018-02-05] MEDS: metFORMIN HCL 500 MG TABLET (FP) PO SCH ×2 (06:45→16:43)
[2018-02-05] MEDS: INSULIN SLIDING SCALE (NOVOLOG) 1 VIAL SQ SCH ×4 (06:45→22:06)
[2018-02-05] MEDS ORDERED: METHADONE HCL 10 MG TABLET PO SCH (07:30)
[2018-02-05] MEDS ORDERED: METHADONE HCL 10 MG TABLET ONE (08:38)
[2018-02-05] MEDS ORDERED: METHADONE HCL 40 MG DISPERSABLE TABLET ONE (08:38)
[2018-02-05] MEDS: METHADONE 80 MG, METHADONE 20 MG PO SCH (08:47)
[2018-02-05] MEDS: amLODIPine BESYLATE 5 MG TABLET (FP) PO SCH ×2 (10:06→22:05)
[2018-02-05] MEDS: PRENATAL VITAMINS W/ FOLIC ACID TABLET (FP) PO SCH (10:06)
[2018-02-05 10:08] LABS: HEMATOCRIT 40.4 % (32.4-45.2); HEMOGLOBIN 13.6 GM/dL (10.7-15.3); MCH 29.4 pg (25.7-33.7); MCHC 33.8 g/dl (32.0-36.0); MEAN CELL VOLUME 87.1 fl (80-96); PLATELET COUNT 209 K/MM3 (134-434); RBC 4.63 M/mm3 (3.60-5.2); RDW 14.6 % (11.6-15.6); WHITE BLOOD COUNT 4.7 K/mm3 (4.0-10.0)
[2018-02-05 10:34] LABS: ALBUMIN 3.6 g/dl (3.4-5.0); ALK PHOS 127 U/L (45-117); ANION GAP 6 MMOL/L (8-16); BILIRUBIN,TOTAL 0.4 mg/dL (0.2-1); BLOOD UREA NITROGEN 29 mg/dL (7-18); CHLORIDE 102 mmol/L (98-107); CO2 30 mmol/L (21-32); GLUCOSE,RANDOM 122 mg/dL (74-106); POTASSIUM 4.4 mmol/L (3.5-5.1); SGOT/AST 22 U/L (15-37); SGPT/ALT 27 U/L (13-61); SODIUM 138 mmol/L (136-145); TOT PROT 7.1 g/dl (6.4-8.2)
[2018-02-05] MEDS: VITAMINS A AND D TOPICAL OINTMENT 60 GM TUBE TP SCH ×2 (11:30→22:02)
[2018-02-05] MEDS: BACITRACIN 15 GM TUBE TOPICAL OINTMENT TP SCH ×2 (11:31→22:06)
[2018-02-05] MEDS: MAGNESIUM HYDROX 2400MG/30ML ORAL SUSPENSION 30 ML CUP PO PRN (13:00)
--- NOTE | 2018-02-05 13:32 | PN ---
S CIWA - CIWA Score Nausea/Vomitin-No Nausea/No Vomiting Muscle Tremors: 4-Moderate,w/Arms Extend Anxiety: 3 Agitation: 3 Paroxysmal Sweats: 3 Orientation: 0-Oriented Tacttile Disturbances: 0-None Auditory Disturbances: 0-None Visual Disturbances: 0-None Headache: 0-None Present CIWA-Ar Total Score: 13 [facility] Progress Note (SOAP) Subjective: sweats shakes interrupted sleep/trouble sleeping body aches irritable anxiety my fingers need ointment for saldana a month ago Objective: 02/05/18 13:31 Vital Signs Temperature 98.4 F 02/05/18 13:26 Pulse Rate 107 H 02/05/18 13:26 Respiratory Rate 16 02/05/18 13:26 Blood Pressure 121/74 02/05/18 13:26 O2 Sat by Pulse Oximetry (%) Laboratory Tests 02/04/18 02/04/18 02/04/18 11:08 16:44 22:34 WBC RBC Hgb Hct MCV MCH MCHC RDW Plt Count MPV Sodium Potassium Chloride Carbon Dioxide Anion Gap BUN Creatinine Creat Clearance w eGFR POC Glucometer 157 169 128 Random Glucose Calcium Total Bilirubin AST ALT Alkaline Phosphatase Total Protein Albumin RPR Titer 02/05/18 02/05/18 02/05/18 06:06 07:00 07:00 WBC 4.7 RBC 4.63 Hgb 13.6 Hct 40.4 MCV 87.1 MCH 29.4 MCHC 33.8 RDW 14.6 Plt Count 209 MPV 9.0 Sodium 138 Potassium 4.4 Chloride 102 Carbon Dioxide 30 Anion Gap 6 L BUN 29 H Creatinine 1.0 Creat Clearance w eGFR 56.95 POC Glucometer 86 Random Glucose 122 H Calcium 9.0 Total Bilirubin 0.4 AST 22 ALT 27 Alkaline Phosphatase 127 H Total Protein 7.1 Albumin 3.6 RPR Titer 02/05/18 02/05/18 07:00 11:30 WBC RBC Hgb Hct MCV MCH MCHC RDW Plt Count MPV Sodium Potassium Chloride Carbon Dioxide Anion Gap BUN Creatinine Creat Clearance w eGFR POC Glucometer 110 Random Glucose Calcium Total Bilirubin AST ALT Alkaline Phosphatase Total Protein Albumin RPR Titer Nonreactive aaox3 ambulating no acute distress Assessment: 02/05/18 13:31 withdrawal sx Plan: continue detox increase fluids vitamin a&d oint ordered psych ordered for insomnia
--- NOTE | 2018-02-05 14:28 | PN ---
S Progress Note Note: pt states she hit her nose with the bathroom door by mistake.Nose assessed, no bruising noted no swelling noted. encouraged to use ice pack and ask RN for tylenol and motrin prn. nose xray tomorrow.
--- NOTE | 2018-02-05 15:24 | CONSULT ---
[facility] Psychiatric Consult - Data Date of interview: 02/05/18 Admission source: [facility] Identifying data: Readmission to [facility] for this 57 y/o AA female seeking detoxification treatment, on , for heroin, cocaine and alcohol dependence. 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 Substance Abuse History: Confirmed by patient. Details in current [facility] report : Smoking history: Current every day smoker. Have you smoked in the past 12 months: Yes. Aproximately how many cigarettes per day: 10. Cigars Per Day: 0. Hx Chewing Tobacco Use: No. Initiated information on smoking cessation: Yes. 'Breaking Loose' booklet given: 02/04/18. - Substance & Tx. History. Hx Alcohol Use: Yes. Hx Substance Use: Yes. Substance Use Type: Alcohol, Cocaine , Heroin. Hx Substance Use Treatment: Yes. - Substances Abused. Alcohol. Route: Oral. Frequency: Daily. Amount used: 12 24OZ BOTTLES OF BEER. Age of first use: 17. Date of Last Use: 02/04/18. Heroin. Route: Inhalation. Frequency: Daily. Amount used: 5 BAGS. Age of first use: 38. Date of Last Use : 02/04/18. Crack. Route: Smoking. Frequency: Daily. Amount used: 2-3 BAGS. Age of first use: 38. Date of Last Use: 02/03/18 Medical History: Bronchial asthma, hypertension, diabetes mellitus, hepatitis C , arthritis, chronic lumbar pain, psoriasis and past surgeries (hysterectomy and left breast lumpectomy). Psychiatric History: Patient admits to a remote history of psychiatric hospitalizations (mostly at [facility]). Diagnosed with Bipolar Disorder and MDD. Patient has no recollection of psychotropic medications taken in the past. Except for zolpidem, the patient declares that she has not taken psychotopics for several months. Totally lost to psychiatric OPD care. Ms Goyal denies history of suicide attempts. Currently on methadone maintenance (100 mg/day). Physical/Sexual Abuse/Trauma History: Patient denies. Additional Comment: Urine Drug Screen Results: KENYA-Cocaine, OPI-Opiates, MTD- Methadone, FEN-Fentanyl. Noted. Mental Status Exam - Mental Status Exam Alert and Oriented to: Time, Place, Person Cognitive Function: Grossly Intact Patient Appearance: Unkempt, Disheveled Mood: Anxious, Irritable Affect: Mood Congruent, Labile Patient Behavior: Inappropriate (childish, medication-seeking behavior, pressuring MD for zolpidem ), Fatigued, Agitated (easily) Speech Pattern: Clear Voice Loudness: Normal Thought Process: Goal Oriented Thought Disorder: Not Present Hallucinations: Denies Suicidal Ideation: Denies Homicidal Ideation: Denies Insight/Judgement: Poor Sleep: Poorly, Difficulty falling asleep Appetite: Good Muscle strength/Tone: Normal Gait/Station: Normal Psychiatric Findings - Problem List ([place] 1, 2,3) (1) Alcohol dependence with uncomplicated withdrawal Current Visit: Yes Status: Acute (2) Opioid dependence with withdrawal Current Visit: Yes Status: Acute (3) Opioid dependence on agonist therapy Current Visit: Yes Status: Chronic (4) Cocaine dependence Current Visit: Yes Status: Chronic Qualifiers: Substance use status: uncomplicated Qualified Code(s): F14.20 - Cocaine dependence, uncomplicated (5) Nicotine dependence Current Visit: Yes Status: Chronic Qualifiers: Nicotine product type: cigarettes Substance use status: other nicotine- induced disorder Qualified Code(s): F17.218 - Nicotine dependence, cigarettes , with other nicotine-induced disorders (6) Substance induced mood disorder Current Visit: Yes Status: Chronic (7) Insomnia Current Visit: Yes Status: Chronic - Initial Treatment Plan Initial Treatment Plan: Psychoeducation. Sleep hygiene. Detoxification. Reassurance and support. Firm limits. Patient agrees to a trial of mirtazapine. Treatment is initiated with remeron 7.5 mg po hs. Side effects/benefits discussed with patient. Consent (verbal) : granted to MD. Esquivel.
[2018-02-05] MEDS: INSULIN (LEVEMIR) 100 UNITS/ML UNITS SQ SCH (22:01)
[2018-02-05] MEDS: THIAMINE HCL 100 MG TABLET (FP) PO SCH (22:05)
[2018-02-05] MEDS: MELATONIN 5 MG TABLETS PO PRN (22:05)
[2018-02-05] MEDS: MIRTAZAPINE 15 MG TABLET (FP) PO SCH (23:07)
[2018-02-06] MEDS: diazePAM 5 MG TABLET PO PRN ×4 (00:39→18:12)
[2018-02-06] MEDS ORDERED: METHADONE HCL 40 MG DISPERSABLE TABLET ONE (03:20)
[2018-02-06] MEDS ORDERED: METHADONE HCL 10 MG TABLET ONE (03:20)
[2018-02-06] MEDS: METHADONE 80 MG, METHADONE 20 MG PO SCH (06:03)
[2018-02-06] MEDS: metFORMIN HCL 500 MG TABLET (FP) PO SCH ×2 (07:31→17:38)
[2018-02-06] MEDS: INSULIN SLIDING SCALE (NOVOLOG) 1 VIAL SQ SCH ×4 (07:31→21:37)
[2018-02-06] MEDS: VITAMINS A AND D TOPICAL OINTMENT 60 GM TUBE TP SCH ×4 (07:32→18:14)
[2018-02-06] MEDS: PRENATAL VITAMINS W/ FOLIC ACID TABLET (FP) PO SCH (10:35)
[2018-02-06] MEDS: diazePAM 5 MG TABLET PO SCH ×2 (10:35→22:10)
[2018-02-06] MEDS: amLODIPine BESYLATE 5 MG TABLET (FP) PO SCH ×2 (10:35→22:11)
[2018-02-06] MEDS: BACITRACIN 15 GM TUBE TOPICAL OINTMENT TP SCH ×2 (10:36→22:09)
--- NOTE | 2018-02-06 11:35 | PN ---
[facility] CIWA - CIWA Score Nausea/Vomitin-No Nausea/No Vomiting Muscle Tremors: 3 Anxiety: 3 Agitation: 3 Paroxysmal Sweats: 3 Orientation: 0-Oriented Tacttile Disturbances: 0-None Auditory Disturbances: 0-None Visual Disturbances: 0-None Headache: 0-None Present CIWA-Ar Total Score: 12 S Progress Note (SOAP) Subjective: agitation anxiety sweats shakes interrupted sleep body aches Objective: 02/06/18 11:32 Vital Signs Temperature 98.8 F 02/06/18 09:37 Pulse Rate 111 H 02/06/18 09:37 Respiratory Rate 16 02/06/18 09:37 Blood Pressure 141/92 02/06/18 09:37 O2 Sat by Pulse Oximetry (%) Laboratory Tests 02/04/18 02/04/18 02/04/18 11:08 16:44 22:34 WBC RBC Hgb Hct MCV MCH MCHC RDW Plt Count MPV Sodium Potassium Chloride Carbon Dioxide Anion Gap BUN Creatinine Creat Clearance w eGFR POC Glucometer 157 169 128 Random Glucose Calcium Total Bilirubin AST ALT Alkaline Phosphatase Total Protein Albumin RPR Titer 02/05/18 02/05/18 02/05/18 06:06 07:00 07:00 WBC 4.7 RBC 4.63 Hgb 13.6 Hct 40.4 MCV 87.1 MCH 29.4 MCHC 33.8 RDW 14.6 Plt Count 209 MPV 9.0 Sodium 138 Potassium 4.4 Chloride 102 Carbon Dioxide 30 Anion Gap 6 L BUN 29 H Creatinine 1.0 Creat Clearance w eGFR 56.95 POC Glucometer 86 Random Glucose 122 H Calcium 9.0 Total Bilirubin 0.4 AST 22 ALT 27 Alkaline Phosphatase 127 H Total Protein 7.1 Albumin 3.6 RPR Titer 02/05/18 02/05/18 02/05/18 07:00 11:30 16:36 WBC RBC Hgb Hct MCV MCH MCHC RDW Plt Count MPV Sodium Potassium Chloride Carbon Dioxide Anion Gap BUN Creatinine Creat Clearance w eGFR POC Glucometer 110 125 Random Glucose Calcium Total Bilirubin AST ALT Alkaline Phosphatase Total Protein Albumin RPR Titer Nonreactive 02/05/18 02/06/18 21:59 06:00 WBC RBC Hgb Hct MCV MCH MCHC RDW Plt Count MPV Sodium Potassium Chloride Carbon Dioxide Anion Gap BUN Creatinine Creat Clearance w eGFR POC Glucometer 150 99 Random Glucose Calcium Total Bilirubin AST ALT Alkaline Phosphatase Total Protein Albumin RPR Titer aaox3 ambulating no acute distress Assessment: 02/06/18 11:33 withdrawal sx Plan: continue detox increase fluids nose x-ray results pending
[2018-02-06] MEDS ORDERED: ERYTHROMYCIN 0.5% OPHTHALMIC OINTMENT 3.5 GM TUBE OU SCH (15:00)
[2018-02-06] MEDS ORDERED: INSULIN (NOVOLOG) ASPART 100 UNITS/ML 10ML VIAL ONE (17:04)
[2018-02-06] MEDS: MAGNESIUM HYDROX 2400MG/30ML ORAL SUSPENSION 30 ML CUP PO PRN (21:37)
[2018-02-06] MEDS: ERYTHROMYCIN 0.5% OPHTHALMIC OINTMENT 3.5 GM TUBE OU SCH (22:09)
[2018-02-06] MEDS: MIRTAZAPINE 15 MG TABLET (FP) PO SCH (22:10)
[2018-02-06] MEDS: INSULIN (LEVEMIR) 100 UNITS/ML UNITS SQ SCH (22:10)
[2018-02-06] MEDS: THIAMINE HCL 100 MG TABLET (FP) PO SCH (22:11)
[2018-02-07] MEDS: VITAMINS A AND D TOPICAL OINTMENT 60 GM TUBE TP SCH ×3 (01:08→17:49)
[2018-02-07] MEDS ORDERED: TRIMETHOBENZAMIDE HCL 200MG/2ML INJ IM ONE (02:33)
[2018-02-07] MEDS: INSULIN SLIDING SCALE (NOVOLOG) 1 VIAL SQ SCH ×4 (07:04→22:05)
[2018-02-07] MEDS ORDERED: METHADONE HCL 40 MG DISPERSABLE TABLET ONE (07:12)
[2018-02-07] MEDS ORDERED: METHADONE HCL 10 MG TABLET ONE (07:12)
--- NOTE | 2018-02-07 10:26 | PN ---
[facility] Progress Note (SOAP) Subjective: interrupted sleep, sweats ,shakes, diarrhea Objective: 02/07/18 10:23 Vital Signs Temperature 98.6 F 02/07/18 09:22 Pulse Rate 115 H 02/07/18 09:22 Respiratory Rate 18 02/07/18 09:22 Blood Pressure 129/74 02/07/18 09:22 O2 Sat by Pulse Oximetry (%) Laboratory Tests 02/04/18 02/04/18 02/04/18 11:08 16:44 22:34 WBC RBC Hgb Hct MCV MCH MCHC RDW Plt Count MPV Sodium Potassium Chloride Carbon Dioxide Anion Gap BUN Creatinine Creat Clearance w eGFR POC Glucometer 157 169 128 Random Glucose Calcium Total Bilirubin AST ALT Alkaline Phosphatase Total Protein Albumin RPR Titer 02/05/18 02/05/18 02/05/18 06:06 07:00 07:00 WBC 4.7 RBC 4.63 Hgb 13.6 Hct 40.4 MCV 87.1 MCH 29.4 MCHC 33.8 RDW 14.6 Plt Count 209 MPV 9.0 Sodium 138 Potassium 4.4 Chloride 102 Carbon Dioxide 30 Anion Gap 6 L BUN 29 H Creatinine 1.0 Creat Clearance w eGFR 56.95 POC Glucometer 86 Random Glucose 122 H Calcium 9.0 Total Bilirubin 0.4 AST 22 ALT 27 Alkaline Phosphatase 127 H Total Protein 7.1 Albumin 3.6 RPR Titer 02/05/18 02/05/18 02/05/18 07:00 11:30 16:36 WBC RBC Hgb Hct MCV MCH MCHC RDW Plt Count MPV Sodium Potassium Chloride Carbon Dioxide Anion Gap BUN Creatinine Creat Clearance w eGFR POC Glucometer 110 125 Random Glucose Calcium Total Bilirubin AST ALT Alkaline Phosphatase Total Protein Albumin RPR Titer Nonreactive 02/05/18 02/06/18 02/06/18 21:59 06:00 10:40 WBC RBC Hgb Hct MCV MCH MCHC RDW Plt Count MPV Sodium Potassium Chloride Carbon Dioxide Anion Gap BUN Creatinine Creat Clearance w eGFR POC Glucometer 150 99 146 Random Glucose Calcium Total Bilirubin AST ALT Alkaline Phosphatase Total Protein Albumin RPR Titer 02/06/18 02/07/18 16:37 07:03 WBC RBC Hgb Hct MCV MCH MCHC RDW Plt Count MPV Sodium Potassium Chloride Carbon Dioxide Anion Gap BUN Creatinine Creat Clearance w eGFR POC Glucometer 153 92 Random Glucose Calcium Total Bilirubin AST ALT Alkaline Phosphatase Total Protein Albumin RPR Titer pt aox3 lying in bed Assessment: 02/07/18 10:24 withdrawal sx;s dm Plan: cont. detox increase fluids monitor bgm -tx as indicated d/c in am
[2018-02-07] MEDS: amLODIPine BESYLATE 5 MG TABLET (FP) PO SCH ×2 (10:55→22:07)
[2018-02-07] MEDS: diazePAM 5 MG TABLET PO SCH ×2 (10:55→22:07)
[2018-02-07] MEDS: PRENATAL VITAMINS W/ FOLIC ACID TABLET (FP) PO SCH (10:55)
[2018-02-07] MEDS: BACITRACIN 15 GM TUBE TOPICAL OINTMENT TP SCH ×2 (10:55→22:02)
[2018-02-07] MEDS: metFORMIN HCL 500 MG TABLET (FP) PO SCH ×2 (12:02→17:30)
[2018-02-07] MEDS: METHADONE 80 MG, METHADONE 20 MG PO SCH (12:48)
[2018-02-07] MEDS: INSULIN (LEVEMIR) 100 UNITS/ML UNITS SQ SCH (22:05)
[2018-02-07] MEDS: MIRTAZAPINE 15 MG TABLET (FP) PO SCH (22:07)
[2018-02-07] MEDS: ERYTHROMYCIN 0.5% OPHTHALMIC OINTMENT 3.5 GM TUBE OU SCH (22:07)
[2018-02-07] MEDS: THIAMINE HCL 100 MG TABLET (FP) PO SCH (22:08)
[2018-02-07] MEDS ORDERED: hydrOXYzine PAMOATE 25 MG CAPSULE (FP) PO ONE (23:00)
[2018-02-08] MEDS: VITAMINS A AND D TOPICAL OINTMENT 60 GM TUBE TP SCH ×3 (00:12→11:06)
[2018-02-08] MEDS ORDERED: METHADONE HCL 40 MG DISPERSABLE TABLET ONE (05:00)
[2018-02-08] MEDS ORDERED: METHADONE HCL 10 MG TABLET ONE (05:00)
[2018-02-08] MEDS: METHADONE 80 MG, METHADONE 20 MG PO SCH (06:00)
[2018-02-08] MEDS: metFORMIN HCL 500 MG TABLET (FP) PO SCH (06:09)
[2018-02-08] MEDS: INSULIN SLIDING SCALE (NOVOLOG) 1 VIAL SQ SCH (07:58)
--- NOTE | 2018-02-08 08:50 | DS ---
[facility] Detox Discharge Summary Admission Date: 02/04/18 Discharge Date: 02/08/18 - History Present History: Alcohol Dependence, Cocaine Dependence, Opioid Dependence - Physical Exam Results Vital Signs: Vital Signs Temperature 97.7 F 02/08/18 06:00 Pulse Rate 102 H 02/08/18 06:00 Respiratory Rate 18 02/08/18 06:00 Blood Pressure 125/78 02/08/18 06:00 O2 Sat by Pulse Oximetry (%) - Treatment Hospital Course: Detox Protocol Followed, Detoxed Safely, Responded well, Discharged Condition Good, Rehab Referral Accepted - Medication Discharge Medications: Ambulatory Orders cloNIDine HCL [Catapres -] 0.2 mg PO BID #60 03/08/16 Zolpidem Tartrate [Ambien] 10 mg PO HS 11/12/17 Albuterol Sulfate Inhaler - [Ventolin HFA Inhaler -] 2 puff IH Q4H PRN #1 inhaler 02/07/18 Amlodipine Besylate [Norvasc -] 5 mg PO BID #30 tablet 02/07/18 Bacitracin - [Bacitracin Topical Ointment -] 1 applic TP BID #1 tube 02/07/18 Erythromycin 0.5% Eye Ointment [Erythromycin 0.5% Eye Ointment -] 1 applic OU DAILY@2200 #1 tube 02/07/18 Insulin Glargine,Hum.rec.anlog [Lantus Solostar PEN -] 30 units SQ HS #1 ins metFORMIN HCL [Glucophage -] 500 mg PO BID@0700,1630 #60 tablet 02/07/18 - Diagnosis (1) Opioid dependence with withdrawal Current Visit: Yes Status: Chronic (2) Alcohol dependence with uncomplicated withdrawal Current Visit: Yes Status: Chronic (3) Arthritis Current Visit: Yes Status: Chronic (4) Asthma Current Visit: Yes Status: Chronic Qualifiers: Asthma severity: mild Asthma persistence: unspecified Asthma complication type: uncomplicated Qualified Code(s): J45.909 - Unspecified asthma, uncomplicated (5) Cocaine dependence Current Visit: Yes Status: Chronic Qualifiers: Substance use status: uncomplicated Qualified Code(s): F14.20 - Cocaine dependence, uncomplicated (6) Diabetes mellitus, insulin dependent (IDDM), uncontrolled Current Visit: Yes Status: Chronic (7) HTN (hypertension) Current Visit: Yes Status: Chronic Qualifiers: Hypertension type: essential hypertension Qualified Code(s): I10 - Essential (primary) hypertension (8) Hepatitis C Current Visit: Yes Status: Chronic Qualifiers: Viral hepatitis chronicity: chronic Hepatic coma status: without hepatic coma Qualified Code(s): B18.2 - Chronic viral hepatitis C (9) Low back pain Current Visit: Yes Status: Chronic Qualifiers: Chronicity: chronic Back pain laterality: bilateral Sciatica presence: without sciatica Qualified Code(s): M54.5 - Low back pain (10) Nicotine dependence Current Visit: Yes Status: Chronic Qualifiers: Nicotine product type: cigarettes Substance use status: other nicotine- induced disorder Qualified Code(s): F17.218 - Nicotine dependence, cigarettes , with other nicotine-induced disorders (11) Substance induced mood disorder Current Visit: Yes Status: Chronic (12) Substance-induced sleep disorder Current Visit: Yes Status: Chronic (13) Bipolar depression Current Visit: No Status: Chronic - AMA Did Patient Leave Against Medical Advice: No [facility]
[2018-02-08 09:29] VITALS: BP 112/58; PULSE 108; TEMP 98.4
[2018-02-08] MEDS: amLODIPine BESYLATE 5 MG TABLET (FP) PO SCH (09:45)
[2018-02-08] MEDS: PRENATAL VITAMINS W/ FOLIC ACID TABLET (FP) PO SCH (09:45)
[2018-02-08] MEDS: BACITRACIN 15 GM TUBE TOPICAL OINTMENT TP SCH (09:56)
[2018-02-08] MEDS ORDERED: diazePAM 5 MG TABLET PO SCH (10:00)
== END 2018-02-08 11:37 | disposition home or self-care (01) | DRG 773 ==
LOC: YASAS 09:49 → Y6N 12:23
PROC: HZ2ZZZZ Detoxification Services for Substance Abuse Treatment (ICD-10-PCS; principal; 2018-02-04)
DX: F11.23 Opioid dependence with withdrawal (principal); F10.230 Alcohol dependence with withdrawal, uncomplicated; F14.20 Cocaine dependence, uncomplicated; F17.210 Nicotine dependence, cigarettes, uncomplicated; F19.24 Other psychoactive substance dependence with psychoactive substance-induced mood disorder; F19.282 Other psychoactive substance dependence with psychoactive substance-induced sleep disorder; F31.9 Bipolar disorder, unspecified; I10 Essential (primary) hypertension; E11.9 Type 2 diabetes mellitus without complications; B18.2 Chronic viral hepatitis C; M19.90 Unspecified osteoarthritis, unspecified site; J45.909 Unspecified asthma, uncomplicated; M54.5 Low back pain; G89.29 Other chronic pain; G47.00 Insomnia, unspecified; L40.9 Psoriasis, unspecified; W22.8XXA Striking against or struck by other objects, initial encounter; Y93.89 Activity, other specified; Y92.238 Other place in hospital as the place of occurrence of the external cause; Z79.4 Long term (current) use of insulin
CPT/HCPCS: 36415; 70160-TC-FY; 80053; 82962; 85027; 86593

== ENCOUNTER 2018-03-19 12:38 | Inpatient (IN) | payer OTHER ==
[2018-03-19 13:25] VITALS: BMI 26.0
--- NOTE | 2018-03-19 18:34 | HP ---
"CIWA Score Nausea/Vomitin Muscle Tremors: 4-Moderate,w/Arms Extend Anxiety: 1-Mildly Anxious Agitation: 4-Moderately Restless Paroxysmal Sweats: 3 (Increased facial moisture) Orientation: 0-Oriented Tacttile Disturbances: 0-None Auditory Disturbances: 0-None Visual Disturbances: 0-None Headache: 3-Moderate CIWA-Ar Total Score: 18 - Admission Criteria [facility] Guidelines: Admission for Medically Managed Detox: Requires at least one of the followin. CIWA greater than 12 2. Seizures within the past 24 hours 3. Delirium tremens within the past 24 hours 4. Hallucinations within the past 24 hours 5. Acute intervention needed for co occurring medical disorder 6. Acute intervention needed for co occurring psychiatric disorder 7. Severe withdrawal that cannot be handled at a lower level of care (continued vomiting, continued diarrhea, abnormal vital signs) requiring intravenous medication and/or fluids 8. Patient presents the following: CIWA greater than 12 Admission Criteria Met: Admission criteria met Admission ROS S - [facility] Chief Complaint: Here for alcohol and benzo withdrawal. Allergies/Adverse Reactions: Allergies Allergy/AdvReac Type Severity Reaction Status Date / Time tomato [Tomato] Allergy Severe Itching Verified 02/04/18 11:03 No Known Drug Allergies Allergy Verified 02/04/18 11:03 NKDA Allergy Uncoded 02/04/18 11:03 History of Present Illness: Here for alcohol detox. Alcohol use began at age 14. Cocaine use began at age 39. Benzo use began at age 39. Marijuana use began at age 15. Nicotine use began at age 17. Opiates use began at age 39. Continues to relapse w/ opiates despite being on Methadone Maintenance. Currently on [facility] MMTP since September 2017. Current dose 100 mg pending verification. Denies hx seizures, blackouts, overdoses. Patient states is really going to try harder to maintain sobriety. Hx; DM, HTN, Asthma w/ recent exacerbations of SOB. States has been non- compliant w/ medications. 11/12/17 EKG reviewed and will repeat this admission. Search Terms: Ireneamber Goyal, 1960 Search Date: 03/19/2018 06:35:16 PM The Drug Utilization Report below displays all of the controlled substance prescriptions, if any, that your patient has filled in the last twelve months. The information displayed on this report is compiled from pharmacy submissions to the Department, and accurately reflects the information as submitted by the pharmacies. This report was requested by: Sejal Hernandez | Reference #: [id number] Others' Prescriptions Patient Name: Irene Goyal Date: 1960 [address]: [address] [place], [place] [address] [address] Sex: Female Rx Written Rx Dispensed Drug Quantity Days Supply Prescriber Name 01/25/2018 01/26/2018 zolpidem tartrate 10 mg tablet 30 30 Neghassi, Joe H 11/16/2017 11/18/2017 zolpidem tartrate 10 mg tablet 30 30 Neghassi, Joe H 08/18/2017 10/10/2017 zolpidem tartrate 10 mg tablet 30 30 Neghassi, Joe H 08/18/2017 08/19/2017 zolpidem tartrate 10 mg tablet 30 30 Neghassi, Joe H Exam Limitations: No Limitations - Ebola screening Have you traveled outside of the country in the last 21 days: No Have you had contact with anyone from an Ebola affected area: No Have you been sick,other than usual withdrawal symptoms: No Do you have a fever: No - Review of Systems Constitutional: Diaphoresis, Changes in sleep (Difficuly falling asleep) EENT: reports: Cataracts ((R) eye), Blurred Vision, Dental Problems (Missing and cracked teeth) Respiratory: reports: No Symptoms reported Cardiac: reports: No Symptoms Reported GI: reports: Nausea, Vomiting : reports: No Symptoms Reported Musculoskeletal: reports: Other (Intermittent sharp, achy (L) jeffers pain x 3 months - wakes up from sleep. Relieved w/ arthritis medications.) Integumentary: reports: Lesions (Dry, scaly, cracked skin on fingers of both hands) Neuro: reports: Headache, Tremors Endocrine: reports: Increased Thirst Hematology: reports: No Symptoms Reported Psychiatric: reports: Judgement Intact, Orientated x3, Agitated, Anxious, Depressed (Denies thoughts of harming self or others.) Patient History - Patient Medical History Hx Anemia: Yes (resolved) Hx Asthma: Yes (Pt is MDI.) Hx Chronic Obstructive Pulmonary Disease (COPD): No Hx Cancer: No Hx Cardiac Disorders: No Hx Congestive Heart Failure: No Hx Hypertension: Yes Hx Hypercholesterolemia: Yes Hx Pacemaker: No HX Cerebrovascular Accident: No Hx Seizures: No Hx Dementia: No Hx Diabetes: Yes (Type II) Hx Gastrointestinal Disorders: No Hx Liver Disease: Yes Hx Genitourinary Disorders: No Hx Sexually Transmitted Disorders: No Hx Renal Disease (ESRD): No Hx Thyroid Disease: No Hx Human Immunodeficiency Virus (HIV): No Hx Hepatitis C: Yes (NO TREATMENT) Hx Depression: Yes Hx Suicide Attempt: No Hx Bipolar Disorder: No Hx Schizophrenia: No - Patient Surgical History Past Surgical History: Yes Hx Neurologic Surgery: No Hx Cataract Extraction: No Hx Cardiac Surgery: No Hx Lung Surgery: No Hx Breast Surgery: Yes (cyst removal in 2005) Hx Breast Biopsy: No Hx Abdominal Surgery: Yes (Hysterectomy in 2007) Hx Appendectomy: No Hx Cholecystectomy: Yes (r/o gallstones 11/05) Hx Genitourinary Surgery: No Hx Section: No Hx Orthopedic Surgery: No Hx Hysterectomy: Yes (2007) Anesthesia Reaction: No - PPD History Previous Implant?: Yes Documented Results: Negative w/proof Implanted On Prior R Admission?: Yes Date: 11/14/17 Results: 0 mm PPD to be Administered?: No - Reproductive History Last Menstrual Period: 10/07/07 Patient : No - Smoking Cessation Smoking history: Current every day smoker Have you smoked in the past 12 months: Yes Aproximately how many cigarettes per day: 15 Cigars Per Day: 0 Hx Chewing Tobacco Use: No Initiated information on smoking cessation: Yes 'Breaking Loose' booklet given: 03/19/18 - Substance & Tx. History Hx Alcohol Use: Yes Hx Substance Use: Yes Substance Use Type: Alcohol, Cocaine, Heroin, Marijuana Hx Substance Use Treatment: Yes (detox, rehab, MMTP) - Substances Abused Alprazolam (Xanax) Route: Oral Frequency: Daily Amount used: 6mg Age of first use: 39 Date of Last Use: 03/18/18 Alcohol Route: Oral Frequency: Daily Amount used: fifth of gin Age of first use: 14 Date of Last Use: 03/18/18 Crack Route: Smoking Frequency: Daily Amount used: $100 Age of first use: 39 Date of Last Use: 03/18/18 Heroin Route: Inhalation Frequency: Daily Amount used: 3 bags Age of first use: 39 Date of Last Use: 03/18/18 Marijuana/Hashish Route: Injection Frequency: Daily Age of first use: 17 Date of Last Use: 03/19/18 Family Disease History - Family Disease History Family Disease History: Diabetes: Mother ( FROM [place]. OF THE LIVER,HTN), Brother, Heart Disease: Mother, Sister ( MII), CA: Father (etoh, ), Mother Admission Physical Exam S - Vital Signs Vital Signs: Vital Signs - 24 hr 03/19/18 13:23 Temperature 96.7 F L Pulse Rate 111 H Respiratory 18 Rate Blood Pressure 107/69 - Physical General Appearance: Yes: Nourished, Moderate Distress, Tremorous, Irritable, Sweating, Anxious HEENTM: Yes: EOMI, Hearing grossly Normal, Other (Decreased pupil response) Respiratory: Yes: Lungs Clear, Normal Breath Sounds, No Respiratory Distress Neck: Yes: No masses,lesions,Nodules, Supple Breast: Yes: Breast Exam Deferred Cardiology: Yes: Regular Rhythm, S1, S2, Tachycardia Abdominal: Yes: Non Tender, Soft, Increased Bowel Sounds Genitourinary: Yes: Within Normal Limits Back: Yes: Normal Inspection Musculoskeletal: Yes: full range of Motion, Gait Steady Extremities: Yes: Normal Capillary Refill, Normal Range of Motion, Tremors Neurological: Yes: central office maintainer II-XII NML intact, Fully Oriented, Alert, Motor Strength 5/5, Normal Mood/Affect Integumentary: Yes: Normal Color, Dry, Warm, Other (Thickened, dry, cracked, scaly, nicotine colored, skin on bilatral hands and fingers.) Lymphatic: Yes: Within Normal Limits - Diagnostic (1) Methadone maintenance therapy patient Current Visit: Yes Status: Chronic (2) Alcohol dependence with uncomplicated withdrawal Current Visit: No Status: Chronic (3) Asthma Current Visit: No Status: Chronic Qualifiers: Asthma severity: mild Asthma persistence: unspecified Asthma complication type: uncomplicated Qualified Code(s): J45.909 - Unspecified asthma, uncomplicated (4) Cocaine dependence Current Visit: No Status: Chronic Qualifiers: Substance use status: uncomplicated Qualified Code(s): F14.20 - Cocaine dependence, uncomplicated (5) Diabetes mellitus, insulin dependent (IDDM), uncontrolled Current Visit: Yes Status: Chronic (6) HTN (hypertension) Current Visit: Yes Status: Chronic Qualifiers: Hypertension type: essential hypertension Qualified Code(s): I10 - Essential (primary) hypertension (7) Nicotine dependence Current Visit: Yes Status: Chronic Qualifiers: Nicotine product type: cigarettes Substance use status: other nicotine- induced disorder Qualified Code(s): F17.218 - Nicotine dependence, cigarettes , with other nicotine-induced disorders (8) Sedative, hypnotic or anxiolytic dependence with withdrawal, uncomplicated Current Visit: Yes Status: Acute (9) Cannabis dependence, uncomplicated Current Visit: Yes Status: Chronic (10) Other specified disorders of the skin and subcutaneous tissue Current Visit: Yes Status: Chronic Comment: Dry, thickened, cracked, nicotine colored skin of hands and fingers Cleared for Admission [facility] - Detox or Rehab [facility] Level of Care: Medically Managed Detox Regimen/Protocol: Valium [facility] Breath Alcohol Content Breath Alcohol Content: 0 Urine Pregancy Test - Result Urine Test Results: Negative- NO Line Present Urine Drug Screen - Results Drug Screen Negative: No Urine Drug Screen Results: THC-Marijuana, KENYA-Cocaine, OPI-Opiates, BZO- Benzodiazepines, MTD-Methadone, OXY-Oxycodone"
[2018-03-19] MEDS ORDERED: diazePAM 5 MG TABLET PO ONE ×2 (19:00→20:15)
[2018-03-19] MEDS ORDERED: MAG HYDROX/AL HYDROX/SIMETH 30 ML UNIT-DOSE CUP PO PRN (19:00)
[2018-03-19] MEDS ORDERED: LOPERAMIDE HCL 2 MG CAPSULE PO PRN (19:00)
[2018-03-19] MEDS ORDERED: METHADONE HCL 10 MG TABLET (FOR DETOX USE ONLY) PO ONE ×2 (19:00→23:00)
[2018-03-19] MEDS ORDERED: diazePAM 5 MG TABLET PO PRN (19:00)
[2018-03-19] MEDS ORDERED: MAGNESIUM HYDROX 2400MG/30ML ORAL SUSPENSION 30 ML CUP PO PRN (19:00)
[2018-03-19] MEDS ORDERED: MENTHOL/PHENOL 1 EACH UD MM PRN (19:00)
[2018-03-19] MEDS ORDERED: ACETAMINOPHEN 325 MG TABLET (FP) PO PRN (19:00)
[2018-03-19] MEDS ORDERED: IBUPROFEN 400 MG TABLET (FP) PO PRN (19:00)
[2018-03-19] MEDS ORDERED: P-EPHED 60MG/TRIPROLIDI 2.5MG TABLET PO PRN (19:00)
[2018-03-19] MEDS ORDERED: NICOTINE POLACRILEX 2 MG GUM BC PRN (19:00)
[2018-03-19] MEDS ORDERED: MAGNESIUM CITRATE 300 ML BOTTLE PO PRN (19:00)
[2018-03-19] MEDS ORDERED: ALBUTEROL SO4 8 GM HFA INHALER IH PRN (19:04)
[2018-03-19] MEDS ORDERED: MELATONIN 5 MG TABLETS PO PRN (22:00)
[2018-03-19] MEDS ORDERED: diazePAM 5 MG TABLET PO SCH (22:00)
[2018-03-19] MEDS: amLODIPine BESYLATE 5 MG TABLET (FP) PO SCH (22:14)
[2018-03-19] MEDS: THIAMINE HCL 100 MG TABLET (FP) PO SCH (22:14)
[2018-03-19] MEDS: BACITRACIN 0.9 GM PACKET TP SCH (22:15)
[2018-03-19] MEDS: diazePAM 5 MG TABLET PO SCH (22:15)
[2018-03-19] MEDS: INSULIN SLIDING SCALE (NOVOLOG) 1 VIAL SQ SCH (22:15)
[2018-03-20] MEDS: diazePAM 5 MG TABLET PO PRN ×4 (02:35→20:37)
[2018-03-20] MEDS: diazePAM 5 MG TABLET PO SCH ×3 (06:07→22:25)
[2018-03-20] MEDS: metFORMIN HCL 500 MG TABLET (FP) PO SCH ×2 (06:08→17:18)
[2018-03-20] MEDS: INSULIN SLIDING SCALE (NOVOLOG) 1 VIAL SQ SCH ×4 (06:48→22:23)
[2018-03-20] MEDS ORDERED: METHADONE HCL 10 MG TABLET PO SCH (07:45)
[2018-03-20] MEDS ORDERED: METHADONE HCL 10 MG TABLET ONE ×2 (08:00→08:49)
[2018-03-20] MEDS ORDERED: METHADONE HCL 40 MG DISPERSABLE TABLET ONE ×2 (08:01→08:49)
[2018-03-20] MEDS: METHADONE 80 MG, METHADONE 20 MG PO SCH (08:02)
[2018-03-20] MEDS: PRENATAL VITAMINS W/ FOLIC ACID TABLET (FP) PO SCH (09:10)
[2018-03-20] MEDS: amLODIPine BESYLATE 5 MG TABLET (FP) PO SCH ×2 (09:10→22:25)
[2018-03-20] MEDS: BACITRACIN 0.9 GM PACKET TP SCH ×4 (09:11→22:24)
[2018-03-20] MEDS: NICOTINE 7 MG/24 HOURS TOPICAL PATCH TD SCH (09:12)
[2018-03-20] MEDS ORDERED: METHADONE HCL 10 MG TABLET (FOR DETOX USE ONLY) PO SCH (10:00)
[2018-03-20 10:59] LABS: HEMATOCRIT 39.3 % (32.4-45.2); HEMOGLOBIN 13.3 GM/dL (10.7-15.3); MCH 29.6 pg (25.7-33.7); MCHC 33.8 g/dl (32.0-36.0); MEAN CELL VOLUME 87.5 fl (80-96); MEAN PLT VOLUME 8.4 fl (7.5-11.1); PLATELET COUNT 247 K/MM3 (134-434); RBC 4.49 M/mm3 (3.60-5.2); RDW 14.1 % (11.6-15.6); WHITE BLOOD COUNT 5.9 K/mm3 (4.0-10.0)
[2018-03-20 11:00] LABS: ALBUMIN 3.6 g/dl (3.4-5.0); ALK PHOS 101 U/L (45-117); ANION GAP 8 MMOL/L (8-16); BILIRUBIN,TOTAL 0.2 mg/dL (0.2-1); BLOOD UREA NITROGEN 30 mg/dL (7-18); CALCIUM 8.8 mg/dL (8.5-10.1); CHLORIDE 99 mmol/L (98-107); CO2 31 mmol/L (21-32); CREATININE 1.4 mg/dL (0.55-1.3); GLUCOSE,RANDOM 180 mg/dL (74-106); POTASSIUM 4.5 mmol/L (3.5-5.1); SGOT/AST 21 U/L (15-37); SGPT/ALT 31 U/L (13-61); SODIUM 137 mmol/L (136-145); TOT PROT 7.1 g/dl (6.4-8.2)
[2018-03-20 11:26] LABS: URINE APPEARANCE SLCLOUDY; URINE BILIRUBIN NEGATIVE (<2.0 mg/dL); URINE COLOR AMBER; URINE GLUCOSE (UA) 3+ (NEGATIVE); URINE KETONE NEGATIVE (NEGATIVE); URINE LEUK ESTERASE 3+ (NEGATIVE); URINE NITRITE NEGATIVE (NEGATIVE); URINE PROTEIN 1+ (NEGATIVE); URINE UROBILINOGEN 4.0 E.U/dl mg/dL (0.2-1.0)
[2018-03-20 11:53] LABS: EPI CELLS MODERATE /HPF (FEW); URINE HYALINE CAST 22 /lpf; URINE MUCUS RARE
[2018-03-20] MEDS ORDERED: TRIMETHOBENZAMIDE HCL 200MG/2ML INJ IM PRN (12:11)
--- NOTE | 2018-03-20 12:15 | PN ---
S CIWA - CIWA Score Nausea/Vomitin Muscle Tremors: 3 Anxiety: 4-Mod. Anxious/Guarded Agitation: 3 Paroxysmal Sweats: 2 Orientation: 0-Oriented Tacttile Disturbances: 0-None Auditory Disturbances: 0-None Visual Disturbances: 0-None Headache: 2-Mild CIWA-Ar Total Score: 19 S Progress Note (SOAP) Subjective: Sweating, Anxious, Stomach Cramping, Body Aches, H/A, Tremors, Interrupted Sleep , Vomiting, Diarrhea. Objective: PATIENT A & O X 3, OBSERVED AMBULATING ON UNIT. IN NO ACUTE DISTRESS. PATIENT DENIES ANY URINARY COMPLAINTS (BURNING, PAIN, FREQUENCY, URGENCY, HESITANCY). 03/20/18 12:13 Vital Signs Temperature 96.9 F L 03/20/18 09:10 Pulse Rate 96 H 03/20/18 09:10 Respiratory Rate 18 03/20/18 09:10 Blood Pressure 137/92 03/20/18 09:10 O2 Sat by Pulse Oximetry (%) Laboratory Tests 03/19/18 03/19/18 03/20/18 17:49 20:30 06:07 WBC RBC Hgb Hct MCV MCH MCHC RDW Plt Count MPV Sodium Potassium Chloride Carbon Dioxide Anion Gap BUN Creatinine Creat Clearance w eGFR POC Glucometer 215 260 126 Random Glucose Calcium Total Bilirubin AST ALT Alkaline Phosphatase Total Protein Albumin Urine Color Urine Appearance Urine pH Ur Specific [place] Urine Protein Urine Glucose (UA) Urine Ketones Urine Blood Urine Nitrite Urine Bilirubin Urine Urobilinogen Ur Leukocyte Esterase Urine WBC (Auto) Urine RBC (Auto) Ur Epithelial Cells Hyaline Casts Urine Mucus 03/20/18 03/20/18 03/20/18 07:00 07:00 08:00 WBC 5.9 RBC 4.49 Hgb 13.3 Hct 39.3 MCV 87.5 MCH 29.6 MCHC 33.8 RDW 14.1 Plt Count 247 MPV 8.4 Sodium 137 Potassium 4.5 Chloride 99 Carbon Dioxide 31 Anion Gap 8 BUN 30 H Creatinine 1.4 H Creat Clearance w eGFR 38.62 POC Glucometer Random Glucose 180 H Calcium 8.8 Total Bilirubin 0.2 AST 21 ALT 31 Alkaline Phosphatase 101 Total Protein 7.1 Albumin 3.6 Urine Color Danelle Urine Appearance Slcloudy Urine pH 5.0 Ur Specific [place] 1.021 Urine Protein 1+ H Urine Glucose (UA) 3+ H Urine Ketones Negative Urine Blood Negative Urine Nitrite Negative Urine Bilirubin Negative Urine Urobilinogen 4.0 e.u/dl H Ur Leukocyte Esterase 3+ H Urine WBC (Auto) 8 Urine RBC (Auto) 3 Ur Epithelial Cells Moderate Hyaline Casts 22 Urine Mucus Rare 03/20/18 11:22 WBC RBC Hgb Hct MCV MCH MCHC RDW Plt Count MPV Sodium Potassium Chloride Carbon Dioxide Anion Gap BUN Creatinine Creat Clearance w eGFR POC Glucometer 141 Random Glucose Calcium Total Bilirubin AST ALT Alkaline Phosphatase Total Protein Albumin Urine Color Urine Appearance Urine pH Ur Specific [place] Urine Protein Urine Glucose (UA) Urine Ketones Urine Blood Urine Nitrite Urine Bilirubin Urine Urobilinogen Ur Leukocyte Esterase Urine WBC (Auto) Urine RBC (Auto) Ur Epithelial Cells Hyaline Casts Urine Mucus LABS NOTED. 03/20/18 12:18 Assessment: 03/20/18 12:16 WITHDRAWAL SYMPTOMS. Plan: CONTINUE DETOX. D/C IBUPROFEN AND MAGNESIUM-CONTAINING MEDS. FOR ABNORMAL ADMISSION RENAL LAB VALUES. BASIC METABOLIC PANEL ON 03/22/2018 FOR ABNORMAL ADMISSION RENAL LAB VALUES. REPEAT UA FOR ADMISSION ABNORMALITIES. PRN IMMODIUM PO FOR DIARRHEA. PRN TIGAN IM FOR NAUSEA.
[2018-03-20 17:17] LABS: URINE APPEARANCE CLEAR; URINE BILIRUBIN NEGATIVE (<2.0 mg/dL); URINE COLOR YELLOW; URINE GLUCOSE (UA) NEGATIVE (NEGATIVE); URINE KETONE NEGATIVE (NEGATIVE); URINE LEUK ESTERASE TRACE (NEGATIVE); URINE NITRITE NEGATIVE (NEGATIVE); URINE PROTEIN NEGATIVE (NEGATIVE); URINE UROBILINOGEN NEGATIVE mg/dL (0.2-1.0)
[2018-03-20 17:24] LABS: EPI CELLS RARE /HPF (FEW)
[2018-03-20] MEDS: THIAMINE HCL 100 MG TABLET (FP) PO SCH (22:23)
[2018-03-21] MEDS: diazePAM 5 MG TABLET PO PRN ×4 (00:32→17:04)
[2018-03-21] MEDS ORDERED: METHADONE HCL 10 MG TABLET ONE (03:40)
[2018-03-21] MEDS ORDERED: METHADONE HCL 40 MG DISPERSABLE TABLET ONE (03:41)
[2018-03-21] MEDS: METHADONE 80 MG, METHADONE 20 MG PO SCH (05:41)
[2018-03-21] MEDS: metFORMIN HCL 500 MG TABLET (FP) PO SCH ×2 (07:11→17:04)
[2018-03-21] MEDS: INSULIN SLIDING SCALE (NOVOLOG) 1 VIAL SQ SCH ×4 (07:11→21:45)
[2018-03-21] MEDS ORDERED: diazePAM 5 MG TABLET PO SCH (10:00)
[2018-03-21] MEDS ORDERED: METHADONE HCL 5 MG TABLET (FOR DETOX USE ONLY) PO SCH (10:00)
[2018-03-21] MEDS: NICOTINE 7 MG/24 HOURS TOPICAL PATCH TD SCH (10:19)
[2018-03-21] MEDS: BACITRACIN 0.9 GM PACKET TP SCH ×4 (10:19→22:06)
[2018-03-21] MEDS: diazePAM 5 MG TABLET PO SCH ×2 (10:19→22:06)
[2018-03-21] MEDS: amLODIPine BESYLATE 5 MG TABLET (FP) PO SCH ×2 (10:19→21:45)
[2018-03-21] MEDS: PRENATAL VITAMINS W/ FOLIC ACID TABLET (FP) PO SCH (10:20)
--- NOTE | 2018-03-21 13:41 | CONSULT ---
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 Substance Abuse History: Reports drinking since 17 yo,heroin since 38 yo-5 bags daily crack/cocaine since 38 yo 2-3 bags daily. Medical History: BA,HTN,NIIDM,Hep C,H/O Hysterectomy,Cholecystectomy. Psychiatric History: Patient reports first contact with psychiatrist about 12 yo when she was admitted to [facility] [place] due to manic episode,anxiety,mood swings.She was dx with Bipolar disorder.Patient was placed on psychotropic medications., She reports 3 more psychiatric hospitalizations.Most recent was about 6 months ago to [facility] [place].Patient has poor compliance with her OPD care.She stopped psychotropic medications a few months ago.REports she was on Ambien 10 mg po hs, Zoloft 100 mg po daily. Physical/Sexual Abuse/Trauma History: not willing to discuss at present. Mental Status Exam - Mental Status Exam Alert and Oriented to: Time, Place, Person Cognitive Function: Grossly Intact Patient Appearance: Unkempt Mood: Sad, Anxious, Irritable Affect: Mood Congruent, Labile Patient Behavior: Restless, Impulsive, Talkative, Cooperative Voice Loudness: Normal Thought Process: Goal Oriented Thought Disorder: Not Present Hallucinations: Denies Suicidal Ideation: Denies Homicidal Ideation: Denies Insight/Judgement: Fair Sleep: Difficulty falling asleep Appetite: Fair Muscle strength/Tone: Normal Gait/Station: Normal Psychiatric Findings - Problem List ([place] 1, 2,3) (1) Sedative, hypnotic or anxiolytic dependence with withdrawal, uncomplicated Current Visit: Yes Status: Chronic (2) Cannabis dependence, uncomplicated Current Visit: Yes Status: Chronic (3) Diabetes mellitus, insulin dependent (IDDM), uncontrolled Current Visit: Yes Status: Chronic (4) HTN (hypertension) Current Visit: Yes Status: Chronic Qualifiers: Hypertension type: essential hypertension Qualified Code(s): I10 - Essential (primary) hypertension (5) Methadone maintenance therapy patient Current Visit: Yes Status: Chronic (6) Nicotine dependence Current Visit: Yes Status: Chronic Qualifiers: Nicotine product type: cigarettes Substance use status: other nicotine- induced disorder Qualified Code(s): F17.218 - Nicotine dependence, cigarettes , with other nicotine-induced disorders (7) Alcohol dependence with uncomplicated withdrawal Current Visit: Yes Status: Chronic - Initial Treatment Plan Initial Treatment Plan: Restart Zoloft 50 mg po daily,Belsomra 15 mg po hs prn for insomnia. Will monitor progress.
[2018-03-21] MEDS ORDERED: SUVOREXANT 15 MG TABLET PO PRN (13:48)
[2018-03-21] MEDS: SERTRALINE HCL 50 MG TABLET (FP) PO SCH (14:29)
--- NOTE | 2018-03-21 14:39 | PN ---
S CIWA - CIWA Score Nausea/Vomitin-Mild Nausea/No Vomiting Muscle Tremors: 5 Anxiety: 3 Agitation: 3 Paroxysmal Sweats: 1-Minimal Palms Moist Orientation: 0-Oriented Tacttile Disturbances: 0-None Auditory Disturbances: 0-None Visual Disturbances: 0-None Headache: 0-None Present CIWA-Ar Total Score: 13 S Progress Note (SOAP) Subjective: Pt requesting medications for sleep, is on methadone MAT and valium O: Vital Signs - 24 hr 03/20/18 03/20/18 03/21/18 17:48 22:00 06:07 Temperature 97.6 F 98.0 F 97.0 F L Pulse Rate 104 H 107 H 108 H Respiratory 18 18 18 Rate Blood Pressure 125/69 106/72 106/70 03/21/18 03/21/18 09:17 14:28 Temperature 97.2 F L 97.5 F L Pulse Rate 108 H 108 H Respiratory 18 18 Rate Blood Pressure 126/81 138/80 Laboratory Tests 03/19/18 03/19/18 03/20/18 17:49 20:30 06:07 WBC RBC Hgb Hct MCV MCH MCHC RDW Plt Count MPV Sodium Potassium Chloride Carbon Dioxide Anion Gap BUN Creatinine Creat Clearance w eGFR POC Glucometer 215 260 126 Random Glucose Calcium Total Bilirubin AST ALT Alkaline Phosphatase Total Protein Albumin Urine Color Urine Appearance Urine pH Ur Specific [place] Urine Protein Urine Glucose (UA) Urine Ketones Urine Blood Urine Nitrite Urine Bilirubin Urine Urobilinogen Ur Leukocyte Esterase Urine WBC (Auto) Urine RBC (Auto) Ur Epithelial Cells Hyaline Casts Urine Mucus RPR Titer 03/20/18 03/20/18 03/20/18 07:00 07:00 07:00 WBC 5.9 RBC 4.49 Hgb 13.3 Hct 39.3 MCV 87.5 MCH 29.6 MCHC 33.8 RDW 14.1 Plt Count 247 MPV 8.4 Sodium 137 Potassium 4.5 Chloride 99 Carbon Dioxide 31 Anion Gap 8 BUN 30 H Creatinine 1.4 H Creat Clearance w eGFR 38.62 POC Glucometer Random Glucose 180 H Calcium 8.8 Total Bilirubin 0.2 AST 21 ALT 31 Alkaline Phosphatase 101 Total Protein 7.1 Albumin 3.6 Urine Color Urine Appearance Urine pH Ur Specific [place] Urine Protein Urine Glucose (UA) Urine Ketones Urine Blood Urine Nitrite Urine Bilirubin Urine Urobilinogen Ur Leukocyte Esterase Urine WBC (Auto) Urine RBC (Auto) Ur Epithelial Cells Hyaline Casts Urine Mucus RPR Titer Nonreactive 03/20/18 03/20/18 03/20/18 08:00 11:22 14:05 WBC RBC Hgb Hct MCV MCH MCHC RDW Plt Count MPV Sodium Potassium Chloride Carbon Dioxide Anion Gap BUN Creatinine Creat Clearance w eGFR POC Glucometer 141 Random Glucose Calcium Total Bilirubin AST ALT Alkaline Phosphatase Total Protein Albumin Urine Color Danelle Yellow Urine Appearance Slcloudy Clear Urine pH 5.0 5.0 Ur Specific [place] 1.021 1.015 Urine Protein 1+ H Negative Urine Glucose (UA) 3+ H Negative Urine Ketones Negative Negative Urine Blood Negative Negative Urine Nitrite Negative Negative Urine Bilirubin Negative Negative Urine Urobilinogen 4.0 e.u/dl H Negative Ur Leukocyte Esterase 3+ H Trace Urine WBC (Auto) 8 7 Urine RBC (Auto) 3 None Ur Epithelial Cells Moderate Rare Hyaline Casts 22 Urine Mucus Rare RPR Titer 03/20/18 03/20/18 03/21/18 16:26 20:11 05:40 WBC RBC Hgb Hct MCV MCH MCHC RDW Plt Count MPV Sodium Potassium Chloride Carbon Dioxide Anion Gap BUN Creatinine Creat Clearance w eGFR POC Glucometer 173 146 119 Random Glucose Calcium Total Bilirubin AST ALT Alkaline Phosphatase Total Protein Albumin Urine Color Urine Appearance Urine pH Ur Specific [place] Urine Protein Urine Glucose (UA) Urine Ketones Urine Blood Urine Nitrite Urine Bilirubin Urine Urobilinogen Ur Leukocyte Esterase Urine WBC (Auto) Urine RBC (Auto) Ur Epithelial Cells Hyaline Casts Urine Mucus RPR Titer 03/21/18 11:05 WBC RBC Hgb Hct MCV MCH MCHC RDW Plt Count MPV Sodium Potassium Chloride Carbon Dioxide Anion Gap BUN Creatinine Creat Clearance w eGFR POC Glucometer 122 Random Glucose Calcium Total Bilirubin AST ALT Alkaline Phosphatase Total Protein Albumin Urine Color Urine Appearance Urine pH Ur Specific [place] Urine Protein Urine Glucose (UA) Urine Ketones Urine Blood Urine Nitrite Urine Bilirubin Urine Urobilinogen Ur Leukocyte Esterase Urine WBC (Auto) Urine RBC (Auto) Ur Epithelial Cells Hyaline Casts Urine Mucus RPR Titer renal insufficiency tachycardia a/p: continue alcohol detox protocol continue methadone pt seen by [facility]- meds ordered seen sleeping at 2 pm and dose of zoloft was held
[2018-03-21] MEDS: hydrOXYzine PAMOATE 50 MG CAPSULE (FP) PO PRN (15:42)
[2018-03-21] MEDS: THIAMINE HCL 100 MG TABLET (FP) PO SCH (22:06)
[2018-03-22] MEDS: diazePAM 5 MG TABLET PO PRN ×3 (01:27→17:28)
--- NOTE | 2018-03-22 03:30 | PN ---
[facility] Progress Note Note: seen for reported fall. client states "i'm not hurt, this happens to me all the time ", fell oob while getting up to use bathroom. states fell on r elbow, denies injuries or hitting her head, dizziness. Vital Signs Temperature 97.3 F L 03/21/18 23:31 Pulse Rate 94 H 03/21/18 23:31 Respiratory Rate 18 03/22/18 00:30 Blood Pressure 111/68 03/21/18 23:31 O2 Sat by Pulse Oximetry (%) awake, alert, anxious, seated a bed side nad heent- ncat extremities- no injuries noted from x4 w/o limitations, - tenderness; oob ambulating w/o difficulty or c/o back/spine- nl inspection a- unwitnessed fall p- fall protocol #[address] risks discussed client accepts cont to monitor clinically
[2018-03-22] MEDS ORDERED: METHADONE HCL 40 MG DISPERSABLE TABLET ONE (04:40)
[2018-03-22] MEDS ORDERED: METHADONE HCL 10 MG TABLET ONE (04:40)
[2018-03-22] MEDS: METHADONE 80 MG, METHADONE 20 MG PO SCH (05:19)
[2018-03-22] MEDS: INSULIN SLIDING SCALE (NOVOLOG) 1 VIAL SQ SCH ×4 (06:29→23:23)
[2018-03-22] MEDS: metFORMIN HCL 500 MG TABLET (FP) PO SCH ×2 (06:29→17:28)
[2018-03-22] MEDS: BACITRACIN 0.9 GM PACKET TP SCH ×4 (10:10→23:23)
[2018-03-22] MEDS: amLODIPine BESYLATE 5 MG TABLET (FP) PO SCH ×2 (10:11→23:00)
[2018-03-22] MEDS: SERTRALINE HCL 50 MG TABLET (FP) PO SCH (10:11)
[2018-03-22] MEDS: PRENATAL VITAMINS W/ FOLIC ACID TABLET (FP) PO SCH (10:11)
[2018-03-22] MEDS: diazePAM 5 MG TABLET PO SCH (10:11)
[2018-03-22] MEDS: NICOTINE 7 MG/24 HOURS TOPICAL PATCH TD SCH (10:26)
[2018-03-22 10:38] LABS: ANION GAP 6 MMOL/L (8-16); BLOOD UREA NITROGEN 33 mg/dL (7-18); CALCIUM 9.3 mg/dL (8.5-10.1); CHLORIDE 103 mmol/L (98-107); CO2 34 mmol/L (21-32); CREATININE 1.2 mg/dL (0.55-1.3); GLUCOSE,RANDOM 82 mg/dL (74-106); POTASSIUM 5.3 mmol/L (3.5-5.1); SODIUM 142 mmol/L (136-145)
[2018-03-22] MEDS ORDERED: SODIUM CHLORIDE 1,000 ML IV SCH ×2 (13:00→13:48)
--- NOTE | 2018-03-22 13:16 | PN ---
[facility] Progress Note (SOAP) Subjective: patient denies fall denies pain observed ambulate on hallway favor hard boil egg instead of scramble egg alert able to carry conversation with the senior writer speech clearly reported less tremor feeling better today mild sweating at night Objective: 03/22/18 13:16 Vital Signs Temperature 97.7 F 03/22/18 13:13 Pulse Rate 76 03/22/18 13:13 Respiratory Rate 18 03/22/18 13:13 Blood Pressure 117/69 03/22/18 13:13 O2 Sat by Pulse Oximetry (%) Laboratory Last Values WBC 5.9 K/mm3 (4.0-10.0) 03/20/18 07:00 RBC 4.49 M/mm3 (3.60-5.2) 03/20/18 07:00 Hgb 13.3 GM/dL (10.7-15.3) 03/20/18 07:00 Hct 39.3 % (32.4-45.2) 03/20/18 07:00 MCV 87.5 fl (80-96) 03/20/18 07:00 MCH 29.6 pg (25.7-33.7) 03/20/18 07:00 MCHC 33.8 g/dl (32.0-36.0) 03/20/18 07:00 RDW 14.1 % (11.6-15.6) 03/20/18 07:00 Plt Count 247 K/MM3 (134-434) 03/20/18 07:00 MPV 8.4 fl (7.5-11.1) 03/20/18 07:00 Sodium 142 mmol/L (136-145) 03/22/18 07:00 Potassium 5.3 mmol/L (3.5-5.1) H 03/22/18 07:00 Chloride 103 mmol/L (98-107) 03/22/18 07:00 Carbon Dioxide 34 mmol/L (21-32) H 03/22/18 07:00 Anion Gap 6 MMOL/L (8-16) L 03/22/18 07:00 BUN 33 mg/dL (7-18) H 03/22/18 07:00 Creatinine 1.2 mg/dL (0.55-1.3) 03/22/18 07:00 Creat Clearance w eGFR 46.14 (>60) 03/22/18 07:00 POC Glucometer 87 UNITS (80-120) 03/22/18 11:19 Random Glucose 82 mg/dL (74-106) 03/22/18 07:00 Calcium 9.3 mg/dL (8.5-10.1) 03/22/18 07:00 Total Bilirubin 0.2 mg/dL (0.2-1) 03/20/18 07:00 AST 21 U/L (15-37) 03/20/18 07:00 ALT 31 U/L (13-61) 03/20/18 07:00 Alkaline Phosphatase 101 U/L (45-117) 03/20/18 07:00 Total Protein 7.1 g/dl (6.4-8.2) 03/20/18 07:00 Albumin 3.6 g/dl (3.4-5.0) 03/20/18 07:00 Urine Color Yellow 03/20/18 14:05 Urine Appearance Clear 03/20/18 14:05 Urine pH 5.0 (5.0-8.0) 03/20/18 14:05 Ur Specific [place] 1.015 (1.010-1.035) 03/20/18 14:05 Urine Protein Negative (NEGATIVE) 03/20/18 14:05 Urine Glucose (UA) Negative (NEGATIVE) 03/20/18 14:05 Urine Ketones Negative (NEGATIVE) 03/20/18 14:05 Urine Blood Negative (NEGATIVE) 03/20/18 14:05 Urine Nitrite Negative (NEGATIVE) 03/20/18 14:05 Urine Bilirubin Negative (<2.0 mg/dL) 03/20/18 14:05 Urine Urobilinogen Negative mg/dL (0.2-1.0) 03/20/18 14:05 Ur Leukocyte Esterase Trace (NEGATIVE) 03/20/18 14:05 Urine WBC (Auto) 7 /hpf (3-5) 03/20/18 14:05 Urine RBC (Auto) None /hpf (0-3) 03/20/18 14:05 Ur Epithelial Cells Rare /HPF (FEW) 03/20/18 14:05 Hyaline Casts 22 /lpf 03/20/18 08:00 Urine Mucus Rare 03/20/18 08:00 RPR Titer Nonreactive (NONREACTIVE) 03/20/18 07:00 lab noted K+ increased from 4.7-5.3 bun increased from 30-33 03/22/18 13:18 Assessment: 03/22/18 13:18 mild alcohol withdrawal sx patient may need IV 0.9% saline solution for dehydration Plan: continue detox 1000 ml 0.9% normal saline solution IV at 100 ml/h rate repeat comp 03/23/18 and K+ level ammonia serum level
--- NOTE | 2018-03-22 18:51 | PN ---
[facility] Progress Note Note: Pt unsteady gait last night- fell. Pt on valium- alcohol detox protocol, and belsorma for sleep. Pt is getting IV fluids- empiric treatment for dehydration- high Cr and BUN. d/c'd prn valium and belsorma. Will discontinue IVF when done. Pt to call before she goes to bathroom, cane for assistance Pt to be discharged tomorrow- f/u MAT methadone
--- NOTE | 2018-03-22 23:15 | PN ---
[facility] Progress Note Note: Unsteady gait, confusion and resistant earlier, frequent toileting needs Vital Signs 03/22/18 03/22/18 17:25 19:00 Temperature 97.2 F L 97 F L Pulse Rate 96 H 89 Respiratory 18 18 Rate Blood Pressure 152/75 117/89 Abnormal Lab Results 03/22/18 03/22/18 07:00 15:03 Potassium 5.3 H Carbon Dioxide 34 H Anion Gap 6 L BUN 33 H Ammonia 96.57 H Elevated Ammonia level noted. 1000 ml IV fluids continued and completed from this afternoon. Plan: Start Lactulose TID Switch IV line to saline lock when fluids completed. Place on 1:1 and re-evaluate in am.
[2018-03-22] MEDS: LACTULOSE 20 GM/30 ML UDC (FOR ORAL USE ONLY) PO SCH (23:19)
[2018-03-22] MEDS: THIAMINE HCL 100 MG TABLET (FP) PO SCH (23:21)
[2018-03-23] MEDS: diazePAM 5 MG TABLET PO SCH
[2018-03-23] MEDS: hydrOXYzine PAMOATE 50 MG CAPSULE (FP) PO PRN (00:47)
[2018-03-23] MEDS ORDERED: ACETAMINOPHEN 325 MG TABLET (FP) PO ONE (02:30)
[2018-03-23] MEDS ORDERED: METHADONE HCL 40 MG DISPERSABLE TABLET ONE (03:48)
[2018-03-23] MEDS ORDERED: METHADONE HCL 10 MG TABLET ONE (03:48)
[2018-03-23] MEDS: LACTULOSE 20 GM/30 ML UDC (FOR ORAL USE ONLY) PO SCH (05:37)
[2018-03-23] MEDS: METHADONE 80 MG, METHADONE 20 MG PO SCH (05:38)
[2018-03-23] MEDS ORDERED: NORMAL SALINE FLUSH 0.9% 10 ML SYRINGE IVPUSH SCH (06:00)
[2018-03-23] MEDS: metFORMIN HCL 500 MG TABLET (FP) PO SCH (07:20)
[2018-03-23] MEDS: INSULIN SLIDING SCALE (NOVOLOG) 1 VIAL SQ SCH (07:21)
[2018-03-23 09:04] VITALS: BP 106/67; PULSE 95; TEMP 97
--- NOTE | 2018-03-23 09:42 | PN ---
[facility] Progress Note Note: PATIENT HAS COMPLETED DETOX MEDICATION REGIMEN (VALIUM) AND IS SCHEDULED FOR DISCHARGE FROM DETOX UNIT TODAY. PATIENT A & O X 3; HOWEVER PATIENT APPEARS SOMEWHAT CONFUSED AND LETHARGIC AND EXHIBITING SLURRED SPEECH. AMMONIA LEVEL DRAWN YESTERDAY NOTED TO BE ELEVATED (96.57). ADMISSION AND REPEAT RENAL LABS ABNORMAL. RESULTS OF SUBSEQUENT REPEAT CMP PENDING AT THIS TIME. PATIENT CURRENTLY MAINTAINED ON 1:1 CONTINUOUS OBSERVATION STATUS FOR SAFETY. HOWEVER, PATIENT ALSO DEMONSTRATING CONSIDERABLE DIFFICULTY IN AMBULATION AND HAVING DIFFICULTY IN STANDING UP STRAIGHT AND IN REMAINING IN AN UPRIGHT POSITION WHILE SITTING. VS STABLE. 02: 100%. DETOX UNIT CASEMNEDWIN PETERSON WILL ATTEMPT, IF POSSIBLE, TO COMMUNICATE WITH STUDY ABROAD COORDINATOR AT [facility] ONCE PATIENT IS THERE TO HELP FACILITATE DISCHARGE TRANSPORTATION AND AFTERCARE. REPORT GIVEN TO DR. THOMAS AT [facility]. PATIENT TO BE TAKEN TO [facility] VIA AMBULANCE FOR FURTHER MEDICAL EVALUATION. 1:1 CONTINUOUS OBSERVATION STATUS TO BE D/C'D AT TIME IN WHICH [facility] ARRIVES ON DETOX UNIT TO TAKE PATIENT TO [facility]. Steff PASCAL NP.
[2018-03-23] MEDS ORDERED: diazePAM 5 MG TABLET PO SCH ×2 (10:00)
[2018-03-23] MEDS ORDERED: METHADONE HCL 10 MG TABLET (FOR DETOX USE ONLY) PO SCH (10:00)
[2018-03-23 10:45] LABS: ALBUMIN 3.6 g/dl (3.4-5.0); ALK PHOS 101 U/L (45-117); ANION GAP 8 MMOL/L (8-16); BILIRUBIN,TOTAL 0.4 mg/dL (0.2-1); BLOOD UREA NITROGEN 26 mg/dL (7-18); CALCIUM 9.6 mg/dL (8.5-10.1); CHLORIDE 102 mmol/L (98-107); CO2 32 mmol/L (21-32); GLUCOSE,RANDOM 128 mg/dL (74-106); POTASSIUM 4.9 mmol/L (3.5-5.1); SGOT/AST 22 U/L (15-37); SGPT/ALT 24 U/L (13-61); SODIUM 141 mmol/L (136-145); TOT PROT 6.8 g/dl (6.4-8.2)
--- NOTE | 2018-03-23 11:16 | DS ---
[facility] Detox Discharge Summary Admission Date: 03/19/18 Discharge Date: 03/23/18 - History Present History: Alcohol Dependence, Cannabis Dependence, Cocaine Dependence, Opioid Dependence, Sedative Dependence, MMTP Additional Comments: PATIENT SCHEDULED FOR DISCHARGE FORM DETOX UNIT TODAY SHE HAS COMPLETED HER DETOX REGIMEN. HOWEVER, PRIOR TO TIME OF DISCHARGE, PATIENT A & 0 X 3, BUT APPEARS CONFUSED AND LETHARGIC AND IS EXHIBITING SLURRED SPEECH. PATIENT HAD BEEN MAINTAINED ON 1:1 CONTINUOUS OBSERVATIONS STATUS FOR SAFETY, BUT APPEARED TO HAVE CONSIDERABLE DIFFICULTY IN AMBULATING UNASSISTED AND IN REMAINING UPRIGHT WHEN SITTING DOWN. PATIENT NOTED TO HAVE ELEVATED AMMONIA LEVEL (96.57) WHEN CHECKED YESTERDAY (LACTULOSE STARTED LAST NIGHT FOR TREATMENT). DR. GUERRERO CONSULTED ON THIS MATTER. PER RECOMMENDATION FROM DR. GUERRERO, PATIENT TO BE TRANSFERRED (VIA AMBULANCE) TO [facility] FOR FURTHER MEDICAL EVALUATION. PATIENT WAS ITITIALLY INTENT ON GOING HOME TO HER APARTMENT IN [place], [place] FOR THIS WEEKEND TO ATTEND TO SOME PERSONAL MATTERS, THEN TO GO TO [facility] ([place], [place]) FOR AFTERCARE ON 03/26/2018. [facility] DETOX UNIT INSTALLATION AND SERVICE TECHNICIAN Luc PETERSON WILL ATTEMPT TO CONFER WITH INSTALLATION AND SERVICE TECHNICIAN AT [facility], IF POSSIBLE TO HELP FACILIATE TRANSPORTATION AND AFTERCARE FOR PATIENT. FOLLOW-UP AFTERCARE FOR PATIENT TO BE DETERMINED PENDING MEDICAL EVALUATION AND RECOMMENDATIONS FROM [facility] MEDICAL EVALUATION. PATIENT ALSO ADVISED TO FOLLOW-UP WITH MEDICAL PROVIDER DR. Steff BUTCHER ([place], [place]) FOR GENERAL MEDICAL EVALUATION AND FOLLOW-UP WHEN POSSIBLE AFTER DISCHARGE FROM [facility]. PATIENT VERBALIZED UNDERSTANDING OF RECOMMENDATION. Pertinent Past History: HTN, Hypercholesterolemia, M.M.T.P., History of Depression, History of Fall, Hyperammonemia, Disorder of Skin/Subcutaneous Tissue, Hep C, Type II DM, Nicotine Dependence, Asthma, History of Anemia. - Physical Exam Results Vital Signs: Vital Signs Temperature 97 F L 03/23/18 09:03 Pulse Rate 95 H 03/23/18 09:03 Respiratory Rate 18 03/23/18 09:03 Blood Pressure 106/67 03/23/18 09:03 O2 Sat by Pulse Oximetry (%) Pertinent Admission Physical Exam Findings: WITHDRAWAL SYMPTOMS. Laboratory Tests 03/19/18 03/19/18 03/20/18 17:49 20:30 06:07 WBC RBC Hgb Hct MCV MCH MCHC RDW Plt Count MPV Sodium Potassium Chloride Carbon Dioxide Anion Gap BUN Creatinine Creat Clearance w eGFR POC Glucometer 215 260 126 Random Glucose Calcium Total Bilirubin AST ALT Alkaline Phosphatase Ammonia Total Protein Albumin Urine Color Urine Appearance Urine pH Ur Specific Aurora Urine Protein Urine Glucose (UA) Urine Ketones Urine Blood Urine Nitrite Urine Bilirubin Urine Urobilinogen Ur Leukocyte Esterase Urine WBC (Auto) Urine RBC (Auto) Ur Epithelial Cells Hyaline Casts Urine Mucus RPR Titer 03/20/18 03/20/18 03/20/18 07:00 07:00 07:00 WBC 5.9 RBC 4.49 Hgb 13.3 Hct 39.3 MCV 87.5 MCH 29.6 MCHC 33.8 RDW 14.1 Plt Count 247 MPV 8.4 Sodium 137 Potassium 4.5 Chloride 99 Carbon Dioxide 31 Anion Gap 8 BUN 30 H Creatinine 1.4 H Creat Clearance w eGFR 38.62 POC Glucometer Random Glucose 180 H Calcium 8.8 Total Bilirubin 0.2 AST 21 ALT 31 Alkaline Phosphatase 101 Ammonia Total Protein 7.1 Albumin 3.6 Urine Color Urine Appearance Urine pH Ur Specific Aurora Urine Protein Urine Glucose (UA) Urine Ketones Urine Blood Urine Nitrite Urine Bilirubin Urine Urobilinogen Ur Leukocyte Esterase Urine WBC (Auto) Urine RBC (Auto) Ur Epithelial Cells Hyaline Casts Urine Mucus RPR Titer Nonreactive 03/20/18 03/20/18 03/20/18 08:00 11:22 14:05 WBC RBC Hgb Hct MCV MCH MCHC RDW Plt Count MPV Sodium Potassium Chloride Carbon Dioxide Anion Gap BUN Creatinine Creat Clearance w eGFR POC Glucometer 141 Random Glucose Calcium Total Bilirubin AST ALT Alkaline Phosphatase Ammonia Total Protein Albumin Urine Color Danelle Yellow Urine Appearance Slcloudy Clear Urine pH 5.0 5.0 Ur Specific Aurora 1.021 1.015 Urine Protein 1+ H Negative Urine Glucose (UA) 3+ H Negative Urine Ketones Negative Negative Urine Blood Negative Negative Urine Nitrite Negative Negative Urine Bilirubin Negative Negative Urine Urobilinogen 4.0 e.u/dl H Negative Ur Leukocyte Esterase 3+ H Trace Urine WBC (Auto) 8 7 Urine RBC (Auto) 3 None Ur Epithelial Cells Moderate Rare Hyaline Casts 22 Urine Mucus Rare RPR Titer 03/20/18 03/20/18 03/21/18 16:26 20:11 05:40 WBC RBC Hgb Hct MCV MCH MCHC RDW Plt Count MPV Sodium Potassium Chloride Carbon Dioxide Anion Gap BUN Creatinine Creat Clearance w eGFR POC Glucometer 173 146 119 Random Glucose Calcium Total Bilirubin AST ALT Alkaline Phosphatase Ammonia Total Protein Albumin Urine Color Urine Appearance Urine pH Ur Specific Aurora Urine Protein Urine Glucose (UA) Urine Ketones Urine Blood Urine Nitrite Urine Bilirubin Urine Urobilinogen Ur Leukocyte Esterase Urine WBC (Auto) Urine RBC (Auto) Ur Epithelial Cells Hyaline Casts Urine Mucus RPR Titer 03/21/18 03/21/18 03/21/18 11:05 16:32 20:12 WBC RBC Hgb Hct MCV MCH MCHC RDW Plt Count MPV Sodium Potassium Chloride Carbon Dioxide Anion Gap BUN Creatinine Creat Clearance w eGFR POC Glucometer 122 115 118 Random Glucose Calcium Total Bilirubin AST ALT Alkaline Phosphatase Ammonia Total Protein Albumin Urine Color Urine Appearance Urine pH Ur Specific Aurora Urine Protein Urine Glucose (UA) Urine Ketones Urine Blood Urine Nitrite Urine Bilirubin Urine Urobilinogen Ur Leukocyte Esterase Urine WBC (Auto) Urine RBC (Auto) Ur Epithelial Cells Hyaline Casts Urine Mucus RPR Titer 03/22/18 03/22/18 03/22/18 05:20 07:00 11:19 WBC RBC Hgb Hct MCV MCH MCHC RDW Plt Count MPV Sodium 142 Potassium 5.3 H Chloride 103 Carbon Dioxide 34 H Anion Gap 6 L BUN 33 H Creatinine 1.2 Creat Clearance w eGFR 46.14 POC Glucometer 135 87 Random Glucose 82 Calcium 9.3 Total Bilirubin AST ALT Alkaline Phosphatase Ammonia Total Protein Albumin Urine Color Urine Appearance Urine pH Ur Specific Aurora Urine Protein Urine Glucose (UA) Urine Ketones Urine Blood Urine Nitrite Urine Bilirubin Urine Urobilinogen Ur Leukocyte Esterase Urine WBC (Auto) Urine RBC (Auto) Ur Epithelial Cells Hyaline Casts Urine Mucus RPR Titer 03/22/18 03/22/18 03/22/18 15:03 16:51 23:10 WBC RBC Hgb Hct MCV MCH MCHC RDW Plt Count MPV Sodium Potassium Chloride Carbon Dioxide Anion Gap BUN Creatinine Creat Clearance w eGFR POC Glucometer 99 94 Random Glucose Calcium Total Bilirubin AST ALT Alkaline Phosphatase Ammonia 96.57 H Total Protein Albumin Urine Color Urine Appearance Urine pH Ur Specific [place] Urine Protein Urine Glucose (UA) Urine Ketones Urine Blood Urine Nitrite Urine Bilirubin Urine Urobilinogen Ur Leukocyte Esterase Urine WBC (Auto) Urine RBC (Auto) Ur Epithelial Cells Hyaline Casts Urine Mucus RPR Titer 03/23/18 03/23/18 05:37 07:00 WBC RBC Hgb Hct MCV MCH MCHC RDW Plt Count MPV Sodium 141 Potassium 4.9 Chloride 102 Carbon Dioxide 32 Anion Gap 8 BUN 26 H Creatinine 1.0 Creat Clearance w eGFR 56.95 POC Glucometer 109 Random Glucose 128 H Calcium 9.6 Total Bilirubin 0.4 AST 22 ALT 24 Alkaline Phosphatase 101 Ammonia Total Protein 6.8 Albumin 3.6 Urine Color Urine Appearance Urine pH Ur Specific Aurora Urine Protein Urine Glucose (UA) Urine Ketones Urine Blood Urine Nitrite Urine Bilirubin Urine Urobilinogen Ur Leukocyte Esterase Urine WBC (Auto) Urine RBC (Auto) Ur Epithelial Cells Hyaline Casts Urine Mucus RPR Titer LABS NOTED. - Treatment Hospital Course: Detox Protocol Followed, Detoxed Safely, Responded well, Discharged Condition Good Patient has Accepted a Rehab Referral to: PT. TRANSFERRED TO [facility] FOR EVALUATION. SEE ABOVE. - Medication Discharge Medications: Ambulatory Orders cloNIDine HCL [Catapres -] 0.2 mg PO BID #60 03/08/16 Zolpidem Tartrate [Ambien] 10 mg PO HS 11/12/17 Insulin Glargine,Hum.rec.anlog [Lantus Solostar PEN -] 30 units SQ HS #1 ins Albuterol Sulfate Inhaler - [Ventolin HFA Inhaler -] 2 puff IH Q4H PRN #1 inhaler 03/22/18 Amlodipine Besylate [Norvasc -] 5 mg PO BID #30 tablet 03/22/18 metFORMIN HCL [Glucophage -] 500 mg PO BID@0700,1630 #60 tablet 03/22/18 - Diagnosis (1) Serum ammonia increased Current Visit: Yes Status: Acute (2) Alcohol dependence with uncomplicated withdrawal Current Visit: Yes Status: Acute (3) Cannabis dependence, uncomplicated Current Visit: Yes Status: Chronic (4) Diabetes mellitus, insulin dependent (IDDM), uncontrolled Current Visit: Yes Status: Chronic (5) HTN (hypertension) Current Visit: Yes Status: Chronic Qualifiers: Hypertension type: essential hypertension Qualified Code(s): I10 - Essential (primary) hypertension (6) Methadone maintenance therapy patient Current Visit: Yes Status: Chronic (7) Nicotine dependence Current Visit: Yes Status: Chronic Qualifiers: Nicotine product type: cigarettes Substance use status: other nicotine- induced disorder Qualified Code(s): F17.218 - Nicotine dependence, cigarettes , with other nicotine-induced disorders (8) Other specified disorders of the skin and subcutaneous tissue Current Visit: Yes Status: Chronic (9) Sedative, hypnotic or anxiolytic dependence with withdrawal, uncomplicated Current Visit: Yes Status: Chronic (10) Asthma Current Visit: Yes Status: Chronic Qualifiers: Asthma severity: mild Asthma persistence: unspecified Asthma complication type: uncomplicated Qualified Code(s): J45.909 - Unspecified asthma, uncomplicated (11) Hepatitis C Current Visit: Yes Status: Chronic Qualifiers: Viral hepatitis chronicity: chronic Hepatic coma status: without hepatic coma Qualified Code(s): B18.2 - Chronic viral hepatitis C (12) Cocaine dependence Current Visit: Yes Status: Chronic Qualifiers: Substance use status: uncomplicated Qualified Code(s): F14.20 - Cocaine dependence, uncomplicated - AMA Did Patient Leave Against Medical Advice: No
[2018-03-23] MEDS: amLODIPine BESYLATE 5 MG TABLET (FP) PO SCH (11:22)
[2018-03-23] MEDS: SERTRALINE HCL 50 MG TABLET (FP) PO SCH (11:22)
[2018-03-23] MEDS: PRENATAL VITAMINS W/ FOLIC ACID TABLET (FP) PO SCH (11:22)
[2018-03-23] MEDS: NICOTINE 7 MG/24 HOURS TOPICAL PATCH TD SCH (11:22)
[2018-03-23] MEDS: BACITRACIN 0.9 GM PACKET TP SCH (11:22)
[2018-03-24] MEDS ORDERED: METHADONE HCL 5 MG TABLET (FOR DETOX USE ONLY) PO SCH (06:00)
== END 2018-03-23 11:23 | disposition short-term general hospital (02) | DRG 773 ==
LOC: YASAS 12:38 → Y3N 18:18
PROVIDERS: ADMIT Neuromusculoskeletal Medicine & OMM; ATTEND Neuromusculoskeletal Medicine & OMM
PROC: HZ2ZZZZ Detoxification Services for Substance Abuse Treatment (ICD-10-PCS; principal; 2018-03-19)
DX: F10.230 Alcohol dependence with withdrawal, uncomplicated (principal); F11.20 Opioid dependence, uncomplicated; F13.230 Sedative, hypnotic or anxiolytic dependence with withdrawal, uncomplicated; F14.20 Cocaine dependence, uncomplicated; F12.20 Cannabis dependence, uncomplicated; F17.218 Nicotine dependence, cigarettes, with other nicotine-induced disorders; I10 Essential (primary) hypertension; J45.909 Unspecified asthma, uncomplicated; E11.65 Type 2 diabetes mellitus with hyperglycemia; E78.00 Pure hypercholesterolemia, unspecified; E72.20 Disorder of urea cycle metabolism, unspecified; L98.8 Other specified disorders of the skin and subcutaneous tissue; B18.2 Chronic viral hepatitis C; R41.0 Disorientation, unspecified; R47.81 Slurred speech; R53.83 Other fatigue; R26.81 Unsteadiness on feet; E86.0 Dehydration; R00.0 Tachycardia, unspecified; N28.9 Disorder of kidney and ureter, unspecified; Z79.84 Long term (current) use of oral hypoglycemic drugs; Z79.4 Long term (current) use of insulin; Z91.14 Patient's other noncompliance with medication regimen; W18.39XA Other fall on same level, initial encounter; Z91.81 History of falling; Y93.89 Activity, other specified; Y92.239 Unspecified place in hospital as the place of occurrence of the external cause
CPT/HCPCS: 36415; 80048; 80053; 81003; 81015; 82140; 82962; 85027; 86593; J7030

== ENCOUNTER 2018-03-23 11:33 | Emergency (ER) | payer OTHER ==
[2018-03-23 11:57] VITALS: BP 131/86; PULSE 94; TEMP 98; BMI 32.3
--- NOTE | 2018-03-23 12:05 | PDOC ---
Attending Attestation - Resident Resident Name: Sandra Guo - ED Attending Attestation I have performed the following: I have examined & evaluated the patient, The case was reviewed & discussed with the resident, I agree w/resident's findings & plan - HPI HPI: 03/23/18 13:33 The patient is a 57 year old female, with a significant past medical history of EtOH use disorder (prior withdrawal c/b seizures and DT), DM, HTN, HLD, asthma, HCV, in methadone therapy, depression, and bipolar, who presents to the emergency department via EMS with from [facility] with, increased anxiety due to leaving detox. As per [facility], the patient has been dehydrated, confused, lethargic, and having multiple fall prompting then to call for EMS. While in the ED, patient is experiencing her chronic DT and increased anxiety secondary to her removal from detox. She denies recent fevers, chills, headache or dizziness. She denies recent nausea, vomit, diarrhea or constipation. She denies recent dysuria, frequency, urgency or hematuria. She denies recent chest pain or shortness of breath. Allergies: tomato. <Dain Monroe - Last Filed: 03/23/18 13:33> - Physicial Exam PE: 03/24/18 19:11 Agree with resident exam. Patient is alert and oriented x 3 and ambulatory with a steady gait. Neurologically intact. - Medical Decision Making 03/23/18 16:12 Pt presents to the ED after sent in by CT for confusion and lethargy. Patient is alert and oriented x 3 and ambulatory with a steady gait. Has been getting regular doses of valium at [facility], which may account for her episodes of confusion. Labs and cT are negative. Will discharge back to [facility]. <Haydee Sesay - Last Filed: 03/24/18 19:12> Attestations - Attestations 03/23/18 13:34 Documentation prepared by Dain Monroe, acting as medical support assistant for Haydee Sesay MD. <Dain Monroe - Last Filed: 03/23/18 13:33>
--- NOTE | 2018-03-23 12:07 | PDOC ---
History of Present Illness - General Chief Complaint: Revisit, Lab Variance Stated Complaint: Revisit, Lab Variance Time Seen by Provider: 03/23/18 12:01 History Source: Patient, Other ([facility] report) Exam Limitations: No Limitations - History of Present Illness Initial Comments: 03/23/18 12:02 [id number] with h/o EtOH use disorder, prior withdrawal c/b seizures and DT, DM, HTN , HLD, asthma, HCV, on methadone therapy program, depression, and bipolar, who was BIBEMS as sent by [facility] where she is detoxing from EtOH and cocaine. Their call-ahead report noted concern for dehydration (getting IVF at detox for the past couple of days), lethargy, confusion, and multiple falls. The patient herself notes having last used EtOH and cocaine (never IVDA) just prior to admission at [facility] 5 days ago. She notes generalized body aches, anxiety (about leaving detox and being able to set up rehab), and chronic unchanged tremor. She denies any difficulty walking or balancing, denies f/c/n/v/d/c, denies rectal bleeding, new numbness, tingling, or focal weakness. Past History - Past Medical History Allergies/Adverse Reactions: Allergies Allergy/AdvReac Type Severity Reaction Status Date / Time tomato [Tomato] Allergy Severe Itching Verified 03/23/18 11:57 No Known Drug Allergies Allergy Verified 03/23/18 11:57 NKDA Allergy Uncoded 02/04/18 11:03 Home Medications: Ambulatory Orders cloNIDine HCL [Catapres -] 0.2 mg PO BID #60 03/08/16 Zolpidem Tartrate [Ambien] 10 mg PO HS 11/12/17 Insulin Glargine,Hum.rec.anlog [Lantus Solostar PEN -] 30 units SQ HS #1 ins Albuterol Sulfate Inhaler - [Ventolin HFA Inhaler -] 2 puff IH Q4H PRN #1 inhaler 03/22/18 Amlodipine Besylate [Norvasc -] 5 mg PO BID #30 tablet 03/22/18 metFORMIN HCL [Glucophage -] 500 mg PO BID@0700,1630 #60 tablet 03/22/18 Anemia: Yes (resolved) Asthma: Yes (Pt is MDI.) Cancer: No Cardiac Disorders: No CVA: No COPD: No CHF: No Dementia: No Diabetes: Yes (Type II) GI Disorders: No Disorders: No HTN: Yes Hypercholesterolemia: Yes Kidney Stones: No Liver Disease: Yes Seizures: No Thyroid Disease: No - Surgical History Abdominal Surgery: Yes (Hysterectomy in 2007) Appendectomy: No Cardiac Surgery: No Cholecystectomy: Yes (r/o gallstones 11/05) Lung Surgery: No Neurologic Surgery: No Orthopedic Surgery: No - Reproductive History PID: No - Immunization History Immunization Up to Date: Yes - Suicide/Smoking/Psychosocial Hx Smoking History: Never smoked Have you smoked in the past 12 months: No Number of Cigarettes Smoked Daily: 15 Cigars Per Day: 0 Information on smoking cessation initiated: No 'Breaking Loose' booklet given: 03/19/18 Hx Alcohol Use: No Drug/Substance Use Hx: No Substance Use Type: Alcohol, Cocaine, Heroin, Marijuana Hx Substance Use Treatment: Yes (detox, rehab, MMTP) Review of Systems - Review of Systems Able to Perform ROS?: Yes Comments:: 03/23/18 12:40 GEN: malaise, generalized weakness, tiredness, myalgias, no fever, chills, or weight change HEENT: no ear pain, sore throat, vision change, or eye pain CV: no chest pain, palpitations, lightheadedness, syncope, or edema RESP: cough, no wheezing, or SOB GI: no abdominal pain, nausea, vomiting, diarrhea, constipation, or white/black/ bloody stool : no dysuria, hematuria, incontinence, retention, bleeding, or discharge MSK: no neck/back pain, muscle weakness/pain, or joint swelling/pain NEURO: chronic tremor, no headache, seizure, vertigo, numbness, tingling, or focal weakness PSYCH: insomnia, no substance use (in 5 days), no behavior change SKIN: no jaundice, no rash ROS otherwise negative except as noted in HPI *Physical Exam - Vital Signs Last Vital Signs Temp Pulse Resp BP Pulse Ox 98.0 F 94 H 16 131/86 100 03/23/18 11:38 03/23/18 11:38 03/23/18 11:38 03/23/18 11:38 03/23/18 11:38 - Physical Exam Comments: 03/23/18 13:09 GENERAL: very pleasant and talkative but labile affect as she switches from hopeful/happy to tearful quickly, nontoxic-appearing, A/Ox4, no distress, answers questions appropriately HEENT: PERRLA, EOMI, moist mucous membranes NECK/BACK: no midline ttp, no spinal stepoff or deformity, no hematoma, full ROM , neck supple CARDIOVASCULAR: regular rate/rhythm, normal S1S2, no MGR, strong peripheral pulses, capillary refill <2 seconds, extremities wwp, no edema LUNGS/RESPIRATORY: occasional cough, no respiratory distress, CTAB GI/ABDOMEN: symmetric [id number], normoactive BS, soft, no ttp, no midline pulsatile masses : no CVA tenderness EXTREMITIES: no muscle atrophy, no acute deformity, no edema SKIN: warm and dry, no pallor, no jaundice, no rash, no bruising, no skin breakdown, no cuts, no lesions NEUROLOGICAL: GCS 15, CN II-XII grossly intact, 5/5 strength proximally and distally, no facial droop Moderate Sedation - Procedure Monitoring Vital Signs: Procedure Monitoring Vital Signs Temperature 98.0 F 03/23/18 11:38 Pulse Rate 94 H 03/23/18 11:38 Respiratory Rate 16 03/23/18 11:38 Blood Pressure 131/86 03/23/18 11:38 O2 Sat by Pulse Oximetry (%) 100 03/23/18 11:38 ED Treatment Course - LABORATORY CBC & Chemistry Diagram: 03/23/18 12:40 03/23/18 12:40 Medical Decision Making - Medical Decision Making 03/23/18 13:06 CM speaking with the patient to give resources for rehab. 03/23/18 14:57 I spoke with Kyleigh Hagen. Patient going back to [facility] Detox via EMS. *DC/Admit/Observation/Transfer Diagnosis at time of Disposition: Alcohol use disorder, Cocaine use disorder - Discharge Dispostion Disposition: RESIDENTIAL FACILITY Condition at time of disposition: Stable Decision to Admit order: No - Referrals Referrals: Debbie Johnson MD [Primary Care Provider] - - Patient Instructions Additional Instructions: You were seen in the ER for tiredness and confusion and falls. We took a CT scan which showed no new problems. After our assessment, we do not believe you are having a medical emergency at this time, and we believe you are safe to go back to [facility]. Follow up with their medical providers. Please come back to the ER at any time, 24 hours a day, for any new or worsening symptoms, especially severe pain, vision troubles, difficulty walking/balancing, passing out, seizures, hallucinations, or other symptoms. If you are having symptoms that make it unsafe to drive, please call 911. - Post Discharge Activity
[2018-03-23] MEDS ORDERED: SODIUM CHLORIDE 0.9% 500 ML INFUS.BAG IV ONE (12:26)
[2018-03-23 13:14] LABS: BASO % 0.4 % (0-2.0); EOS % 4.9 % (0-4.5); HEMATOCRIT 40.1 % (32.4-45.2); HEMOGLOBIN 13.3 GM/dL (10.7-15.3); LYMPH % 40.6 % (8-40); MCH 29.3 pg (25.7-33.7); MCHC 33.2 g/dl (32.0-36.0); MEAN CELL VOLUME 88.3 fl (80-96); MONO % 12.7 % (3.8-10.2); NEUT % 41.4 % (42.8-82.8); PLATELET COUNT 220 K/MM3 (134-434); RBC 4.54 M/mm3 (3.60-5.2); RDW 14.6 % (11.6-15.6); WHITE BLOOD COUNT 4.7 K/mm3 (4.0-10.0)
[2018-03-23 13:23] LABS: ALBUMIN 3.7 g/dl (3.4-5.0); ALK PHOS 94 U/L (45-117); ANION GAP 5 MMOL/L (8-16); BILIRUBIN,TOTAL 0.2 mg/dL (0.2-1); BLOOD UREA NITROGEN 22 mg/dL (7-18); CHLORIDE 100 mmol/L (98-107); CO2 34 mmol/L (21-32); CREATININE 1.1 mg/dL (0.55-1.3); GLUCOSE,RANDOM 86 mg/dL (74-106); MAGNESIUM 2.4 mg/dL (1.8-2.4); POTASSIUM 5.4 mmol/L (3.5-5.1); SGOT/AST 26 U/L (15-37); SGPT/ALT 23 U/L (13-61); SODIUM 138 mmol/L (136-145); TOT PROT 7.4 g/dl (6.4-8.2)
[2018-03-23] MEDS ORDERED: chlordiazePOXIDE HCL 25 MG CAPSULE PO ONE ×2 (15:08→16:10)
[2018-03-23] MEDS ORDERED: chlordiazePOXIDE HCL 25 MG CAPSULE ONE ×2 (15:12→16:34)
--- NOTE | 2018-03-24 16:43 | EKG ---
Test Reason : Blood Pressure : / mmHG Vent. Rate : 085 BPM Atrial Rate : 085 BPM P-R Int : 148 ms QRS Dur : 074 ms QT Int : 394 ms P-R-T Axes : 073 067 075 degrees QTc Int : 468 ms SINUS RHYTHM WITH MARKED SINUS ARRHYTHMIA POSSIBLE LEFT ATRIAL ENLARGEMENT BORDERLINE ECG WHEN COMPARED WITH ECG OF 12-NOV-2017 14:16, NO SIGNIFICANT CHANGE WAS FOUND Confirmed by Christiane Chadwick ([id number]) on 03/24/2018 4:43:18 PM Referred By: Confirmed By:Christiane Chadwick
== END 2018-03-23 16:40 ==
LOC: JER 11:33
PROC: 3E0337Z Introduction of Electrolytic and Water Balance Substance into Peripheral Vein, Percutaneous Approach (ICD-10-PCS; principal; 2018-03-23)
DX: F10.231 Alcohol dependence with withdrawal delirium (principal); E11.9 Type 2 diabetes mellitus without complications; I10 Essential (primary) hypertension; J45.909 Unspecified asthma, uncomplicated; F11.20 Opioid dependence, uncomplicated
CPT/HCPCS: 36415; 70450-TC; 71046-TC-FY; 80053; 83735; 85025; 93005; 93010; 99281-25

== ENCOUNTER 2018-04-27 14:25 | Inpatient (IN) | payer OTHER ==
[2018-04-27 16:41] VITALS: BMI 25.2
[2018-04-27] MEDS ORDERED: diazePAM 5 MG TABLET PO ONE (23:00)
--- NOTE | 2018-04-27 23:14 | HP ---
CIWA Score Nausea/Vomitin (Vomited this am) Muscle Tremors: 7-Severe,w/o Arm Extended Anxiety: 4-Mod. Anxious/Guarded Agitation: 4-Moderately Restless Paroxysmal Sweats: 3 (Increased facial moisture) Orientation: 0-Oriented Tacttile Disturbances: 0-None Auditory Disturbances: 0-None Visual Disturbances: 0-None Headache: 2-Mild CIWA-Ar Total Score: 25 - Admission Criteria OASAS Guidelines: Admission for Medically Managed Detox: Requires at least one of the followin. CIWA greater than 12 2. Seizures within the past 24 hours 3. Delirium tremens within the past 24 hours 4. Hallucinations within the past 24 hours 5. Acute intervention needed for co occurring medical disorder 6. Acute intervention needed for co occurring psychiatric disorder 7. Severe withdrawal that cannot be handled at a lower level of care (continued vomiting, continued diarrhea, abnormal vital signs) requiring intravenous medication and/or fluids 8. Patient presents the following: CIWA greater than 12 Admission Criteria Met: Admission criteria met Admission ROS [facility] Chief Complaint: Here for alcohol use withdrawal. Allergies/Adverse Reactions: Allergies Allergy/AdvReac Type Severity Reaction Status Date / Time tomato [Tomato] Allergy Severe Itching Verified 04/27/18 17:32 No Known Drug Allergies Allergy Verified 04/27/18 17:32 NKDA Allergy Uncoded 04/27/18 17:32 History of Present Illness: I'm drinking too much. I need to stop drinking. Alcohol use began at age 14. Cocaine use began at age 39. Benzo - denies use Marijuana use began at age 15. Nicotine use began at age 17. Opiates use began at age 39. Continues to relapse w/ opiates despite being on Methadone Maintenance. Currently on [place] MMTP since September 2017. Last clinic visit, after missing several days was on 3/5 w/ 80 mg. Program states we can start on what ever dose we deem appropriate. Will start on Methadone 70 mg in am and give 30 mg HS once, then 80 mg daily until returns to program. Verification obtained. Denies hx seizures, blackouts, overdoses. Hx; DM, HTN, Asthma w/ recent exacerbations of SOB. States has been non- compliant w/ medications. Hx: Depression. Denies thoughts of harming self or others. States son 2 weeks ago and is depressed. 03/2018 EKG reviewed.- borderline EKG w/ arrhythmias w/o significant changes from 2018. Patient Name: Irene Goyal Date: 1960 Address: [address] [place] [address] Sex: Female Rx Written Rx Dispensed Drug Quantity Days Supply Prescriber Name 01/25/2018 01/26/2018 zolpidem tartrate 10 mg tablet 30 30 Neghavitai, Joe H 11/16/2017 11/18/2017 zolpidem tartrate 10 mg tablet 30 30 Neghassi, Joe H 08/18/2017 10/10/2017 zolpidem tartrate 10 mg tablet 30 30 Neghassi, Joe H 08/18/2017 08/19/2017 zolpidem tartrate 10 mg tablet 30 30 Negwaqasi, Joe H Exam Limitations: No Limitations - Ebola screening Have you traveled outside of the country in the last 21 days: No Have you had contact with anyone from an Ebola affected area: No Have you been sick,other than usual withdrawal symptoms: No Do you have a fever: No - Review of Systems Constitutional: Chills, Diaphoresis, Changes in sleep (Difficulty falling asleep ) EENT: reports: Blurred Vision, Nose Congestion, Dental Problems (MKissing and cracked teeth. Chew and swallows ok) Respiratory: reports: No Symptoms reported Cardiac: reports: Irregular Heart Rate GI: reports: Nausea, Abdominal cramping : reports: No Symptoms Reported Musculoskeletal: reports: No Symptoms Reported Integumentary: reports: No Symptoms Reported Neuro: reports: Headache (Mild headache since this am), Tremors Endocrine: reports: Increased Thirst Hematology: reports: No Symptoms Reported Psychiatric: reports: Judgement Intact, Orientated x3, Agitated, Anxious, Depressed (Denies thoughts of harming self or others.) Patient History - Patient Medical History Hx Anemia: Yes (resolved) Hx Asthma: Yes Hx Chronic Obstructive Pulmonary Disease (COPD): No Hx Cancer: No Hx Cardiac Disorders: No Hx Congestive Heart Failure: No Hx Hypertension: Yes (on meds) Hx Hypercholesterolemia: Yes Hx Pacemaker: No HX Cerebrovascular Accident: No Hx Seizures: No Hx Dementia: No Hx Diabetes: Yes (Type II) Hx Gastrointestinal Disorders: No Hx Liver Disease: Yes Hx Genitourinary Disorders: No Hx Sexually Transmitted Disorders: No Hx Renal Disease (ESRD): No Hx Thyroid Disease: No Hx Human Immunodeficiency Virus (HIV): No Hx Hepatitis C: Yes (NO TREATMENT) Hx Depression: Yes Hx Suicide Attempt: No Hx Bipolar Disorder: No Hx Schizophrenia: No - Patient Surgical History Past Surgical History: Yes Hx Neurologic Surgery: No Hx Cataract Extraction: No Hx Cardiac Surgery: No Hx Lung Surgery: No Hx Breast Surgery: Yes (cyst removal in 2005) Hx Breast Biopsy: No Hx Abdominal Surgery: Yes (Hysterectomy in 2007) Hx Appendectomy: No Hx Cholecystectomy: Yes (r/o gallstones 11/05) Hx Genitourinary Surgery: No Hx Section: No Hx Orthopedic Surgery: No Hx Hysterectomy: Yes (2007) Anesthesia Reaction: No - PPD History Previous Implant?: Yes Documented Results: Negative w/proof Implanted On Prior R Admission?: Yes Date: 11/14/17 Results: 0 m m PPD to be Administered?: No - Reproductive History Patient is a Female of Child Bearing Age (11 -55 yrs old): No Last Menstrual Period: 10/07/07 Patient : No - Smoking Cessation Smoking history: Current every day smoker Have you smoked in the past 12 months: Yes Aproximately how many cigarettes per day: 10 Cigars Per Day: 0 Hx Chewing Tobacco Use: No Initiated information on smoking cessation: Yes 'Breaking Loose' booklet given: 04/27/18 - Substance & Tx. History Hx Alcohol Use: Yes Hx Substance Use: Yes Substance Use Type: Alcohol, Cocaine, Heroin, Opiates, Prescribed Hx Substance Use Treatment: Yes (detox, rehab, on current MMTP) - Substances Abused Alcohol Route: Oral Frequency: Daily Amount used: 2 6pks beer Age of first use: 38 Date of Last Use: 04/27/18 Crack Route: Smoking Frequency: Daily Amount used: $40 Age of first use: 38 Date of Last Use: 04/26/18 Heroin Route: Inhalation Frequency: Daily Amount used: 1 bag Age of first use: 38 Date of Last Use: 04/26/18 Family Disease History - Family Disease History Family Disease History: Diabetes: Mother ( FROM [place]. OF THE LIVER,HTN), Brother, Heart Disease: Mother, Sister ( MII), CA: Father (etoh, ), Mother Admission Physical Exam BHS - Vital Signs Vital Signs: Vital Signs - 24 hr 04/27/18 16:39 Temperature 96.8 F L Pulse Rate 108 H Respiratory 18 Rate Blood Pressure 125/76 - Physical General Appearance: Yes: Moderate Distress, Tremorous, Irritable, Sweating ( Increased facial moisture), Anxious HEENTM: Yes: EOMI, Hearing grossly Normal, Normal ENT Inspection, [place] (pupils = 5 mm) Respiratory: Yes: Lungs Clear, Normal Breath Sounds, No Respiratory Distress Neck: Yes: No masses,lesions,Nodules, Supple Breast: Yes: Breast Exam Deferred Cardiology: Yes: S1, S2, Tachycardia, Irregular Abdominal: Yes: Non Tender, Soft, Increased Bowel Sounds Genitourinary: Yes: Within Normal Limits Back: Yes: Normal Inspection Musculoskeletal: Yes: full range of Motion, Gait Steady Extremities: Yes: Normal Capillary Refill, Tremors (at rest - increased w/ arm elevatio) Neurological: Yes: controller mechanic II-XII NML intact, Fully Oriented, Alert, Motor Strength 5/5, Normal Mood/Affect Integumentary: Yes: Normal Color, Warm Lymphatic: Yes: Within Normal Limits - Diagnostic (1) Alcohol dependence with uncomplicated withdrawal Current Visit: Yes Status: Acute (2) Cocaine use disorder Current Visit: Yes Status: Chronic (3) Asthma Current Visit: Yes Status: Chronic Qualifiers: Asthma severity: mild Asthma persistence: unspecified Asthma complication type: uncomplicated Qualified Code(s): J45.909 - Unspecified asthma, uncomplicated (4) Cannabis dependence, uncomplicated Current Visit: Yes Status: Chronic (5) Diabetes mellitus, insulin dependent (IDDM), uncontrolled Current Visit: Yes Status: Chronic (6) HTN (hypertension) Current Visit: Yes Status: Chronic Qualifiers: Hypertension type: essential hypertension Qualified Code(s): I10 - Essential (primary) hypertension (7) Methadone maintenance therapy patient Current Visit: Yes Status: Chronic Comment: Patient relapsed w/ opiates. Missed days in program. Discussed dose adjustment w/ MMTP provider. (8) Nicotine dependence Current Visit: Yes Status: Chronic Qualifiers: Nicotine product type: cigarettes Substance use status: other nicotine- induced disorder Qualified Code(s): F17.218 - Nicotine dependence, cigarettes , with other nicotine-induced disorders Cleared for Admission S - Detox or Rehab [facility] Level of Care: Medically Managed Detox Regimen/Protocol: Valium S Breath Alcohol Content Breath Alcohol Content: 0.021 Urine Pregancy Test - Result Urine Test Results: Negative - NO Line Present Urine Drug Screen - Results Drug Screen Negative: No Urine Drug Screen Results: KENYA-Cocaine, OPI-Opiates, BZO-Benzodiazepines, MTD- Methadone, FEN-Fentanyl Inpatient Rehab Admission - Rehab Decision to Admit Inpatient rehab admission?: No
[2018-04-28] MEDS ORDERED: MAGNESIUM CITRATE 300 ML BOTTLE PO PRN (01:22)
[2018-04-28] MEDS ORDERED: diazePAM 5 MG TABLET PO ONE (01:22)
[2018-04-28] MEDS ORDERED: MAG HYDROX/AL HYDROX/SIMETH 30 ML UNIT-DOSE CUP PO PRN (01:22)
[2018-04-28] MEDS ORDERED: IBUPROFEN 400 MG TABLET (FP) PO PRN (01:22)
[2018-04-28] MEDS ORDERED: ACETAMINOPHEN 325 MG TABLET (FP) PO PRN ×2 (01:22)
[2018-04-28] MEDS ORDERED: MAGNESIUM HYDROX 2400MG/30ML ORAL SUSPENSION 30 ML CUP PO PRN (01:22)
[2018-04-28] MEDS ORDERED: BISMUTH SUBSALICYLATE 524 MG/30 ML UD PO PRN (01:22)
[2018-04-28] MEDS ORDERED: METHADONE HCL 10 MG TABLET PO ONE ×2 (01:25→02:08)
[2018-04-28] MEDS ORDERED: METHADONE HCL 10 MG TABLET ONE (04:27)
[2018-04-28] MEDS ORDERED: METHADONE HCL 40 MG DISPERSABLE TABLET ONE (04:28)
[2018-04-28] MEDS: diazePAM 5 MG TABLET PO SCH ×3 (05:06→22:27)
[2018-04-28] MEDS ORDERED: guaiFENesin 200 MG/10 ML 10 ML UNIT-DOSE CUPS PO PRN (05:40)
[2018-04-28] MEDS: INSULIN SLIDING SCALE (NOVOLOG) 1 VIAL SQ SCH ×4 (06:00→22:29)
[2018-04-28] MEDS ORDERED: METHADONE 40 MG, METHADONE 30 MG PO ONE (06:00)
[2018-04-28] MEDS ORDERED: diazePAM 5 MG TABLET PO SCH (06:00)
[2018-04-28] MEDS ORDERED: COLLOIDAL OATMEAL 1 BAR EACH TP PRN (09:13)
[2018-04-28 10:13] LABS: HEMATOCRIT 41.8 % (32.4-45.2); HEMOGLOBIN 14.1 GM/dL (10.7-15.3); MCH 30.4 pg (25.7-33.7); MCHC 33.8 g/dl (32.0-36.0); MEAN CELL VOLUME 89.8 fl (80-96); MEAN PLT VOLUME 8.6 fl (7.5-11.1); PLATELET COUNT 203 K/MM3 (134-434); RBC 4.65 M/mm3 (3.60-5.2); RDW 14.1 % (11.6-15.6); WHITE BLOOD COUNT 5.7 K/mm3 (4.0-10.0)
[2018-04-28] MEDS: cloNIDine HCL 0.1 MG TABLET PO SCH ×2 (10:17→22:26)
[2018-04-28] MEDS: amLODIPine BESYLATE 5 MG TABLET (FP) PO SCH ×2 (10:17→22:26)
[2018-04-28] MEDS: PRENATAL VITAMINS W/ FOLIC ACID TABLET (FP) PO SCH (10:17)
[2018-04-28] MEDS: diazePAM 5 MG TABLET PO PRN ×3 (10:19→20:47)
[2018-04-28 10:25] LABS: ALBUMIN 3.6 g/dl (3.4-5.0); ALK PHOS 165 U/L (45-117); ANION GAP 8 MMOL/L (8-16); BILIRUBIN,TOTAL 0.2 mg/dL (0.2-1); BLOOD UREA NITROGEN 23 mg/dL (7-18); CALCIUM 9.2 mg/dL (8.5-10.1); CHLORIDE 104 mmol/L (98-107); CO2 29 mmol/L (21-32); CREATININE 1.1 mg/dL (0.55-1.3); GLUCOSE,RANDOM 160 mg/dL (74-106); SGOT/AST 17 U/L (15-37); SGPT/ALT 25 U/L (13-61); SODIUM 141 mmol/L (136-145); TOT PROT 7.3 g/dl (6.4-8.2)
[2018-04-28] MEDS: METHYL SALICYLATE/MENTHOL OINT 30 GM TUBE TP SCH ×2 (15:05→22:26)
--- NOTE | 2018-04-28 15:13 | PN ---
[facility] CIWA - CIWA Score Nausea/Vomitin-No Nausea/No Vomiting Muscle Tremors: 3 Anxiety: 5 Agitation: 4-Moderately Restless Paroxysmal Sweats: No Perspiration Orientation: 0-Oriented Tacttile Disturbances: 2-Mild Itch/Numbness/Burn Auditory Disturbances: 1-Very Mild Visual Disturbances: 3-Moderate Sensitivity Headache: 0-None Present CIWA-Ar Total Score: 18 BHS Progress Note (SOAP) Subjective: Anxious, Restless, Tremors, Interrupted Sleep, Fatigue. Objective: PATIENT A & O X 3, OBSERVED AMBULATING ON UNIT. IN NO ACUTE DISTRESS. 04/28/18 15:11 Vital Signs Temperature 98.1 F 04/28/18 13:51 Pulse Rate 101 H 04/28/18 13:51 Respiratory Rate 18 04/28/18 13:51 Blood Pressure 109/69 04/28/18 13:51 O2 Sat by Pulse Oximetry (%) Laboratory Tests 04/27/18 04/28/18 04/28/18 17:42 05:04 07:40 WBC 5.7 RBC 4.65 Hgb 14.1 Hct 41.8 MCV 89.8 MCH 30.4 MCHC 33.8 RDW 14.1 Plt Count 203 MPV 8.6 Sodium Potassium Chloride Carbon Dioxide Anion Gap BUN Creatinine Creat Clearance w eGFR POC Glucometer 295 182 Random Glucose Calcium Total Bilirubin AST ALT Alkaline Phosphatase Ammonia Total Protein Albumin 04/28/18 04/28/18 04/28/18 07:40 09:40 11:03 WBC RBC Hgb Hct MCV MCH MCHC RDW Plt Count MPV Sodium 141 Potassium 4.0 Chloride 104 Carbon Dioxide 29 Anion Gap 8 BUN 23 H Creatinine 1.1 Creat Clearance w eGFR 51.02 POC Glucometer 190 Random Glucose 160 H Calcium 9.2 Total Bilirubin 0.2 AST 17 ALT 25 Alkaline Phosphatase 165 H Ammonia 35.90 H Total Protein 7.3 Albumin 3.6 LABS NOTED. Assessment: 04/28/18 15:12 WITHDRAWAL SYMPTOMS. HYPERAMMONEMIA. Plan: CONTINUE DETOX. INCREASE DAILY PO FLUID INTAKE. ALTHOUGH AMMONIA LEVEL IS SLIGHTLY ELEVATED, LACTULOSE NOT ORDERED AT THIS TIME DUE TO CONCERNS OVER PATIENT FALLING (PATIENT APPEARED SOMEWHAT LETHARGIC WHEN AMBULATING ON UNIT).
[2018-04-28] MEDS: ALBUTEROL SO4 8 GM HFA INHALER IH PRN (15:41)
[2018-04-28] MEDS: MENTHOL/PHENOL 1 EACH UD MM PRN (15:44)
--- NOTE | 2018-04-28 15:52 | CONSULT ---
[facility] Psychiatric Consult - Data Date of interview: 04/28/18 Admission source: [facility] Identifying data: One of multiple admissions to [facility] [place] for this 57 y/o AA female self-referred for detoxification (heroin, cocaine, cannabis). Interviewed on . 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 Substance Abuse History: Discussed with patient. Poor historian. Ms Goyal simply confirms an enduring history of abuse of multiple substances that include cocaine, cannabis,heroin and alcohol. Still admits to using heroin in spite of being on methadone maintenance at [facility] (100 mg/day). Additional details in current [facility] report as follows : Smoking history: Current every day smoker. Have you smoked in the past 12 months: Yes. Aproximately how many cigarettes per day: 10. Cigars Per Day: 0. Hx Chewing Tobacco Use: No. Initiated information on smoking cessation: Yes. 'Breaking Loose' booklet given : 04/27/18. - Substance & Tx. History. Hx Alcohol Use: Yes. Hx Substance Use : Yes. Substance Use Type: Alcohol, Cocaine, Heroin, Opiates, Prescribed. Hx Substance Use Treatment: Yes (detox, rehab, on current MMTP). - Substances Abused. Alcohol. Route: Oral. Frequency: Daily. Amount used: 2 6pks beer. Age of first use: 38. Date of Last Use: 04/27/18. Crack. Route: Smoking. Frequency: Daily. Amount used: $40. Age of first use: 38. Date of Last Use: 04/26/18. Heroin. Route: Inhalation. Frequency: Daily. Amount used: 1 bag. Age of first use: 38. Date of Last Use: 04/26/18 Medical History: Consistent with bronchial asthma, hypertension, diabetes mellitus, hepatitis C, arthritis, chronic lumbar pain, psoriasis and past surgeries (hysterectomy and left breast lumpectomy). Psychiatric History: Patient admits to a history of multiple psychiatric hospitalizations (mostly at [facility]). Diagnosed with Bipolar Disorder and MDD. Denies treatment with psychotropic medications except for zolpidem. Sporadic adherence to methadone maintenance at [facility] (frequent no-shows ). Totally lost to psychiatric OPD care. Ms Goyal denies history of suicide attempts. Physical/Sexual Abuse/Trauma History: Patient denies history of abuse. Additional Comment: Urine Drug Screen Results: KENYA-Cocaine, OPI-Opiates, BZO- Benzodiazepines, MTD-Methadone, FEN-Fentanyl. Noted. Mental Status Exam - Mental Status Exam Alert and Oriented to: Time, Place, Person Cognitive Function: Grossly Intact Patient Appearance: Unkempt, Disheveled (short stature) Mood: Nervous, Anxious, Irritable Affect: Labile Patient Behavior: Sedated (moderately), Fatigued Speech Pattern: Delayed, Slurred Voice Loudness: Moderately Soft/Quiet Thought Process: Disorganized Thought Disorder: Not Present Hallucinations: Denies Suicidal Ideation: Denies Homicidal Ideation: Denies Insight/Judgement: Poor Sleep: Well Appetite: Good Gait/Station: Other (unsteady gait) Psychiatric Findings - Problem List ([place] 1, 2,3) (1) Alcohol dependence with uncomplicated withdrawal Current Visit: Yes Status: Acute (2) Opioid dependence on agonist therapy Current Visit: Yes Status: Chronic (3) Cocaine dependence Current Visit: Yes Status: Chronic Qualifiers: Substance use status: uncomplicated Qualified Code(s): F14.20 - Cocaine dependence, uncomplicated (4) Nicotine dependence Current Visit: Yes Status: Chronic Qualifiers: Nicotine product type: cigarettes Substance use status: other nicotine- induced disorder Qualified Code(s): F17.218 - Nicotine dependence, cigarettes , with other nicotine-induced disorders (5) Substance induced mood disorder Current Visit: Yes Status: Chronic (6) History of bipolar disorder Current Visit: Yes Status: Chronic (7) Non-compliance Current Visit: Yes Status: Chronic - Initial Treatment Plan Initial Treatment Plan: Psychoeducation. Sleep hygiene. Detoxification. Support. AA/NA meetings. Observation.
[2018-04-28] MEDS: THIAMINE HCL 100 MG TABLET (FP) PO SCH (22:27)
[2018-04-28] MEDS: MELATONIN 5 MG TABLETS PO PRN (22:27)
[2018-04-28] MEDS: INSULIN (LEVEMIR) 100 UNITS/ML UNITS SQ SCH (22:29)
[2018-04-28 23:03] LABS: URINE APPEARANCE CLEAR; URINE BILIRUBIN NEGATIVE (<2.0 mg/dL); URINE COLOR YELLOW; URINE GLUCOSE (UA) NEGATIVE (NEGATIVE); URINE KETONE NEGATIVE (NEGATIVE); URINE LEUK ESTERASE NEGATIVE (NEGATIVE); URINE NITRITE NEGATIVE (NEGATIVE); URINE PROTEIN NEGATIVE (NEGATIVE)
[2018-04-29] MEDS: diazePAM 5 MG TABLET PO PRN ×4 (03:34→20:26)
[2018-04-29] MEDS: METHADONE HCL 40 MG DISPERSABLE TABLET PO SCH (05:49)
[2018-04-29] MEDS: diazePAM 5 MG TABLET PO SCH ×2 (05:50→17:29)
[2018-04-29] MEDS: ALBUTEROL SO4 8 GM HFA INHALER IH PRN (06:44)
[2018-04-29] MEDS: INSULIN SLIDING SCALE (NOVOLOG) 1 VIAL SQ SCH ×4 (07:17→22:11)
[2018-04-29] MEDS: amLODIPine BESYLATE 5 MG TABLET (FP) PO SCH ×2 (09:55→22:10)
[2018-04-29] MEDS: PRENATAL VITAMINS W/ FOLIC ACID TABLET (FP) PO SCH (09:55)
[2018-04-29] MEDS: cloNIDine HCL 0.1 MG TABLET PO SCH ×2 (09:55→22:11)
[2018-04-29] MEDS: METHYL SALICYLATE/MENTHOL OINT 30 GM TUBE TP SCH ×2 (09:55→22:11)
--- NOTE | 2018-04-29 11:28 | PN ---
[facility] CIWA - CIWA Score Nausea/Vomitin-No Nausea/No Vomiting Muscle Tremors: 3 Anxiety: 2 Agitation: 3 Paroxysmal Sweats: 1-Minimal Palms Moist Orientation: 3-Disoriented Date>2 days Tacttile Disturbances: 0-None Auditory Disturbances: 0-None Visual Disturbances: 0-None Headache: 0-None Present CIWA-Ar Total Score: 12 S Progress Note (SOAP) Subjective: feeling better walking on hallway social with staff and peers alert more energy today Objective: 04/29/18 11:25 Vital Signs Temperature 97.0 F L 04/29/18 09:31 Pulse Rate 108 H 04/29/18 09:31 Respiratory Rate 20 04/29/18 09:31 Blood Pressure 114/73 04/29/18 09:31 O2 Sat by Pulse Oximetry (%) Laboratory Last Values WBC 5.7 K/mm3 (4.0-10.0) 04/28/18 07:40 RBC 4.65 M/mm3 (3.60-5.2) 04/28/18 07:40 Hgb 14.1 GM/dL (10.7-15.3) 04/28/18 07:40 Hct 41.8 % (32.4-45.2) 04/28/18 07:40 MCV 89.8 fl (80-96) 04/28/18 07:40 MCH 30.4 pg (25.7-33.7) 04/28/18 07:40 MCHC 33.8 g/dl (32.0-36.0) 04/28/18 07:40 RDW 14.1 % (11.6-15.6) 04/28/18 07:40 Plt Count 203 K/MM3 (134-434) 04/28/18 07:40 MPV 8.6 fl (7.5-11.1) 04/28/18 07:40 Sodium 141 mmol/L (136-145) 04/28/18 07:40 Potassium 4.0 mmol/L (3.5-5.1) 04/28/18 07:40 Chloride 104 mmol/L (98-107) 04/28/18 07:40 Carbon Dioxide 29 mmol/L (21-32) 04/28/18 07:40 Anion Gap 8 MMOL/L (8-16) 04/28/18 07:40 BUN 23 mg/dL (7-18) H 04/28/18 07:40 Creatinine 1.1 mg/dL (0.55-1.3) 04/28/18 07:40 Creat Clearance w eGFR 51.02 (>60) 04/28/18 07:40 POC Glucometer 93 UNITS (80-120) 04/29/18 11:01 Random Glucose 160 mg/dL (74-106) H 04/28/18 07:40 Calcium 9.2 mg/dL (8.5-10.1) 04/28/18 07:40 Total Bilirubin 0.2 mg/dL (0.2-1) 04/28/18 07:40 AST 17 U/L (15-37) 04/28/18 07:40 ALT 25 U/L (13-61) 04/28/18 07:40 Alkaline Phosphatase 165 U/L (45-117) H 04/28/18 07:40 Ammonia 35.90 umol/L (11-32) H 04/28/18 09:40 Total Protein 7.3 g/dl (6.4-8.2) 04/28/18 07:40 Albumin 3.6 g/dl (3.4-5.0) 04/28/18 07:40 Urine Color Yellow 04/28/18 17:40 Urine Appearance Clear 04/28/18 17:40 Urine pH 6.0 (5.0-8.0) 04/28/18 17:40 Ur Specific [place] 1.024 (1.010-1.035) 04/28/18 17:40 Urine Protein Negative (NEGATIVE) 04/28/18 17:40 Urine Glucose (UA) Negative (NEGATIVE) 04/28/18 17:40 Urine Ketones Negative (NEGATIVE) 04/28/18 17:40 Urine Blood Negative (NEGATIVE) 04/28/18 17:40 Urine Nitrite Negative (NEGATIVE) 04/28/18 17:40 Urine Bilirubin Negative (<2.0 mg/dL) 04/28/18 17:40 Urine Urobilinogen 2.0 mg/dL (0.2-1.0) H 04/28/18 17:40 Ur Leukocyte Esterase Negative (NEGATIVE) 04/28/18 17:40 lab noted Assessment: 04/29/18 11:27 mild alcohol withdrawal sx patient preferred return to methadone maintenance treatment program Plan: continue detox
[2018-04-29] MEDS: THIAMINE HCL 100 MG TABLET (FP) PO SCH (22:09)
[2018-04-29] MEDS: INSULIN (LEVEMIR) 100 UNITS/ML UNITS SQ SCH (22:11)
[2018-04-29] MEDS: MELATONIN 5 MG TABLETS PO PRN (22:12)
[2018-04-30] MEDS: diazePAM 5 MG TABLET PO PRN (00:12)
[2018-04-30] MEDS: MENTHOL/PHENOL 1 EACH UD MM PRN (01:40)
[2018-04-30] MEDS: ALBUTEROL SO4 8 GM HFA INHALER IH PRN (01:40)
[2018-04-30] MEDS: METHADONE HCL 40 MG DISPERSABLE TABLET PO SCH (05:13)
[2018-04-30] MEDS ORDERED: diazePAM 5 MG TABLET PO ONE (06:00)
[2018-04-30] MEDS: INSULIN SLIDING SCALE (NOVOLOG) 1 VIAL SQ SCH ×2 (07:19→12:06)
--- NOTE | 2018-04-30 07:43 | PN ---
[facility] Progress Note Note: Patient was found on the floor in her room. Her fall was unwitnessed. Fall protocol #1 initiated. Patient reports back pain. Patient is noted with periods of confusion. She is being transferred to [facility] for evaluation. Endorsed to Dr. Mar. Vital Signs Temperature 96.7 F L 04/30/18 07:39 Pulse Rate 96 H 04/30/18 07:39 Respiratory Rate 18 04/30/18 07:39 Blood Pressure 126/65 04/30/18 07:39 O2 Sat by Pulse Oximetry (%) Action: Awaiting transportation to [facility] ER
[2018-04-30] MEDS: cloNIDine HCL 0.1 MG TABLET PO SCH (10:51)
[2018-04-30] MEDS: METHYL SALICYLATE/MENTHOL OINT 30 GM TUBE TP SCH (10:51)
[2018-04-30] MEDS: PRENATAL VITAMINS W/ FOLIC ACID TABLET (FP) PO SCH (10:51)
[2018-04-30] MEDS: amLODIPine BESYLATE 5 MG TABLET (FP) PO SCH (10:51)
[2018-04-30 13:56] VITALS: BP 122/77; PULSE 97; TEMP 97
--- NOTE | 2018-04-30 14:12 | PN ---
[facility] Progress Note Note: 57 years old female admitted on 04/27/18 for alcohol withdrawal stabilization completed detox regimen today patient had unwitness fall this morning sent to ER medically cleared return to detox unit, case discussed with nursing instrument shop supervisor and counselor for aftercare due to fall protocol 24 hours neuro check patient is been monitor 24 hours at detox unit, as per counselor that possible long term referral for unsteady gait and multiple falls patient observed ambulating on hallway verbalized need for more medication and attention from staff patient denies pain able to tolerate food and fluid well no dizziness, no nausea no vomiting continue neurocheck
--- NOTE | 2018-04-30 15:17 | DS ---
[facility] Detox Discharge Summary Admission Date: 04/27/18 Discharge Date: 04/30/18 - History Present History: Alcohol Dependence Additional Comments: 57 years old female admitted on 04/27/18 for alcohol withdrawal completed detox regimen unwitness fall transferred to ER medically cleared return to detox patient insists to leave the detox refuse 24 neuro check patient is alert no acute distress denies pain ambulate steady gait alert no acute distress denies suicidal ideation Pertinent Past History: patient agrees return to methadone maintenance treatment program for medical and mental issues - Physical Exam Results Vital Signs: Vital Signs Temperature 97.0 F L 04/30/18 14:03 Pulse Rate 97 H 04/30/18 14:03 Respiratory Rate 18 04/30/18 14:03 Blood Pressure 122/77 04/30/18 14:03 O2 Sat by Pulse Oximetry (%) Pertinent Admission Physical Exam Findings: alcohol withdrawal sx Laboratory Last Values WBC 5.7 K/mm3 (4.0-10.0) 04/28/18 07:40 RBC 4.65 M/mm3 (3.60-5.2) 04/28/18 07:40 Hgb 14.1 GM/dL (10.7-15.3) 04/28/18 07:40 Hct 41.8 % (32.4-45.2) 04/28/18 07:40 MCV 89.8 fl (80-96) 04/28/18 07:40 MCH 30.4 pg (25.7-33.7) 04/28/18 07:40 MCHC 33.8 g/dl (32.0-36.0) 04/28/18 07:40 RDW 14.1 % (11.6-15.6) 04/28/18 07:40 Plt Count 203 K/MM3 (134-434) 04/28/18 07:40 MPV 8.6 fl (7.5-11.1) 04/28/18 07:40 Sodium 141 mmol/L (136-145) 04/28/18 07:40 Potassium 4.0 mmol/L (3.5-5.1) 04/28/18 07:40 Chloride 104 mmol/L (98-107) 04/28/18 07:40 Carbon Dioxide 29 mmol/L (21-32) 04/28/18 07:40 Anion Gap 8 MMOL/L (8-16) 04/28/18 07:40 BUN 23 mg/dL (7-18) H 04/28/18 07:40 Creatinine 1.1 mg/dL (0.55-1.3) 04/28/18 07:40 Creat Clearance w eGFR 51.02 (>60) 04/28/18 07:40 POC Glucometer 130 UNITS (80-120) 04/30/18 05:13 Random Glucose 160 mg/dL (74-106) H 04/28/18 07:40 Calcium 9.2 mg/dL (8.5-10.1) 04/28/18 07:40 Total Bilirubin 0.2 mg/dL (0.2-1) 04/28/18 07:40 AST 17 U/L (15-37) 04/28/18 07:40 ALT 25 U/L (13-61) 04/28/18 07:40 Alkaline Phosphatase 165 U/L (45-117) H 04/28/18 07:40 Ammonia 35.90 umol/L (11-32) H 04/28/18 09:40 Total Protein 7.3 g/dl (6.4-8.2) 04/28/18 07:40 Albumin 3.6 g/dl (3.4-5.0) 04/28/18 07:40 Urine Color Yellow 04/28/18 17:40 Urine Appearance Clear 04/28/18 17:40 Urine pH 6.0 (5.0-8.0) 04/28/18 17:40 Ur Specific [place] 1.024 (1.010-1.035) 04/28/18 17:40 Urine Protein Negative (NEGATIVE) 04/28/18 17:40 Urine Glucose (UA) Negative (NEGATIVE) 04/28/18 17:40 Urine Ketones Negative (NEGATIVE) 04/28/18 17:40 Urine Blood Negative (NEGATIVE) 04/28/18 17:40 Urine Nitrite Negative (NEGATIVE) 04/28/18 17:40 Urine Bilirubin Negative (<2.0 mg/dL) 04/28/18 17:40 Urine Urobilinogen 2.0 mg/dL (0.2-1.0) H 04/28/18 17:40 Ur Leukocyte Esterase Negative (NEGATIVE) 04/28/18 17:40 RPR Titer Nonreactive (NONREACTIVE) 04/28/18 07:40 lab noted - Treatment Hospital Course: Detox Protocol Followed, Detoxed Safely, Responded well, Discharged Condition Good, Rehab Referral Accepted Patient has Accepted a Rehab Referral to: methadone treatment program - Medication Discharge Medications: Ambulatory Orders cloNIDine HCL [Catapres -] 0.2 mg PO BID #60 03/08/16 Zolpidem Tartrate [Ambien] 10 mg PO HS 11/12/17 Insulin Glargine,Hum.rec.anlog [Lantus Solostar PEN -] 30 units SQ HS #1 ins Albuterol Sulfate Inhaler - [Ventolin HFA Inhaler -] 2 puff IH Q4H PRN #1 inhaler 03/22/18 Amlodipine Besylate [Norvasc -] 5 mg PO BID #30 tablet 03/22/18 metFORMIN HCL [Glucophage -] 500 mg PO BID@0700,1630 #60 tablet 03/22/18 - Diagnosis (1) Alcohol dependence with uncomplicated withdrawal Current Visit: Yes Status: Acute (2) Asthma Current Visit: Yes Status: Chronic Qualifiers: Asthma severity: mild Asthma persistence: unspecified Asthma complication type: uncomplicated Qualified Code(s): J45.909 - Unspecified asthma, uncomplicated (3) Diabetes mellitus, insulin dependent (IDDM), uncontrolled Current Visit: Yes Status: Chronic (4) HTN (hypertension) Current Visit: Yes Status: Chronic Qualifiers: Hypertension type: essential hypertension Qualified Code(s): I10 - Essential (primary) hypertension (5) Methadone maintenance therapy patient Current Visit: Yes Status: Chronic (6) Nicotine dependence Current Visit: Yes Status: Acute Qualifiers: Nicotine product type: cigarettes Substance use status: other nicotine- induced disorder Qualified Code(s): F17.218 - Nicotine dependence, cigarettes , with other nicotine-induced disorders (7) Substance induced mood disorder Current Visit: Yes Status: Suspected (8) Hepatitis C Current Visit: No Status: Chronic Qualifiers: Viral hepatitis chronicity: chronic Hepatic coma status: without hepatic coma Qualified Code(s): B18.2 - Chronic viral hepatitis C - AMA Did Patient Leave Against Medical Advice: No
== END 2018-04-30 15:54 | disposition left against medical advice (07) | DRG 770 ==
LOC: YASAS 14:25 → Y3N 23:15
PROVIDERS: ADMIT Surgery; ATTEND Surgery
PROC: HZ2ZZZZ Detoxification Services for Substance Abuse Treatment (ICD-10-PCS; principal; 2018-04-27)
DX: F10.230 Alcohol dependence with withdrawal, uncomplicated (principal); F11.20 Opioid dependence, uncomplicated; F14.20 Cocaine dependence, uncomplicated; F17.218 Nicotine dependence, cigarettes, with other nicotine-induced disorders; F19.24 Other psychoactive substance dependence with psychoactive substance-induced mood disorder; I10 Essential (primary) hypertension; E11.65 Type 2 diabetes mellitus with hyperglycemia; J45.909 Unspecified asthma, uncomplicated; B18.2 Chronic viral hepatitis C; E72.20 Disorder of urea cycle metabolism, unspecified; E78.00 Pure hypercholesterolemia, unspecified; R00.0 Tachycardia, unspecified; Z79.4 Long term (current) use of insulin; Z91.14 Patient's other noncompliance with medication regimen
CPT/HCPCS: 36415; 80053; 81003; 82140; 82962; 85027; 86593; J0735

== ENCOUNTER 2018-04-30 08:32 | Emergency (ER) | payer OTHER ==
[2018-04-30 08:45] VITALS: BP 130/94; PULSE 94; TEMP 97.6; BMI 25.2
--- NOTE | 2018-04-30 08:51 | PDOC ---
History of Present Illness - General Chief Complaint: Altered Mental Status Stated Complaint: FALL/HEAD INJURY Time Seen by Provider: 04/30/18 08:51 - History of Present Illness Initial Comments: 04/30/18 09:52 Ms. Goyal is a 57 yo female w/ pmh of alcohol abuse, CM, HTN, HLD, asthma, HCV, prior heroin abuse on methadone, depression, and bipolar disorder who presents from [facility] for evaluation of altered mental status. Per [facility] patient received 80mg methadone and 5mg valium at 0530 this morning. Following this patient was found sleepy and confused and sitting on the floor. Patient was sent to ER as staff unsure if patient fell or not. Patient reports she did have a fall as she was sleepy after above medications. The patient denies chest pain, shortness of breath, headache and dizziness. Denies fever, chills, nausea, vomit, diarrhea and constipation. Denies dysuria, frequency, urgency and hematuria. Past History - Past Medical History Allergies/Adverse Reactions: Allergies Allergy/AdvReac Type Severity Reaction Status Date / Time tomato [Tomato] Allergy Severe Itching Verified 04/30/18 08:42 No Known Drug Allergies Allergy Verified 04/30/18 08:42 NKDA Allergy Uncoded 04/30/18 08:42 Home Medications: Ambulatory Orders cloNIDine HCL [Catapres -] 0.2 mg PO BID #60 03/08/16 Zolpidem Tartrate [Ambien] 10 mg PO HS 11/12/17 Insulin Glargine,Hum.rec.anlog [Lantus Solostar PEN -] 30 units SQ HS #1 ins Albuterol Sulfate Inhaler - [Ventolin HFA Inhaler -] 2 puff IH Q4H PRN #1 inhaler 03/22/18 Amlodipine Besylate [Norvasc -] 5 mg PO BID #30 tablet 03/22/18 metFORMIN HCL [Glucophage -] 500 mg PO BID@0700,1630 #60 tablet 03/22/18 Anemia: Yes (resolved) Asthma: Yes Cancer: No Cardiac Disorders: No CVA: No COPD: No CHF: No Dementia: No Diabetes: Yes (Type II) GI Disorders: No Disorders: No HTN: Yes (on meds) Hypercholesterolemia: Yes Kidney Stones: No Liver Disease: Yes Seizures: No Thyroid Disease: No - Surgical History Abdominal Surgery: Yes (Hysterectomy in 2007) Appendectomy: No Cardiac Surgery: No Cholecystectomy: Yes (r/o gallstones 11/05) Lung Surgery: No Neurologic Surgery: No Orthopedic Surgery: No - Reproductive History PID: No - Immunization History Immunization Up to Date: Yes - Suicide/Smoking/Psychosocial Hx Smoking History: Unknown if ever smoked Have you smoked in the past 12 months: Yes Number of Cigarettes Smoked Daily: 10 Cigars Per Day: 0 Information on smoking cessation initiated: No 'Breaking Loose' booklet given: 04/27/18 Hx Alcohol Use: Yes Drug/Substance Use Hx: Yes Substance Use Type: Alcohol, Cocaine, Heroin, Opiates, Prescribed Hx Substance Use Treatment: Yes (detox, rehab, on current [facility]) Review of Systems - Review of Systems Comments:: 04/30/18 09:54 GENERAL/CONSTITUTIONAL: No fever or chills. No weakness. HEAD, EYES, EARS, NOSE AND THROAT: +Current neck pain reported. No change in vision. No ear pain or discharge. No sore throat. CARDIOVASCULAR: No chest pain or shortness of breath RESPIRATORY: No cough, wheezing, or hemoptysis. GASTROINTESTINAL: No nausea, vomiting, diarrhea or constipation. GENITOURINARY: No dysuria, frequency, or change in urination. MUSCULOSKELETAL: No joint or muscle swelling or pain. No neck or back pain. SKIN: No rash NEUROLOGIC: No headache, vertigo, loss of consciousness, or change in strength/ sensation. ENDOCRINE: No increased thirst. No abnormal weight change HEMATOLOGIC/LYMPHATIC: No anemia, easy bleeding, or history of blood clots. ALLERGIC/IMMUNOLOGIC: No hives or skin allergy. *Physical Exam - Vital Signs Last Vital Signs Temp Pulse Resp BP Pulse Ox 97.6 F 94 H 16 130/94 98 04/30/18 08:43 04/30/18 08:43 04/30/18 08:43 04/30/18 08:43 04/30/18 08:43 - Physical Exam Comments: 04/30/18 09:56 GENERAL: Awake, alert, and fully oriented, in no acute distress HEAD: No signs of trauma, normocephalic, atraumatic EYES: PERRLA, EOMI, sclera anicteric, conjunctiva clear ENT: Auricles normal inspection, hearing grossly normal, nares patent, oropharynx clear without exudates. Moist mucosa NECK: Normal ROM, supple, no lymphadenopathy, JVD, or masses LUNGS: No distress, speaks full sentences, clear to auscultation bilaterally HEART: Regular rate and rhythm, normal S1 and S2, no murmurs, rubs or gallops, peripheral pulses normal and equal bilaterally. ABDOMEN: Soft, nontender, normoactive bowel sounds. No guarding, no rebound. No masses EXTREMITIES: Normal inspection, Normal range of motion, no edema. No clubbing or cyanosis. NEUROLOGICAL: Cranial nerves II through XII grossly intact. Normal speech, normal gait, no focal sensorimotor deficits SKIN: Warm, Dry, normal turgor, no rashes or lesions noted. Moderate Sedation - Procedure Monitoring Vital Signs: Procedure Monitoring Vital Signs Temperature 97.6 F 04/30/18 08:43 Pulse Rate 94 H 04/30/18 08:43 Respiratory Rate 16 04/30/18 08:43 Blood Pressure 130/94 04/30/18 08:43 O2 Sat by Pulse Oximetry (%) 98 04/30/18 08:43 ED Treatment Course - LABORATORY CBC & Chemistry Diagram: 04/30/18 11:24 04/30/18 11:24 Medical Decision Making - Medical Decision Making 04/30/18 12:38 Ms. Goyal is a 57 yo female w/ pmh as described who presents s/p fall earlier today. Patient evaluated with Head and C-spine CT with no acute findings. Labs grossly wnl as below. CXR negative. No concern for acute process at this time. Believe patient safe for return to [facility]. Discharging for return. Laboratory Results - last 24 hr 04/30/18 04/30/18 11:24 11:24 WBC 4.7 RBC 4.13 Hgb 12.4 Hct 37.3 MCV 90.4 MCH 30.1 MCHC 33.3 RDW 14.4 Plt Count 174 MPV 8.1 Absolute Neuts (auto) 1.8 Neutrophils % 38.9 L Lymphocytes % 44.8 H Monocytes % 10.0 Eosinophils % 5.4 H Basophils % 0.9 Nucleated RBC % 0 Sodium 140 Potassium 4.5 Chloride 106 Carbon Dioxide 30 Anion Gap 4 L BUN 28 H Creatinine 1.1 Creat Clearance w eGFR 51.02 Random Glucose 58 L Calcium 8.8 Total Bilirubin 0.2 AST 19 ALT 21 Alkaline Phosphatase 103 Total Protein 7.0 Albumin 3.5 Lipase 167 04/30/18 12:58 Discussed patient with Lexi Nation at [facility] for return. *DC/Admit/Observation/Transfer Diagnosis at time of Disposition: Fall Qualifiers: Encounter type: initial encounter Qualified Code(s): W19.XXXA - Unspecified fall, initial encounter - Discharge Dispostion Disposition: HOME - Referrals Referrals: Debbie Johnson MD [Primary Care Provider] - - Patient Instructions Printed Discharge Instructions: Getting Treatment for Drug Addiction, Xu Chi May Improve Physical Function, Reduce Falls Additional Instructions: You were evaluated today in the ER following your fall. We performed Head and Spine CT's with no concerning findings. Chest Xray and labs were likewise negative. You are safe to return to [facility] for further detox. Please follow- up with primary care physician in 1-2 days for further evaluation. Return to ER if any altered mental status, fever, chills, or other concerning symptoms. - Post Discharge Activity
--- NOTE | 2018-04-30 10:25 | PDOC ---
Attending Attestation - Resident Resident Name: Stephan Mccormack - ED Attending Attestation I have performed the following: I have examined & evaluated the patient, The case was reviewed & discussed with the resident, I agree w/resident's findings & plan - HPI HPI: 04/30/18 11:18 Ms. Goyal is a 57 yo female w/ pmh of alcohol abuse, CM, HTN, HLD, asthma, HCV, prior heroin abuse on methadone, cocaine use, depression, and bipolar disorder who presents from [facility] for evaluation of altered mental status. Per [facility] patient received 80mg methadone and 5mg valium at 0530 this morning. Following this patient was found sleepy and confused and sitting on the floor. Patient was sent to ER as staff unsure if patient fell or not. Patient reports she did have a fall as she was sleepy after above medications. Also complains of some nausea and epigastric discomfort x several days. Now more back to baseline. - Physicial Exam PE: 04/30/18 11:18 NAD, alert, awake, PERRL, EOMI, poor dentition, nl conjunctiva, anicteric; neck supple. mild tenderness to cervical region, lungs with bilateral scant wheezing. RRR, abdomen soft mild epigastric ttp. mild paravertebral tenderness along back, no stepoffs or external signs of trauma/ecchymosis. REYES x4, no focal neuro deficits. No peripheral edema. normal color for ethnicity, WWP. - Medical Decision Making 04/30/18 10:25 See HPI for details DDx withdrawal syndrome, alcohol w/d, electrolyte derangements, PUD, gastritis, biliary colic, hepatitis, intoxication, medication (methadone side effect), C spine injury, ICH. Vital signs reviewed, wnl. no e/o withdrawal syndrome Prior notes reviewed, including admissions, discharges and consultations. labs and lytes normal, lfts and lipase normal. EKG normal sinus rhythm, no interval abnormalities, narrow QRS, ST and T wave segments and morphology normal. Nonspecific T wave abnormalities ED course: unclear fall circumstances. CT head and C spine s/p fall to r/o injury; negative for bleed or injuries. degenerative changes noted, apical pleural thickening noted. FROM in neck, no changes in sx, no neuro deficits. cxr clear. ambulatory. at baseline, mentating, most likely under influence of methadone and benzo administration this morning that caused her transient altered level of consciousness. no tongue fasiculations, occasionally tremulous likely voluntary as it terminates when no one is in hallway. no benzos here, as pt not exhibiting w/d symptoms and also she came in altered under influence of methadone and benzo combo. no episodes of emesis here. given po challenge and zofran. duonebs for mild wheezing (h/o smoking), cxr with pleural thickening. otherwise no acute respiratory distress, comfortable in stretcher. back to [facility], med cleared. [facility] made aware, instructions provided. Dispo: Pt informed of my clinical impression, treatment recommendations and disposition plan. All questions answered to patient's satisfaction and expressed understanding and comfort with this. Reasons for returning to the ED sooner discussed with the patient otherwise, follow up with primary care physician. At the time of discharge, the patient is alert, clinically improved, tolerating po and verbalizes understanding of instructions. Patient does not suffer from an acute life-threatening medical condition at this time she is safe for outpatient follow-up. 04/30/18 11:19 04/30/18 12:37 04/30/18 12:40
--- NOTE | 2018-04-30 10:30 | EKG ---
Test Reason : Blood Pressure : / mmHG Vent. Rate : 094 BPM Atrial Rate : 094 BPM P-R Int : 150 ms QRS Dur : 074 ms QT Int : 374 ms P-R-T Axes : 073 056 071 degrees QTc Int : 467 ms NORMAL SINUS RHYTHM NORMAL ECG WHEN COMPARED WITH ECG OF 23-MAR-2018 14:46, NO SIGNIFICANT CHANGE WAS FOUND Confirmed by HELADIO BO MD ([id number]) on 04/30/2018 10:30:17 AM Referred By: Confirmed By:HELADIO BO MD
[2018-04-30] MEDS ORDERED: ALBUTEROL SO4 2.5/IPRATROPIUM 0.5 INH SOL 3 ML VIAL.NEB. NEB ONE ×2 (10:57→11:15)
[2018-04-30 11:30] LABS: BASO % 0.9 % (0-2.0); EOS % 5.4 % (0-4.5); HEMATOCRIT 37.3 % (32.4-45.2); HEMOGLOBIN 12.4 GM/dL (10.7-15.3); LYMPH % 44.8 % (8-40); MCH 30.1 pg (25.7-33.7); MCHC 33.3 g/dl (32.0-36.0); MEAN CELL VOLUME 90.4 fl (80-96); MEAN PLT VOLUME 8.1 fl (7.5-11.1); NEUT % 38.9 % (42.8-82.8); PLATELET COUNT 174 K/MM3 (134-434); RBC 4.13 M/mm3 (3.60-5.2); RDW 14.4 % (11.6-15.6); WHITE BLOOD COUNT 4.7 K/mm3 (4.0-10.0)
[2018-04-30 12:36] LABS: ALBUMIN 3.5 g/dl (3.4-5.0); ALK PHOS 103 U/L (45-117); ANION GAP 4 MMOL/L (8-16); BILIRUBIN,TOTAL 0.2 mg/dL (0.2-1); BLOOD UREA NITROGEN 28 mg/dL (7-18); CALCIUM 8.8 mg/dL (8.5-10.1); CHLORIDE 106 mmol/L (98-107); CO2 30 mmol/L (21-32); CREATININE 1.1 mg/dL (0.55-1.3); GLUCOSE,RANDOM 58 mg/dL (74-106); LIPASE 167 U/L (73-393); POTASSIUM 4.5 mmol/L (3.5-5.1); SGOT/AST 19 U/L (15-37); SGPT/ALT 21 U/L (13-61); SODIUM 140 mmol/L (136-145)
== END 2018-04-30 13:28 | disposition home or self-care (01) ==
LOC: JER 08:32
PROC: 3E0F7GC Introduction of Other Therapeutic Substance into Respiratory Tract, Via Natural or Artificial Opening (ICD-10-PCS; principal; 2018-04-30)
DX: R41.82 Altered mental status, unspecified (principal); W18.39XA Other fall on same level, initial encounter; Y93.89 Activity, other specified; Y92.230 Patient room in hospital as the place of occurrence of the external cause; Y99.8 Other external cause status; R11.0 Nausea; I10 Essential (primary) hypertension; E78.5 Hyperlipidemia, unspecified; B18.2 Chronic viral hepatitis C; F10.10 Alcohol abuse, uncomplicated; F11.10 Opioid abuse, uncomplicated; F14.10 Cocaine abuse, uncomplicated; F31.9 Bipolar disorder, unspecified
CPT/HCPCS: 36415; 70450-TC; 71045-TC-FY; 72125-TC; 80053; 83690; 85025; 93005; 93010; 94640; 99282-25

== ENCOUNTER 2018-07-19 08:38 | Inpatient (IN) | payer OTHER ==
[2018-07-19 09:44] VITALS: BMI 28.3
--- NOTE | 2018-07-19 11:04 | HP ---
CIWA Score Nausea/Vomitin-Mild Nausea/No Vomiting Muscle Tremors: 7-Severe,w/o Arm Extended Anxiety: 4-Mod. Anxious/Guarded Agitation: 4-Moderately Restless Paroxysmal Sweats: 3 Orientation: 0-Oriented Tacttile Disturbances: 0-None Auditory Disturbances: 0-None Visual Disturbances: 3-Moderate Sensitivity Headache: 2-Mild CIWA-Ar Total Score: 24 - Admission Criteria OASAS Guidelines: Admission for Medically Managed Detox: Requires at least one of the followin. CIWA greater than 12 2. Seizures within the past 24 hours 3. Delirium tremens within the past 24 hours 4. Hallucinations within the past 24 hours 5. Acute intervention needed for co occurring medical disorder 6. Acute intervention needed for co occurring psychiatric disorder 7. Severe withdrawal that cannot be handled at a lower level of care (continued vomiting, continued diarrhea, abnormal vital signs) requiring intravenous medication and/or fluids 8. 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 Alcohol use : since age 14. Cocaine : since age 39 , crack cocaine " I owe $460 " Marijuana : since age 15. Nicotine : since age 17 1/2 - 1 ppd Opiates : since age 39 , current daily use 1 bundle /day , on 50 mg at this program . Continues to relapse w/ opiates despite being on Methadone Maintenance. PMHx; DM, HTN, Asthma , non-compliant w/ medications and medical follow ups ( no mammogram in 2 years though was advised to 2/2 FHX breast CA mother ) PSHX : left breast lumpectomy 2005 , ANGELY 2007 2/2 DUB , fatoumata Psych Hx: Depression. Denies SI / HI Exam Limitations: Clinical Condition, Intoxication - Ebola screening Have you traveled outside of the country in the last 21 days: No (N) Have you had contact with anyone from an Ebola affected area: No Do you have a fever: No - Review of Systems Constitutional: See HPI, Loss of Appetite EENT: reports: Tearing, Other (glasses - reading) Respiratory: reports: See HPI, Cough (" for so long " went to [facility] given 6-d abx , prednisone , completed course) Cardiac: reports: No Symptoms Reported GI: reports: Diarrhea, Nausea, Vomiting : reports: No Symptoms Reported Musculoskeletal: reports: Muscle Pain Integumentary: reports: Dryness Neuro: reports: See HPI, Headache, Tremors Endocrine: reports: See HPI Psychiatric: reports: Orientated x3, Agitated, Anxious Patient History - Patient Medical History Hx Anemia: Yes (resolved) Hx Asthma: Yes Hx Chronic Obstructive Pulmonary Disease (COPD): No Hx Cancer: No Hx Cardiac Disorders: No Hx Congestive Heart Failure: No Hx Hypertension: Yes (on meds) Hx Hypercholesterolemia: Yes Hx Pacemaker: No HX Cerebrovascular Accident: No Hx Seizures: No Hx Dementia: No Hx Diabetes: Yes (Type II) Hx Gastrointestinal Disorders: No Hx Liver Disease: Yes Hx Genitourinary Disorders: No Hx Sexually Transmitted Disorders: No Hx Renal Disease (ESRD): No Hx Thyroid Disease: No Hx Human Immunodeficiency Virus (HIV): No Hx Hepatitis C: Yes (NO TREATMENT) Hx Depression: Yes Hx Suicide Attempt: No Hx Bipolar Disorder: No Hx Schizophrenia: No - Patient Surgical History Past Surgical History: Yes Hx Neurologic Surgery: No Hx Cataract Extraction: No Hx Cardiac Surgery: No Hx Lung Surgery: No Hx Breast Surgery: Yes (cyst removal in 2005) Hx Breast Biopsy: No Hx Abdominal Surgery: Yes (Hysterectomy in 2007) Hx Appendectomy: No Hx Cholecystectomy: Yes (r/o gallstones 11/05) Hx Genitourinary Surgery: No Hx Section: No Hx Orthopedic Surgery: No Hx Hysterectomy: Yes (2007) Anesthesia Reaction: No - PPD History Date: 11/14/17 Results: 0 m m - Reproductive History Last Menstrual Period: 10/07/07 - Smoking Cessation Smoking history: Unknown if ever smoked Have you smoked in the past 12 months: Yes Aproximately how many cigarettes per day: 10 Cigars Per Day: 0 Hx Chewing Tobacco Use: No - Substances abused Crack Substance route: Smoking Frequency: Daily Amount used: 2bags Age of first use: 38 Date of last use: 07/18/18 Alcohol Substance route: Oral Frequency: Daily Amount used: 8bts-apple smirnoff fifth btl Age of first use: 39 Date of last use: 07/18/18 Family Disease History - Family Disease History Family Disease History: Diabetes: Mother ( FROM CA. OF THE LIVER,HTN), Brother, Heart Disease: Mother, Sister ( MII), CA: Father (etoh, ), Mother Admission Physical Exam BHS - Vital Signs Vital Signs: Vital Signs - 24 hr 07/19/18 07/19/18 09:25 10:04 Temperature 98.2 F 98.2 F Pulse Rate 99 H 99 H Respiratory 18 18 Rate Blood Pressure 144/92 144/92 - Physical General Appearance: Yes: Disheveled, Moderate Distress, Severe Distress, Alcohol on Breath, Intoxicated, Tremorous, Sweating, Anxious HEENTM: Yes: EOMI, Hearing grossly Normal, Normocephalic, Nasal Congestion, Muffled/Hoarse Voice, Other (poor dentition , many missing teeth) Respiratory: Yes: Chest Non-Tender, No Respiratory Distress, No Accessory Muscle Use, Wheezing (RUL /JOSIE) Neck: Yes: No masses,lesions,Nodules, Trachea in good position Cardiology: Yes: Regular Rhythm, Regular Rate, S1, S2, Tachycardia Abdominal: Yes: Non Tender, Soft Back: Yes: Normal Inspection Musculoskeletal: Yes: Gait Steady, Joint Stiffness (aaron knees) Extremities: Yes: Normal Range of Motion, Non-Tender, Tremors Neurological: Yes: Fully Oriented, Alert, Motor Strength 5/5, Depressed Affect Integumentary: Yes: Dry, Warm, Other (onychomycosis, elongated toenails.) - Diagnostic (1) Alcohol dependence with uncomplicated withdrawal Current Visit: Yes Status: Acute (2) Nicotine dependence Current Visit: Yes Status: Chronic Qualifiers: Nicotine product type: cigarettes (3) Cocaine use disorder Current Visit: Yes Status: Chronic (4) Opioid dependence on agonist therapy Current Visit: Yes Status: Chronic Breathalyzer - Breathalyzer Breathalyzer: 0.013 Urine Drug Screen - Test Device Lot number: [id number] Expiration date: 04/19/20 - Control Is test valid?: Yes - Results Drug screen NEGATIVE: No Urine drug screen results: THC-Marijuana, KENYA-Cocaine, FEN-Fentanyl, MOP-Opiates , MTD-Methadone Inpatient Rehab Admission - Rehab Decision to Admit Inpatient rehab admission?: No
[2018-07-19] MEDS ORDERED: ALBUTEROL SO4 8 GM HFA INHALER IH PRN (11:14)
[2018-07-19] MEDS ORDERED: BISMUTH SUBSALICYLATE 262 MG/15 ML BTL PO PRN (11:17)
[2018-07-19] MEDS ORDERED: IBUPROFEN 400 MG TABLET (FP) PO PRN (11:17)
[2018-07-19] MEDS ORDERED: MAGNESIUM HYDROX 2400MG/30ML ORAL SUSPENSION 30 ML CUP PO PRN (11:17)
[2018-07-19] MEDS ORDERED: hydrOXYzine PAMOATE 25 MG CAPSULE (FP) PO PRN (11:17)
[2018-07-19] MEDS ORDERED: MENTHOL/PHENOL 1 EACH UD MM PRN (11:17)
[2018-07-19] MEDS ORDERED: MELATONIN 5 MG TABLETS PO PRN (11:17)
[2018-07-19] MEDS ORDERED: ACETAMINOPHEN 325 MG TABLET (FP) PO PRN ×2 (11:17)
[2018-07-19] MEDS ORDERED: MAGNESIUM CITRATE 300 ML BOTTLE PO PRN (11:17)
[2018-07-19] MEDS ORDERED: MAG HYDROX/AL HYDROX/SIMETH 30 ML UNIT-DOSE CUP PO PRN (11:17)
[2018-07-19] MEDS ORDERED: NICOTINE POLACRILEX 2 MG GUM BUC PRN (11:17)
[2018-07-19] MEDS ORDERED: ALBUTEROL SO4 0.083% IH SOL 2.5 MG/3 ML VIAL.NEB. NEB PRN (11:23)
[2018-07-19] MEDS ORDERED: diazePAM 5 MG TABLET PO ONE (11:45)
[2018-07-19] MEDS: amLODIPine BESYLATE 10 MG TABLET (FP) PO SCH (12:07)
[2018-07-19] MEDS ORDERED: Insulin (LOG) Aspart 100 UNITS/ML VIAL SQ SCH (12:10)
[2018-07-19] MEDS ORDERED: INSULIN SLIDING SCALE (NOVOLOG) 1 VIAL SQ SCH (12:30)
[2018-07-19] MEDS ORDERED: INSULIN SLIDING SCALE (NOVOLOG) 1 VIAL SQ ONE (12:33)
[2018-07-19] MEDS: diazePAM 5 MG TABLET PO SCH ×2 (13:44→21:05)
--- NOTE | 2018-07-19 14:49 | CONSULT ---
[facility] Psychiatric Consult - Data Date of interview: 07/19/18 Admission source: [facility] Identifying data: Patient is a 57 year old single female, mother of two, unemployed, domiciled, and is supported by [facility]. This is one of multiple admissions for patient. Patient admitted to for alcohol and opiate dependence. Substance Abuse History: - Smoking Cessation. Smoking history: Unknown if ever smoked. Have you smoked in the past 12 months: Yes. Aproximately how many cigarettes per day: 10. Cigars Per Day: 0. Hx Chewing Tobacco Use: No. - Substances abused. Crack. Substance route: Smoking. Frequency: Daily. Amount used: 2bags. Age of first use: 38. Date of last use: 07/18/18. Alcohol. Substance route: Oral. Frequency: Daily. Amount used: 8bts-apple smirnoff fifth btl. Age of first use: 39. Date of last use: 07/18/18 Medical History: Significant for bronchial asthma, hypertension, diabetes mellitus, hepatitis C, arthritis, chronic lumbar pain, psoriasis and past surgeries (hysterectomy and left breast lumpectomy). Psychiatric History: Patient reports h/o multiple psychiatric hospitalizations at [facility]. She reports h/o depression although is not compliant with medications and outpatient psychiatric care. Patient unable to recall the medications she has been prescribed and is solely focused on receiving ambien for insomnia. Patient is currently on methadone maintenance of 50mg daily. Ms. Goyal denies h/o suicide attempt. At present, patient reports difficulty sleeping. Physical/Sexual Abuse/Trauma History: denies. Mental Status Exam - Mental Status Exam Alert and Oriented to: Time, Place, Person Cognitive Function: Good Patient Appearance: Unkempt Mood: Withdrawn Affect: Mood Congruent Patient Behavior: Cooperative Speech Pattern: Appropriate Voice Loudness: Moderately Soft/Quiet Thought Process: Goal Oriented Thought Disorder: Not Present Hallucinations: Denies Suicidal Ideation: Denies Homicidal Ideation: Denies Insight/Judgement: Poor Appetite: Fair Muscle strength/Tone: Normal Gait/Station: Normal Psychiatric Findings - Problem List ([place] 1, 2,3) (1) Alcohol dependence with uncomplicated withdrawal Current Visit: Yes Status: Acute (2) Cocaine use disorder Current Visit: Yes Status: Chronic (3) Nicotine dependence Current Visit: Yes Status: Chronic Qualifiers: Nicotine product type: cigarettes (4) Opioid dependence on agonist therapy Current Visit: Yes Status: Chronic (5) Substance-induced sleep disorder Current Visit: Yes Status: Chronic - Initial Treatment Plan Initial Treatment Plan: Psychoeducation provided. Detoxification in progress. Will order Belsomra 10mg HS. Benefits and side effects discussed. Verbal consent given.
[2018-07-19] MEDS ORDERED: ALBUTEROL SO4 8 GM HFA INHALER IH SCH (16:00)
--- NOTE | 2018-07-19 16:05 | PN ---
S Progress Note Note: tried to confirm with pharmacy the pt regimen for s/s and insulin coverage but unable to confirm with pharmacy. pt will continue to be covered with insulin novolog as ordered until pharmacy is reached again in the morning.
[2018-07-19] MEDS: diazePAM 5 MG TABLET PO PRN ×2 (16:49→22:59)
[2018-07-19] MEDS: metFORMIN HCL 500 MG TABLET (FP) PO SCH (18:22)
[2018-07-19] MEDS: INSULIN SLIDING SCALE (NOVOLOG) 1 VIAL SQ SCH ×2 (18:23→23:05)
[2018-07-19] MEDS: AMMONIUM LACTATE 12% LOTION 225 GM BOTTLE TP PRN (20:04)
[2018-07-19] MEDS ORDERED: metFORMIN HCL 500 MG TABLET (FP) PO SCH (22:00)
[2018-07-19] MEDS: THIAMINE HCL 100 MG TABLET (FP) PO SCH (22:57)
[2018-07-19] MEDS: SUVOREXANT 10 MG TABLET PO PRN (22:59)
[2018-07-19] MEDS: INSULIN (LEVEMIR) 100 UNITS/ML UNITS SQ SCH (23:04)
[2018-07-20] MEDS: diazePAM 5 MG TABLET PO PRN ×4 (03:42→21:06)
[2018-07-20] MEDS ORDERED: METHADONE HCL 10 MG TABLET ONE (05:37)
[2018-07-20] MEDS ORDERED: METHADONE HCL 40 MG DISPERSABLE TABLET ONE (05:37)
[2018-07-20] MEDS ORDERED: METHADONE 40 MG, METHADONE 10 MG PO SCH (06:00)
[2018-07-20] MEDS ORDERED: METHADONE HCL 10 MG TABLET PO SCH (06:00)
[2018-07-20] MEDS: diazePAM 5 MG TABLET PO SCH (06:03)
[2018-07-20] MEDS: metFORMIN HCL 500 MG TABLET (FP) PO SCH ×2 (06:12→16:49)
[2018-07-20] MEDS: INSULIN SLIDING SCALE (NOVOLOG) 1 VIAL SQ SCH ×4 (07:44→22:47)
--- NOTE | 2018-07-20 09:16 | PN ---
[facility] Progress Note Note: as per pt, nursing note and new focus it has been confirmed that she missed her doses of methadone and she is being built up to reach her final dose of 90mg.
[2018-07-20] MEDS ORDERED: METHADONE HCL 10 MG TABLET PO ONE (10:00)
[2018-07-20] MEDS ORDERED: amLODIPine BESYLATE 10 MG TABLET (FP) PO SCH (10:00)
[2018-07-20] MEDS: amLODIPine BESYLATE 10 MG TABLET (FP) PO SCH (10:23)
[2018-07-20] MEDS: PRENATAL VITAMINS W/ FOLIC ACID TABLET (FP) PO SCH (10:25)
[2018-07-20 10:54] LABS: ALBUMIN 3.7 g/dl (3.4-5.0); BILIRUBIN,TOTAL 0.3 mg/dL (0.2-1); CALCIUM 9.5 mg/dL (8.5-10.1); CREATININE 1.1 mg/dL (0.55-1.3); POTASSIUM 4.8 mmol/L (3.5-5.1); TOT PROT 7.8 g/dl (6.4-8.2)
[2018-07-20 10:56] LABS: HEMATOCRIT 44.4 % (32.4-45.2); HEMOGLOBIN 14.3 GM/dL (10.7-15.3); MCH 28.5 pg (25.7-33.7); MCHC 32.2 g/dl (32.0-36.0); MEAN CELL VOLUME 88.5 fl (80-96); MEAN PLT VOLUME 8.5 fl (7.5-11.1); PLATELET COUNT 259 K/MM3 (134-434); RBC 5.01 M/mm3 (3.60-5.2); RDW 13.9 % (11.6-15.6); WHITE BLOOD COUNT 6.8 K/mm3 (4.0-10.0)
[2018-07-20] MEDS: CARBAMIDE PEROXIDE 6.5% OTIC 15 ML BOTTLE AU SCH ×2 (11:03→22:46)
--- NOTE | 2018-07-20 12:23 | PN ---
[facility] CIWA - CIWA Score Nausea/Vomitin-No Nausea/No Vomiting Muscle Tremors: 3 Anxiety: 3 Agitation: 2 Paroxysmal Sweats: 2 Orientation: 0-Oriented Tacttile Disturbances: 0-None Auditory Disturbances: 0-None Visual Disturbances: 0-None Headache: 0-None Present CIWA-Ar Total Score: 10 S Progress Note (SOAP) Subjective: agitation sweats anxiety body aches Objective: 07/20/18 12:21 Vital Signs Temperature 98.3 F 07/20/18 10:34 Pulse Rate 105 H 07/20/18 10:34 Respiratory Rate 07/20/18 10:34 Blood Pressure 140/85 07/20/18 10:34 O2 Sat by Pulse Oximetry (%) Laboratory Tests 07/19/18 07/19/18 07/19/18 10:06 11:16 16:37 WBC RBC Hgb Hct MCV MCH MCHC RDW Plt Count MPV Sodium Potassium Chloride Carbon Dioxide Anion Gap BUN Creatinine Est GFR (CKD-EPI)AfAm Est GFR (CKD-EPI)NonAf POC Glucometer 336 76 Random Glucose Calcium Total Bilirubin AST ALT Alkaline Phosphatase Total Protein Albumin POC Urine HCG, Qual Negative 07/19/18 07/20/18 07/20/18 21:56 06:08 07:00 WBC 6.8 RBC 5.01 Hgb 14.3 Hct 44.4 D MCV 88.5 MCH 28.5 MCHC 32.2 RDW 13.9 Plt Count 259 D MPV 8.5 Sodium Potassium Chloride Carbon Dioxide Anion Gap BUN Creatinine Est GFR (CKD-EPI)AfAm Est GFR (CKD-EPI)NonAf POC Glucometer 164 173 Random Glucose Calcium Total Bilirubin AST ALT Alkaline Phosphatase Total Protein Albumin POC Urine HCG, Qual 07/20/18 07/20/18 07:00 11:15 WBC RBC Hgb Hct MCV MCH MCHC RDW Plt Count MPV Sodium 137 Potassium 4.8 Chloride 102 Carbon Dioxide 31 Anion Gap 5 L BUN 21 H Creatinine 1.1 Est GFR (CKD-EPI)AfAm 64.09 Est GFR (CKD-EPI)NonAf 55.30 POC Glucometer 123 Random Glucose 97 Calcium 9.5 Total Bilirubin 0.3 AST 13 L ALT 18 Alkaline Phosphatase 126 H Total Protein 7.8 Albumin 3.7 POC Urine HCG, Qual labs noted aaox3 ambulating no acute distress pt is being managed with current insulin s/s. Assessment: 07/20/18 12:22 mild withdrawal sx Plan: continue detox increase fluids d/c in am. pt is to go to her [facility] new focus for reinstatement or go to inpatient rehab for continued treatment after detox.
[2018-07-20] MEDS ORDERED: diazePAM 5 MG TABLET PO SCH (14:00)
[2018-07-20] MEDS: AMMONIUM LACTATE 12% LOTION 225 GM BOTTLE TP PRN (19:29)
[2018-07-20] MEDS ORDERED: diazePAM 5 MG TABLET PO ONE (22:00)
[2018-07-20] MEDS: INSULIN (LEVEMIR) 100 UNITS/ML UNITS SQ SCH (22:47)
[2018-07-20] MEDS: SUVOREXANT 10 MG TABLET PO PRN (23:05)
[2018-07-20] MEDS: THIAMINE HCL 100 MG TABLET (FP) PO SCH (23:06)
[2018-07-21] MEDS: diazePAM 5 MG TABLET PO PRN ×2 (01:22→18:06)
[2018-07-21] MEDS ORDERED: METHADONE HCL 40 MG DISPERSABLE TABLET ONE (05:13)
[2018-07-21] MEDS ORDERED: METHADONE HCL 10 MG TABLET ONE (05:13)
[2018-07-21] MEDS: diazePAM 5 MG TABLET PO SCH ×3 (05:16→23:05)
[2018-07-21] MEDS ORDERED: METHADONE 80 MG, METHADONE 10 MG PO SCH (06:00)
[2018-07-21] MEDS ORDERED: METHADONE 40 MG, METHADONE 30 MG PO ONE (06:00)
[2018-07-21] MEDS ORDERED: diazePAM 5 MG TABLET PO ONE (06:00)
[2018-07-21] MEDS ORDERED: METHADONE HCL 10 MG TABLET PO ONE (06:00)
[2018-07-21] MEDS: metFORMIN HCL 500 MG TABLET (FP) PO SCH ×2 (07:16→16:56)
[2018-07-21] MEDS: INSULIN SLIDING SCALE (NOVOLOG) 1 VIAL SQ SCH ×5 (07:17→23:22)
--- NOTE | 2018-07-21 08:20 | DS ---
[facility] Detox Discharge Summary Admission Date: 07/19/18 - Physical Exam Results Vital Signs: Vital Signs Temperature 98.1 F 07/21/18 06:00 Pulse Rate 124 H 07/21/18 06:00 Respiratory Rate 18 07/21/18 06:00 Blood Pressure 141/88 07/21/18 06:00 O2 Sat by Pulse Oximetry (%) - Medication Discharge Medications: Ambulatory Orders Albuterol Sulfate Inhaler - [Ventolin Hfa Inhaler -] 1 - 2 inh PO Q4H 07/19/18 Amlodipine Besylate 10 mg PO DAILY 07/19/18 Insulin (Novolog) [Novolog] 30 units SQ TID 07/19/18 Insulin Glargine,Hum.rec.anlog [Lantus Solostar PEN (NF)] 10 units SQ HS metFORMIN HCL [Metformin HCl] 500 mg PO BID 07/19/18
[2018-07-21] MEDS: CARBAMIDE PEROXIDE 6.5% OTIC 15 ML BOTTLE AU SCH ×2 (10:19→23:00)
[2018-07-21] MEDS: amLODIPine BESYLATE 10 MG TABLET (FP) PO SCH (10:19)
[2018-07-21] MEDS: PRENATAL VITAMINS W/ FOLIC ACID TABLET (FP) PO SCH (10:19)
--- NOTE | 2018-07-21 12:34 | PN ---
S CIWA - CIWA Score Nausea/Vomitin-No Nausea/No Vomiting Muscle Tremors: 2 Anxiety: 2 Agitation: 2 Paroxysmal Sweats: 2 Orientation: 1-Uncertain about Date Tacttile Disturbances: 0-None Auditory Disturbances: 0-None Visual Disturbances: 0-None Headache: 1-Very Mild CIWA-Ar Total Score: 10 S Progress Note (SOAP) Subjective: c/o muscle aches, sweats, agitation, and mild headache. Objective: 07/21/18 12:31 Vital Signs 07/21/18 07/21/18 06:00 09:13 Temperature 98.1 F 98.6 F Pulse Rate 124 H 116 H Respiratory 18 18 Rate Blood Pressure 141/88 126/80 Lab Results WBC 6.8 K/mm3 (4.0-10.0) 07/20/18 07:00 RBC 5.01 M/mm3 (3.60-5.2) 07/20/18 07:00 Hgb 14.3 GM/dL (10.7-15.3) 07/20/18 07:00 Hct 44.4 % (32.4-45.2) D 07/20/18 07:00 MCV 88.5 fl (80-96) 07/20/18 07:00 MCHC 32.2 g/dl (32.0-36.0) 07/20/18 07:00 RDW 13.9 % (11.6-15.6) 07/20/18 07:00 Plt Count 259 K/MM3 (134-434) D 07/20/18 07:00 Sodium 137 mmol/L (136-145) 07/20/18 07:00 Potassium 4.8 mmol/L (3.5-5.1) 07/20/18 07:00 Chloride 102 mmol/L (98-107) 07/20/18 07:00 Carbon Dioxide 31 mmol/L (21-32) 07/20/18 07:00 Anion Gap 5 MMOL/L (8-16) L 07/20/18 07:00 BUN 21 mg/dL (7-18) H 07/20/18 07:00 Creatinine 1.1 mg/dL (0.55-1.3) 07/20/18 07:00 Random Glucose 97 mg/dL (74-106) 07/20/18 07:00 Calcium 9.5 mg/dL (8.5-10.1) 07/20/18 07:00 Labs noted. Assessment: 07/21/18 12:32 AOX3, in no acute distress. full rom, ambulating in the unit withdrawal symptoms. Dr. Ansari changed pt's treatment regimen, discharged cancelled at this time. Plan: continue detox.
[2018-07-21] MEDS ORDERED: guaiFENesin 200 MG/10 ML 10 ML UNIT-DOSE CUPS PO PRN (21:55)
[2018-07-21] MEDS: SUVOREXANT 10 MG TABLET PO PRN (22:04)
[2018-07-21] MEDS: THIAMINE HCL 100 MG TABLET (FP) PO SCH (22:04)
[2018-07-21] MEDS: INSULIN (LEVEMIR) 100 UNITS/ML UNITS SQ SCH (22:58)
[2018-07-21] MEDS ORDERED: INSULIN SLIDING SCALE (NOVOLOG) 1 VIAL SQ ONE (23:23)
[2018-07-22] MEDS: diazePAM 5 MG TABLET PO PRN ×2 (02:27→07:09)
[2018-07-22] MEDS ORDERED: METHADONE HCL 40 MG DISPERSABLE TABLET PO ONE (06:00)
[2018-07-22] MEDS: metFORMIN HCL 500 MG TABLET (FP) PO SCH ×2 (07:04→18:21)
[2018-07-22] MEDS: INSULIN SLIDING SCALE (NOVOLOG) 1 VIAL SQ SCH ×3 (07:05→18:31)
[2018-07-22] MEDS: CARBAMIDE PEROXIDE 6.5% OTIC 15 ML BOTTLE AU SCH (11:09)
[2018-07-22] MEDS: amLODIPine BESYLATE 10 MG TABLET (FP) PO SCH (11:10)
[2018-07-22] MEDS: diazePAM 2 MG TABLET PO SCH (11:10)
[2018-07-22] MEDS: PRENATAL VITAMINS W/ FOLIC ACID TABLET (FP) PO SCH (11:10)
--- NOTE | 2018-07-22 16:58 | PN ---
S CIWA - CIWA Score Nausea/Vomitin-No Nausea/No Vomiting Muscle Tremors: 2 Anxiety: 2 Agitation: 2 Paroxysmal Sweats: 2 Orientation: 0-Oriented Tacttile Disturbances: 0-None Auditory Disturbances: 0-None Visual Disturbances: 0-None Headache: 0-None Present CIWA-Ar Total Score: 8 [facility] Progress Note (SOAP) Subjective: Feeling drowsy, tremor, chills, sweating. Patient appears very drowsy (looks sedated). Objective: 07/22/18 16:54 Last Vital Signs Temp Pulse Resp BP Pulse Ox 98.1 F 110 H 20 140/80 07/22/18 14:00 07/22/18 14:00 07/22/18 14:00 07/22/18 14:00 Tachycardia most likely due to anxiety Elevated b/p: has htn, on med Laboratory Tests 07/19/18 07/19/18 07/19/18 10:06 11:16 16:37 WBC RBC Hgb Hct MCV MCH MCHC RDW Plt Count MPV Sodium Potassium Chloride Carbon Dioxide Anion Gap BUN Creatinine Est GFR (CKD-EPI)AfAm Est GFR (CKD-EPI)NonAf POC Glucometer 336 76 Random Glucose Calcium Total Bilirubin AST ALT Alkaline Phosphatase Total Protein Albumin POC Urine HCG, Qual Negative RPR Titer 07/19/18 07/20/18 07/20/18 21:56 06:08 07:00 WBC 6.8 RBC 5.01 Hgb 14.3 Hct 44.4 D MCV 88.5 MCH 28.5 MCHC 32.2 RDW 13.9 Plt Count 259 D MPV 8.5 Sodium Potassium Chloride Carbon Dioxide Anion Gap BUN Creatinine Est GFR (CKD-EPI)AfAm Est GFR (CKD-EPI)NonAf POC Glucometer 164 173 Random Glucose Calcium Total Bilirubin AST ALT Alkaline Phosphatase Total Protein Albumin POC Urine HCG, Qual RPR Titer 07/20/18 07/20/18 07/20/18 07:00 07:00 11:15 WBC RBC Hgb Hct MCV MCH MCHC RDW Plt Count MPV Sodium 137 Potassium 4.8 Chloride 102 Carbon Dioxide 31 Anion Gap 5 L BUN 21 H Creatinine 1.1 Est GFR (CKD-EPI)AfAm 64.09 Est GFR (CKD-EPI)NonAf 55.30 POC Glucometer 123 Random Glucose 97 Calcium 9.5 Total Bilirubin 0.3 AST 13 L ALT 18 Alkaline Phosphatase 126 H Total Protein 7.8 Albumin 3.7 POC Urine HCG, Qual RPR Titer Nonreactive 07/20/18 07/20/18 07/21/18 17:16 21:48 05:10 WBC RBC Hgb Hct MCV MCH MCHC RDW Plt Count MPV Sodium Potassium Chloride Carbon Dioxide Anion Gap BUN Creatinine Est GFR (CKD-EPI)AfAm Est GFR (CKD-EPI)NonAf POC Glucometer 159 151 162 Random Glucose Calcium Total Bilirubin AST ALT Alkaline Phosphatase Total Protein Albumin POC Urine HCG, Qual RPR Titer 07/21/18 07/21/18 07/21/18 11:26 16:37 21:44 WBC RBC Hgb Hct MCV MCH MCHC RDW Plt Count MPV Sodium Potassium Chloride Carbon Dioxide Anion Gap BUN Creatinine Est GFR (CKD-EPI)AfAm Est GFR (CKD-EPI)NonAf POC Glucometer 123 138 161 Random Glucose Calcium Total Bilirubin AST ALT Alkaline Phosphatase Total Protein Albumin POC Urine HCG, Qual RPR Titer 07/22/18 07/22/18 07:02 16:33 WBC RBC Hgb Hct MCV MCH MCHC RDW Plt Count MPV Sodium Potassium Chloride Carbon Dioxide Anion Gap BUN Creatinine Est GFR (CKD-EPI)AfAm Est GFR (CKD-EPI)NonAf POC Glucometer 152 211 Random Glucose Calcium Total Bilirubin AST ALT Alkaline Phosphatase Total Protein Albumin POC Urine HCG, Qual RPR Titer Labs reviewed: elevated glucose, bun 21 Assessment: 07/22/18 16:56 Withdrawal symptoms Noted with hyperglycemia and azotemia Plan: Continue detox Encouraged PO water intake Hold detox protocol due to sedation, can resume when patient not sedated Hyperglycemia: secondary to DMT2; continue diabetic regimen Azotemia: encouraged PO water hydration
[2018-07-22] MEDS ORDERED: INSULIN SLIDING SCALE (NOVOLOG) 1 VIAL SQ ONE (18:17)
[2018-07-22] MEDS ORDERED: NALOXONE HCL 0.4 MG/ML VIAL ONE (21:51)
[2018-07-22] MEDS ORDERED: NALOXONE HCL 0.4 MG/ML VIAL IVPUSH ONE (22:03)
--- NOTE | 2018-07-22 22:03 | PN ---
[facility] Progress Note Note: ASKED TO SEE PATIENT FOR HYPOXIA AND CHANGE IN MENTAL STATUS ( SEDATED), FEVER, COUGH CLIENT SEEN IN BED AROUSABLE AXO X2. DENIES SOB, CHEST PAIN, Vital Signs - 24 hr 07/22/18 07/22/18 07/22/18 03:30 06:00 06:20 Temperature 100.9 F H 100.4 F H Pulse Rate 116 H Respiratory 18 20 Rate Blood Pressure 151/78 07/22/18 07/22/18 07/22/18 06:30 14:00 21:24 Temperature 98.1 F 99.7 F H Pulse Rate 110 H 123 H Respiratory 18 20 16 Rate Blood Pressure 140/80 151/92 07/22/18 07/22/18 21:50 22:00 Temperature 100.8 F H 99.5 F Pulse Rate 115 H 124 H Respiratory Rate Blood Pressure 148/83 153/76 Laboratory Tests 07/19/18 07/19/18 07/19/18 10:06 11:16 16:37 WBC RBC Hgb Hct MCV MCH MCHC RDW Plt Count MPV Sodium Potassium Chloride Carbon Dioxide Anion Gap BUN Creatinine Est GFR (CKD-EPI)AfAm Est GFR (CKD-EPI)NonAf POC Glucometer 336 76 Random Glucose Calcium Total Bilirubin AST ALT Alkaline Phosphatase Total Protein Albumin POC Urine HCG, Qual Negative RPR Titer 07/19/18 07/20/18 07/20/18 21:56 06:08 07:00 WBC 6.8 RBC 5.01 Hgb 14.3 Hct 44.4 D MCV 88.5 MCH 28.5 MCHC 32.2 RDW 13.9 Plt Count 259 D MPV 8.5 Sodium Potassium Chloride Carbon Dioxide Anion Gap BUN Creatinine Est GFR (CKD-EPI)AfAm Est GFR (CKD-EPI)NonAf POC Glucometer 164 173 Random Glucose Calcium Total Bilirubin AST ALT Alkaline Phosphatase Total Protein Albumin POC Urine HCG, Qual RPR Titer 07/20/18 07/20/18 07/20/18 07:00 07:00 11:15 WBC RBC Hgb Hct MCV MCH MCHC RDW Plt Count MPV Sodium 137 Potassium 4.8 Chloride 102 Carbon Dioxide 31 Anion Gap 5 L BUN 21 H Creatinine 1.1 Est GFR (CKD-EPI)AfAm 64.09 Est GFR (CKD-EPI)NonAf 55.30 POC Glucometer 123 Random Glucose 97 Calcium 9.5 Total Bilirubin 0.3 AST 13 L ALT 18 Alkaline Phosphatase 126 H Total Protein 7.8 Albumin 3.7 POC Urine HCG, Qual RPR Titer Nonreactive 07/20/18 07/20/18 07/21/18 17:16 21:48 05:10 WBC RBC Hgb Hct MCV MCH MCHC RDW Plt Count MPV Sodium Potassium Chloride Carbon Dioxide Anion Gap BUN Creatinine Est GFR (CKD-EPI)AfAm Est GFR (CKD-EPI)NonAf POC Glucometer 159 151 162 Random Glucose Calcium Total Bilirubin AST ALT Alkaline Phosphatase Total Protein Albumin POC Urine HCG, Qual RPR Titer 07/21/18 07/21/18 07/21/18 11:26 16:37 21:44 WBC RBC Hgb Hct MCV MCH MCHC RDW Plt Count MPV Sodium Potassium Chloride Carbon Dioxide Anion Gap BUN Creatinine Est GFR (CKD-EPI)AfAm Est GFR (CKD-EPI)NonAf POC Glucometer 123 138 161 Random Glucose Calcium Total Bilirubin AST ALT Alkaline Phosphatase Total Protein Albumin POC Urine HCG, Qual RPR Titer 07/22/18 07/22/18 07/22/18 07:02 16:33 21:47 WBC RBC Hgb Hct MCV MCH MCHC RDW Plt Count MPV Sodium Potassium Chloride Carbon Dioxide Anion Gap BUN Creatinine Est GFR (CKD-EPI)AfAm Est GFR (CKD-EPI)NonAf POC Glucometer 152 211 133 Random Glucose Calcium Total Bilirubin AST ALT Alkaline Phosphatase Total Protein Albumin POC Urine HCG, Qual RPR Titer A/O X2 LYING IN BED SEDATED AROUSABLE TO VERBAL STIMULI FOR SHORT PERIOD, WITH SHALLOW BREATHING HEENT- NCAT, +BILAT CATARCTS, PUPILS APPROX 3MM NOT REACTIVE TO LIGHT, MMM CV-TACHY/FANNY 90'S-120'S BPM NEG MURMURS LUNGS- CTAB WITH DECREASE BREATH SOUNDS- 02 SAT 86% ON 2 LITERS;PLACE ON NON REBREATHER MASK WITH 02 NOW 96 % SKIN-HOT MOIST. A-OVERDOSE, FEVER P- 57 Y.O FEMALE ADMITTED FOR ALCOHOL DETOX ON [facility] BEING BUILD UP TO BLOCKING DOSE RECIVED 90 MG OF METHADONE EARLIER TODAY. FEVER GREATER THAN 18 HOURS WITH INTERMITTENT RELIEF WITH TYLENOL. NOW WITH CHANGE IN MENTAL STATUS, HYPOXIC IN SETTING OF OVER SEDATION, CLIENT GIVEN NARCAN 0.4MG TO LEFT DELTOID WITH RAPID AWAKENING AND ALERTNESS. CLIENT TRANSFERRED TO [facility] FOR FURTHER EVAL. ENDORSED CLIENT TO DR. CARPENTER
[2018-07-22 22:04] VITALS: BP 153/76; TEMP 99.5
[2018-07-22 22:20] VITALS: PULSE 124
[2018-07-23] MEDS: CARBAMIDE PEROXIDE 6.5% OTIC 15 ML BOTTLE AU SCH (00:20)
[2018-07-23] MEDS: INSULIN (LEVEMIR) 100 UNITS/ML UNITS SQ SCH (00:20)
[2018-07-23] MEDS: INSULIN SLIDING SCALE (NOVOLOG) 1 VIAL SQ SCH (00:21)
[2018-07-23] MEDS: diazePAM 2 MG TABLET PO SCH (00:21)
[2018-07-23] MEDS: THIAMINE HCL 100 MG TABLET (FP) PO SCH (00:22)
[2018-07-23] MEDS ORDERED: METHADONE 80 MG, METHADONE 10 MG PO SCH (06:00)
[2018-07-23] MEDS ORDERED: METHADONE HCL 40 MG DISPERSABLE TABLET PO SCH (06:00)
[2018-07-23] MEDS ORDERED: METHADONE HCL 10 MG TABLET PO ONE (06:00)
[2018-07-23] MEDS ORDERED: diazePAM 5 MG TABLET PO ONE (10:00)
== END 2018-07-22 23:59 | disposition short-term general hospital (02) | DRG 773 ==
LOC: YASAS 08:38 → Y6N 11:38
PROVIDERS: ADMIT Surgery; ATTEND Surgery
PROC: HZ2ZZZZ Detoxification Services for Substance Abuse Treatment (ICD-10-PCS; principal; 2018-07-19)
DX: F10.230 Alcohol dependence with withdrawal, uncomplicated (principal); F11.20 Opioid dependence, uncomplicated; F14.10 Cocaine abuse, uncomplicated; F17.210 Nicotine dependence, cigarettes, uncomplicated; F19.24 Other psychoactive substance dependence with psychoactive substance-induced mood disorder; I10 Essential (primary) hypertension; E11.65 Type 2 diabetes mellitus with hyperglycemia; Z79.4 Long term (current) use of insulin; E78.00 Pure hypercholesterolemia, unspecified; J45.909 Unspecified asthma, uncomplicated; R79.89 Other specified abnormal findings of blood chemistry; R50.9 Fever, unspecified; R41.82 Altered mental status, unspecified; R09.02 Hypoxemia
CPT/HCPCS: 36415; 80053; 81025; 82962; 85027; 86593

== ENCOUNTER 2018-07-22 22:22 | Inpatient (IN) | payer OTHER | END 2018-07-24 17:06 | disposition home or self-care (01) | LOC: JERBED 07-23 01:43 → JER 22:22 → J4W 07-23 17:54 ==

== ENCOUNTER 2018-11-01 09:30 | Inpatient (IN) | payer OTHER | END 2018-11-05 09:03 | disposition home or self-care (01) | LOC: YASAS 09:30 → Y3N 11:33 ==

== ENCOUNTER 2018-12-07 09:31 | Inpatient (IN) | payer OTHER ==
[2018-12-07 10:13] VITALS: BMI 28.3
--- NOTE | 2018-12-07 10:57 | HP ---
CIWA Score Nausea/Vomitin-Mild Nausea/No Vomiting Muscle Tremors: 4-Moderate,w/Arms Extend Anxiety: 4-Mod. Anxious/Guarded Agitation: 4-Moderately Restless Paroxysmal Sweats: 2 Orientation: 0-Oriented Tacttile Disturbances: 0-None Auditory Disturbances: 0-None Visual Disturbances: 2-Mild Sensitivity Headache: 0-None Present CIWA-Ar Total Score: 17 - Admission Criteria OASAS Guidelines: Admission for Medically Managed Detox: Requires at least one of the followin. CIWA greater than 12 2. Seizures within the past 24 hours 3. Delirium tremens within the past 24 hours 4. Hallucinations within the past 24 hours 5. Acute intervention needed for co occurring medical disorder 6. Acute intervention needed for co occurring psychiatric disorder 7. Severe withdrawal that cannot be handled at a lower level of care (continued vomiting, continued diarrhea, abnormal vital signs) requiring intravenous medication and/or fluids 8. Admitting History and Physical - Past Medical History Cardiovascular: Yes: HTN Pulmonary: Yes: Asthma Gastrointestinal: Yes: Other (gall stones) Hepatobiliary: Yes: Hepatitis C ((possible) ) ...LMP: 10/07/07 Endocrine: Yes: Diabetes Mellitus - Smoking History Smoking history: Unknown if ever smoked Have you smoked in the past 12 months: Yes Aproximately how many cigarettes per day: 10 - Alcohol/Substance Use Hx Alcohol Use: Yes Admission [facility] Allergies/Adverse Reactions: Allergies Allergy/AdvReac Type Severity Reaction Status Date / Time No Known Drug Allergies Allergy Verified 12/07/18 10:00 NKDA Allergy Uncoded 12/07/18 10:00 History of Present Illness: 58 y.o. female pt requesting detox from etoh use , reports vodka 1/5 /day bottles x 6 /day, starts drinking alcohol upon awakening in the mornings , latest use yesterday, current symptoms as above , denies seizures , blackouts , + tremors . Alcohol use : since age 14. Cocaine : since age 39 , crack cocaine " a little bit " Marijuana : since age 15. Nicotine : since age 17 1/2 - 1 ppd Opiates : since age 39 , current daily use 2 bags/day via inhalation , on 90 mg at [facility] . PMHx; DM, HTN, Asthma , non-compliant w/ mammogram , was advised to go 2/2 FHX breast CA mother , wt loss claims previously 400 lbs , HLD PSHX : left breast lumpectomy 2005 , ANGELY 03/24 DUB Psych Hx: Depression. Denies SI / HI This report was requested by: Marialuisa Ansari | Reference #: [id number] Others' Prescriptions Patient Name: Irene Goyal Date: 1960 Address: [address] [place] [address] Sex: Female Rx Written Rx Dispensed Drug Quantity Days Supply Prescriber Name 08/30/2018 08/30/2018 zolpidem tartrate 10 mg tablet 7 7 Joe Ford 06/01/2018 06/01/2018 zolpidem tartrate 10 mg tablet 14 14 Flor Barrera Patient Name: Irene Goyal Date: 1960 Address: [address] [place] [address] Sex: Female Rx Written Rx Dispensed Drug Quantity Days Supply Prescriber Name 01/25/2018 01/26/2018 zolpidem tartrate 10 mg tablet 30 30 Joe Ford Exam Limitations: Clinical Condition - Ebola screening Have you traveled outside of the country in the last 21 days: No Have you had contact with anyone from an Ebola affected area: No Do you have a fever: No - Review of Systems Constitutional: Loss of Appetite EENT: reports: See HPI Respiratory: reports: Cough, Productive cough (x 3 d claims greenish sputum, current T 97.7) Cardiac: reports: No Symptoms Reported GI: reports: See HPI, Constipated, Nausea : reports: No Symptoms Reported Musculoskeletal: reports: No Symptoms Reported Integumentary: reports: No Symptoms Reported Neuro: reports: See HPI Endocrine: reports: See HPI Psychiatric: reports: Orientated x3, Agitated, Anxious, Depressed Patient History - Patient Medical History Hx Anemia: No Hx Asthma: Yes Hx Chronic Obstructive Pulmonary Disease (COPD): No Hx Cancer: No Hx Cardiac Disorders: No Hx Congestive Heart Failure: No Hx Hypertension: Yes (on meds) Hx Hypercholesterolemia: Yes Hx Pacemaker: No HX Cerebrovascular Accident: No Hx Seizures: No Hx Dementia: No Hx Diabetes: Yes (Type II) Hx Gastrointestinal Disorders: No Hx Liver Disease: Yes (hep C + but no viral load) Hx Genitourinary Disorders: No Hx Sexually Transmitted Disorders: No Hx Renal Disease (ESRD): No Hx Thyroid Disease: No Hx Human Immunodeficiency Virus (HIV): No Hx Hepatitis C: Yes (no viral load) Hx Depression: Yes (many hospitalizations, off meds for now) Hx Suicide Attempt: No Hx Bipolar Disorder: No Hx Schizophrenia: No - Patient Surgical History Past Surgical History: Yes Hx Neurologic Surgery: No Hx Cataract Extraction: No Hx Cardiac Surgery: No Hx Lung Surgery: No Hx Breast Surgery: No Hx Breast Biopsy: Yes (2005) Hx Abdominal Surgery: Yes (Hysterectomy in 2007) Hx Appendectomy: No Hx Cholecystectomy: Yes (r/o gallstones 11/05) Hx Genitourinary Surgery: No Hx Section: No Hx Orthopedic Surgery: No Hx Hysterectomy: Yes (2007) Anesthesia Reaction: No - PPD History Date: 11/14/17 Results: 0 m m - Reproductive History Last Menstrual Period: 10/07/07 - Smoking Cessation Smoking history: Unknown if ever smoked Have you smoked in the past 12 months: Yes Aproximately how many cigarettes per day: 10 Cigars Per Day: 0 Hx Chewing Tobacco Use: No - Substances abused Crack Substance route: Smoking Frequency: Daily Amount used: $20 Age of first use: 38 Date of last use: 12/06/18 Alcohol Substance route: Oral Frequency: Daily Amount used: 4 smirnoff fifth btl Age of first use: 39 Date of last use: 12/06/18 Heroin Substance route: Inhalation Frequency: Daily Amount used: $40 Age of first use: 17 Date of last use: 12/06/18 Admission Physical Exam [facility] - Vital Signs Vital Signs: Vital Signs - 24 hr 12/07/18 10:03 Temperature 97.7 F Pulse Rate 101 H Respiratory 18 Rate Blood Pressure 126/80 - Physical General Appearance: Yes: Moderate Distress, Tremorous, Anxious HEENTM: Yes: EOMI, Hearing grossly Normal, Normocephalic, Normal Voice, Muffled/ Hoarse Voice Respiratory: Yes: Chest Non-Tender, Lungs Clear, Decreased Breath Sounds, No Respiratory Distress, No Accessory Muscle Use Neck: Yes: No masses,lesions,Nodules, Trachea in good position Cardiology: Yes: Regular Rhythm, Regular Rate, S1, S2, Tachycardia Abdominal: Yes: Non Tender, Soft Back: Yes: Normal Inspection Musculoskeletal: Yes: Gait Steady Extremities: Yes: Normal Range of Motion, Non-Tender, Tremors Neurological: Yes: Alert, Motor Strength 5/5, Depressed Affect Integumentary: Yes: Warm - Diagnostic (1) Nicotine dependence Current Visit: Yes Status: Chronic Qualifiers: Nicotine product type: cigarettes (2) Alcohol use disorder Current Visit: Yes Status: Chronic (3) Cocaine dependence Current Visit: Yes Status: Chronic Qualifiers: Substance use status: uncomplicated Qualified Code(s): F14.20 - Cocaine dependence, uncomplicated (4) Opioid dependence on agonist therapy Current Visit: Yes Status: Chronic (5) Sedative, hypnotic or anxiolytic dependence with withdrawal, uncomplicated Current Visit: Yes Status: Chronic Breathalyzer - Breathalyzer Breathalyzer: 0 Urine Drug Screen - Test Device Lot number: [id number] Expiration date: 07/20/20 - Control Is test valid?: Yes - Results Drug screen NEGATIVE: No Urine drug screen results: KENYA-Cocaine, FEN-Fentanyl, MOP-Opiates, MTD-Methadone , BZO-Benzodiazepines Inpatient Rehab Admission - Rehab Decision to Admit Inpatient rehab admission?: No
[2018-12-07] MEDS ORDERED: MAGNESIUM CITRATE 300 ML BOTTLE PO PRN (11:14)
[2018-12-07] MEDS ORDERED: ACETAMINOPHEN 325 MG TABLET (FP) PO PRN ×2 (11:14)
[2018-12-07] MEDS ORDERED: P-EPHED 60MG/TRIPROLIDI 2.5MG TABLET PO PRN (11:14)
[2018-12-07] MEDS ORDERED: BISMUTH SUBSALICYLATE 524 MG/30 ML UD PO PRN (11:14)
[2018-12-07] MEDS ORDERED: MAG HYDROX/AL HYDROX/SIMETH 30 ML UNIT-DOSE CUP PO PRN (11:14)
[2018-12-07] MEDS ORDERED: IBUPROFEN 400 MG TABLET (FP) PO PRN (11:14)
[2018-12-07] MEDS ORDERED: MAGNESIUM HYDROX 2400MG/30ML ORAL SUSPENSION 30 ML CUP PO PRN (11:14)
[2018-12-07] MEDS ORDERED: MENTHOL/PHENOL 1 EACH UD MM PRN (11:14)
[2018-12-07] MEDS: BUDESONIDE/FORMETEROL FUMARATE 80/4.5 mcg INHALER IH SCH ×2 (13:02→22:13)
[2018-12-07] MEDS: diazePAM 5 MG TABLET PO SCH ×2 (13:02→22:12)
[2018-12-07] MEDS: metFORMIN HCL 500 MG TABLET (FP) PO SCH ×2 (15:49→15:50)
--- NOTE | 2018-12-07 16:42 | CONSULT ---
[facility] Psychiatric Consult - Data Date of interview: 12/07/18 Admission source: [facility] Identifying data: Readmission to [facility] for this 58 y/o AA female self- referred for detoxification treatment. EFRAIN issues : heroin, cocaine, cannabis. Interviewed on . 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 Substance Abuse History: Discussed with patient. Details in current [facility] report as follows : Smoking history: Unknown if ever smoked. Have you smoked in the past 12 months: Yes. Aproximately how many cigarettes per day: 10. Cigars Per Day: 0. Hx Chewing Tobacco Use: No. - Substances abused. Crack. Substance route: Smoking. Frequency: Daily. Amount used: $20. Age of first use: 38. Date of last use: 12/06/18. Alcohol. Substance route: Oral. Frequency: Daily. Amount used: 4 smirnoff fifth btl. Age of first use: 39. Date of last use: 12/06/18. Heroin. Substance route: Inhalation. Frequency : Daily. Amount used: $40. Age of first use: 17. Date of last use: 12/06/18 Medical History: Medical profile is remarkable for bronchial asthma, hypertension, diabetes mellitus, hepatitis C, arthritis, chronic lumbar pain, psoriasis and past surgeries (cholecystectomy, hysterectomy and left breast lumpectomy). Psychiatric History: History of multiple psychiatric hospitalizations (only at [facility]). Diagnosed with Bipolar Disorder and MDD. Denies treatment with psychotropic medications except for methadone + zolpidem. Sporadic adherence to methadone maintenance at [facility]. Totally lost to psychiatric OPD care. Ms Goyal denies history of suicide attempts. Physical/Sexual Abuse/Trauma History: Patient denies. Additional Comment: Urine drug screen results: KENYA-Cocaine, FEN-Fentanyl, MOP- Opiates, MTD-Methadone, BZO-Benzodiazepines. Noted. Mental Status Exam - Mental Status Exam Alert and Oriented to: Time, Place, Person Cognitive Function: Good Patient Appearance: Well Groomed Mood: Irritable Affect: Mood Congruent Patient Behavior: Cooperative Speech Pattern: Clear Voice Loudness: Normal Thought Process: Goal Oriented Thought Disorder: Not Present Hallucinations: Denies Suicidal Ideation: Denies Homicidal Ideation: Denies Insight/Judgement: Poor Sleep: Poorly, Difficulty falling asleep Appetite: Good Gait/Station: Normal Psychiatric Findings - Problem List ([place] 1, 2,3) (1) Opioid dependence on agonist therapy Current Visit: Yes Status: Chronic (2) Alcohol use disorder Current Visit: Yes Status: Chronic (3) Cocaine dependence Current Visit: Yes Status: Chronic Qualifiers: Substance use status: uncomplicated Qualified Code(s): F14.20 - Cocaine dependence, uncomplicated (4) Nicotine dependence Current Visit: Yes Status: Chronic Qualifiers: Nicotine product type: cigarettes (5) Substance induced mood disorder Current Visit: Yes Status: Suspected (6) History of bipolar disorder Current Visit: Yes Status: Chronic (7) Insomnia Current Visit: Yes Status: Chronic (8) Non-compliance Current Visit: Yes Status: Chronic - Initial Treatment Plan Initial Treatment Plan: Psychoeducation. Sleep hygiene. Detoxification. Insomnia is addressed with melatonin. Patient agrees. Support. AA meetings. Groups. Observation.
[2018-12-07] MEDS: diazePAM 5 MG TABLET PO PRN (17:56)
[2018-12-07] MEDS: INSULIN SLIDING SCALE (NOVOLOG) 1 VIAL SQ SCH ×2 (17:57→22:13)
[2018-12-07] MEDS: THIAMINE HCL 100 MG TABLET (FP) PO SCH (22:12)
[2018-12-07] MEDS: MELATONIN 5 MG TABLETS PO PRN (22:13)
[2018-12-07] MEDS: INSULIN (LEVEMIR) 100 UNITS/ML UNITS SQ SCH (22:15)
[2018-12-08] MEDS: diazePAM 5 MG TABLET PO PRN ×4 (00:35→20:03)
[2018-12-08] MEDS ORDERED: METHADONE HCL 40 MG DISPERSABLE TABLET ONE (04:45)
[2018-12-08] MEDS ORDERED: METHADONE HCL 10 MG TABLET ONE (04:45)
[2018-12-08] MEDS: METHADONE 80 MG, METHADONE 10 MG PO SCH (05:18)
[2018-12-08] MEDS: diazePAM 5 MG TABLET PO SCH ×3 (05:18→22:39)
[2018-12-08] MEDS ORDERED: METHADONE HCL 10 MG TABLET PO SCH (06:00)
[2018-12-08] MEDS: metFORMIN HCL 500 MG TABLET (FP) PO SCH ×2 (07:48→17:24)
[2018-12-08] MEDS: INSULIN SLIDING SCALE (NOVOLOG) 1 VIAL SQ SCH ×4 (07:49→23:04)
[2018-12-08] MEDS: BUDESONIDE/FORMETEROL FUMARATE 80/4.5 mcg INHALER IH SCH ×2 (09:53→22:38)
[2018-12-08] MEDS: PRENATAL VITAMINS W/ FOLIC ACID TABLET (FP) PO SCH (09:53)
[2018-12-08] MEDS: guaiFENesin 200 MG/10 ML 10 ML UNIT-DOSE CUPS PO PRN (09:54)
[2018-12-08] MEDS: ALBUTEROL SO4 0.083% IH SOL 2.5 MG/3 ML VIAL.NEB. NEB PRN (09:56)
[2018-12-08 10:17] LABS: ALBUMIN 3.6 g/dl (3.4-5.0); BILIRUBIN,TOTAL 0.2 mg/dL (0.2-1); BLOOD UREA NITROGEN 21.1 mg/dL (7-18); CALCIUM 8.7 mg/dL (8.5-10.1); CREATININE 1.2 mg/dL (0.55-1.3); POTASSIUM 4.2 mmol/L (3.5-5.1); TOT PROT 7.3 g/dl (6.4-8.2)
--- NOTE | 2018-12-08 10:20 | PN ---
[facility] CIWA - CIWA Score Nausea/Vomitin-Mild Nausea/No Vomiting Muscle Tremors: 3 Anxiety: 3 Agitation: 3 Paroxysmal Sweats: 2 Orientation: 0-Oriented Tacttile Disturbances: 0-None Auditory Disturbances: 0-None Visual Disturbances: 0-None Headache: 1-Very Mild CIWA-Ar Total Score: 13 [facility] Progress Note (SOAP) Subjective: pt here for alcohol/benzo use disorders, pt in a methadone/MAT program. O: Vital Signs - 24 hr 12/07/18 12/07/18 12/07/18 13:41 18:06 22:14 Temperature 97.5 F L 97.6 F 96.9 F L Pulse Rate 99 H 108 H 114 H Respiratory 18 18 16 Rate Blood Pressure 119/80 114/76 138/76 12/08/18 12/08/18 12/08/18 00:38 03:30 06:22 Temperature 98.3 F Pulse Rate 111 H Respiratory 18 18 18 Rate Blood Pressure 115/75 12/08/18 09:47 Temperature 97.5 F L Pulse Rate 117 H Respiratory 20 Rate Blood Pressure 120/77 a/p: AUD/Benzodiazepine use disorder- Valium detox Continue MAT methadone.
[2018-12-08 10:32] LABS: HEMATOCRIT 42.6 % (32.4-45.2); HEMOGLOBIN 13.7 GM/dL (10.7-15.3); MCH 28.7 pg (25.7-33.7); MCHC 32.2 g/dl (32.0-36.0); MEAN CELL VOLUME 89.2 fl (80-96); MEAN PLT VOLUME 8.4 fl (7.5-11.1); PLATELET COUNT 218 K/MM3 (134-434); RBC 4.78 M/mm3 (3.60-5.2); RDW 15.3 % (11.6-15.6); WHITE BLOOD COUNT 4.7 K/mm3 (4.0-10.0)
[2018-12-08] MEDS ORDERED: ARTIFICIAL TEARS (POLYVINYL ALCOHOL) OPTH DROPS OU PRN (11:07)
[2018-12-08] MEDS: hydrOXYzine PAMOATE 25 MG CAPSULE (FP) PO PRN (19:24)
[2018-12-08] MEDS: MELATONIN 5 MG TABLETS PO PRN (22:39)
[2018-12-08] MEDS: INSULIN (LEVEMIR) 100 UNITS/ML UNITS SQ SCH (22:39)
[2018-12-08] MEDS: THIAMINE HCL 100 MG TABLET (FP) PO SCH (22:39)
[2018-12-09] MEDS: diazePAM 5 MG TABLET PO PRN ×4 (01:54→21:09)
[2018-12-09] MEDS ORDERED: METHADONE HCL 40 MG DISPERSABLE TABLET ONE (04:50)
[2018-12-09] MEDS ORDERED: METHADONE HCL 10 MG TABLET ONE (04:50)
[2018-12-09] MEDS: diazePAM 5 MG TABLET PO SCH ×2 (05:31→17:54)
[2018-12-09] MEDS: METHADONE 80 MG, METHADONE 10 MG PO SCH (05:32)
[2018-12-09] MEDS: INSULIN SLIDING SCALE (NOVOLOG) 1 VIAL SQ SCH ×4 (06:39→23:03)
[2018-12-09] MEDS: metFORMIN HCL 500 MG TABLET (FP) PO SCH ×2 (06:39→16:47)
[2018-12-09] MEDS: ALBUTEROL SO4 0.083% IH SOL 2.5 MG/3 ML VIAL.NEB. NEB PRN ×2 (07:52→15:25)
[2018-12-09] MEDS: guaiFENesin 200 MG/10 ML 10 ML UNIT-DOSE CUPS PO PRN ×2 (09:02→22:47)
--- NOTE | 2018-12-09 10:31 | PN ---
[facility] CIWA - CIWA Score Nausea/Vomitin-Mild Nausea/No Vomiting Muscle Tremors: 2 Anxiety: 2 Agitation: 2 Paroxysmal Sweats: 1-Minimal Palms Moist Orientation: 0-Oriented Tacttile Disturbances: 0-None Auditory Disturbances: 0-None Visual Disturbances: 0-None Headache: 0-None Present CIWA-Ar Total Score: 8 S Progress Note (SOAP) Subjective: doing well with valium detox regimen sitting on the edge of the bed eating breakfast no trouble chewing no trouble swallowing tolerate food and fluid well ambulating on hallway steady gait speech clearly received methadone 90 mg po today patient requests toe nail to be cut that last time the methadone program took care of her toe nails Objective: 12/09/18 10:30 Vital Signs Temperature 98.8 F 12/09/18 09:54 Pulse Rate 111 H 12/09/18 09:54 Respiratory Rate 20 12/09/18 09:54 Blood Pressure 124/81 12/09/18 09:54 O2 Sat by Pulse Oximetry (%) Laboratory Last Values WBC 4.7 K/mm3 (4.0-10.0) 12/08/18 08:00 RBC 4.78 M/mm3 (3.60-5.2) 12/08/18 08:00 Hgb 13.7 GM/dL (10.7-15.3) 12/08/18 08:00 Hct 42.6 % (32.4-45.2) 12/08/18 08:00 MCV 89.2 fl (80-96) 12/08/18 08:00 MCH 28.7 pg (25.7-33.7) 12/08/18 08:00 MCHC 32.2 g/dl (32.0-36.0) 12/08/18 08:00 RDW 15.3 % (11.6-15.6) 12/08/18 08:00 Plt Count 218 K/MM3 (134-434) 12/08/18 08:00 MPV 8.4 fl (7.5-11.1) 12/08/18 08:00 Sodium 141 mmol/L (136-145) 12/08/18 08:00 Potassium 4.2 mmol/L (3.5-5.1) 12/08/18 08:00 Chloride 103 mmol/L (98-107) 12/08/18 08:00 Carbon Dioxide 31 mmol/L (21-32) 12/08/18 08:00 Anion Gap 6 MMOL/L (8-16) L 12/08/18 08:00 BUN 21.1 mg/dL (7-18) H 12/08/18 08:00 Creatinine 1.2 mg/dL (0.55-1.3) 12/08/18 08:00 Est GFR (CKD-EPI)AfAm 57.29 12/08/18 08:00 Est GFR (CKD-EPI)NonAf 49.43 12/08/18 08:00 POC Glucometer 117 UNITS (80-120) 12/09/18 05:31 Random Glucose 150 mg/dL (74-106) H 12/08/18 08:00 Calcium 8.7 mg/dL (8.5-10.1) 12/08/18 08:00 Total Bilirubin 0.2 mg/dL (0.2-1) 12/08/18 08:00 AST 14 U/L (15-37) L 12/08/18 08:00 ALT 17 U/L (13-61) 12/08/18 08:00 Alkaline Phosphatase 138 U/L (45-117) H 12/08/18 08:00 Total Protein 7.3 g/dl (6.4-8.2) 12/08/18 08:00 Albumin 3.6 g/dl (3.4-5.0) 12/08/18 08:00 RPR Titer Nonreactive (NONREACTIVE) 12/08/18 08:00 lab noted Assessment: 12/09/18 10:30 alcohol withdrawal sx Plan: continue valium detox regimen
[2018-12-09] MEDS: BUDESONIDE/FORMETEROL FUMARATE 80/4.5 mcg INHALER IH SCH ×2 (10:57→22:46)
[2018-12-09] MEDS: PRENATAL VITAMINS W/ FOLIC ACID TABLET (FP) PO SCH (10:57)
[2018-12-09] MEDS ORDERED: NICOTINE POLACRILEX 2 MG GUM BUC PRN (11:47)
[2018-12-09] MEDS: THIAMINE HCL 100 MG TABLET (FP) PO SCH (22:46)
[2018-12-09] MEDS: hydrOXYzine PAMOATE 25 MG CAPSULE (FP) PO PRN (22:47)
[2018-12-09] MEDS: MELATONIN 5 MG TABLETS PO PRN (22:47)
[2018-12-09] MEDS: INSULIN (LEVEMIR) 100 UNITS/ML UNITS SQ SCH (22:51)
[2018-12-10] MEDS: diazePAM 5 MG TABLET PO PRN (02:17)
[2018-12-10] MEDS ORDERED: METHADONE HCL 10 MG TABLET ONE (05:20)
[2018-12-10] MEDS ORDERED: METHADONE HCL 40 MG DISPERSABLE TABLET ONE (05:20)
[2018-12-10] MEDS: METHADONE 80 MG, METHADONE 10 MG PO SCH (05:52)
[2018-12-10] MEDS ORDERED: diazePAM 5 MG TABLET PO ONE (06:00)
[2018-12-10] MEDS: metFORMIN HCL 500 MG TABLET (FP) PO SCH (06:41)
[2018-12-10] MEDS: INSULIN SLIDING SCALE (NOVOLOG) 1 VIAL SQ SCH ×2 (06:42→11:07)
[2018-12-10 09:11] VITALS: BP 131/47; PULSE 112; TEMP 98.5
--- NOTE | 2018-12-10 10:17 | DS ---
[facility] Detox Discharge Summary Admission Date: 12/07/18 Discharge Date: 12/10/18 - History Present History: Alcohol Dependence Additional Comments: 58 years old female admitted on 12/07/18 for alcohol withdrawal sx management no complication through out the detox stay seen by psychiatrist no medical intervention needed at this time patient agrees to bringing in medication list and lab report to methadone program for follow up patient is alert oriented x 2 disoriented to date of the week cardiac S1S2 no murmur noted 07/2018 echo cardiogram indicate grade I diastolic dysfunction with mitral regurgitation patient denies dizziness no shortness of breath no chest pain extremities full range of motion skin warm and dry Pertinent Past History: patient - Physical Exam Results Vital Signs: Vital Signs Temperature 98.5 F 12/10/18 09:11 Pulse Rate 112 H 12/10/18 09:11 Respiratory Rate 18 12/10/18 09:11 Blood Pressure 131/47 L 12/10/18 09:11 O2 Sat by Pulse Oximetry (%) Pertinent Admission Physical Exam Findings: alcohol withdrawal sx Laboratory Last Values WBC 4.7 K/mm3 (4.0-10.0) 12/08/18 08:00 RBC 4.78 M/mm3 (3.60-5.2) 12/08/18 08:00 Hgb 13.7 GM/dL (10.7-15.3) 12/08/18 08:00 Hct 42.6 % (32.4-45.2) 12/08/18 08:00 MCV 89.2 fl (80-96) 12/08/18 08:00 MCH 28.7 pg (25.7-33.7) 12/08/18 08:00 MCHC 32.2 g/dl (32.0-36.0) 12/08/18 08:00 RDW 15.3 % (11.6-15.6) 12/08/18 08:00 Plt Count 218 K/MM3 (134-434) 12/08/18 08:00 MPV 8.4 fl (7.5-11.1) 12/08/18 08:00 Sodium 141 mmol/L (136-145) 12/08/18 08:00 Potassium 4.2 mmol/L (3.5-5.1) 12/08/18 08:00 Chloride 103 mmol/L (98-107) 12/08/18 08:00 Carbon Dioxide 31 mmol/L (21-32) 12/08/18 08:00 Anion Gap 6 MMOL/L (8-16) L 12/08/18 08:00 BUN 21.1 mg/dL (7-18) H 12/08/18 08:00 Creatinine 1.2 mg/dL (0.55-1.3) 12/08/18 08:00 Est GFR (CKD-EPI)AfAm 57.29 12/08/18 08:00 Est GFR (CKD-EPI)NonAf 49.43 12/08/18 08:00 POC Glucometer 134 UNITS (80-120) 12/10/18 05:50 Random Glucose 150 mg/dL (74-106) H 12/08/18 08:00 Calcium 8.7 mg/dL (8.5-10.1) 12/08/18 08:00 Total Bilirubin 0.2 mg/dL (0.2-1) 12/08/18 08:00 AST 14 U/L (15-37) L 12/08/18 08:00 ALT 17 U/L (13-61) 12/08/18 08:00 Alkaline Phosphatase 138 U/L (45-117) H 12/08/18 08:00 Total Protein 7.3 g/dl (6.4-8.2) 12/08/18 08:00 Albumin 3.6 g/dl (3.4-5.0) 12/08/18 08:00 RPR Titer Nonreactive (NONREACTIVE) 12/08/18 08:00 lab noted - Treatment Hospital Course: Detox Protocol Followed, Detoxed Safely, Responded well, Discharged Condition Good, Rehab Referral Accepted Patient has Accepted [facility] - Medication Discharge Medications: Ambulatory Orders Insulin (Novolog) [Novolog -] 30 units SQ TID 07/19/18 Insulin Glargine,Hum.rec.anlog [Lantus Solostar PEN -] 10 units SQ HS 07/19/18 metFORMIN HCL [Metformin HCl] 500 mg PO BID 07/19/18 Amlodipine Besylate [Norvasc -] 10 mg PO DAILY #30 tablet 07/24/18 Albuterol Sulfate Inhaler - [Ventolin HFA Inhaler -] 2 inh PO Q4H PRN #1 inhaler 11/04/18 Budesonide/Formeterol Fumarate [SYMBICORT 80/4.5mcg -] 2 puff IH BID #1 inhaler 11/04/18 - Diagnosis (1) Nicotine dependence Current Visit: Yes Status: Chronic Qualifiers: Nicotine product type: cigarettes Substance use status: in withdrawal Qualified Code(s): F17.213 - Nicotine dependence, cigarettes, with withdrawal (2) Substance induced mood disorder Current Visit: Yes Status: Suspected (3) Asthma Current Visit: Yes Status: Chronic Qualifiers: Asthma severity: mild Asthma persistence: intermittent Asthma complication type: with status asthmaticus Qualified Code(s): J45.22 - Mild intermittent asthma with status asthmaticus (4) Diabetes mellitus, insulin dependent (IDDM), uncontrolled Current Visit: Yes Status: Chronic (5) HTN (hypertension) Current Visit: Yes Status: Chronic Qualifiers: Hypertension type: essential hypertension Qualified Code(s): I10 - Essential (primary) hypertension (6) Methadone maintenance therapy patient Current Visit: Yes Status: Chronic (7) Hepatitis C Current Visit: Yes Status: Inactive Qualifiers: Viral hepatitis chronicity: chronic Hepatic coma status: without hepatic coma Qualified Code(s): B18.2 - Chronic viral hepatitis C - AMA Did Patient Leave Against Medical Advice: No CIWA Score - CIWA Score Nausea/Vomitin-No Nausea/No Vomiting Muscle Tremors: 1-None Visible, but [place] Anxiety: 2 Agitation: 1-Slight > Activity Paroxysmal Sweats: No Perspiration Orientation: 0-Oriented Tacttile Disturbances: 0-None Auditory Disturbances: 0-None Visual Disturbances: 0-None Headache: 0-None Present CIWA-Ar Total Score: 4
[2018-12-10] MEDS: PRENATAL VITAMINS W/ FOLIC ACID TABLET (FP) PO SCH (11:07)
[2018-12-10] MEDS: BUDESONIDE/FORMETEROL FUMARATE 80/4.5 mcg INHALER IH SCH (11:07)
== END 2018-12-10 10:45 | disposition home or self-care (01) | DRG 773 ==
LOC: YASAS 09:31 → Y3N 11:23
PROVIDERS: ADMIT Allergy & Immunology; ATTEND Allergy & Immunology
PROC: HZ2ZZZZ Detoxification Services for Substance Abuse Treatment (ICD-10-PCS; principal; 2018-12-07)
DX: F10.230 Alcohol dependence with withdrawal, uncomplicated (principal); F13.230 Sedative, hypnotic or anxiolytic dependence with withdrawal, uncomplicated; F11.20 Opioid dependence, uncomplicated; F14.20 Cocaine dependence, uncomplicated; F17.213 Nicotine dependence, cigarettes, with withdrawal; F31.9 Bipolar disorder, unspecified; F19.24 Other psychoactive substance dependence with psychoactive substance-induced mood disorder; I10 Essential (primary) hypertension; J45.22 Mild intermittent asthma with status asthmaticus; E11.9 Type 2 diabetes mellitus without complications; Z79.4 Long term (current) use of insulin; G47.00 Insomnia, unspecified; B18.2 Chronic viral hepatitis C; Z91.19 Patient's noncompliance with other medical treatment and regimen
CPT/HCPCS: 36415; 71045-TC-FY; 80053; 82962; 85027; 86593; 94640

== ENCOUNTER 2019-03-07 10:34 | Inpatient (IN) | payer OTHER ==
[2019-03-07 12:13] VITALS: BMI 31.7
--- NOTE | 2019-03-07 17:03 | HP ---
CIWA Score Nausea/Vomitin-Mild Nausea/No Vomiting Muscle Tremors: None Anxiety: 4-Mod. Anxious/Guarded Agitation: 4-Moderately Restless Paroxysmal Sweats: 1-Minimal Palms Moist Orientation: 0-Oriented Tacttile Disturbances: 0-None Auditory Disturbances: 0-None Visual Disturbances: 0-None Headache: 3-Moderate CIWA-Ar Total Score: 13 - Admission Criteria OASAS Guidelines: Admission for Medically Managed Detox: Requires at least one of the followin. CIWA greater than 12 2. Seizures within the past 24 hours 3. Delirium tremens within the past 24 hours 4. Hallucinations within the past 24 hours 5. Acute intervention needed for co occurring medical disorder 6. Acute intervention needed for co occurring psychiatric disorder 7. Severe withdrawal that cannot be handled at a lower level of care (continued vomiting, continued diarrhea, abnormal vital signs) requiring intravenous medication and/or fluids 8. Admitting History and Physical - Past Medical History Cardiovascular: Yes: HTN Pulmonary: Yes: Asthma Gastrointestinal: Yes: Other (gall stones) Hepatobiliary: Yes: Hepatitis C ((possible) ) ...LMP: 10/07/07 Endocrine: Yes: Diabetes Mellitus - Smoking History Smoking history: Unknown if ever smoked Have you smoked in the past 12 months: Yes Aproximately how many cigarettes per day: 10 - Alcohol/Substance Use Hx Alcohol Use: Yes Admission [facility] Allergies/Adverse Reactions: Allergies Allergy/AdvReac Type Severity Reaction Status Date / Time No Known Drug Allergies Allergy Verified 03/07/19 17:10 tomato Allergy Swelling Verified 03/07/19 14:03 History of Present Illness: 58 y.o. female pt requesting detox from etoh use , reports vodka 1/5 /day bottle x 6 /day, starts drinking alcohol upon awakening in the mornings , latest use today in the parking lot, sent to [facility] for intoxication w/ agitation , mental starus change, returns reports feeling better , current symptoms as above , denies seizures , blackouts , + tremors . Alcohol use : since age 14. Cocaine : since age 39 , crack cocaine " a little bit " Marijuana : since age 15. Nicotine : since age 17 1/2 - 1 ppd Opiates : since age 39 , current daily use 2 bags/day via inhalation , on 90 mg at [facility] . PMHx; DM, HTN, Asthma , non-compliant w/ mammogram , was advised to go 2/2 FHX breast CA mother , wt loss claims previously 400 lbs , HLD PSHX : left breast lumpectomy 2005 , ANGELY 03/24 DUB Psych Hx: Depression. Denies SI / HI Exam Limitations: Clinical Condition - Ebola screening Have you traveled outside of the country in the last 21 days: No Have you had contact with anyone from an Ebola affected area: No - Review of Systems Constitutional: Loss of Appetite EENT: reports: No Symptoms Reported Respiratory: reports: No Symptoms reported Cardiac: reports: No Symptoms Reported GI: reports: Nausea, Poor Appetite : reports: No Symptoms Reported Musculoskeletal: reports: Back Pain (chronic) Integumentary: reports: No Symptoms Reported Neuro: reports: Headache Endocrine: reports: See HPI Psychiatric: reports: Orientated x3, Agitated, Anxious, Depressed Patient History - Patient Medical History Hx Anemia: No Hx Asthma: Yes Hx Chronic Obstructive Pulmonary Disease (COPD): No Hx Cancer: No Hx Cardiac Disorders: No Hx Congestive Heart Failure: No Hx Hypertension: Yes (on meds) Hx Hypercholesterolemia: Yes Hx Pacemaker: No HX Cerebrovascular Accident: No Hx Seizures: No Hx Dementia: No Hx Diabetes: Yes (Type II) Hx Gastrointestinal Disorders: No Hx Liver Disease: Yes (hep C + but no viral load) Hx Genitourinary Disorders: No Hx Sexually Transmitted Disorders: No Hx Renal Disease (ESRD): No Hx Thyroid Disease: No Hx Human Immunodeficiency Virus (HIV): No Hx Hepatitis C: Yes (no viral load) Hx Depression: Yes (many hospitalizations, off meds for now) Hx Suicide Attempt: No Hx Bipolar Disorder: No Hx Schizophrenia: No - Patient Surgical History Past Surgical History: Yes Hx Neurologic Surgery: No Hx Cataract Extraction: No Hx Cardiac Surgery: No Hx Lung Surgery: No Hx Breast Surgery: No Hx Breast Biopsy: Yes (2005) Hx Abdominal Surgery: Yes (Hysterectomy in 2007) Hx Appendectomy: No Hx Cholecystectomy: Yes (r/o gallstones 11/05) Hx Genitourinary Surgery: No Hx Section: No Hx Orthopedic Surgery: No Hx Hysterectomy: Yes (2007) Anesthesia Reaction: No - PPD History Date: 11/14/17 Results: 0 m m - Reproductive History Last Menstrual Period: 10/07/07 - Smoking Cessation Smoking history: Unknown if ever smoked Have you smoked in the past 12 months: Yes Aproximately how many cigarettes per day: 10 Cigars Per Day: 0 Hx Chewing Tobacco Use: No - Substances abused Alcohol Substance route: Oral Frequency: Daily Amount used: 1 pint of vodka Age of first use: 17 Date of last use: 03/07/19 Heroin Substance route: Inhalation Frequency: Daily Amount used: 4 bags Age of first use: 18 Date of last use: 03/07/19 Crack Substance route: Smoking Frequency: Daily Amount used: 'too much" Age of first use: 17 Date of last use: 03/07/19 Admission Physical Exam [facility] - Vital Signs Vital Signs: Vital Signs - 24 hr 03/07/19 12:00 Temperature 96.9 F L Pulse Rate 104 H Respiratory 14 Rate Blood Pressure 144/73 - Physical General Appearance: Yes: Disheveled, Moderate Distress, Irritable, Anxious HEENTM: Yes: EOMI, Normocephalic, Muffled/Hoarse Voice, Other (poor dentition) Respiratory: Yes: Chest Non-Tender, Lungs Clear, Normal Breath Sounds, No Respiratory Distress, No Accessory Muscle Use Neck: Yes: No masses,lesions,Nodules, Trachea in good position Cardiology: Yes: Regular Rhythm, Regular Rate, S1, S2 Abdominal: Yes: Non Tender, Soft Back: Yes: Normal Inspection Musculoskeletal: Yes: Gait Steady Extremities: Yes: Normal Range of Motion, Non-Tender Neurological: Yes: Fully Oriented, Alert, Motor Strength 5/5, Depressed Affect Integumentary: Yes: Warm - Diagnostic (1) Alcohol dependence Current Visit: Yes Status: Chronic Qualifiers: Substance use status: uncomplicated Qualified Code(s): F10.20 - Alcohol dependence, uncomplicated (2) Cannabis dependence, uncomplicated Current Visit: Yes Status: Chronic (3) Cocaine dependence Current Visit: Yes Status: Chronic Qualifiers: Substance use status: uncomplicated Qualified Code(s): F14.20 - Cocaine dependence, uncomplicated (4) Nicotine dependence Current Visit: Yes Status: Chronic Qualifiers: Nicotine product type: cigarettes (5) Opioid dependence on agonist therapy Current Visit: Yes Status: Chronic Breathalyzer - Breathalyzer Breathalyzer: 0 Urine Drug Screen - Test Device Lot number: [id number] Expiration date: 09/18/20 - Control Is test valid?: Yes - Results Drug screen NEGATIVE: No Urine drug screen results: THC-Marijuana, KENYA-Cocaine, FEN-Fentanyl, MOP-Opiates , MTD-Methadone, BZO-Benzodiazepines Inpatient Rehab Admission - Rehab Decision to Admit Inpatient rehab admission?: No
[2019-03-07] MEDS ORDERED: ACETAMINOPHEN 325 MG TABLET (FP) PO PRN ×2 (17:06)
[2019-03-07] MEDS ORDERED: MAGNESIUM CITRATE 300 ML BOTTLE PO PRN (17:06)
[2019-03-07] MEDS ORDERED: MELATONIN 5 MG TABLETS PO PRN (17:06)
[2019-03-07] MEDS ORDERED: MAG HYDROX/AL HYDROX/SIMETH 30 ML UNIT-DOSE CUP PO PRN (17:06)
[2019-03-07] MEDS ORDERED: MAGNESIUM HYDROX 2400MG/30ML ORAL SUSPENSION 30 ML CUP PO PRN (17:06)
[2019-03-07] MEDS ORDERED: BISMUTH SUBSALICYLATE 524 MG/30 ML UD PO PRN (17:06)
[2019-03-07] MEDS ORDERED: NICOTINE POLACRILEX 2 MG GUM BUC PRN (17:06)
[2019-03-07] MEDS ORDERED: MENTHOL/PHENOL 1 EACH UD MM PRN (17:06)
[2019-03-07] MEDS ORDERED: IBUPROFEN 400 MG TABLET (FP) PO PRN (17:06)
[2019-03-07] MEDS ORDERED: hydrOXYzine PAMOATE 25 MG CAPSULE (FP) PO PRN (17:06)
[2019-03-07] MEDS ORDERED: diazePAM 5 MG TABLET PO ONE (18:00)
[2019-03-07] MEDS: amLODIPine BESYLATE 10 MG TABLET (FP) PO SCH (18:28)
[2019-03-07] MEDS: BUDESONIDE/FORMETEROL FUMARATE 80/4.5 mcg INHALER IH SCH (22:13)
[2019-03-07] MEDS: diazePAM 5 MG TABLET PO SCH (22:13)
[2019-03-07] MEDS: INSULIN SLIDING SCALE (NOVOLOG) 1 VIAL SQ SCH (22:13)
[2019-03-07] MEDS: THIAMINE HCL 100 MG TABLET (FP) PO SCH (22:13)
[2019-03-08] MEDS: diazePAM 5 MG TABLET PO PRN ×2 (01:52→17:45)
[2019-03-08] MEDS: diazePAM 5 MG TABLET PO SCH ×3 (05:54→22:07)
[2019-03-08] MEDS: metFORMIN HCL 500 MG TABLET (FP) PO SCH ×2 (06:40→16:31)
[2019-03-08] MEDS ORDERED: METHADONE HCL 10 MG TABLET PO SCH (07:30)
[2019-03-08] MEDS: INSULIN SLIDING SCALE (NOVOLOG) 1 VIAL SQ SCH ×4 (07:47→21:19)
[2019-03-08] MEDS ORDERED: METHADONE HCL 40 MG DISPERSABLE TABLET ONE (08:53)
[2019-03-08] MEDS ORDERED: METHADONE HCL 10 MG TABLET ONE (08:53)
[2019-03-08] MEDS: METHADONE 80 MG, METHADONE 10 MG PO SCH (08:55)
[2019-03-08 09:28] LABS: HEMOGLOBIN 14.2 GM/dL (10.7-15.3); MCH 28.6 pg (25.7-33.7); MCHC 32.2 g/dl (32.0-36.0); MEAN CELL VOLUME 88.9 fl (80-96); MEAN PLT VOLUME 9.1 fl (7.5-11.1); PLATELET COUNT 183 K/MM3 (134-434); RBC 4.95 M/mm3 (3.60-5.2); RDW 13.7 % (11.6-15.6); WHITE BLOOD COUNT 4.7 K/mm3 (4.0-10.0)
[2019-03-08 09:41] LABS: ALBUMIN 3.5 g/dl (3.4-5.0); BILIRUBIN,TOTAL 0.3 mg/dL (0.2-1); CALCIUM 8.8 mg/dL (8.5-10.1); CREATININE 1.3 mg/dL (0.55-1.3); POTASSIUM 4.4 mmol/L (3.5-5.1)
[2019-03-08] MEDS: BUDESONIDE/FORMETEROL FUMARATE 80/4.5 mcg INHALER IH SCH ×2 (10:26→22:07)
[2019-03-08] MEDS: PRENATAL VITAMINS W/ FOLIC ACID TABLET (FP) PO SCH (10:26)
[2019-03-08] MEDS: amLODIPine BESYLATE 10 MG TABLET (FP) PO SCH (10:26)
[2019-03-08] MEDS ORDERED: FLU VACCINE QUAD 60 MCG/0.5 ML (MDV 19-20) IM ONE (12:00)
[2019-03-08] MEDS ORDERED: PNEUMOC 13-VAL CONJ-DIP CRM/PF 0.5 ML DISP.SYRIN IM ONE (12:00)
--- NOTE | 2019-03-08 12:29 | PN ---
S CIWA - CIWA Score Nausea/Vomitin-Mild Nausea/No Vomiting Muscle Tremors: 2 Anxiety: 2 Agitation: 2 Paroxysmal Sweats: 2 Orientation: 0-Oriented Tacttile Disturbances: 2-Mild Itch/Numbness/Burn Auditory Disturbances: 0-None Visual Disturbances: 0-None Headache: 0-None Present CIWA-Ar Total Score: 11 BHS Progress Note (SOAP) Subjective: interrupted sleep, sweats, shakes, decreased appetite wants ensure. Objective: 03/08/19 12:26 Vital Signs Temperature 98.6 F 03/08/19 09:15 Pulse Rate 109 H 03/08/19 09:15 Respiratory Rate 03/08/19 09:15 Blood Pressure 147/93 03/08/19 09:15 O2 Sat by Pulse Oximetry (%) Laboratory Tests 03/07/19 03/08/19 03/08/19 21:18 05:52 08:20 WBC 4.7 RBC 4.95 Hgb 14.2 Hct 44.0 MCV 88.9 MCH 28.6 MCHC 32.2 RDW 13.7 D Plt Count 183 MPV 9.1 Sodium Potassium Chloride Carbon Dioxide Anion Gap BUN Creatinine Est GFR (CKD-EPI)AfAm Est GFR (CKD-EPI)NonAf POC Glucometer 206 202 Random Glucose Calcium Total Bilirubin AST ALT Alkaline Phosphatase Total Protein Albumin RPR Titer 03/08/19 03/08/19 03/08/19 08:20 08:20 11:55 WBC RBC Hgb Hct MCV MCH MCHC RDW Plt Count MPV Sodium 136 Potassium 4.4 Chloride 100 Carbon Dioxide 32 Anion Gap 4 L BUN 17.0 Creatinine 1.3 Est GFR (CKD-EPI)AfAm 52.00 Est GFR (CKD-EPI)NonAf 44.87 POC Glucometer 161 Random Glucose 334 H Calcium 8.8 Total Bilirubin 0.3 AST 26 ALT 26 Alkaline Phosphatase 109 Total Protein 7.0 Albumin 3.5 RPR Titer Nonreactive pt aox3 in nad ambulating well Assessment: 03/08/19 12:27 withdrawal sx's \dm Plan: cont detox increase fluids glucerna bid
--- NOTE | 2019-03-08 12:43 | CONSULT ---
[facility] Psychiatric Consult - Data Date of interview: 03/08/19 Admission source: [facility] Identifying data: Revisit to [facility] and admission to [address] [place] [address] for this 58 y/o AA female self-referred for detoxification treatment. EFRAIN issues : alcohol, heroin, cocaine, cannabis, nicotine. Patient is single, a mother of two, domiciled (lives with common-law beef boner), unemployed and supported on SSI benefits. Substance Abuse History: Discusssed with patient. Details min current [facility] report as follows : Smoking history: Unknown if ever smoked. Have you smoked in the past 12 months: Yes. Aproximately how many cigarettes per day: 10. Cigars Per Day: 0. Hx Chewing Tobacco Use: No. - Substances abused. Alcohol. Substance route: Oral. Frequency: Daily. Amount used: 1 pint of vodka. Age of first use: 17. Date of last use: 03/07/19. Heroin. Substance route: Inhalation. Frequency: Daily. Amount used: 4 bags. Age of first use: 18. Date of last use: 03/07/19. Crack. Substance route: Smoking. Frequency: Daily. Amount used: 'too much". Age of first use: 17. Date of last use: 03/07/19 Medical History: Medical profile is remarkable for bronchial asthma, hypertension, diabetes mellitus, hepatitis C, arthritis, chronic lumbar pain, psoriasis and past surgeries (cholecystectomy, hysterectomy and left breast lumpectomy). Psychiatric History: Patient presents with a history of multiple psychiatric hospitalizations (only at [facility]). Historically diagnosed with Bipolar Disorder and MDD. Patient is not in contact with psychiatric OPD care providers. Has stopped taking psychotropic medications for monthe with the exception of methadone + zolpidem. Sporadic adherence to methadone maintenance at [facility] (90 mg/day). Ms Goyal denies history of suicide attempts. Physical/Sexual Abuse/Trauma History: Patient denies. Additional Comment: Urine drug screen results: THC-Marijuana, KENYA-Cocaine, FEN- Fentanyl, MOP-Opiates, MTD-Methadone, BZO-Benzodiazepines. Noted. Mental Status Exam - Mental Status Exam Alert and Oriented to: Time, Place, Person Cognitive Function: Good Patient Appearance: Disheveled Mood: Hostile, Irritable Affect: Mood Congruent, Constricted Patient Behavior: Inappropriate, Fatigued, Uncooperative Speech Pattern: Clear Voice Loudness: Normal Thought Process: Goal Oriented Thought Disorder: Not Present Hallucinations: Denies Suicidal Ideation: Denies Homicidal Ideation: Denies Insight/Judgement: Poor Sleep: Poorly, Difficulty falling asleep Appetite: Good Gait/Station: Normal Psychiatric Findings - Problem List ([place] 1, 2,3) (1) Opioid dependence on agonist therapy Current Visit: Yes Status: Chronic (2) Alcohol dependence Current Visit: Yes Status: Chronic Qualifiers: Substance use status: uncomplicated Qualified Code(s): F10.20 - Alcohol dependence, uncomplicated (3) Cannabis dependence, uncomplicated Current Visit: Yes Status: Chronic (4) Cocaine dependence Current Visit: Yes Status: Chronic Qualifiers: Substance use status: uncomplicated Qualified Code(s): F14.20 - Cocaine dependence, uncomplicated (5) Nicotine dependence Current Visit: Yes Status: Chronic Qualifiers: Nicotine product type: cigarettes (6) History of bipolar disorder Current Visit: Yes Status: Chronic (7) Substance induced mood disorder Current Visit: Yes Status: Chronic (8) Insomnia Current Visit: Yes Status: Chronic (9) Non-compliance Current Visit: Yes Status: Acute - Initial Treatment Plan Initial Treatment Plan: Psychoeducation. Sleep hygiene. AA/NA meetings. Detoxification in progress. Insomnia is addressed with melatonin at bedside ( with the patient's informed consent). Observation.
[2019-03-08] MEDS: THIAMINE HCL 100 MG TABLET (FP) PO SCH (22:07)
[2019-03-09] MEDS: diazePAM 5 MG TABLET PO PRN ×4 (00:35→22:42)
[2019-03-09] MEDS: ALBUTEROL SO4 HFA INHALER IH PRN ×2 (01:51→18:38)
[2019-03-09] MEDS ORDERED: METHADONE HCL 40 MG DISPERSABLE TABLET ONE (04:35)
[2019-03-09] MEDS ORDERED: METHADONE HCL 10 MG TABLET ONE (04:35)
[2019-03-09] MEDS: METHADONE 80 MG, METHADONE 10 MG PO SCH (05:38)
[2019-03-09] MEDS: diazePAM 5 MG TABLET PO SCH ×2 (05:38→17:27)
[2019-03-09] MEDS: metFORMIN HCL 500 MG TABLET (FP) PO SCH ×2 (06:18→17:00)
[2019-03-09] MEDS ORDERED: INSULIN SLIDING SCALE (NOVOLOG) 1 VIAL SQ ONE (06:22)
[2019-03-09] MEDS: INSULIN SLIDING SCALE (NOVOLOG) 1 VIAL SQ SCH ×4 (06:56→21:54)
[2019-03-09] MEDS: BUDESONIDE/FORMETEROL FUMARATE 80/4.5 mcg INHALER IH SCH ×2 (10:31→22:42)
[2019-03-09] MEDS: PRENATAL VITAMINS W/ FOLIC ACID TABLET (FP) PO SCH (10:31)
[2019-03-09] MEDS: amLODIPine BESYLATE 10 MG TABLET (FP) PO SCH (10:31)
--- NOTE | 2019-03-09 12:02 | PN ---
S CIWA - CIWA Score Nausea/Vomitin-No Nausea/No Vomiting Muscle Tremors: 2 Anxiety: 2 Agitation: 0-Normal Activity Paroxysmal Sweats: 2 Orientation: 0-Oriented Tacttile Disturbances: 0-None Auditory Disturbances: 0-None Visual Disturbances: 0-None Headache: 0-None Present CIWA-Ar Total Score: 6 BHS Progress Note (SOAP) Subjective: c/o sweats, anxiety, and shakes Objective: 03/09/19 12:05 Vital Signs 03/09/19 03/09/19 06:40 09:10 Temperature 97.9 F 97.8 F Pulse Rate 108 H 106 H Respiratory 18 16 Rate Blood Pressure 141/88 135/81 Lab Results WBC 4.7 K/mm3 (4.0-10.0) 03/08/19 08:20 RBC 4.95 M/mm3 (3.60-5.2) 03/08/19 08:20 Hgb 14.2 GM/dL (10.7-15.3) 03/08/19 08:20 Hct 44.0 % (32.4-45.2) 03/08/19 08:20 MCV 88.9 fl (80-96) 03/08/19 08:20 MCHC 32.2 g/dl (32.0-36.0) 03/08/19 08:20 RDW 13.7 % (11.6-15.6) D 03/08/19 08:20 Plt Count 183 K/MM3 (134-434) 03/08/19 08:20 Sodium 136 mmol/L (136-145) 03/08/19 08:20 Potassium 4.4 mmol/L (3.5-5.1) 03/08/19 08:20 Chloride 100 mmol/L (98-107) 03/08/19 08:20 Carbon Dioxide 32 mmol/L (21-32) 03/08/19 08:20 Anion Gap 4 MMOL/L (8-16) L 03/08/19 08:20 BUN 17.0 mg/dL (7-18) 03/08/19 08:20 Creatinine 1.3 mg/dL (0.55-1.3) 03/08/19 08:20 Random Glucose 334 mg/dL (74-106) H 03/08/19 08:20 Calcium 8.8 mg/dL (8.5-10.1) 03/08/19 08:20 Labs noted. Assessment: 03/09/19 12:06 AOX3, in no acute respiratory distress. Full ROM, ambulating in the unit. Withdrawal symptoms. For d/c tomorrow. 03/09/19 12:17 Plan: Continue detox. D/C in AM.
[2019-03-09] MEDS ORDERED: TETRAHYDROZOLINE HCL EYE DROPS OU PRN (18:52)
[2019-03-09] MEDS: THIAMINE HCL 100 MG TABLET (FP) PO SCH (22:43)
[2019-03-10] MEDS: diazePAM 5 MG TABLET PO PRN ×2 (02:41→10:03)
[2019-03-10] MEDS ORDERED: METHADONE HCL 40 MG DISPERSABLE TABLET ONE (04:30)
[2019-03-10] MEDS ORDERED: METHADONE HCL 10 MG TABLET ONE (04:30)
[2019-03-10] MEDS: METHADONE 80 MG, METHADONE 10 MG PO SCH (05:44)
[2019-03-10] MEDS ORDERED: diazePAM 5 MG TABLET PO ONE (06:00)
[2019-03-10] MEDS: metFORMIN HCL 500 MG TABLET (FP) PO SCH (06:12)
[2019-03-10] MEDS: INSULIN SLIDING SCALE (NOVOLOG) 1 VIAL SQ SCH ×2 (06:12→12:28)
[2019-03-10 09:06] VITALS: BP 123/71; PULSE 99; TEMP 97.1
[2019-03-10] MEDS: BUDESONIDE/FORMETEROL FUMARATE 80/4.5 mcg INHALER IH SCH (10:02)
[2019-03-10] MEDS: amLODIPine BESYLATE 10 MG TABLET (FP) PO SCH (10:03)
[2019-03-10] MEDS: PRENATAL VITAMINS W/ FOLIC ACID TABLET (FP) PO SCH (10:03)
--- NOTE | 2019-03-10 12:18 | DS ---
[facility] Detox Discharge Summary Admission Date: 03/07/19 Discharge Date: 03/10/19 - History Present History: Alcohol Dependence Additional Comments: 58 years old female admitted on 03/07/19 for alcohol withdrawal sx management treated with valium detox regimen patient has completed valium regimen and tolerated well alert oriented x 2 confused the day of the month ate breakfast ambulating on hallway steady gait patient reports that she has "big lump" around her vagina no lump noted no lump palpated no odor no redness denies alteration in urination nor bowel movement patient reports "one is going away and the other one is coming" emotional assurance given encourage personal hygiene respiratory clear lungs bilaterally on auscultation skin warm and dry abdomen soft obese round no rebound tenderness - Physical Exam Results Vital Signs: Vital Signs Temperature 97.1 F L 03/10/19 09:05 Pulse Rate 99 H 03/10/19 09:05 Respiratory Rate 18 03/10/19 09:05 Blood Pressure 123/71 03/10/19 09:05 O2 Sat by Pulse Oximetry (%) Pertinent Admission Physical Exam Findings: alcohol withdrawal Laboratory Last Values WBC 4.7 K/mm3 (4.0-10.0) 03/08/19 08:20 RBC 4.95 M/mm3 (3.60-5.2) 03/08/19 08:20 Hgb 14.2 GM/dL (10.7-15.3) 03/08/19 08:20 Hct 44.0 % (32.4-45.2) 03/08/19 08:20 MCV 88.9 fl (80-96) 03/08/19 08:20 MCH 28.6 pg (25.7-33.7) 03/08/19 08:20 MCHC 32.2 g/dl (32.0-36.0) 03/08/19 08:20 RDW 13.7 % (11.6-15.6) D 03/08/19 08:20 Plt Count 183 K/MM3 (134-434) 03/08/19 08:20 MPV 9.1 fl (7.5-11.1) 03/08/19 08:20 Sodium 136 mmol/L (136-145) 03/08/19 08:20 Potassium 4.4 mmol/L (3.5-5.1) 03/08/19 08:20 Chloride 100 mmol/L (98-107) 03/08/19 08:20 Carbon Dioxide 32 mmol/L (21-32) 03/08/19 08:20 Anion Gap 4 MMOL/L (8-16) L 03/08/19 08:20 BUN 17.0 mg/dL (7-18) 03/08/19 08:20 Creatinine 1.3 mg/dL (0.55-1.3) 03/08/19 08:20 Est GFR (CKD-EPI)AfAm 52.00 03/08/19 08:20 Est GFR (CKD-EPI)NonAf 44.87 03/08/19 08:20 POC Glucometer 138 UNITS (80-120) 03/10/19 11:52 Random Glucose 334 mg/dL (74-106) H 03/08/19 08:20 Calcium 8.8 mg/dL (8.5-10.1) 03/08/19 08:20 Total Bilirubin 0.3 mg/dL (0.2-1) 03/08/19 08:20 AST 26 U/L (15-37) 03/08/19 08:20 ALT 26 U/L (13-61) 03/08/19 08:20 Alkaline Phosphatase 109 U/L (45-117) 03/08/19 08:20 Total Protein 7.0 g/dl (6.4-8.2) 03/08/19 08:20 Albumin 3.5 g/dl (3.4-5.0) 03/08/19 08:20 RPR Titer Nonreactive (NONREACTIVE) 03/08/19 08:20 lab noted long history of diabetes patient agrees to follow up with endocrainologist for serum glycose monitoring - Treatment Hospital Course: Detox Protocol Followed, Detoxed Safely, Responded well, Discharged Condition Good, Rehab Referral Accepted Patient has Accepted a Rehab Referral to: [email or web address] - Medication Discharge Medications: Ambulatory Orders Insulin (Novolog) [Novolog -] 30 units SQ TID 07/19/18 Insulin Glargine,Hum.rec.anlog [Lantus Solostar PEN -] 10 units SQ HS 07/19/18 metFORMIN HCL [Metformin HCl] 500 mg PO BID 07/19/18 Amlodipine Besylate [Norvasc -] 10 mg PO DAILY #30 tablet 07/24/18 Albuterol Sulfate Inhaler - [Ventolin HFA Inhaler -] 2 inh PO Q4H PRN #1 inhaler 12/12/18 Budesonide/Formeterol Fumarate [SYMBICORT 80/4.5mcg -] 2 puff IH BID #1 inhaler 12/12/18 - Diagnosis (1) Asthma Status: Chronic Qualifiers: Asthma severity: mild Asthma persistence: intermittent Asthma complication type: with status asthmaticus Qualified Code(s): J45.22 - Mild intermittent asthma with status asthmaticus (2) Diabetes mellitus, insulin dependent (IDDM), uncontrolled Status: Chronic (3) HTN (hypertension) Status: Chronic Qualifiers: Hypertension type: essential hypertension Qualified Code(s): I10 - Essential (primary) hypertension (4) Methadone maintenance therapy patient Status: Chronic (5) Nicotine dependence Status: Acute Qualifiers: Nicotine product type: cigarettes Substance use status: in withdrawal Qualified Code(s): F17.213 - Nicotine dependence, cigarettes, with withdrawal (6) Substance induced mood disorder Status: Suspected (7) Hepatitis C Status: Chronic Qualifiers: Viral hepatitis chronicity: chronic Hepatic coma status: without hepatic coma Qualified Code(s): B18.2 - Chronic viral hepatitis C - AMA Did Patient Leave Against Medical Advice: No CIWA Score - CIWA Score Nausea/Vomitin-No Nausea/No Vomiting Muscle Tremors: 1-None Visible, but [place] Anxiety: 2 Agitation: 0-Normal Activity Paroxysmal Sweats: No Perspiration Orientation: 0-Oriented Tacttile Disturbances: 0-None Auditory Disturbances: 0-None Visual Disturbances: 0-None Headache: 0-None Present CIWA-Ar Total Score: 3
== END 2019-03-10 13:31 | disposition home or self-care (01) | DRG 773 ==
LOC: YASAS 10:34 → Y3N 17:47
PROVIDERS: ADMIT Allergy & Immunology; ATTEND Allergy & Immunology
PROC: HZ2ZZZZ Detoxification Services for Substance Abuse Treatment (ICD-10-PCS; principal; 2019-03-07)
DX: F10.230 Alcohol dependence with withdrawal, uncomplicated (principal); F11.20 Opioid dependence, uncomplicated; F14.20 Cocaine dependence, uncomplicated; F12.20 Cannabis dependence, uncomplicated; F17.213 Nicotine dependence, cigarettes, with withdrawal; F19.24 Other psychoactive substance dependence with psychoactive substance-induced mood disorder; I10 Essential (primary) hypertension; E11.65 Type 2 diabetes mellitus with hyperglycemia; J45.22 Mild intermittent asthma with status asthmaticus; G47.00 Insomnia, unspecified; M19.90 Unspecified osteoarthritis, unspecified site; E78.5 Hyperlipidemia, unspecified; Z86.19 Personal history of other infectious and parasitic diseases; Z91.19 Patient's noncompliance with other medical treatment and regimen; Z79.4 Long term (current) use of insulin; Z91.018 Allergy to other foods
CPT/HCPCS: 36415; 80053; 82962; 85027; 86593; Q2036

== ENCOUNTER 2019-03-07 13:43 | Emergency (ER) | payer OTHER ==
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
[2019-03-07] MEDS ORDERED: chlordiazePOXIDE HCL 25 MG CAPSULE PO ONE (14:58)
[2019-03-07 15:00] VITALS: TEMP 98.4; BMI 33.7
[2019-03-07] MEDS ORDERED: ALBUTEROL SO4 2.5/IPRATROPIUM 0.5 INH SOL 3 ML VIAL.NEB. NEB ONE ×2 (15:07→15:11)
[2019-03-07 15:22] VITALS: BP 138/74; PULSE 79
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
== END 2019-03-07 15:21 | disposition home or self-care (01) ==
LOC: JER 13:43
PROC: 3E0F7GC Introduction of Other Therapeutic Substance into Respiratory Tract, Via Natural or Artificial Opening (ICD-10-PCS; principal; 2019-03-07)
DX: F10.29 Alcohol dependence with unspecified alcohol-induced disorder (principal); I10 Essential (primary) hypertension; E11.9 Type 2 diabetes mellitus without complications; Z79.4 Long term (current) use of insulin; J45.909 Unspecified asthma, uncomplicated; B18.2 Chronic viral hepatitis C; F11.10 Opioid abuse, uncomplicated; Y08.89XA Assault by other specified means, initial encounter; Y93.89 Activity, other specified; Y92.238 Other place in hospital as the place of occurrence of the external cause; Y99.8 Other external cause status; Y07.01 Husband, perpetrator of maltreatment and neglect
CPT/HCPCS: 71045-TC-FY; 99282-25

== ENCOUNTER 2019-04-27 09:12 | Inpatient (IN) | payer OTHER ==
--- NOTE | 2019-04-27 09:55 | BHS.RME ---
Substance Use & Tx History - Substance Use History Alcohol Substance amount: 6 bottles 16 oz beer Frequency of use: Daily Substance route: Oral Date of Last Use: 04/26/19 cocaine Substance amount: $20 Frequency of use: Daily Substance route: Inhalation (ex: sniffing or snorting) Date of Last Use: 04/25/19 heroin Substance amount: 1 bundle Frequency of use: Daily Substance route: Inhalation (ex: sniffing or snorting) Date of Last Use: 04/26/19 - Last Treatment Date of last treatment: 03/07/19 Where was last treatment: Detox Physical/Psych/Mental Status - Behavior General Behavior: Increased activity (restlessness, agitation) Eye Contact: Normal - Cooperativeness Cooperativeness: Cooperative - Thinking Thought Processes: Logical Thought content: Future oriented - Physical Health Problems Is patient presently having any pain?: No Does patient presently have any injuries (include location): No Does patient currently have a fever: No Is patient : No CIWA Nausea/Vomitin-Mild Nausea/No Vomiting Muscle Tremors: 4-Moderate,w/Arms Extend Anxiety: 4-Mod. Anxious/Guarded Agitation: 2 Paroxysmal Sweats: 1-Minimal Palms Moist Orientation: 0-Oriented Tacttile Disturbances: 0-None Auditory Disturbances: 1-Very Mild Visual Disturbances: 1-Very Mild Sensitivity Headache: 2-Mild CIWA-Ar Total Score: 16
[2019-04-27 10:37] VITALS: BMI 31.8
--- NOTE | 2019-04-27 10:51 | HP ---
CIWA Score Nausea/Vomitin-Mild Nausea/No Vomiting Muscle Tremors: 4-Moderate,w/Arms Extend Anxiety: 4-Mod. Anxious/Guarded Agitation: 2 Paroxysmal Sweats: 1-Minimal Palms Moist Orientation: 0-Oriented Tacttile Disturbances: 0-None Auditory Disturbances: 1-Very Mild Visual Disturbances: 1-Very Mild Sensitivity Headache: 2-Mild CIWA-Ar Total Score: 16 - Admission Criteria [facility]ASAS Guidelines: Admission for Medically Managed Detox: Requires at least one of the followin. CIWA greater than 12 2. Seizures within the past 24 hours 3. Delirium tremens within the past 24 hours 4. Hallucinations within the past 24 hours 5. Acute intervention needed for co occurring medical disorder 6. Acute intervention needed for co occurring psychiatric disorder 7. Severe withdrawal that cannot be handled at a lower level of care (continued vomiting, continued diarrhea, abnormal vital signs) requiring intravenous medication and/or fluids 8. Patient presents the following: CIWA greater than 12 Admission Criteria Met: Admission criteria met Admitting History and Physical - Past Medical History Cardiovascular: Yes: HTN Pulmonary: Yes: Asthma Gastrointestinal: Yes: Other (gall stones) Hepatobiliary: Yes: Hepatitis C ((possible) ) ...LMP: 10/07/07 ...: No Endocrine: Yes: Diabetes Mellitus - Smoking History Smoking history: Current every day smoker Have you smoked in the past 12 months: Yes Aproximately how many cigarettes per day: 10 - Alcohol/Substance Use Hx Alcohol Use: Yes Admission ROS [facility] Chief Complaint: I need help Allergies/Adverse Reactions: Allergies Allergy/AdvReac Type Severity Reaction Status Date / Time No Known Drug Allergies Allergy Verified 04/27/19 10:05 tomato Allergy Swelling Verified 04/27/19 10:05 History of Present Illness: 58 year old woman with alcohol withdrawal presents for detox. Patient is on methadone 50mg at [facility] program, last medicated this morning, dose verified by Jose Melton RN & Zaida Newman RN. As per DARLENE Garcia, patient is being titrated with 10 mg increments to goal of 90mg. Patient uses heroin almost on a daily basis. Patient on admission has symptomatic hyperglycemia (422mg/dl), novolog 12 units ordered Exam Limitations: No Limitations - Ebola screening Have you traveled outside of the country in the last 21 days: No Have you had contact with anyone from an Ebola affected area: No Have you been sick,other than usual withdrawal symptoms: No Do you have a fever: No - Review of Systems Constitutional: Chills, Loss of Appetite, Night Sweats, Changes in sleep, Unintentional Wgt. Loss EENT: reports: Blurred Vision, Nose Congestion, Other (worsening vision in right eye) Respiratory: reports: Cough Cardiac: reports: No Symptoms Reported GI: reports: Nausea, Poor Appetite, Abdominal cramping : reports: No Symptoms Reported Musculoskeletal: reports: Back Pain, Joint Pain, Muscle Pain Integumentary: reports: Sweating Neuro: reports: Headache, Numbness, Tingling, Tremors Endocrine: reports: No Symptoms Reported Hematology: reports: No Symptoms Reported Psychiatric: reports: Anxious, Depressed Other Systems: Reviewed and Negative Patient History - Patient Medical History Hx Anemia: No Hx Asthma: Yes Hx Chronic Obstructive Pulmonary Disease (COPD): No Hx Cancer: No Hx Cardiac Disorders: No Hx Congestive Heart Failure: No Hx Hypertension: Yes Hx Hypercholesterolemia: Yes Hx Pacemaker: No HX Cerebrovascular Accident: No Hx Seizures: No Hx Dementia: No Hx Diabetes: Yes Hx Gastrointestinal Disorders: No Hx Liver Disease: Yes Hx Genitourinary Disorders: No Hx Sexually Transmitted Disorders: No Hx Renal Disease (ESRD): No Hx Thyroid Disease: No Hx Human Immunodeficiency Virus (HIV): No Hx Hepatitis C: Yes (not treated) Hx Depression: Yes Hx Suicide Attempt: No Hx Bipolar Disorder: No Hx Schizophrenia: No - Patient Surgical History Past Surgical History: Yes Hx Neurologic Surgery: No Hx Cataract Extraction: No Hx Cardiac Surgery: No Hx Lung Surgery: No Hx Breast Surgery: Yes (L lumpectomy 2005) Hx Breast Biopsy: Yes (2005) Hx Abdominal Surgery: Yes (Hysterectomy in 2007) Hx Appendectomy: No Hx Cholecystectomy: Yes Hx Genitourinary Surgery: No Hx Section: No Hx Orthopedic Surgery: No Hx Hysterectomy: Yes (2007) Anesthesia Reaction: No - PPD History Previous Implant?: Yes Documented Results: Negative w/proof Implanted On Prior [facility] Admission?: Yes Date: 11/14/17 Results: 0 m m PPD to be Administered?: Yes - Reproductive History Patient is a Female of Child Bearing Age (11 -55 yrs old): No Last Menstrual Period: 10/07/07 Patient : No - Smoking Cessation Smoking history: Current every day smoker Have you smoked in the past 12 months: Yes Aproximately how many cigarettes per day: 10 Cigars Per Day: 0 Hx Chewing Tobacco Use: No Initiated information on smoking cessation: Yes 'Breaking Loose' booklet given: 04/27/19 - Substances abused Alcohol Substance route: Oral Frequency: Daily Amount used: 6 (16 oz) beers Age of first use: 17 Date of last use: 04/26/19 Heroin Substance route: Inhalation Frequency: Daily Amount used: 10 bags Age of first use: 17 Date of last use: 04/26/19 Cocaine Substance route: Inhalation Frequency: 3-6 times per week Amount used: $20 Age of first use: 17 Date of last use: 04/26/19 Admission Physical Exam S - Vital Signs Vital Signs: Vital Signs - 24 hr 04/27/19 10:31 Temperature 97.5 F L Pulse Rate 111 H Respiratory 16 Rate Blood Pressure 170/84 - Physical General Appearance: Yes: Tremorous, Irritable HEENTM: Yes: Other (poor dentition) Respiratory: Yes: Chest Non-Tender, Lungs Clear, Normal Breath Sounds, No Respiratory Distress, No Accessory Muscle Use Neck: Yes: No masses,lesions,Nodules, Supple Breast: Yes: Breast Exam Deferred Cardiology: Yes: Regular Rhythm, Regular Rate, S1, S2 Abdominal: Yes: Non Tender, Increased Bowel Sounds Genitourinary: Yes: Within Normal Limits Back: Yes: Normal Inspection Musculoskeletal: Yes: full range of Motion, Gait Steady Extremities: Yes: Normal Range of Motion, Tremors Neurological: Yes: oncology research rn II-XII NML intact, Fully Oriented, Alert, Normal Mood/Affect, Normal Response Integumentary: Yes: Moist, Other (left nare excoriation) Lymphatic: Yes: Within Normal Limits - Diagnostic (1) Alcohol dependence, uncomplicated Current Visit: Yes Status: Acute (2) Diabetes mellitus Current Visit: Yes Status: Acute Qualifiers: Diabetes mellitus type: type 2 Diabetes mellitus residential insulin use: with residential use Diabetes mellitus complication status: with ophthalmic complications (3) Nicotine dependence Current Visit: Yes Status: Acute Qualifiers: Nicotine product type: cigarettes Substance use status: uncomplicated Qualified Code(s): F17.210 - Nicotine dependence, cigarettes, uncomplicated (4) HTN (hypertension) Current Visit: Yes Status: Chronic Qualifiers: Hypertension type: essential hypertension Qualified Code(s): I10 - Essential (primary) hypertension Comment: on meds, sees primary (5) Hepatitis C Current Visit: Yes Status: Chronic Qualifiers: Viral hepatitis chronicity: chronic Hepatic coma status: without hepatic coma Qualified Code(s): B18.2 - Chronic viral hepatitis C Comment: no viral load (6) Low back pain Current Visit: Yes Status: Chronic Qualifiers: Chronicity: chronic Back pain laterality: bilateral Sciatica presence: without sciatica Qualified Code(s): M54.5 - Low back pain; G89.29 - Other chronic pain Comment: consent for medical records, spondylolisthesis and multilevel degenerative changes noted on 08/03/17 xray, obtain lumbar CT done at [facility] order MRI, back brace ordered, referred for PT consider injections, order labs, urine tox high risk - poor candidate for opiates ORT= 11 (7) Methadone maintenance therapy patient Current Visit: Yes Status: Chronic Comment: on 50mg with 10mg increments to goal of 90mg (8) Opioid dependence with withdrawal Current Visit: Yes Status: Acute (9) Asthma Current Visit: Yes Status: Chronic Qualifiers: Asthma severity: mild Asthma persistence: intermittent Asthma complication type: with status asthmaticus Qualified Code(s): J45.22 - Mild intermittent asthma with status asthmaticus Cleared for Admission [facility] - Detox or Rehab [facility] Level of Care: Medically Managed Detox Regimen/Protocol: Valium Claeared for Rehab Admission: No Breathalyzer - Breathalyzer Breathalyzer: 0 Urine Drug Screen - Test Device Lot number: [id number] Expiration date: 01/19/21 - Control Is test valid?: Yes - Results Drug screen NEGATIVE: No Urine drug screen results: KENYA-Cocaine, FEN-Fentanyl, MOP-Opiates, MTD- Methadone, BZO-Benzodiazepines Inpatient Rehab Admission - Rehab Decision to Admit Inpatient rehab admission?: No
[2019-04-27] MEDS ORDERED: MAGNESIUM CITRATE 300 ML BOTTLE PO PRN (10:54)
[2019-04-27] MEDS ORDERED: MAGNESIUM HYDROX 2400MG/30ML ORAL SUSPENSION 30 ML CUP PO PRN (10:54)
[2019-04-27] MEDS ORDERED: MENTHOL/PHENOL 1 EACH UD MM PRN (10:54)
[2019-04-27] MEDS ORDERED: MAG HYDROX/AL HYDROX/SIMETH 30 ML UNIT-DOSE CUP PO PRN (10:54)
[2019-04-27] MEDS ORDERED: METHOCARBAMOL 500 MG TABLET PO PRN (10:54)
[2019-04-27] MEDS ORDERED: NICOTINE POLACRILEX 2 MG GUM BUC PRN (10:54)
[2019-04-27] MEDS ORDERED: BISMUTH SUBSALICYLATE 524 MG/30 ML UD PO PRN (10:54)
[2019-04-27] MEDS ORDERED: IBUPROFEN 400 MG TABLET (FP) PO PRN (10:54)
[2019-04-27] MEDS ORDERED: ACETAMINOPHEN 325 MG TABLET (FP) PO PRN ×2 (10:54)
[2019-04-27] MEDS ORDERED: ONDANSETRON *ODT* 4 MG TABLET SL ONE (10:54)
[2019-04-27] MEDS ORDERED: chlordiazePOXIDE HCL 10 MG CAPSULE PO PRN (10:54)
[2019-04-27] MEDS ORDERED: ALBUTEROL SO4 8 GM HFA INHALER IH PRN (10:57)
[2019-04-27] MEDS ORDERED: INSULIN (NOVOLOG) ASPART 100 UNITS/ML 10ML VIAL SQ ONE (11:04)
[2019-04-27] MEDS: INSULIN SLIDING SCALE (NOVOLOG) 1 VIAL SQ SCH ×3 (12:08→22:46)
[2019-04-27] MEDS: diazePAM 5 MG TABLET PO PRN ×2 (12:28→17:44)
[2019-04-27] MEDS ORDERED: chlordiazePOXIDE HCL 25 MG CAPSULE PO SCH (13:00)
[2019-04-27] MEDS: hydrOXYzine PAMOATE 25 MG CAPSULE (FP) PO SCH ×3 (13:58→22:47)
[2019-04-27] MEDS: diazePAM 5 MG TABLET PO SCH ×2 (13:58→22:47)
--- NOTE | 2019-04-27 14:32 | CONSULT ---
[facility] Psychiatric Consult - Data Date of interview: 04/27/19 Admission source: [facility] Identifying data: Readmission to [address] [place] [address] for this 58 y/o AA female self-referred for detoxification treatment. EFRAIN issues : alcohol, heroin, cocaine, cannabis, nicotine. Patient is single, a mother of two, domiciled (lives with common-law parts puller), unemployed and supported on SSI benefits. Substance Abuse History: Discussed with the patient. EFRAIN as follows : Smoking history: Current every day smoker. Have you smoked in the past 12 months: Yes. Aproximately how many cigarettes per day: 10. Cigars Per Day: 0. Hx Chewing Tobacco Use: No. Initiated information on smoking cessation: Yes. 'Breaking Loose' booklet given: 04/27/19. - Substances abused. Alcohol. Substance route: Oral. Frequency: Daily. Amount used: 6 (16 oz) beers. Age of first us e: 17. Date of last use: 04/26/19. Heroin. Substance route: Inhalation. Frequency: Daily. Amount used: 10 bags. Age of first use: 17. Date of last use: 04/26/19. Cocaine. Substance route: Inhalation. Frequency: 3-6 times per week. Amount used: $20. Age of first use: 17. Date of last use: 04/26/19 Medical History: Medical profile is remarkable for bronchial asthma, hypertension, diabetes mellitus, hepatitis C, arthritis, chronic lumbar pain, psoriasis and past surgeries (cholecystectomy, hysterectomy and left breast lumpectomy). Psychiatric History: Psychiatric history has not changed since encounter of February 2019. Patient is known for a history of multiple psychiatric hospitalizations (all at [facility]). Historically diagnosed with Bipolar Disorder and MDD. Chronically non-adherent to psychiatric OPD care with the exception of methadone + zolpidem. Sporadic adherence to methadone maintenance at [facility] (90 mg/day). Ms Goyal denies history of suicide attempts. Physical/Sexual Abuse/Trauma History: Not discussed in this session. Patient declines. Additional Comment: Urine drug screen results: KENYA-Cocaine, FEN-Fentanyl, MOP- Opiates, MTD-Methadone, BZO-Benzodiazepines. Noted. Mental Status Exam - Mental Status Exam Alert and Oriented to: Time, Place, Person Cognitive Function: Good Patient Appearance: Well Groomed (short stature, obese) Mood: Angry, Hostile, Irritable Affect: Mood Congruent, Labile Patient Behavior: Fatigued, Cooperative (marginally cooperative) Speech Pattern: Clear Voice Loudness: Normal Thought Process: Goal Oriented Thought Disorder: Not Present Hallucinations: Denies Suicidal Ideation: Denies Homicidal Ideation: Denies Insight/Judgement: Poor Sleep: Poorly (preoccupied with ambien), Difficulty falling asleep Gait/Station: Normal Psychiatric Findings - Problem List ([place] 1, 2,3) (1) Alcohol use disorder Current Visit: Yes Status: Chronic (2) Opioid dependence on agonist therapy Current Visit: Yes Status: Chronic (3) Cocaine use disorder Current Visit: Yes Status: Chronic (4) Nicotine dependence Current Visit: Yes Status: Acute Qualifiers: Nicotine product type: cigarettes Substance use status: uncomplicated Qualified Code(s): F17.210 - Nicotine dependence, cigarettes, uncomplicated (5) History of bipolar disorder Current Visit: Yes Status: Chronic (6) Substance induced mood disorder Current Visit: Yes Status: Suspected (7) Insomnia Current Visit: Yes Status: Chronic (8) Non-compliance Current Visit: Yes Status: Chronic - Initial Treatment Plan Initial Treatment Plan: Psychoeducation. Support and reassurance. Sleep hygiene. Groups. Detoxification in progress. Insomnia is addressed with melatonin at bedtime (patient declines alternates offered by MD). Observation.
[2019-04-27] MEDS: metFORMIN HCL 500 MG TABLET (FP) PO SCH (17:45)
[2019-04-27] MEDS ORDERED: PATIENT'S OWN MEDICATION (NON-FORMULARY) (Insulin Glargine,Hum.Rec.Anlog 10 UNITS) SQ SCH (22:00)
[2019-04-27] MEDS: BACITRACIN 15 GM TUBE TOPICAL OINTMENT TP SCH (22:42)
[2019-04-27] MEDS: MELATONIN 5 MG TABLETS PO SCH (22:45)
[2019-04-27] MEDS: THIAMINE HCL 100 MG TABLET (FP) PO SCH (22:45)
[2019-04-27] MEDS: INSULIN (LEVEMIR) 100 UNITS/ML UNITS SQ SCH (22:45)
[2019-04-27] MEDS: BUDESONIDE/FORMETEROL FUMARATE 80/4.5 mcg INHALER IH SCH (23:46)
[2019-04-28] MEDS: diazePAM 5 MG TABLET PO PRN ×3 (03:10→17:11)
[2019-04-28] MEDS ORDERED: METHADONE HCL 10 MG TABLET ONE (05:27)
[2019-04-28] MEDS ORDERED: METHADONE HCL 40 MG DISPERSABLE TABLET ONE (05:27)
[2019-04-28] MEDS ORDERED: METHADONE HCL 10 MG TABLET PO ONE (06:00)
[2019-04-28] MEDS ORDERED: METHADONE 40 MG, METHADONE 20 MG PO ONE (06:00)
[2019-04-28] MEDS: hydrOXYzine PAMOATE 25 MG CAPSULE (FP) PO SCH ×5 (06:07→22:50)
[2019-04-28] MEDS: diazePAM 5 MG TABLET PO SCH ×3 (06:07→22:27)
[2019-04-28] MEDS: metFORMIN HCL 500 MG TABLET (FP) PO SCH ×2 (06:07→17:11)
[2019-04-28] MEDS: INSULIN SLIDING SCALE (NOVOLOG) 1 VIAL SQ SCH ×4 (06:58→22:48)
[2019-04-28] MEDS: BUDESONIDE/FORMETEROL FUMARATE 80/4.5 mcg INHALER IH SCH ×2 (10:22→22:27)
[2019-04-28] MEDS: amLODIPine BESYLATE 10 MG TABLET (FP) PO SCH (10:23)
[2019-04-28] MEDS: PRENATAL VITAMINS W/ FOLIC ACID TABLET (FP) PO SCH (10:23)
[2019-04-28] MEDS: BACITRACIN 15 GM TUBE TOPICAL OINTMENT TP SCH ×2 (10:23→22:27)
[2019-04-28] MEDS: NICOTINE 7 MG/24 HOURS TOPICAL PATCH TD SCH (10:28)
[2019-04-28 11:32] LABS: HEMATOCRIT 40.5 % (32.4-45.2); HEMOGLOBIN 13.2 GM/dL (10.7-15.3); MCH 28.9 pg (25.7-33.7); MCHC 32.7 g/dl (32.0-36.0); MEAN CELL VOLUME 88.5 fl (80-96); MEAN PLT VOLUME 8.7 fl (7.5-11.1); PLATELET COUNT 202 K/MM3 (134-434); RBC 4.58 M/mm3 (3.60-5.2); RDW 14.4 % (11.6-15.6); WHITE BLOOD COUNT 5.6 K/mm3 (4.0-10.0)
[2019-04-28] MEDS ORDERED: INSULIN SLIDING SCALE (NOVOLOG) 1 VIAL SQ ONE (11:38)
[2019-04-28 11:49] LABS: ALBUMIN 3.2 g/dl (3.4-5.0); BILIRUBIN,TOTAL 0.2 mg/dL (0.2-1); BLOOD UREA NITROGEN 27.1 mg/dL (7-18); CALCIUM 8.5 mg/dL (8.5-10.1); CREATININE 1.4 mg/dL (0.55-1.3); POTASSIUM 4.7 mmol/L (3.5-5.1); TOT PROT 6.6 g/dl (6.4-8.2)
--- NOTE | 2019-04-28 12:25 | PN ---
[facility] CIWA - CIWA Score Nausea/Vomitin-No Nausea/No Vomiting Muscle Tremors: 4-Moderate,w/Arms Extend Anxiety: 4-Mod. Anxious/Guarded Agitation: 0-Normal Activity Paroxysmal Sweats: 2 Orientation: 0-Oriented Tacttile Disturbances: 1-Very Mild Itch/Numbness Auditory Disturbances: 0-None Visual Disturbances: 2-Mild Sensitivity Headache: 0-None Present CIWA-Ar Total Score: 13 BHS Progress Note (SOAP) Subjective: 58 years old female admitted on 04/27/19 for alcohol withdrawal sx management treating with valium detox regiment poor appetite glucerna 1 can po dialy for satisfaction long history of diabetes begin bgm achs discontinue regular diet begin no nad ncs diet Objective: 04/28/19 12:24 Vital Signs Temperature 97.6 F 04/28/19 08:36 Pulse Rate 120 H 04/28/19 08:36 Respiratory Rate 20 04/28/19 08:36 Blood Pressure 124/75 04/28/19 08:36 O2 Sat by Pulse Oximetry (%) Laboratory Last Values WBC 5.6 K/mm3 (4.0-10.0) 04/28/19 07:50 RBC 4.58 M/mm3 (3.60-5.2) 04/28/19 07:50 Hgb 13.2 GM/dL (10.7-15.3) 04/28/19 07:50 Hct 40.5 % (32.4-45.2) 04/28/19 07:50 MCV 88.5 fl (80-96) 04/28/19 07:50 MCH 28.9 pg (25.7-33.7) 04/28/19 07:50 MCHC 32.7 g/dl (32.0-36.0) 04/28/19 07:50 RDW 14.4 % (11.6-15.6) 04/28/19 07:50 Plt Count 202 K/MM3 (134-434) 04/28/19 07:50 MPV 8.7 fl (7.5-11.1) 04/28/19 07:50 Sodium 141 mmol/L (136-145) 04/28/19 07:50 Potassium 4.7 mmol/L (3.5-5.1) 04/28/19 07:50 Chloride 104 mmol/L (98-107) 04/28/19 07:50 Carbon Dioxide 33 mmol/L (21-32) H 04/28/19 07:50 Anion Gap 4 MMOL/L (8-16) L 04/28/19 07:50 BUN 27.1 mg/dL (7-18) H 04/28/19 07:50 Creatinine 1.4 mg/dL (0.55-1.3) H 04/28/19 07:50 Est GFR (CKD-EPI)AfAm 47.55 04/28/19 07:50 Est GFR (CKD-EPI)NonAf 41.02 04/28/19 07:50 POC Glucometer 165 UNITS (80-120) 04/28/19 11:29 Random Glucose 146 mg/dL (74-106) H 04/28/19 07:50 Calcium 8.5 mg/dL (8.5-10.1) 04/28/19 07:50 Total Bilirubin 0.2 mg/dL (0.2-1) 04/28/19 07:50 AST 23 U/L (15-37) 04/28/19 07:50 ALT 21 U/L (13-61) 04/28/19 07:50 Alkaline Phosphatase 119 U/L (45-117) H 04/28/19 07:50 Total Protein 6.6 g/dl (6.4-8.2) 04/28/19 07:50 Albumin 3.2 g/dl (3.4-5.0) L 04/28/19 07:50 RPR Titer Nonreactive (NONREACTIVE) 04/28/19 07:50 lab noted 04/28/19 12:27 chronic bun elevation chronic renal insufficient long history of diabetes none compliance 04/28/19 12:29 Assessment: 04/28/19 12:29 alcohol withdrawal Plan: valium regiment
[2019-04-28] MEDS: MELATONIN 5 MG TABLETS PO SCH (22:27)
[2019-04-28] MEDS: THIAMINE HCL 100 MG TABLET (FP) PO SCH (22:27)
[2019-04-28] MEDS: INSULIN (LEVEMIR) 100 UNITS/ML UNITS SQ SCH (22:48)
[2019-04-29] MEDS ORDERED: ALBUTEROL SO4 0.083% IH SOL 2.5 MG/3 ML VIAL.NEB. NEB PRN (01:43)
[2019-04-29] MEDS: diazePAM 5 MG TABLET PO PRN ×3 (02:13→23:00)
[2019-04-29] MEDS ORDERED: METHADONE HCL 10 MG TABLET ONE (04:42)
[2019-04-29] MEDS ORDERED: METHADONE HCL 40 MG DISPERSABLE TABLET ONE (04:42)
[2019-04-29] MEDS ORDERED: chlordiazePOXIDE 5 MG CAPSULE PO SCH (05:00)
[2019-04-29] MEDS: hydrOXYzine PAMOATE 25 MG CAPSULE (FP) PO SCH ×2 (05:22→10:44)
[2019-04-29] MEDS: diazePAM 5 MG TABLET PO SCH ×2 (05:23→17:33)
[2019-04-29] MEDS ORDERED: METHADONE 40 MG, METHADONE 30 MG PO ONE (06:00)
[2019-04-29] MEDS ORDERED: METHADONE HCL 10 MG TABLET PO ONE (06:00)
[2019-04-29] MEDS: metFORMIN HCL 500 MG TABLET (FP) PO SCH ×2 (06:38→17:33)
[2019-04-29] MEDS: INSULIN SLIDING SCALE (NOVOLOG) 1 VIAL SQ SCH ×4 (06:40→23:04)
[2019-04-29] MEDS ORDERED: INSULIN SLIDING SCALE (NOVOLOG) 1 VIAL SQ ONE (06:43)
--- NOTE | 2019-04-29 10:06 | PN ---
S CIWA - CIWA Score Nausea/Vomitin-No Nausea/No Vomiting Muscle Tremors: 2 Anxiety: 3 Agitation: 0-Normal Activity Paroxysmal Sweats: 1-Minimal Palms Moist Orientation: 0-Oriented Tacttile Disturbances: 0-None Auditory Disturbances: 0-None Visual Disturbances: 2-Mild Sensitivity Headache: 0-None Present CIWA-Ar Total Score: 8 S Progress Note (SOAP) Subjective: 58 years old female admitted on 04/27/19 for alcohol withdrawal sx management treating with valium detox regiment fell in dinning room "around" breakfast time, right buttock on the ground witnessed by medical assistance supervision assisting ambulated from day room to patient's room upon examine patient denies pain, denies alteration of gaits right buttock skin intact no redness none tenderness fall protocol #2 discontinue vistaril reduce valium prn to 5 mg q6h Objective: 04/29/19 10:12 Vital Signs Temperature 97.7 F 04/29/19 08:45 Pulse Rate 103 H 04/29/19 08:45 Respiratory Rate 20 04/29/19 08:45 Blood Pressure 120/70 04/29/19 08:45 O2 Sat by Pulse Oximetry (%) Laboratory Last Values WBC 5.6 K/mm3 (4.0-10.0) 04/28/19 07:50 RBC 4.58 M/mm3 (3.60-5.2) 04/28/19 07:50 Hgb 13.2 GM/dL (10.7-15.3) 04/28/19 07:50 Hct 40.5 % (32.4-45.2) 04/28/19 07:50 MCV 88.5 fl (80-96) 04/28/19 07:50 MCH 28.9 pg (25.7-33.7) 04/28/19 07:50 MCHC 32.7 g/dl (32.0-36.0) 04/28/19 07:50 RDW 14.4 % (11.6-15.6) 04/28/19 07:50 Plt Count 202 K/MM3 (134-434) 04/28/19 07:50 MPV 8.7 fl (7.5-11.1) 04/28/19 07:50 Sodium 141 mmol/L (136-145) 04/28/19 07:50 Potassium 4.7 mmol/L (3.5-5.1) 04/28/19 07:50 Chloride 104 mmol/L (98-107) 04/28/19 07:50 Carbon Dioxide 33 mmol/L (21-32) H 04/28/19 07:50 Anion Gap 4 MMOL/L (8-16) L 04/28/19 07:50 BUN 27.1 mg/dL (7-18) H 04/28/19 07:50 Creatinine 1.4 mg/dL (0.55-1.3) H 04/28/19 07:50 Est GFR (CKD-EPI)AfAm 47.55 04/28/19 07:50 Est GFR (CKD-EPI)NonAf 41.02 04/28/19 07:50 POC Glucometer 242 UNITS (80-120) 04/29/19 05:21 Random Glucose 146 mg/dL (74-106) H 04/28/19 07:50 Calcium 8.5 mg/dL (8.5-10.1) 04/28/19 07:50 Total Bilirubin 0.2 mg/dL (0.2-1) 04/28/19 07:50 AST 23 U/L (15-37) 04/28/19 07:50 ALT 21 U/L (13-61) 04/28/19 07:50 Alkaline Phosphatase 119 U/L (45-117) H 04/28/19 07:50 Total Protein 6.6 g/dl (6.4-8.2) 04/28/19 07:50 Albumin 3.2 g/dl (3.4-5.0) L 04/28/19 07:50 RPR Titer Nonreactive (NONREACTIVE) 04/28/19 07:50 lab noted Assessment: 04/29/19 10:13 alcohol withdrawal Plan: valium regiment fall protocol #2
[2019-04-29] MEDS: PRENATAL VITAMINS W/ FOLIC ACID TABLET (FP) PO SCH (10:39)
[2019-04-29] MEDS: NICOTINE 7 MG/24 HOURS TOPICAL PATCH TD SCH (10:39)
[2019-04-29] MEDS: BACITRACIN 15 GM TUBE TOPICAL OINTMENT TP SCH ×2 (10:39→22:55)
[2019-04-29] MEDS: BUDESONIDE/FORMETEROL FUMARATE 80/4.5 mcg INHALER IH SCH ×2 (10:39→22:56)
[2019-04-29] MEDS: amLODIPine BESYLATE 10 MG TABLET (FP) PO SCH (10:42)
[2019-04-29] MEDS: THIAMINE HCL 100 MG TABLET (FP) PO SCH (22:55)
[2019-04-29] MEDS: MELATONIN 5 MG TABLETS PO SCH (22:58)
[2019-04-29] MEDS: INSULIN (LEVEMIR) 100 UNITS/ML UNITS SQ SCH (23:03)
[2019-04-30] MEDS ORDERED: chlordiazePOXIDE HCL 10 MG CAPSULE PO PRN
[2019-04-30] MEDS ORDERED: chlordiazePOXIDE HCL 10 MG CAPSULE PO SCH (05:00)
[2019-04-30] MEDS ORDERED: METHADONE HCL 10 MG TABLET PO ONE (06:00)
[2019-04-30] MEDS ORDERED: METHADONE HCL 40 MG DISPERSABLE TABLET PO ONE (06:00)
[2019-04-30] MEDS ORDERED: diazePAM 5 MG TABLET PO ONE (06:00)
[2019-04-30] MEDS: metFORMIN HCL 500 MG TABLET (FP) PO SCH (06:31)
[2019-04-30] MEDS: INSULIN SLIDING SCALE (NOVOLOG) 1 VIAL SQ SCH ×2 (06:37→12:52)
[2019-04-30] MEDS ORDERED: INSULIN SLIDING SCALE (NOVOLOG) 1 VIAL SQ ONE (06:38)
[2019-04-30 09:16] VITALS: BP 114/86; PULSE 100; TEMP 97.7
[2019-04-30] MEDS: amLODIPine BESYLATE 10 MG TABLET (FP) PO SCH (09:55)
[2019-04-30] MEDS: PRENATAL VITAMINS W/ FOLIC ACID TABLET (FP) PO SCH (09:55)
[2019-04-30] MEDS: BUDESONIDE/FORMETEROL FUMARATE 80/4.5 mcg INHALER IH SCH (09:56)
[2019-04-30] MEDS: BACITRACIN 15 GM TUBE TOPICAL OINTMENT TP SCH (09:56)
[2019-04-30] MEDS: NICOTINE 7 MG/24 HOURS TOPICAL PATCH TD SCH (09:56)
--- NOTE | 2019-04-30 15:45 | DS ---
[facility] Detox Discharge Summary Admission Date: 04/27/19 Discharge Date: 04/30/19 - History Present History: Alcohol Dependence Additional Comments: 58 years old female admitted on 04/27/19 for alcohol withdrawal sx management treated with valium detox regiment seen by psychiatrist no medical intervention Ms Goyal has completed the librium regiment and is tolerated well alert speech clearly thanking staff of good care talking about aftercare with taff ambulating steady gait respiratory clear lungs bilaterally on auscultation abdomen soft round obese none tenderness extremities full range of motion Pertinent Past History: time for discharge 46 minutes patient may return to her methadone maintenance program for medical issues - Physical Exam Results Vital Signs: Vital Signs Temperature 97.7 F 04/30/19 08:45 Pulse Rate 100 H 04/30/19 08:45 Respiratory Rate 16 04/30/19 08:45 Blood Pressure 114/86 04/30/19 08:45 O2 Sat by Pulse Oximetry (%) Pertinent Admission Physical Exam Findings: alcohol withdrawal Laboratory Last Values WBC 5.6 K/mm3 (4.0-10.0) 04/28/19 07:50 RBC 4.58 M/mm3 (3.60-5.2) 04/28/19 07:50 Hgb 13.2 GM/dL (10.7-15.3) 04/28/19 07:50 Hct 40.5 % (32.4-45.2) 04/28/19 07:50 MCV 88.5 fl (80-96) 04/28/19 07:50 MCH 28.9 pg (25.7-33.7) 04/28/19 07:50 MCHC 32.7 g/dl (32.0-36.0) 04/28/19 07:50 RDW 14.4 % (11.6-15.6) 04/28/19 07:50 Plt Count 202 K/MM3 (134-434) 04/28/19 07:50 MPV 8.7 fl (7.5-11.1) 04/28/19 07:50 Sodium 141 mmol/L (136-145) 04/28/19 07:50 Potassium 4.7 mmol/L (3.5-5.1) 04/28/19 07:50 Chloride 104 mmol/L (98-107) 04/28/19 07:50 Carbon Dioxide 33 mmol/L (21-32) H 04/28/19 07:50 Anion Gap 4 MMOL/L (8-16) L 04/28/19 07:50 BUN 27.1 mg/dL (7-18) H 04/28/19 07:50 Creatinine 1.4 mg/dL (0.55-1.3) H 04/28/19 07:50 Est GFR (CKD-EPI)AfAm 47.55 04/28/19 07:50 Est GFR (CKD-EPI)NonAf 41.02 04/28/19 07:50 POC Glucometer 210 UNITS (80-120) 04/30/19 06:33 Random Glucose 146 mg/dL (74-106) H 04/28/19 07:50 Calcium 8.5 mg/dL (8.5-10.1) 04/28/19 07:50 Total Bilirubin 0.2 mg/dL (0.2-1) 04/28/19 07:50 AST 23 U/L (15-37) 04/28/19 07:50 ALT 21 U/L (13-61) 04/28/19 07:50 Alkaline Phosphatase 119 U/L (45-117) H 04/28/19 07:50 Total Protein 6.6 g/dl (6.4-8.2) 04/28/19 07:50 Albumin 3.2 g/dl (3.4-5.0) L 04/28/19 07:50 RPR Titer Nonreactive (NONREACTIVE) 04/28/19 07:50 T.pallidum Ab Interpret Cancelled 04/28/19 07:50 lab noted - Treatment Hospital Course: Detox Protocol Followed, Detoxed Safely, Responded well, Discharged Condition Good, Rehab Referral Accepted Patient has Accepted a Rehab Referral to: community support AA - Medication Discharge Medications: Ambulatory Orders Insulin (Novolog) [Novolog -] 30 units SQ TID 07/19/18 Insulin Glargine,Hum.rec.anlog [Lantus Solostar PEN -] 10 units SQ HS 07/19/18 metFORMIN HCL [Metformin HCl] 500 mg PO BID 07/19/18 Amlodipine Besylate [Norvasc -] 10 mg PO DAILY #30 tablet 07/24/18 Albuterol Sulfate Inhaler - [Ventolin HFA Inhaler -] 2 inh PO Q4H PRN #1 inhaler 12/12/18 Budesonide/Formeterol Fumarate [SYMBICORT 80/4.5mcg -] 2 puff IH BID #1 inhaler 12/12/18 - Diagnosis (1) Alcohol dependence, uncomplicated Status: Acute (2) Diabetes mellitus Status: Chronic Qualifiers: Diabetes mellitus type: type 2 Diabetes mellitus long-term insulin use: with extermination inspector use Diabetes mellitus complication status: with ophthalmic comp lications Proliferative retinopathy type: stable Laterality: unspecified laterality (3) Nicotine dependence Status: Acute Qualifiers: Nicotine product type: cigarettes Substance use status: in withdrawal Qualified Code(s): F17.213 - Nicotine dependence, cigarettes, with withdrawal (4) Renal insufficiency Status: Chronic (5) Asthma Status: Chronic Qualifiers: Asthma severity: mild Asthma persistence: intermittent Asthma complication type: with status asthmaticus Qualified Code(s): J45.22 - Mild intermittent asthma with status asthmaticus (6) Diabetes mellitus, insulin dependent (IDDM), uncontrolled Status: Chronic (7) HTN (hypertension) Status: Chronic Qualifiers: Hypertension type: essential hypertension Qualified Code(s): I10 - Essential (primary) hypertension (8) Hepatitis C Status: Chronic Qualifiers: Viral hepatitis chronicity: chronic Hepatic coma status: without hepatic coma Qualified Code(s): B18.2 - Chronic viral hepatitis C (9) Methadone maintenance therapy patient Status: Chronic - AMA Did Patient Leave Against Medical Advice: No CIWA Score - CIWA Score Nausea/Vomitin-No Nausea/No Vomiting Muscle Tremors: 1-None Visible, but [place] Anxiety: 2 Agitation: 0-Normal Activity Paroxysmal Sweats: No Perspiration Orientation: 0-Oriented Tacttile Disturbances: 0-None Auditory Disturbances: 0-None Visual Disturbances: 1-Very Mild Sensitivity Headache: 0-None Present CIWA-Ar Total Score: 4
[2019-05-01] MEDS ORDERED: chlordiazePOXIDE HCL 10 MG CAPSULE PO ONE (05:00)
[2019-05-01] MEDS ORDERED: METHADONE HCL 40 MG DISPERSABLE TABLET PO SCH (06:00)
[2019-05-01] MEDS ORDERED: METHADONE 80 MG, METHADONE 10 MG PO SCH (06:00)
== END 2019-04-30 13:08 | disposition home or self-care (01) | DRG 773 ==
LOC: YASAS 09:12 → Y3N 09:56
PROVIDERS: ADMIT Allergy & Immunology; ATTEND Allergy & Immunology
PROC: HZ2ZZZZ Detoxification Services for Substance Abuse Treatment (ICD-10-PCS; principal; 2019-04-27)
DX: F10.230 Alcohol dependence with withdrawal, uncomplicated (principal); F11.20 Opioid dependence, uncomplicated; F14.20 Cocaine dependence, uncomplicated; F12.20 Cannabis dependence, uncomplicated; F17.210 Nicotine dependence, cigarettes, uncomplicated; F31.9 Bipolar disorder, unspecified; F19.24 Other psychoactive substance dependence with psychoactive substance-induced mood disorder; I12.9 Hypertensive chronic kidney disease with stage 1 through stage 4 chronic kidney disease, or unspecified chronic kidney disease; J45.22 Mild intermittent asthma with status asthmaticus; E11.22 Type 2 diabetes mellitus with diabetic chronic kidney disease; E11.39 Type 2 diabetes mellitus with other diabetic ophthalmic complication; Z79.4 Long term (current) use of insulin; N18.9 Chronic kidney disease, unspecified; B18.2 Chronic viral hepatitis C; L40.9 Psoriasis, unspecified; Z90.49 Acquired absence of other specified parts of digestive tract; Z91.018 Allergy to other foods
CPT/HCPCS: 36415; 80053; 82962; 85027; 86593; Q0162

== ENCOUNTER 2019-08-13 11:27 | Inpatient (IN) | payer OTHER ==
[2019-08-13] MEDS ORDERED: MAG HYDROX/AL HYDROX/SIMETH 30 ML UNIT-DOSE CUP PO PRN (11:33)
[2019-08-13] MEDS ORDERED: MAGNESIUM HYDROX 2400MG/30ML ORAL SUSPENSION 30 ML CUP PO PRN (11:33)
[2019-08-13] MEDS ORDERED: ACETAMINOPHEN 325 MG TABLET (FP) PO PRN (11:33)
[2019-08-13] MEDS ORDERED: MAGNESIUM CITRATE 300 ML BOTTLE PO PRN (11:33)
[2019-08-13] MEDS ORDERED: P-EPHED 60MG/TRIPROLIDI 2.5MG TABLET PO PRN (11:33)
[2019-08-13] MEDS ORDERED: LOPERAMIDE HCL 2 MG CAPSULE PO PRN (11:33)
[2019-08-13] MEDS ORDERED: hydrOXYzine PAMOATE 25 MG CAPSULE (FP) PO ONE (11:35)
--- NOTE | 2019-08-13 11:40 | HP ---
[facility] Re[facility] Assess/Revision - Admission History Ad[facility]hab [facility] ([facility] - Vital signs Vital Signs: Vital Signs Period Temp Pulse Resp BP Sys/Hernández Pulse Ox Last 24 Hr 98.3 F 124 18 152/84 - Findings Detox History & Physical reviewed: Yes Concur with findings: Yes Comments/Additional Findings: Patient is emotionally upset, crying, willplace psychiatric consult. Ordered stat dose of Vistaril. Inpatient Rehab Admission - Rehab Decision to Admit Inpatient rehab admission?: Yes - Initial Determination Are CD services needed?: Yes Free of communicable disease: Yes Not in need of hospitalization: Yes - Rehab Admission Criteria Previous failed treatment: Yes Poor recovery environment: Yes Comorbidities: Yes Lacks judgement: Yes Patient is meeting Inpatient Rehab admission criteria:: Yes
--- NOTE | 2019-08-13 12:27 | PN ---
S Progress Note Note: patient is on build up methadone ,receive 60 mgs today,70 mgs on 08/14/19,80 mgs on 08/15/19,then 90 mgs dialy from 08/16/19
[2019-08-13] MEDS ORDERED: INSULIN (NOVOLOG) ASPART 100 UNITS/ML 10ML VIAL SQ SCH (14:00)
[2019-08-13] MEDS ORDERED: cloNIDine HCL 0.1 MG TABLET PO ONE (15:29)
--- NOTE | 2019-08-13 15:29 | PN ---
S Progress Note Note: patient states that vistaril is not reduce her anxiety. Continues to cry and ruminate. Vital Signs Period Temp Pulse Resp BP Sys/Hernández Pulse Ox Last 24 Hr 98.3 F 124 18 152/84 P/E; General: anxious, crying HEENTM: normocephalic, poor dentition Neck: supple Respirations: unlabored Cardiac: HR elevated, related to anxiety, A/P Anxiety Will give one dose of clonidine, BP parameters; BP should be taken prior to administering clonidine.
[2019-08-13] MEDS: metFORMIN HCL 500 MG TABLET (FP) PO SCH (16:34)
[2019-08-13] MEDS ORDERED: INSULIN SLIDING SCALE (NOVOLOG) 1 VIAL SQ ONE (16:34)
[2019-08-13] MEDS: INSULIN SLIDING SCALE (NOVOLOG) 1 VIAL SQ SCH ×2 (16:36→21:14)
[2019-08-13] MEDS: THIAMINE HCL 100 MG TABLET (FP) PO SCH (21:10)
[2019-08-13] MEDS: MELATONIN 5 MG TABLETS PO SCH (21:10)
[2019-08-13] MEDS: hydrOXYzine PAMOATE 25 MG CAPSULE (FP) PO PRN (21:14)
[2019-08-13] MEDS: INSULIN (LEVEMIR) 100 UNITS/ML UNITS SQ SCH (21:14)
[2019-08-13] MEDS: BUDESONIDE/FORMETEROL FUMARATE 80/4.5 mcg INHALER IH SCH (21:15)
[2019-08-14] MEDS ORDERED: METHADONE HCL 10 MG TABLET ONE (05:34)
[2019-08-14] MEDS ORDERED: METHADONE HCL 40 MG DISPERSABLE TABLET ONE (05:35)
[2019-08-14] MEDS ORDERED: METHADONE HCL 10 MG TABLET PO ONE (06:00)
[2019-08-14] MEDS ORDERED: METHADONE 40 MG, METHADONE 30 MG PO ONE (06:00)
[2019-08-14] MEDS: INSULIN SLIDING SCALE (NOVOLOG) 1 VIAL SQ SCH ×4 (07:12→21:20)
[2019-08-14] MEDS: metFORMIN HCL 500 MG TABLET (FP) PO SCH ×2 (07:12→16:47)
[2019-08-14] MEDS: ALBUTEROL SO4 HFA INHALER IH PRN (07:35)
[2019-08-14] MEDS: ALBUTEROL SO4 2.5/IPRATROPIUM 0.5 INH SOL 3 ML VIAL.NEB. NEB PRN (07:40)
[2019-08-14] MEDS: PRENATAL VITAMINS W/ FOLIC ACID TABLET (FP) PO SCH (10:34)
[2019-08-14] MEDS: amLODIPine BESYLATE 10 MG TABLET (FP) PO SCH (10:34)
[2019-08-14] MEDS: hydrOXYzine PAMOATE 25 MG CAPSULE (FP) PO PRN ×3 (10:34→21:20)
[2019-08-14] MEDS: BUDESONIDE/FORMETEROL FUMARATE 80/4.5 mcg INHALER IH SCH ×2 (10:38→21:23)
[2019-08-14] MEDS: NICOTINE 14 MG/24 HOURS TOPICAL PATCH TD SCH (10:38)
[2019-08-14] MEDS ORDERED: INSULIN SLIDING SCALE (NOVOLOG) 1 VIAL SQ ONE (11:53)
[2019-08-14] MEDS: THIAMINE HCL 100 MG TABLET (FP) PO SCH (21:18)
[2019-08-14] MEDS: MELATONIN 5 MG TABLETS PO SCH (21:18)
[2019-08-14] MEDS: INSULIN (LEVEMIR) 100 UNITS/ML UNITS SQ SCH (21:23)
[2019-08-15] MEDS ORDERED: METHADONE HCL 40 MG DISPERSABLE TABLET PO ONE (06:00)
[2019-08-15] MEDS: metFORMIN HCL 500 MG TABLET (FP) PO SCH ×2 (06:23→16:55)
[2019-08-15] MEDS ORDERED: INSULIN SLIDING SCALE (NOVOLOG) 1 VIAL SQ ONE (07:12)
[2019-08-15] MEDS: INSULIN SLIDING SCALE (NOVOLOG) 1 VIAL SQ SCH ×4 (07:12→21:30)
--- NOTE | 2019-08-15 09:27 | CONSULT ---
[facility] Psychiatric Consult - Data Date of interview: 08/15/19 Admission source: [facility] Identifying data: Patient is a 58 year old female, mother of two, domiciled, and is supported with [facility]. This is one of multiple admissions for patient. Patient admitted to rehab for alcohol, cocaine, and opiate dependence. Substance Abuse History: Smoking Cessation. Smoking history: Current every day smoker. Have you smoked in the past 12 months: Yes. Aproximately how many cigarettes per day: 10. Cigars Per Day: 0. Hx Chewing Tobacco Use: No. Initiated information on smoking cessation: Yes. 'Breaking Loose' booklet given: 08/10/19. - Substance & Tx. History. Hx Alcohol Use: Yes. Hx Substance Use: Yes. Substance Use Type: Alcohol, Cocaine. Hx Substance Use Treatment: Yes ([facility] 04/27/2019 to 04/30/2019). - Substances abused. Alcohol. Substance route: Oral. Amount used: 1/2 pint of dennise/6 packs of 12 ozs of beer. Age of first use: 12. Date of last use: 08/10/19. Crack. Substance route: Smoking. Frequency: 1-2 times per week. Amount used: 10$. Age of first use: 39. Date of last use: 08/09/19. Heroin. Substance route: Inhalation. Frequency: Daily. Amount used: 1 bundle. Age of first use: 17. Date of last use: 08/09/19 Medical History: bronchial asthma, hypertension, diabetes mellitus, hepatitis C, arthritis, chronic lumbar pain, psoriasis and past surgeries (cholecystectomy, hysterectomy and left breast lumpectomy) Psychiatric History: Ms. Goyal reports history of psychiatric hospitalizations at [facility]. History of MDD and Bipolar disorder. Patient with a chronic history of noncompliance to outpatient psychiatric care. Denies history of suicide attempt. Reports past treatment with xanax + ambien. Patient requesting medications for withdrawals symptoms and is reporting difficulty sleeping. Physical/Sexual Abuse/Trauma History: denies. Mental Status Exam - Mental Status Exam Alert and Oriented to: Time, Place, Person Cognitive Function: Good Patient Appearance: Unkempt Mood: Withdrawn Affect: Mood Congruent Patient Behavior: Sedated, Fatigued Speech Pattern: Appropriate Voice Loudness: Mildly Soft/Quiet Thought Process: Goal Oriented Thought Disorder: Not Present Hallucinations: Denies Suicidal Ideation: Denies Homicidal Ideation: Denies Insight/Judgement: Poor Sleep: Poorly Appetite: Fair Muscle strength/Tone: Normal Gait/Station: Normal Psychiatric Findings - Problem List ([place] 1, 2,3) (1) Alcohol dependence, uncomplicated Current Visit: Yes Status: Acute (2) Cocaine abuse Current Visit: Yes Status: Acute (3) Nicotine dependence Current Visit: Yes Status: Acute Qualifiers: Nicotine product type: cigarettes Substance use status: in withdrawal Qualified Code(s): F17.213 - Nicotine dependence, cigarettes, with withdrawal (4) Substance induced mood disorder Current Visit: Yes Status: Acute (5) Substance-induced sleep disorder Current Visit: Yes Status: Acute (6) Methadone maintenance therapy patient Current Visit: Yes Status: Chronic Comment: on 50mg with 10mg increments to goal of 90mg (7) Mood disorder Current Visit: No Status: Chronic - Initial Treatment Plan Initial Treatment Plan: Psychoeducation provided. Rehab in progress. Will order Belsomra 10mg HS. Benefits and side effects discussed. Verbal consent given.
[2019-08-15] MEDS: NICOTINE 14 MG/24 HOURS TOPICAL PATCH TD SCH (10:07)
[2019-08-15] MEDS: amLODIPine BESYLATE 10 MG TABLET (FP) PO SCH (10:07)
[2019-08-15] MEDS: PRENATAL VITAMINS W/ FOLIC ACID TABLET (FP) PO SCH (10:07)
[2019-08-15] MEDS: BUDESONIDE/FORMETEROL FUMARATE 80/4.5 mcg INHALER IH SCH ×2 (10:08→21:29)
[2019-08-15] MEDS: ALBUTEROL SO4 HFA INHALER IH PRN ×2 (10:08→17:32)
[2019-08-15] MEDS: ALBUTEROL SO4 2.5/IPRATROPIUM 0.5 INH SOL 3 ML VIAL.NEB. NEB PRN (10:09)
[2019-08-15] MEDS ORDERED: LACTULOSE 20 GM/30 ML UDC (FOR ORAL USE ONLY) PO PRN (11:41)
[2019-08-15] MEDS: LACTULOSE 20 GM/30 ML UDC (FOR ORAL USE ONLY) PO SCH ×4 (11:57→21:30)
[2019-08-15] MEDS: hydrOXYzine PAMOATE 25 MG CAPSULE (FP) PO PRN ×3 (13:42→21:29)
--- NOTE | 2019-08-15 17:41 | EKG ---
Test Reason : Blood Pressure : / mmHG Vent. Rate : 106 BPM Atrial Rate : 106 BPM P-R Int : 148 ms QRS Dur : 070 ms QT Int : 360 ms P-R-T Axes : 077 068 084 degrees QTc Int : 478 ms SINUS TACHYCARDIA OTHERWISE NORMAL ECG WHEN COMPARED WITH ECG OF 22-JUL-2018 22:28, NONSPECIFIC T WAVE ABNORMALITY NO LONGER EVIDENT IN LATERAL LEADS Confirmed by REZA VINSON MD ([id number]) on 08/15/2019 5:41:21 PM Referred By: SATNAM MAYNARD Confirmed By:REZA VINSON MD
[2019-08-15] MEDS: MELATONIN 5 MG TABLETS PO SCH (21:29)
[2019-08-15] MEDS: THIAMINE HCL 100 MG TABLET (FP) PO SCH (21:29)
[2019-08-15] MEDS: INSULIN (LEVEMIR) 100 UNITS/ML UNITS SQ SCH (21:30)
[2019-08-15] MEDS: SUVOREXANT 10 MG TABLET PO PRN (21:36)
[2019-08-15] MEDS ORDERED: SUVOREXANT 5 MG TABLET PO PRN (22:00)
[2019-08-16] MEDS: hydrOXYzine PAMOATE 25 MG CAPSULE (FP) PO PRN (01:52)
[2019-08-16] MEDS ORDERED: METHADONE HCL 10 MG TABLET ONE (05:24)
[2019-08-16] MEDS ORDERED: METHADONE HCL 40 MG DISPERSABLE TABLET ONE (05:24)
[2019-08-16] MEDS ORDERED: METHADONE HCL 10 MG TABLET PO SCH (06:00)
[2019-08-16] MEDS ORDERED: METHADONE 80 MG, METHADONE 10 MG PO SCH (06:00)
[2019-08-16] MEDS ORDERED: INSULIN SLIDING SCALE (NOVOLOG) 1 VIAL SQ ONE (07:03)
[2019-08-16] MEDS: INSULIN SLIDING SCALE (NOVOLOG) 1 VIAL SQ SCH ×4 (07:03→21:13)
[2019-08-16] MEDS: metFORMIN HCL 500 MG TABLET (FP) PO SCH ×2 (07:04→16:41)
[2019-08-16] MEDS: amLODIPine BESYLATE 10 MG TABLET (FP) PO SCH (11:20)
[2019-08-16] MEDS: PRENATAL VITAMINS W/ FOLIC ACID TABLET (FP) PO SCH (11:20)
[2019-08-16] MEDS: NICOTINE 14 MG/24 HOURS TOPICAL PATCH TD SCH (11:20)
[2019-08-16] MEDS: LACTULOSE 20 GM/30 ML UDC (FOR ORAL USE ONLY) PO SCH ×4 (11:20→21:09)
[2019-08-16] MEDS: ALBUTEROL SO4 HFA INHALER IH PRN (11:28)
[2019-08-16] MEDS: BUDESONIDE/FORMETEROL FUMARATE 80/4.5 mcg INHALER IH SCH ×2 (11:28→21:15)
--- NOTE | 2019-08-16 11:55 | PN ---
S Progress Note Note: Patient evaluated for sedation. Reported by staff she does not sleep at night. On MMTP 90mg daily-held this morning for sedation. Also on Lactulose for elevated ammonia levels. Laboratory Tests 08/13/19 08/13/19 08/14/19 16:33 21:11 06:17 POC Glucometer 206 162 66 Ammonia 08/14/19 08/14/19 08/14/19 07:52 11:16 16:47 POC Glucometer 123 174 232 Ammonia 08/14/19 08/15/19 08/15/19 21:19 05:50 08:00 POC Glucometer 113 253 Ammonia 89.50 H 08/15/19 08/15/19 08/15/19 11:23 16:53 20:32 POC Glucometer 185 156 123 Ammonia 08/16/19 08/16/19 06:07 11:26 POC Glucometer 291 92 Ammonia Vital Signs Temperature 98.3 F 08/16/19 10:43 Pulse Rate 88 08/16/19 10:43 Respiratory Rate 17 08/16/19 10:43 Blood Pressure 129/78 08/16/19 10:43 O2 Sat by Pulse Oximetry (%) 93 L 08/16/19 08:01 PE alert, oriented x 3, sleepy +perrla, eoms intact bl in nad skin warm and dry car s1s2 resp cta bl gi nt, nd ext full rom, no tremors A/P: sedation elevated ammonia levels continue lactulose levels as ordered hold MTD until more alert and change daily dosing to 10am starting tomorrow repeat ammonia level 08/19/2019
[2019-08-16] MEDS: IBUPROFEN 400 MG TABLET (FP) PO PRN (11:59)
[2019-08-16] MEDS: MELATONIN 5 MG TABLETS PO SCH (21:09)
[2019-08-16] MEDS: THIAMINE HCL 100 MG TABLET (FP) PO SCH (21:09)
[2019-08-16] MEDS: INSULIN (LEVEMIR) 100 UNITS/ML UNITS SQ SCH (21:13)
[2019-08-16] MEDS: MICONAZOLE NITRATE 200 MG VAGINAL SUPPOSITORY PV SCH (21:14)
[2019-08-16] MEDS: SUVOREXANT 10 MG TABLET PO PRN (22:48)
[2019-08-17] MEDS: metFORMIN HCL 500 MG TABLET (FP) PO SCH ×2 (07:15→16:38)
[2019-08-17] MEDS: INSULIN SLIDING SCALE (NOVOLOG) 1 VIAL SQ SCH ×4 (07:16→21:03)
[2019-08-17] MEDS ORDERED: METHADONE HCL 10 MG TABLET ONE (08:50)
[2019-08-17] MEDS ORDERED: METHADONE HCL 40 MG DISPERSABLE TABLET ONE (08:51)
[2019-08-17] MEDS: LACTULOSE 20 GM/30 ML UDC (FOR ORAL USE ONLY) PO SCH ×4 (10:59→21:01)
[2019-08-17] MEDS: ALBUTEROL SO4 2.5/IPRATROPIUM 0.5 INH SOL 3 ML VIAL.NEB. NEB PRN ×2 (11:50→15:33)
[2019-08-17] MEDS: NICOTINE 14 MG/24 HOURS TOPICAL PATCH TD SCH (13:35)
[2019-08-17] MEDS: amLODIPine BESYLATE 10 MG TABLET (FP) PO SCH (13:35)
[2019-08-17] MEDS: PRENATAL VITAMINS W/ FOLIC ACID TABLET (FP) PO SCH (13:36)
[2019-08-17] MEDS: BUDESONIDE/FORMETEROL FUMARATE 80/4.5 mcg INHALER IH SCH ×2 (13:36→21:03)
[2019-08-17] MEDS: guaiFENesin 200 MG/10 ML 10 ML UNIT-DOSE CUPS PO PRN (15:25)
[2019-08-17] MEDS: METHADONE 80 MG, METHADONE 10 MG PO SCH (15:26)
[2019-08-17] MEDS: THIAMINE HCL 100 MG TABLET (FP) PO SCH (21:00)
[2019-08-17] MEDS: MELATONIN 5 MG TABLETS PO SCH (21:00)
[2019-08-17] MEDS: INSULIN (LEVEMIR) 100 UNITS/ML UNITS SQ SCH (21:01)
[2019-08-17] MEDS: SUVOREXANT 10 MG TABLET PO PRN (21:01)
[2019-08-17] MEDS ORDERED: PT OWN MED DRAWER 7, Y5N ONE (21:02)
[2019-08-17] MEDS: MICONAZOLE NITRATE 200 MG VAGINAL SUPPOSITORY PV SCH (21:03)
[2019-08-17] MEDS ORDERED: INSULIN (LEVEMIR) 100 UNITS/ML UNITS SQ ONE (21:55)
[2019-08-17] MEDS: NICOTINE POLACRILEX 2 MG GUM BUC PRN (22:17)
[2019-08-18] MEDS: metFORMIN HCL 500 MG TABLET (FP) PO SCH ×2 (07:22→16:39)
[2019-08-18] MEDS: INSULIN SLIDING SCALE (NOVOLOG) 1 VIAL SQ SCH ×4 (07:23→21:18)
[2019-08-18] MEDS ORDERED: METHADONE HCL 10 MG TABLET ONE (08:49)
[2019-08-18] MEDS ORDERED: METHADONE HCL 40 MG DISPERSABLE TABLET ONE (08:49)
[2019-08-18] MEDS: BUDESONIDE/FORMETEROL FUMARATE 80/4.5 mcg INHALER IH SCH ×2 (09:19→21:19)
[2019-08-18] MEDS: LACTULOSE 20 GM/30 ML UDC (FOR ORAL USE ONLY) PO SCH ×4 (09:19→21:14)
[2019-08-18] MEDS: PRENATAL VITAMINS W/ FOLIC ACID TABLET (FP) PO SCH (09:20)
[2019-08-18] MEDS: NICOTINE 14 MG/24 HOURS TOPICAL PATCH TD SCH (09:20)
[2019-08-18] MEDS: amLODIPine BESYLATE 10 MG TABLET (FP) PO SCH (09:20)
[2019-08-18] MEDS: METHADONE 80 MG, METHADONE 10 MG PO SCH (09:20)
[2019-08-18] MEDS ORDERED: INSULIN SLIDING SCALE (NOVOLOG) 1 VIAL SQ ONE ×2 (11:33→16:48)
[2019-08-18] MEDS: ALBUTEROL SO4 HFA INHALER IH PRN (13:22)
[2019-08-18] MEDS ORDERED: PT OWN MED DRAWER 7, Y5N ONE ×3 (14:08→21:29)
[2019-08-18] MEDS: THIAMINE HCL 100 MG TABLET (FP) PO SCH (21:12)
[2019-08-18] MEDS: MELATONIN 5 MG TABLETS PO SCH (21:13)
[2019-08-18] MEDS: SUVOREXANT 10 MG TABLET PO PRN (21:13)
[2019-08-18] MEDS: MICONAZOLE NITRATE 200 MG VAGINAL SUPPOSITORY PV SCH (21:16)
[2019-08-18] MEDS: INSULIN (LEVEMIR) 100 UNITS/ML UNITS SQ SCH (21:18)
[2019-08-19] MEDS: ALBUTEROL SO4 2.5/IPRATROPIUM 0.5 INH SOL 3 ML VIAL.NEB. NEB PRN (00:45)
[2019-08-19] MEDS: INSULIN SLIDING SCALE (NOVOLOG) 1 VIAL SQ SCH ×4 (07:05→22:47)
[2019-08-19] MEDS: metFORMIN HCL 500 MG TABLET (FP) PO SCH ×2 (07:05→17:14)
[2019-08-19] MEDS ORDERED: INSULIN SLIDING SCALE (NOVOLOG) 1 VIAL SQ ONE (07:05)
[2019-08-19] MEDS: LACTULOSE 20 GM/30 ML UDC (FOR ORAL USE ONLY) PO SCH ×4 (09:36→21:22)
[2019-08-19] MEDS: BUDESONIDE/FORMETEROL FUMARATE 80/4.5 mcg INHALER IH SCH ×2 (09:37→21:22)
[2019-08-19] MEDS: amLODIPine BESYLATE 10 MG TABLET (FP) PO SCH (09:37)
[2019-08-19] MEDS: PRENATAL VITAMINS W/ FOLIC ACID TABLET (FP) PO SCH (09:37)
[2019-08-19] MEDS: ALBUTEROL SO4 HFA INHALER IH PRN ×2 (09:37→21:22)
[2019-08-19] MEDS ORDERED: METHADONE HCL 10 MG TABLET ONE (09:38)
[2019-08-19] MEDS ORDERED: METHADONE HCL 40 MG DISPERSABLE TABLET ONE (09:39)
[2019-08-19] MEDS: NICOTINE 14 MG/24 HOURS TOPICAL PATCH TD SCH (09:39)
[2019-08-19] MEDS: METHADONE 80 MG, METHADONE 10 MG PO SCH (09:39)
--- NOTE | 2019-08-19 11:44 | PN ---
S Progress Note Note: Patient c/o anxiety and intermittent shakes. Tearful, stating " I need something for my shakes and nerves. I here for drinking and need help". Patient denies n/v/d and sweating. Laboratory Tests 08/13/19 08/13/19 08/14/19 16:33 21:11 06:17 POC Glucometer 206 162 66 Ammonia 08/14/19 08/14/19 08/14/19 07:52 11:16 16:47 POC Glucometer 123 174 232 Ammonia 08/14/19 08/15/19 08/15/19 21:19 05:50 08:00 POC Glucometer 113 253 Ammonia 89.50 H 08/15/19 08/15/19 08/15/19 11:23 16:53 20:32 POC Glucometer 185 156 123 Ammonia 08/16/19 08/16/19 08/16/19 06:07 11:26 16:42 POC Glucometer 291 92 387 Ammonia 08/16/19 08/17/19 08/17/19 21:11 07:10 11:42 POC Glucometer 121 228 151 Ammonia 08/17/19 08/17/19 08/18/19 16:39 20:58 06:04 POC Glucometer 246 164 116 Ammonia 08/18/19 08/18/19 08/18/19 11:30 16:40 21:14 POC Glucometer 390 239 335 Ammonia 08/19/19 08/19/19 06:12 11:33 POC Glucometer 170 409 Ammonia PE alert and oriented x 3 skin warm and dry +perrla, eoms intact bl neck supple, no jvd ext mild tremors, no edema irritable, anxious A/P; Hx of ETOH dependence Anxiety Will start Vistaril 25mg po q4h prn encourage fluids rehab services continued monitor clinically
[2019-08-19] MEDS: hydrOXYzine PAMOATE 25 MG CAPSULE (FP) PO PRN ×3 (13:49→21:23)
[2019-08-19] MEDS: MELATONIN 5 MG TABLETS PO SCH (21:22)
[2019-08-19] MEDS: THIAMINE HCL 100 MG TABLET (FP) PO SCH (21:23)
[2019-08-19] MEDS: INSULIN (LEVEMIR) 100 UNITS/ML UNITS SQ SCH (21:24)
[2019-08-19] MEDS: SUVOREXANT 10 MG TABLET PO PRN (21:26)
[2019-08-19] MEDS: MENTHOL/PHENOL 1 EACH UD MM PRN (23:40)
[2019-08-20] MEDS: ALBUTEROL SO4 0.083% IH SOL 2.5 MG/3 ML VIAL.NEB. NEB PRN (04:20)
[2019-08-20] MEDS: metFORMIN HCL 500 MG TABLET (FP) PO SCH ×2 (07:04→16:47)
[2019-08-20] MEDS: INSULIN SLIDING SCALE (NOVOLOG) 1 VIAL SQ SCH ×4 (07:04→21:14)
[2019-08-20] MEDS ORDERED: METHADONE HCL 40 MG DISPERSABLE TABLET ONE (09:13)
[2019-08-20] MEDS ORDERED: METHADONE HCL 10 MG TABLET ONE (09:13)
[2019-08-20] MEDS: LACTULOSE 20 GM/30 ML UDC (FOR ORAL USE ONLY) PO SCH ×4 (09:38→21:15)
[2019-08-20] MEDS: amLODIPine BESYLATE 10 MG TABLET (FP) PO SCH (09:38)
[2019-08-20] MEDS: NICOTINE 14 MG/24 HOURS TOPICAL PATCH TD SCH (09:38)
[2019-08-20] MEDS: hydrOXYzine PAMOATE 25 MG CAPSULE (FP) PO PRN ×2 (09:38→21:11)
[2019-08-20] MEDS: BUDESONIDE/FORMETEROL FUMARATE 80/4.5 mcg INHALER IH SCH ×2 (09:38→21:12)
[2019-08-20] MEDS: PRENATAL VITAMINS W/ FOLIC ACID TABLET (FP) PO SCH (09:38)
[2019-08-20] MEDS: NICOTINE POLACRILEX 2 MG GUM BUC PRN (09:39)
[2019-08-20] MEDS: ALBUTEROL SO4 HFA INHALER IH PRN (09:39)
[2019-08-20] MEDS ORDERED: METHADONE HCL 10 MG TABLET PO SCH (10:00)
[2019-08-20] MEDS ORDERED: METHADONE 80 MG, METHADONE 10 MG PO SCH (10:00)
[2019-08-20] MEDS ORDERED: INSULIN SLIDING SCALE (NOVOLOG) 1 VIAL SQ ONE (11:37)
[2019-08-20] MEDS: IBUPROFEN 400 MG TABLET (FP) PO PRN (11:59)
[2019-08-20] MEDS ORDERED: PT OWN MED DRAWER 7, Y5N ONE (12:12)
[2019-08-20] MEDS ORDERED: IBUPROFEN 600 MG TABLET (FP) PO PRN (13:40)
--- NOTE | 2019-08-20 13:48 | PN ---
S Progress Note Note: Patient c/o back pain. Given motrin at 400mg. Patient reports no relief. Vital Signs Period Temp Pulse Resp BP Sys/Hernández Pulse Ox Last 24 Hr 97.7 F-98.0 F 97-109 18-20 132-139/69-72 87-95 P/E; General: crying, MSK: steady gait, limited ROM r/t pain Neuro: no cognitive deficits. A/P Back Pain Lidoderm patch ordered Motrin increased Robaxin ordered Will continue to monitor.
[2019-08-20] MEDS: LIDOCAINE 5% TOPICAL PATCH TP SCH (13:52)
[2019-08-20] MEDS: METHOCARBAMOL 500 MG TABLET PO SCH ×3 (14:34→21:11)
[2019-08-20] MEDS: MELATONIN 5 MG TABLETS PO SCH (21:11)
[2019-08-20] MEDS: THIAMINE HCL 100 MG TABLET (FP) PO SCH (21:11)
[2019-08-20] MEDS: LIDOCAINE PATCH REMOVAL MC SCH (21:12)
[2019-08-20] MEDS: SUVOREXANT 10 MG TABLET PO PRN (21:12)
[2019-08-20] MEDS: INSULIN (LEVEMIR) 100 UNITS/ML UNITS SQ SCH (21:15)
[2019-08-20] MEDS: guaiFENesin 200 MG/10 ML 10 ML UNIT-DOSE CUPS PO PRN (21:51)
[2019-08-20] MEDS: IBUPROFEN 600 MG TABLET (FP) PO PRN (21:51)
[2019-08-21] MEDS ORDERED: METHADONE HCL 40 MG DISPERSABLE TABLET ONE (05:33)
[2019-08-21] MEDS ORDERED: METHADONE HCL 10 MG TABLET ONE (05:33)
[2019-08-21] MEDS ORDERED: METHADONE 80 MG, METHADONE 10 MG PO SCH (06:00)
[2019-08-21] MEDS: INSULIN SLIDING SCALE (NOVOLOG) 1 VIAL SQ SCH ×3 (06:13→16:41)
[2019-08-21] MEDS: metFORMIN HCL 500 MG TABLET (FP) PO SCH ×2 (07:50→16:39)
[2019-08-21] MEDS: NICOTINE 14 MG/24 HOURS TOPICAL PATCH TD SCH (10:29)
[2019-08-21] MEDS: LIDOCAINE 5% TOPICAL PATCH TP SCH (10:29)
[2019-08-21] MEDS: LACTULOSE 20 GM/30 ML UDC (FOR ORAL USE ONLY) PO SCH ×4 (10:29→21:01)
[2019-08-21] MEDS: amLODIPine BESYLATE 10 MG TABLET (FP) PO SCH (10:30)
[2019-08-21] MEDS: METHOCARBAMOL 500 MG TABLET PO SCH ×4 (10:30→21:01)
[2019-08-21] MEDS: BUDESONIDE/FORMETEROL FUMARATE 80/4.5 mcg INHALER IH SCH ×2 (10:30→21:02)
[2019-08-21] MEDS: PRENATAL VITAMINS W/ FOLIC ACID TABLET (FP) PO SCH (10:30)
--- NOTE | 2019-08-21 11:12 | PN ---
[facility] Progress Note Note: Group meeting with patient, attended by her counselor Saira Carolina and myself to determine the best time for Irene to take her methadone. Consensus: Methadone will be changed to 9AM Daily, Order changed.
[2019-08-21] MEDS: hydrOXYzine PAMOATE 25 MG CAPSULE (FP) PO PRN (16:41)
[2019-08-21] MEDS: INSULIN (LEVEMIR) 100 UNITS/ML UNITS SQ SCH (21:01)
[2019-08-21] MEDS: MELATONIN 5 MG TABLETS PO SCH (21:01)
[2019-08-21] MEDS: THIAMINE HCL 100 MG TABLET (FP) PO SCH (21:01)
[2019-08-21] MEDS: SUVOREXANT 10 MG TABLET PO PRN (21:02)
[2019-08-21] MEDS: LIDOCAINE PATCH REMOVAL MC SCH (21:02)
[2019-08-22] MEDS: INSULIN SLIDING SCALE (NOVOLOG) 1 VIAL SQ SCH ×2 (06:32→16:35)
[2019-08-22] MEDS: metFORMIN HCL 500 MG TABLET (FP) PO SCH ×2 (06:43→16:32)
[2019-08-22] MEDS ORDERED: METHADONE HCL 10 MG TABLET ONE (08:48)
[2019-08-22] MEDS ORDERED: METHADONE HCL 40 MG DISPERSABLE TABLET ONE (08:48)
[2019-08-22] MEDS: LACTULOSE 20 GM/30 ML UDC (FOR ORAL USE ONLY) PO SCH ×4 (09:07→21:04)
[2019-08-22] MEDS: hydrOXYzine PAMOATE 25 MG CAPSULE (FP) PO PRN ×4 (09:07→21:04)
[2019-08-22] MEDS: PRENATAL VITAMINS W/ FOLIC ACID TABLET (FP) PO SCH (09:07)
[2019-08-22] MEDS: METHOCARBAMOL 500 MG TABLET PO SCH ×4 (09:07→21:04)
[2019-08-22] MEDS: LIDOCAINE 5% TOPICAL PATCH TP SCH (09:07)
[2019-08-22] MEDS: BUDESONIDE/FORMETEROL FUMARATE 80/4.5 mcg INHALER IH SCH ×2 (09:07→21:07)
[2019-08-22] MEDS: METHADONE 80 MG, METHADONE 10 MG PO SCH (09:08)
[2019-08-22] MEDS: amLODIPine BESYLATE 10 MG TABLET (FP) PO SCH (09:08)
[2019-08-22] MEDS: NICOTINE 14 MG/24 HOURS TOPICAL PATCH TD SCH (09:08)
[2019-08-22] MEDS: IBUPROFEN 600 MG TABLET (FP) PO PRN (09:09)
[2019-08-22] MEDS: MENTHOL/PHENOL 1 EACH UD MM PRN ×2 (16:57→22:57)
[2019-08-22] MEDS: THIAMINE HCL 100 MG TABLET (FP) PO SCH (21:03)
[2019-08-22] MEDS: MELATONIN 5 MG TABLETS PO SCH (21:03)
[2019-08-22] MEDS: LIDOCAINE PATCH REMOVAL MC SCH (21:03)
[2019-08-22] MEDS: SUVOREXANT 10 MG TABLET PO PRN (21:04)
[2019-08-22] MEDS: INSULIN (LEVEMIR) 100 UNITS/ML UNITS SQ SCH (21:06)
[2019-08-22] MEDS: ALBUTEROL SO4 HFA INHALER IH PRN (22:54)
[2019-08-23] MEDS: INSULIN SLIDING SCALE (NOVOLOG) 1 VIAL SQ SCH ×2 (06:02→16:34)
[2019-08-23] MEDS: metFORMIN HCL 500 MG TABLET (FP) PO SCH ×2 (07:51→16:31)
[2019-08-23] MEDS ORDERED: METHADONE HCL 10 MG TABLET ONE (08:31)
[2019-08-23] MEDS ORDERED: METHADONE HCL 40 MG DISPERSABLE TABLET ONE (08:32)
[2019-08-23] MEDS: PRENATAL VITAMINS W/ FOLIC ACID TABLET (FP) PO SCH (09:01)
[2019-08-23] MEDS: METHOCARBAMOL 500 MG TABLET PO SCH ×4 (09:01→21:05)
[2019-08-23] MEDS: amLODIPine BESYLATE 10 MG TABLET (FP) PO SCH (09:01)
[2019-08-23] MEDS: NICOTINE 14 MG/24 HOURS TOPICAL PATCH TD SCH (09:01)
[2019-08-23] MEDS: LACTULOSE 20 GM/30 ML UDC (FOR ORAL USE ONLY) PO SCH ×4 (09:01→21:05)
[2019-08-23] MEDS: BUDESONIDE/FORMETEROL FUMARATE 80/4.5 mcg INHALER IH SCH ×2 (09:02→21:06)
[2019-08-23] MEDS: METHADONE 80 MG, METHADONE 10 MG PO SCH (09:02)
[2019-08-23] MEDS: LIDOCAINE 5% TOPICAL PATCH TP SCH (09:02)
[2019-08-23] MEDS: hydrOXYzine PAMOATE 25 MG CAPSULE (FP) PO PRN ×4 (10:52→21:05)
[2019-08-23] MEDS ORDERED: TETRAHYDROZOLINE HCL EYE DROPS OU PRN (12:15)
--- NOTE | 2019-08-23 12:18 | PN ---
[facility] Progress Note Note: Vital Signs Temperature 98.8 F 08/23/19 08:50 Pulse Rate 103 H 08/23/19 08:50 Respiratory Rate 17 08/23/19 08:50 Blood Pressure 151/89 08/23/19 08:50 O2 Sat by Pulse Oximetry (%) 93 L 08/23/19 05:56 Laboratory Last Values POC Glucometer 99 UNITS (80-120) 08/23/19 05:59 Ammonia 66.50 umol/L (11-32) H 08/19/19 08:30 Patient with hx of dry eyes, was receiving vasine while in detox, order for vasine for both eyes place, continue to monitor
[2019-08-23] MEDS: INSULIN (LEVEMIR) 100 UNITS/ML UNITS SQ SCH (21:04)
[2019-08-23] MEDS: LIDOCAINE PATCH REMOVAL MC SCH (21:05)
[2019-08-23] MEDS: SUVOREXANT 10 MG TABLET PO PRN (21:05)
[2019-08-23] MEDS: THIAMINE HCL 100 MG TABLET (FP) PO SCH (21:05)
[2019-08-23] MEDS: MELATONIN 5 MG TABLETS PO SCH (21:05)
[2019-08-24] MEDS: metFORMIN HCL 500 MG TABLET (FP) PO SCH ×2 (06:11→16:52)
[2019-08-24] MEDS: INSULIN SLIDING SCALE (NOVOLOG) 1 VIAL SQ SCH ×2 (06:11→16:54)
[2019-08-24] MEDS: ALBUTEROL SO4 0.083% IH SOL 2.5 MG/3 ML VIAL.NEB. NEB PRN (06:34)
[2019-08-24] MEDS ORDERED: METHADONE HCL 40 MG DISPERSABLE TABLET ONE (08:48)
[2019-08-24] MEDS ORDERED: METHADONE HCL 10 MG TABLET ONE (08:48)
[2019-08-24] MEDS: METHADONE 80 MG, METHADONE 10 MG PO SCH (09:11)
[2019-08-24] MEDS: hydrOXYzine PAMOATE 25 MG CAPSULE (FP) PO PRN ×4 (09:11→21:26)
[2019-08-24] MEDS: LIDOCAINE 5% TOPICAL PATCH TP SCH (09:11)
[2019-08-24] MEDS: METHOCARBAMOL 500 MG TABLET PO SCH ×4 (09:11→21:21)
[2019-08-24] MEDS: NICOTINE 14 MG/24 HOURS TOPICAL PATCH TD SCH (09:11)
[2019-08-24] MEDS: amLODIPine BESYLATE 10 MG TABLET (FP) PO SCH (09:11)
[2019-08-24] MEDS: LACTULOSE 20 GM/30 ML UDC (FOR ORAL USE ONLY) PO SCH ×4 (09:12→22:38)
[2019-08-24] MEDS: PRENATAL VITAMINS W/ FOLIC ACID TABLET (FP) PO SCH (09:12)
[2019-08-24] MEDS: ALBUTEROL SO4 HFA INHALER IH PRN (09:14)
[2019-08-24] MEDS: BUDESONIDE/FORMETEROL FUMARATE 80/4.5 mcg INHALER IH SCH ×2 (10:41→21:21)
[2019-08-24] MEDS: NICOTINE POLACRILEX 2 MG GUM BUC PRN (15:39)
--- NOTE | 2019-08-24 18:08 | PN ---
[facility] Progress Note Note: Psychiatry Attending's note : Nurse called. Issue : renewal of belsomra. Ms Goyal is known to quality analyst/technical writer. Chart reviewed. Medication is confirmed. Effective and well tolerated by the patient. Belsomra 10 mg po hs prn. Renewed at patient's request. Informed consent (verbal) granted on admission.
[2019-08-24] MEDS: MELATONIN 5 MG TABLETS PO SCH (21:21)
[2019-08-24] MEDS: THIAMINE HCL 100 MG TABLET (FP) PO SCH (21:21)
[2019-08-24] MEDS: SUVOREXANT 10 MG TABLET PO PRN (21:26)
[2019-08-24] MEDS: INSULIN (LEVEMIR) 100 UNITS/ML UNITS SQ SCH (22:39)
[2019-08-24] MEDS: LIDOCAINE PATCH REMOVAL MC SCH (23:03)
[2019-08-25] MEDS: metFORMIN HCL 500 MG TABLET (FP) PO SCH ×2 (07:05→17:13)
[2019-08-25] MEDS: INSULIN SLIDING SCALE (NOVOLOG) 1 VIAL SQ SCH ×2 (07:05→17:15)
[2019-08-25] MEDS ORDERED: INSULIN SLIDING SCALE (NOVOLOG) 1 VIAL SQ ONE (07:05)
[2019-08-25] MEDS ORDERED: METHADONE HCL 40 MG DISPERSABLE TABLET ONE (09:12)
[2019-08-25] MEDS ORDERED: METHADONE HCL 10 MG TABLET ONE (09:12)
[2019-08-25] MEDS: PRENATAL VITAMINS W/ FOLIC ACID TABLET (FP) PO SCH (09:20)
[2019-08-25] MEDS: BUDESONIDE/FORMETEROL FUMARATE 80/4.5 mcg INHALER IH SCH ×2 (09:20→23:00)
[2019-08-25] MEDS: METHADONE 80 MG, METHADONE 10 MG PO SCH (09:20)
[2019-08-25] MEDS: hydrOXYzine PAMOATE 25 MG CAPSULE (FP) PO PRN ×4 (09:20→21:55)
[2019-08-25] MEDS: amLODIPine BESYLATE 10 MG TABLET (FP) PO SCH (09:20)
[2019-08-25] MEDS: NICOTINE 14 MG/24 HOURS TOPICAL PATCH TD SCH (09:21)
[2019-08-25] MEDS: LACTULOSE 20 GM/30 ML UDC (FOR ORAL USE ONLY) PO SCH ×4 (09:21→21:56)
[2019-08-25] MEDS: LIDOCAINE 5% TOPICAL PATCH TP SCH (09:21)
[2019-08-25] MEDS: METHOCARBAMOL 500 MG TABLET PO SCH ×4 (09:21→21:50)
[2019-08-25] MEDS ORDERED: ALBUTEROL SO4 0.042% IH SOL 1.25 MG/3 ML VIAL.NEB NEB PRN (12:09)
[2019-08-25] MEDS: guaiFENesin 200 MG/10 ML 10 ML UNIT-DOSE CUPS PO PRN (13:27)
[2019-08-25] MEDS: THIAMINE HCL 100 MG TABLET (FP) PO SCH (21:50)
[2019-08-25] MEDS: SUVOREXANT 10 MG TABLET PO PRN (21:55)
[2019-08-25] MEDS: LIDOCAINE PATCH REMOVAL MC SCH (23:00)
[2019-08-25] MEDS: MELATONIN 5 MG TABLETS PO SCH (23:00)
[2019-08-25] MEDS: INSULIN (LEVEMIR) 100 UNITS/ML UNITS SQ SCH (23:00)
[2019-08-26] MEDS: INSULIN SLIDING SCALE (NOVOLOG) 1 VIAL SQ SCH ×2 (06:52→16:46)
[2019-08-26] MEDS: metFORMIN HCL 500 MG TABLET (FP) PO SCH ×2 (07:36→16:44)
[2019-08-26] MEDS ORDERED: METHADONE HCL 40 MG DISPERSABLE TABLET ONE (08:46)
[2019-08-26] MEDS ORDERED: METHADONE HCL 10 MG TABLET ONE (08:46)
[2019-08-26] MEDS: BUDESONIDE/FORMETEROL FUMARATE 80/4.5 mcg INHALER IH SCH ×2 (09:00→21:12)
[2019-08-26] MEDS: LIDOCAINE 5% TOPICAL PATCH TP SCH (09:01)
[2019-08-26] MEDS: PRENATAL VITAMINS W/ FOLIC ACID TABLET (FP) PO SCH (09:01)
[2019-08-26] MEDS: hydrOXYzine PAMOATE 25 MG CAPSULE (FP) PO PRN ×3 (09:01→21:08)
[2019-08-26] MEDS: LACTULOSE 20 GM/30 ML UDC (FOR ORAL USE ONLY) PO SCH ×4 (09:01→21:08)
[2019-08-26] MEDS: NICOTINE 14 MG/24 HOURS TOPICAL PATCH TD SCH (09:01)
[2019-08-26] MEDS: amLODIPine BESYLATE 10 MG TABLET (FP) PO SCH (09:01)
[2019-08-26] MEDS: METHOCARBAMOL 500 MG TABLET PO SCH ×4 (09:02→21:08)
[2019-08-26] MEDS: METHADONE 80 MG, METHADONE 10 MG PO SCH (09:02)
[2019-08-26] MEDS: guaiFENesin 200 MG/10 ML 10 ML UNIT-DOSE CUPS PO PRN ×2 (09:02→23:04)
[2019-08-26] MEDS: ALBUTEROL SO4 HFA INHALER IH PRN (09:03)
[2019-08-26] MEDS: NICOTINE POLACRILEX 2 MG GUM BUC PRN (09:06)
[2019-08-26] MEDS ORDERED: PT OWN MED DRAWER 7, Y5N ONE (10:27)
[2019-08-26] MEDS: IBUPROFEN 600 MG TABLET (FP) PO PRN (12:09)
--- NOTE | 2019-08-26 13:15 | PN ---
[facility] Progress Note Note: Laboratory Tests 08/13/19 08/13/19 08/14/19 16:33 21:11 06:17 POC Glucometer 206 162 66 Ammonia 08/14/19 08/14/19 08/14/19 07:52 11:16 16:47 POC Glucometer 123 174 232 Ammonia 08/14/19 08/15/19 08/15/19 21:19 05:50 08:00 POC Glucometer 113 253 Ammonia 89.50 H 08/15/19 08/15/19 08/15/19 11:23 16:53 20:32 POC Glucometer 185 156 123 Ammonia 08/16/19 08/16/19 08/16/19 06:07 11:26 16:42 POC Glucometer 291 92 387 Ammonia 08/16/19 08/17/19 08/17/19 21:11 07:10 11:42 POC Glucometer 121 228 151 Ammonia 08/17/19 08/17/19 08/18/19 16:39 20:58 06:04 POC Glucometer 246 164 116 Ammonia 08/18/19 08/18/19 08/18/19 11:30 16:40 21:14 POC Glucometer 390 239 335 Ammonia 08/19/19 08/19/19 08/19/19 06:12 08:30 11:33 POC Glucometer 170 409 Ammonia 66.50 H 08/19/19 08/19/19 08/20/19 17:13 20:19 06:12 POC Glucometer 97 170 129 Ammonia 08/20/19 08/20/19 08/20/19 11:36 16:48 21:13 POC Glucometer 242 134 104 Ammonia 08/21/19 08/21/19 08/21/19 05:58 13:33 16:40 POC Glucometer 85 111 131 Ammonia 08/21/19 08/22/19 08/22/19 20:59 06:31 16:32 POC Glucometer 171 126 287 Ammonia 08/22/19 08/23/19 08/23/19 21:06 05:59 07:30 POC Glucometer 122 99 Ammonia 104.20 H 08/23/19 08/23/19 08/24/19 16:32 21:03 05:54 POC Glucometer 153 112 111 Ammonia 08/24/19 08/24/19 08/25/19 16:30 22:40 06:05 POC Glucometer 198 219 221 Ammonia 08/25/19 08/25/19 08/26/19 16:43 21:53 06:15 POC Glucometer 190 122 89 Ammonia PATIENT HAS ELEVATED AMMONIA LEVEL OF 104.20 ON 08/23/2019. ASYMPTOMATIC. REMAINS ALERT AND ORIENTED X 3. WILL CONTINUE LACTULOSE AND REPEAT LEVEL IN AM.
[2019-08-26] MEDS: THIAMINE HCL 100 MG TABLET (FP) PO SCH (21:08)
[2019-08-26] MEDS: LIDOCAINE PATCH REMOVAL MC SCH (21:08)
[2019-08-26] MEDS: MELATONIN 5 MG TABLETS PO SCH (21:08)
[2019-08-26] MEDS: SUVOREXANT 10 MG TABLET PO PRN (21:09)
[2019-08-26] MEDS: INSULIN (LEVEMIR) 100 UNITS/ML UNITS SQ SCH (21:11)
[2019-08-26] MEDS ORDERED: INSULIN (LEVEMIR) 100 UNITS/ML UNITS SQ ONE (21:48)
[2019-08-27] MEDS: INSULIN SLIDING SCALE (NOVOLOG) 1 VIAL SQ SCH (07:14)
[2019-08-27] MEDS: metFORMIN HCL 500 MG TABLET (FP) PO SCH (07:14)
[2019-08-27] MEDS ORDERED: METHADONE HCL 10 MG TABLET ONE (08:47)
[2019-08-27] MEDS ORDERED: METHADONE HCL 40 MG DISPERSABLE TABLET ONE (08:48)
--- NOTE | 2019-08-27 09:00 | DS ---
[facility] - [facility] Admission Date: 08/13/19 Discharge Date: 08/27/19 - History Present History: Alcohol dependence, Cocaine dependence Pertinent Past History: this 58 years old female with alcohol dependence,cocaine abused,mmtp last medicated 07/22/2019 30 mgs. patient has had several admissions to [facility] - Discharge Physical Exam Vital Signs: Vital Signs Temperature 98.2 F 08/27/19 07:03 Pulse Rate 103 H 08/27/19 07:03 Respiratory Rate 08/27/19 07:03 Blood Pressure 152/77 08/27/19 07:03 O2 Sat by Pulse Oximetry (%) 88 L 08/27/19 07:03 Pertinent Admission Physical Exam Findings: - Physical General Appearance: No apparent distress HEENTM: Normocelphaic Respiratory: Clear Breath Sounds, No Respiratory Distress Neck: Supple, Trachea in good position Cardiology: s1 s2 Abdominal:+ Bowel Sounds, Non Tender, Soft Musculoskeletal: full ROM - Treatment Discharge Condition: Outpatient referral accepted (medically stable for discharge. Patient will go to [facility]) - Medication Discharge Medications: Ambulatory Orders Insulin (Novolog) [Novolog -] 30 units SQ TID 07/19/18 Simethicone [Mylicon -] 80 mg PO Q4H PRN tab.chew 08/13/19 Albuterol Sulfate Inhaler - [Ventolin HFA Inhaler -] 2 inh PO Q4H PRN #1 inhaler 08/26/19 Amlodipine Besylate [Norvasc -] 10 mg PO DAILY #14 tablet 08/26/19 Budesonide/Formeterol Fumarate [SYMBICORT 80/4.5mcg -] 2 puff IH BID #1 inhaler 08/26/19 Insulin Glargine,Hum.rec.anlog [Lantus Solostar PEN -] 10 units SQ HS #1 syr 08/26/19 Tetrahydrozoline HCl [Visine -] 1 drop OU BID PRN #1 bottle 08/26/19 metFORMIN HCL [Metformin HCl] 500 mg PO BID #30 tablet 08/26/19 Lactulose (Oral Use) [Cephulac -] 20 gm PO QID #60 udc 08/27/19 - Medication-Assisted Treatment (MAT) Medication-Assisted Treatment (MAT): Yes MAT Follow-up Referral: Methadone MAT at [facility] - Discharge Instructions Diet, activity, other medical instructions: Diet: as tolerated Activity: as tolerated Other medical instructions: Please follow up with Aftercare referral. - Diagnosis (1) Alcohol dependence, uncomplicated Current Visit: Yes Status: Chronic (2) Cocaine abuse Current Visit: Yes Status: Chronic (3) Methadone maintenance therapy patient Current Visit: Yes Status: Chronic - Follow-up Referral Minutes to complete discharge: 20 - AMA Did Patient Leave Against Medical Advice: No
[2019-08-27] MEDS: amLODIPine BESYLATE 10 MG TABLET (FP) PO SCH (09:01)
[2019-08-27] MEDS: PRENATAL VITAMINS W/ FOLIC ACID TABLET (FP) PO SCH (09:02)
[2019-08-27] MEDS: LACTULOSE 20 GM/30 ML UDC (FOR ORAL USE ONLY) PO SCH (09:02)
[2019-08-27] MEDS: LIDOCAINE 5% TOPICAL PATCH TP SCH (09:02)
[2019-08-27] MEDS: METHADONE 80 MG, METHADONE 10 MG PO SCH (09:02)
[2019-08-27] MEDS: NICOTINE 14 MG/24 HOURS TOPICAL PATCH TD SCH (09:02)
[2019-08-27] MEDS: METHOCARBAMOL 500 MG TABLET PO SCH (09:03)
[2019-08-27] MEDS: BUDESONIDE/FORMETEROL FUMARATE 80/4.5 mcg INHALER IH SCH (09:06)
[2019-08-27 09:44] VITALS: BP 142/78; PULSE 122; TEMP 97.6
[2019-08-27] MEDS ORDERED: PT OWN MED DRAWER 7, Y5N ONE (10:00)
== END 2019-08-27 10:03 | disposition home or self-care (01) | DRG 772 ==
LOC: YASAS 11:27 → Y3W 11:28
PROVIDERS: ADMIT Allergy & Immunology; ATTEND Allergy & Immunology
PROC: HZ42ZZZ Group Counseling for Substance Abuse Treatment, Cognitive-Behavioral (ICD-10-PCS; principal; 2019-08-13)
DX: F10.20 Alcohol dependence, uncomplicated (principal); F11.20 Opioid dependence, uncomplicated; F14.20 Cocaine dependence, uncomplicated; F17.210 Nicotine dependence, cigarettes, uncomplicated; F19.282 Other psychoactive substance dependence with psychoactive substance-induced sleep disorder; F19.24 Other psychoactive substance dependence with psychoactive substance-induced mood disorder; F39 Unspecified mood [affective] disorder; F41.9 Anxiety disorder, unspecified; E11.9 Type 2 diabetes mellitus without complications; Z79.4 Long term (current) use of insulin; I10 Essential (primary) hypertension; J45.909 Unspecified asthma, uncomplicated; B18.2 Chronic viral hepatitis C; M54.89 Other dorsalgia; N89.8 Other specified noninflammatory disorders of vagina; L40.9 Psoriasis, unspecified; Z98.890 Other specified postprocedural states; Z90.49 Acquired absence of other specified parts of digestive tract; Z91.018 Allergy to other foods
CPT/HCPCS: 82140; 82962; 93005; 93010; 94640; J0735